=== PATIENT | female | born 1940 | race Caucasian/White ===

== ENCOUNTER → 2016-08-20 | Outpatient (CLI) | payer BC ==
[~2016-08-20] MED LIST: ATEN100T PO; GLIP-199 PO; LOSA1TAB PO; METF1000 PO; PREDPOW63 PO
== END | disposition home or self-care (01) ==
LOC: C.LABBC 10:49
PROVIDERS: ATTEND Internal Medicine Rheumatology
DX: M35.3 Polymyalgia rheumatica (principal); Z51.81 Encounter for therapeutic drug level monitoring; Z79.52 Long term (current) use of systemic steroids

== ENCOUNTER → 2016-08-24 | Outpatient (CLI) | payer BC ==
[2016-08-24 13:15] LABS: BASO % 0.2 %; BASO ABS # 0.03 K/uL (0-0.2); COMPLETE YES; EOS % 1.1 %; HEMATOCRIT 39.4 % (37-47); IG% 0.5 %; LYMPH % 12.6 %; LYMPH ABS # 1.88 K/uL (1.2-3.4); MEAN CELL VOLUME 83.8 fL (80-100); MEAN CORPUSCULAR HEMOGLOBIN 26.8 pg (25-34); MEAN PLATELET VOLUME 10.6 fL (7.4-10.4); MONO % 7.1 %; NEUT % 78.5 %; PLATELET COUNT 281 K/uL (130-400); WHITE BLOOD COUNT 14.98 K/uL (4.8-10.8)
[2016-08-24 13:25] LABS: ALT/SGPT 13 U/L (12-78)
[2016-08-24 13:28] LABS: ALKALINE PHOSPHATASE 82 U/L (45-117); AST/SGOT 14 U/L (15-37)
== END | disposition home or self-care (01) ==
LOC: C.LAB1850 11:36
PROVIDERS: ATTEND Internal Medicine Rheumatology
DX: R70.0 Elevated erythrocyte sedimentation rate (principal)

== ENCOUNTER → 2016-10-11 | Outpatient (CLI) | payer BC ==
[2016-10-11 11:27] LABS: BASO % 0.4 %; BASO ABS # 0.04 K/uL (0-0.2); COMPLETE YES; EOS % 2.7 %; HEMATOCRIT 41.4 % (37-47); IG% 0.3 %; LYMPH % 34.9 %; LYMPH ABS # 3.73 K/uL (1.2-3.4); MEAN CELL VOLUME 84.7 fL (80-100); MEAN CORPUSCULAR HEMOGLOBIN 26.8 pg (25-34); MEAN CORPUSCULAR HGB CONC 31.6 g/dl (32-36); MEAN PLATELET VOLUME 10.1 fL (7.4-10.4); MONO % 6.1 %; NEUT % 55.6 %; PLATELET COUNT 274 K/uL (130-400); RED BLOOD COUNT 4.89 M/uL (4.2-5.4); WHITE BLOOD COUNT 10.68 K/uL (4.8-10.8)
[2016-10-11 11:42] LABS: ALT/SGPT 19 U/L (12-78); AST/SGOT 12 U/L (15-37); CREATININE 0.96 mg/dl (0.60-1.20)
[2016-10-11 11:44] LABS: ALKALINE PHOSPHATASE 81 U/L (45-117)
== END | disposition home or self-care (01) ==
LOC: C.LAB1850 10:21
PROVIDERS: ATTEND Internal Medicine Rheumatology
DX: Z79.52 Long term (current) use of systemic steroids (principal)

== ENCOUNTER → 2016-12-03 | Outpatient (CLI) | payer BC | END | disposition home or self-care (01) | LOC: C.LAB1850 11:05 | PROVIDERS: ATTEND Internal Medicine Rheumatology | DX: R70.0 Elevated erythrocyte sedimentation rate (principal); M35.3 Polymyalgia rheumatica; Z51.81 Encounter for therapeutic drug level monitoring; Z79.52 Long term (current) use of systemic steroids ==

== ENCOUNTER → 2016-12-14 | Outpatient (CLI) | payer BC ==
[2016-12-14 16:03] LABS: ALT/SGPT 22 U/L (12-78); AST/SGOT 15 U/L (15-37); BLOOD UREA NITROGEN 20 mg/dl (7-18); BUN/CREATININE RATIO 22.2 (10-20); CALCIUM 9.2 mg/dl (8.5-10.1); CARBON DIOXIDE 30 mmol/L (21-32); CHLORIDE 105 mmol/L (98-107); GLUCOSE 174 mg/dl (70-99); POTASSIUM 4.2 mmol/L (3.5-5.1); SODIUM 141 mmol/L (136-145); URIC ACID 4.5 mg/dl (2.6-7.2)
[2016-12-14 16:06] LABS: ALB/GLOB RATIO 0.8 (0.9-2); ALKALINE PHOSPHATASE 86 U/L (45-117)
[2016-12-14 16:17] LABS: RATIO 12.7 mcg/mg (0-30.0)
[2016-12-15 07:29] LABS: ESTIMATED AVERAGE GLUCOSE 212 mg/dl; HA1C FLAG Normal (Normal)
== END | disposition home or self-care (01) ==
LOC: C.LAB1850 14:25
PROVIDERS: ATTEND Internal Medicine
DX: E11.65 Type 2 diabetes mellitus with hyperglycemia (principal); E53.8 Deficiency of other specified B group vitamins; M19.90 Unspecified osteoarthritis, unspecified site

== ENCOUNTER → 2016-12-18 | Outpatient (CLI) | payer BC ==
--- NOTE | 2016-12-18 15:31 | DIAGNOSTIC IMAGING REPORT ---
LEFT HAND MIN 3 VIEWS ROUTINE CLINICAL HISTORY: M79.643 Pain of handR70.0 ESR prnngbM70.3 Polymyalgia rheumatica pain COMPARISON: None. DISCUSSION: Moderate generalized degenerative change throughout. Mild periarticular osteopenia. Several marginal erosions. There is no evidence for soft tissue swelling. IMPRESSION: Findings suggesting rheumatoid change. Electronically signed by: Jacky Tomas M.D. 12/18/2016 3:30 PM Dictated Date/Time: 12/18/2016 3:28 PM
[2016-12-18 17:38] LABS: C-REACTIVE PROTEIN 1.01 mg/dl (0-0.29); RHEUMATOID FACTOR < 10.0 U/mL (0-15)
== END | disposition home or self-care (01) ==
LOC: C.RAD1850 15:07
PROVIDERS: ATTEND Internal Medicine Rheumatology
DX: M35.3 Polymyalgia rheumatica (principal); M79.643 Pain in unspecified hand; R70.0 Elevated erythrocyte sedimentation rate; Z79.52 Long term (current) use of systemic steroids

== ENCOUNTER → 2017-07-22 | Outpatient (CLI) | payer BC ==
[2017-07-22 14:41] LABS: BASO % 0.3 %; BASO ABS # 0.03 K/uL (0-0.2); COMPLETE YES; EOS % 2.8 %; HEMATOCRIT 42.6 % (37-47); IG% 0.2 %; LYMPH ABS # 2.55 K/uL (1.2-3.4); MEAN CELL VOLUME 85.5 fL (80-100); MEAN CORPUSCULAR HEMOGLOBIN 27.3 pg (25-34); MEAN CORPUSCULAR HGB CONC 31.9 g/dl (32-36); MEAN PLATELET VOLUME 10.2 fL (7.4-10.4); MONO % 5.5 %; NEUT % 67.2 %; PLATELET COUNT 280 K/uL (130-400); RED BLOOD COUNT 4.98 M/uL (4.2-5.4); WHITE BLOOD COUNT 10.64 K/uL (4.8-10.8)
[2017-07-22 14:46] LABS: URINE APPEARANCE CLEAR (CLEAR); URINE BILIRUBIN NEG (NEG); URINE COLOR YELLOW; URINE EPITHELIAL CELL AUTO >30 /lpf (0-5); URINE NITRITE NEG (NEG); URINE SPECIFIC GRAVITY 1.024 (1.000-1.030); UROBILINOGEN NEG (NEG)
[2017-07-22 14:51] LABS: MANUAL MICROSCOPIC REQUIRED? NO; REVIEW REQ? NO
[2017-07-22 15:06] LABS: ESTIMATED AVERAGE GLUCOSE 212 mg/dl; HA1C FLAG Normal (Normal)
[2017-07-22 15:10] LABS: ALT/SGPT 21 U/L (12-78); BLOOD UREA NITROGEN 19 mg/dl (7-18); BUN/CREATININE RATIO 21.1 (10-20); CARBON DIOXIDE 26 mmol/L (21-32); CHLORIDE 105 mmol/L (98-107); CHOLESTEROL 205 mg/dl (0-200); CREATININE 0.92 mg/dl (0.60-1.20); GLUCOSE 161 mg/dl (70-99); POTASSIUM 4.1 mmol/L (3.5-5.1); SODIUM 138 mmol/L (136-145); TRIGLYCERIDES 110 mg/dl (0-150); VERY LOW DENSITY LIPOPROT CALC 22 mg/dl
[2017-07-22 15:11] LABS: RATIO 19.1 mcg/mg (0-30.0)
[2017-07-22 15:13] LABS: ALB/GLOB RATIO 0.7 (0.9-2); ALKALINE PHOSPHATASE 94 U/L (45-117); AST/SGOT 17 U/L (15-37); CHOLESTEROL/HDL RATIO 3.5; HDL CHOLESTEROL 59 mg/dl; LDL CHOLESTEROL CALCULATED 124 mg/dl
== END | disposition home or self-care (01) ==
LOC: C.LAB1850 13:18
PROVIDERS: ATTEND Internal Medicine
DX: Z51.81 Encounter for therapeutic drug level monitoring (principal); E11.65 Type 2 diabetes mellitus with hyperglycemia; Z79.52 Long term (current) use of systemic steroids; Z79.899 Other long term (current) drug therapy; E53.8 Deficiency of other specified B group vitamins

== ENCOUNTER → 2017-09-24 | Outpatient (CLI) | payer BC ==
--- NOTE | 2017-09-24 15:34 | DIAGNOSTIC IMAGING REPORT ---
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 Mild pulmonary vascular congestion without overt pulmonary edema. Atherosclerosis of the aorta. There is no pneumothorax, or pleural effusion. Patchy subsegmental bibasilar opacities are noted. Calcifications of the right upper abdomen suggest cholelithiasis. Acute mildly displaced fracture involves the lateral aspects of the right sixth and seventh ribs with probable acute nondisplaced fracture involving the anterolateral fifth rib. IMPRESSION: 1. Acute mildly displaced fractures involve the lateral aspects of the right sixth and seventh ribs with probable acute nondisplaced fracture involving the anterolateral right fifth rib. 2. Cardiomegaly with mild pulmonary vascular congestion. No pneumothorax. 3. Subsegmental bibasilar opacities suggest atelectasis. 4. Calcifications of the right upper abdomen suggest cholelithiasis. The above report was generated using voice recognition software. It may contain grammatical, syntax or spelling errors. Electronically signed by: Jc Simpson M.D. 09/24/2017 3:33 PM Dictated Date/Time: 09/24/2017 3:28 PM
== END | disposition home or self-care (01) ==
LOC: C.RAD1850 14:55
PROVIDERS: ATTEND Internal Medicine
DX: R07.81 Pleurodynia (principal)

== ENCOUNTER → 2017-09-30 | Outpatient (CLI) | payer BC ==
--- NOTE | 2017-09-30 11:41 | DIAGNOSTIC IMAGING REPORT ---
R RIBS UNILATERAL WITH PA CHEST CLINICAL HISTORY: R07.81 right rib pain COMPARISON STUDY: September 24, 2017 FINDINGS: The heart remains enlarged. There is stable interstitial thickening. Fractures involving the right fifth sixth and seventh ribs are again evident. No pneumothorax is visualized. There is no lobar consolidation IMPRESSION: 1. Fractures of the right fifth, sixth, and seventh ribs are again visualized. 2. No evidence of pneumothorax 3. Stable interstitial thickening/edema Electronically signed by: Gonzalo Darden M.D. 09/30/2017 11:40 AM Dictated Date/Time: 09/30/2017 11:37 AM
== END | disposition home or self-care (01) ==
LOC: C.RAD1850 11:11
PROVIDERS: ATTEND Internal Medicine
DX: R07.81 Pleurodynia (principal)

== ENCOUNTER → 2017-11-19 | Outpatient (CLI) | payer BC ==
[2017-11-19 12:24] LABS: BASO % 0.3 %; BASO ABS # 0.03 K/uL (0-0.2); EOS % 1.9 %; HEMATOCRIT 41.5 % (37-47); HEMOGLOBIN 13.8 g/dL (12.0-16.0); IG# 0.03 K/uL (0.00-0.02); LYMPH % 21.7 %; LYMPH ABS # 2.32 K/uL (1.2-3.4); MEAN CELL VOLUME 85.9 fL (80-100); MEAN CORPUSCULAR HEMOGLOBIN 28.6 pg (25-34); MEAN CORPUSCULAR HGB CONC 33.3 g/dl (32-36); MONO % 6.5 %; NEUT % 69.3 %; NEUT ABS # 7.42 K/uL (1.4-6.5); PLATELET COUNT 266 K/uL (130-400); RED CELL DISTRIBUTION WIDTH CV 16.9 % (11.5-14.5); RED CELL DISTRIBUTION WIDTH SD 52.6 fL (36.4-46.3)
[2017-11-19 13:56] LABS: CALCIUM 9.3 mg/dl (8.5-10.1)
[2017-11-19 14:04] LABS: ALBUMIN 3.2 gm/dl (3.4-5.0); TOTAL PROTEIN 7.5 gm/dl (6.4-8.2)
== END | disposition home or self-care (01) ==
LOC: C.LAB1850 11:17
PROVIDERS: ATTEND Internal Medicine Rheumatology
DX: R70.0 Elevated erythrocyte sedimentation rate (principal); Z79.52 Long term (current) use of systemic steroids; M06.9 Rheumatoid arthritis, unspecified; Z79.899 Other long term (current) drug therapy; M35.3 Polymyalgia rheumatica; E13.9 Other specified diabetes mellitus without complications; S22.49XA Multiple fractures of ribs, unspecified side, initial encounter for closed fracture; X58.XXXA Exposure to other specified factors, initial encounter

== ENCOUNTER → 2017-12-09 | Outpatient (CLI) | payer BC | END | disposition home or self-care (01) | LOC: C.MAMM 13:45 | PROVIDERS: ATTEND Internal Medicine Rheumatology | DX: M35.3 Polymyalgia rheumatica (principal); E13.9 Other specified diabetes mellitus without complications; M80.00XA Age-related osteoporosis with current pathological fracture, unspecified site, initial encounter for fracture; M06.9 Rheumatoid arthritis, unspecified; Z79.899 Other long term (current) drug therapy; S22.49XA Multiple fractures of ribs, unspecified side, initial encounter for closed fracture; X58.XXXA Exposure to other specified factors, initial encounter ==

== ENCOUNTER 2020-02-11 07:01 | Inpatient (IN) ==
[2020-02-11] MEDS ORDERED: ASPIRIN 81 MG CHEW ONE (07:28)
[2020-02-11] MEDS ORDERED: MIDAZOLAM HCL 1 MG/ML 2ML VIAL ONE (07:40)
[2020-02-11] MEDS ORDERED: fentaNYL citrate 100 MCG/2 ML VIAL ONE (07:40)
[2020-02-11] MEDS ORDERED: NiCARDipine HCL INJ 2.5 MG/ML 10 ML AMP ONE (07:40)
[2020-02-11] MEDS ORDERED: HEPARIN (PORCINE) 1000 UNIT/ML 10 ML (CATH LAB USE ONLY) ONE ×2 (07:40→08:56)
[2020-02-11] MEDS ORDERED: NITROGLYCERIN/D5W 100MCG/ML 20ML SYR ONE (07:41)
--- NOTE | 2020-02-11 08:00 | Pre Anesthesia Assessment ---
Date of Service February 11, 2020 Pre Sedation Assessment Vital Signs Temp Pulse Resp BP 02/11/20 07:10 98.1 F 80 20 169/82 H Cardiovascular RRR, no murmur, no edema Respiratory normal respiratory effort, lungs clear to auscultation Pre-Sedation Airway Assessment Smoking Status: Never smoker Hx Sleep Apnea: No Hx Difficult Intubation: No Short, Thick Neck: No Oral Cavity: + Dentures Mallampati Class: I ASA: ASA4 NPO Status Date of Last Intake of Fluids: 02/10/20 Date of Last Intake of Solid Food: 02/10/20 Procedure Planning Contraindications for Sedation: none Current Medications Reviewed: Yes Notes The planned sedation has been discussed with the patient. Informed Consent was obtained. I have identified the patient, determined the appropriateness of sedation and have assessed the patient immediately prior to the procedure. All medicine(s) and interventions are by my order.
--- NOTE | 2020-02-11 08:00 | History & Physical Report ---
Date of Service February 11, 2020 Assessment & Plan (1) Coronary artery disease: Proceed with planned multivessel PCI History of Present Illness Primary Care Provider: Gilbert Posadas MD Mrs. Alonso is a 79 year old female with a medical history significant for coronary artery disease status post mid LAD PCI (1999), hypertension, dyslipidemia, type 2 diabetes, history of right lower extremity DVT, polymyalgia rheumatica, chronic venous insufficiency and peripheral arterial disease. She has known multivessel CAD and was previously referred for CABG which she ultimately declined. She continues to have limiting dyspnea on exertion and presents today for planned multivessel PCI. Allergies Allergy/AdvReac Type Severity Reaction Status Date / Time enalapril AdvReac Intermediate Cough Verified 02/08/20 08:02 Home Medications Home Medications Medication Instructions Recorded Confirmed Type aspirin 81 mg tablet,delayed 81 mg PO QAM #30 tab 02/20/19 02/11/20 History release cyanocobalamin (vitamin B-12) 1,000 mcg SL DAILY #30 tab 02/20/19 02/11/20 History 1,000 mcg sublingual tablet ferrous gluconate 325 mg (37 mg 325 mg PO Q OTHER DAY tab 03/18/19 02/11/20 History iron) tablet methotrexate sodium 2.5 mg tablet 12.5 mg PO WK tab 06/04/19 02/11/20 History metoprolol succinate 100 mg 100 mg PO BID #180 tab 06/04/19 02/11/20 Rx tablet,extended release 24 hr blood sugar diagnostic #100 ea 07/31/19 02/01/20 Rx blood-glucose meter #1 ea 07/31/19 02/01/20 Rx lancets 33 gauge #100 ea 07/31/19 02/01/20 Rx losartan 25 mg tablet 25 mg PO QAM tab 08/27/19 02/11/20 History folic acid 1 mg PO QAM 09/01/19 02/11/20 History atorvastatin 40 mg tablet 40 mg PO QPM #90 tab 10/14/19 02/11/20 Rx furosemide 40 mg tablet 40 mg PO QAM #90 tab 11/25/19 02/11/20 Rx digoxin 125 mcg (0.125 mg) tablet 125 mcg PO Q48H #30 tab 02/01/20 02/11/20 Rx apixaban 2.5 mg tablet 2.5 mg PO BID #60 tab 02/04/20 02/11/20 Rx Past Med/Surg History Medical History (Updated 02/08/20 @ 08:14 by Gilbert Posadas MD) Afib ON ELIQUIS - FOLLOWS W/ DR. RAMSEY Age related osteoporosis (Acute) Aortic atherosclerosis (Acute) Coronary artery disease (Acute) Card cath- 09/04/2019- severe multilevel coronary disease- 90 % mid LAD, 50 % Prox. LAD in stent stenosis, 70-80 % mid circumflex OM2, 90 % distal RCA Diabetes mellitus, type 2 NIDDM Diabetic peripheral neuropathy (Acute) History of myocardial infarction 1999 [place] (hard of hearing) Hyperlipidemia (Acute) Hypertension (Acute) Murmur (Acute) Nonproliferative diabetic retinopathy (Acute) Peripheral vascular disease (Chronic) Polymyalgia rheumatica (Acute) Rheumatoid arthritis (Acute) Vitamin B12 deficiency (Acute) Surgical History History of cardiac catheterization 1999 - [facility] - 1 STENT History of colonoscopy History of heart artery stent 1 STENT History of total abdominal hysterectomy and bilateral salpingo-oophorectomy Hx of tonsillectomy S/P breast biopsy Social History Preferred Language: Comoran Communication Ability: Effective Visual Impairment: No Limitations Hearing Ability: Normal Travel Registered Nurse Icu Required: No Beliefs That Will Affect Care: Yarsanism Yarsanism Beliefs: Jewish marital status: Current Living Situation: Spouse Current Living Situation Comment: LIVES WITH (HE HAS DEMENTIA) current occupational status: retired 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 [employer] Other Information That Helps Us Care for You: No Feels Safe at Home: Yes Safety Concerns: Feels Safe At This Time Smoking Status: Never smoker Second Hand Exposure: No (OCCASIONAL EXPOSURE) ; Hx Alcohol Use: Yes Alcohol type: wine Hx Substance Use: No Dental Care, Regularly: Yes Physical Activity Frequency: Does not Exercise Seatbelt Use: always Sunscreen Use: Yes Review of Systems All systems reviewed & are unremarkable except as noted in HPI & below Physical Exam Constitutional: WD/WN, vitals as above Eyes: PERRL, conjunctivae normal, anicteric sclerae Respiratory: normal respiratory effort, lungs clear to auscultation Cardiovascular: Rate/Rhythm: + irregularly irregular Heart Sounds: no murmur Vessels: radial pulses present Gastrointestinal (Abdomen): Inspection/Auscultation: normal bowel sounds Percussion/Palpation: abdomen soft; abdomen nontender Skin: no rashes, warm and dry Psychiatric: A+Ox3, euthymic affect ASA Classification ASA ASA4 Results & Data Vital Signs (Past 12 Hours) Vital Signs Temp Pulse Resp BP 02/11/20 07:10 98.1 F 80 20 169/82 H
[2020-02-11] MEDS ORDERED: ATROPINE SULFATE 0.1 MG/ML 10ML SYR IV ONE (09:24)
[2020-02-11] MEDS ORDERED: CLOPIDOGREL BISULFATE 300 MG TAB ONE (09:41)
--- NOTE | 2020-02-11 09:44 | Post Anesthesia Assessment ---
Date of Service February 11, 2020 Post Sedation Assessment Vital Signs Temp Pulse Resp BP 02/11/20 07:10 98.1 F 80 20 169/82 H Recovery Score Activity: Moves 4 extremities Respiration: Deep Breath/Cough Circulation: +/-20% PreAnes Value Consciousness: Fully Awake Oxygen Saturation: O2 needed for >90% Discharge Sedation Level of Care: Fast Track Phase II Post Sedation Plan On clinical assessment, the patient appears to have tolerated the sedation without complications. Patient is recovering as anticipated. Patient will continue to be monitored by nursing and may be discharged when sedation discharge criteria are met per below protocol. Upon Completions of procedure up to 15 minutes continue every 5 minute vital signs and the P.A.R. score; then discharge to a Phase I or Fast Track to Phase II per the following guidelines: * Discharge Patient to appropriate Phase II area if PAR is 8 or greater or return to pre- procedure baseline. The post - procedure orders will be as directed. * If PAR score is less than 8 or not return to pre-procedure baseline then patient will follow Phase I monitoring till PAR is reached for Phase II. The Phase I may be done in procedure room or may call to secure a Phase I area. * If naloxone or flumazenil are used for reversal, hold in Phase I for continued monitoring from when last reversal dose was given for a minimum of 60 minutes or longer pending the nurse and/or physician discretion of patient condition before discharge to Phase II. Please call the Sedation Physician to re-evaluate and complete post-note for discharge to Phase II area. Do NOT discharge from procedure sedation or Phase 1 until post- sedation evaluation note is complete by procedure /sedation MD Sedation Discharge Instructions to be given to the patient at discharge to home.
[2020-02-11] MEDS ORDERED: NITROGLYCERIN SL 0.4 MG/TAB TAB SL PRN (10:07)
[2020-02-11] MEDS ORDERED: ONDANSETRON INJ 2 MG/ML 2 ML VIAL IV PRN (10:07)
--- NOTE | 2020-02-11 10:07 | Cardiac Catheterization ---
ACC Data: Home Support Worker Cardiac Status Clinical evaluation leading to the procedure CAD Presenation: Stable angina Anginal Classification: CCS III Heart Failure: NYHA Class: CCS II Cardiogenic Shock within 24 Hours: No Cardiac Arrest within 24 Hours: No Imaging Studies Past 6 Months: Yes Stress Studies Past 6 Months: No Diagnostic Physicians Name: Tk Torres MD Status: Elective Closure Device Percutaneous Entry Location: Radial Closure Device: Radial Band Recommendations: PCI without planned CABG PCI Indication: Angina despite med therapy and Stable Angina Lesion Segment Name: Proximal/mid LAD Culprit Artery: Yes Stenosis Prior to Rx (%): 90 Chronic Total Occlusion: No IVUS: No FFR: No Pre-Procedure LEI Flow: 3 Previously Treated Lesion: No Lesion Complexity: High/C Lesion Length (mm): 25 Thrombus Present: No Bifurcation Lesion: No Guidewire Across Lesion: Stenosis Post-Procedure (%): 0 Post-Procedure LEI Flow: 3 Devices(s) Deployed: Yes Yes Lesion #2 Segment Name: Mid circumflex Culprit Artery: Yes Stenosis Prior to Rx (%): 95 Chronic Total Occlusion: No IVUS: No FFR: No Pre-Procedure LEI Flow: 3 Previously Treated Lesion: No Lesion Complexity: Non-High/Non-C Lesion Length (mm): 18 Thrombus Present: No Bifurcation Lesion: No Guidewire Across Lesion: Yes Stenosis Post-Procedure (%): 0 Post-Procedure LEI Flow: 3 Devices(s) Deployed: Yes Intraprocedure Events Significant Disection: No Perforation: No Cardiac Cath Procedure Full Procedure Date February 11, 2020 Pre-Procedure Diagnosis Pre-Procedure Diagnosis: Angina and CAD AUC Score AUC Score: 7 Post-Procedure Diagnosis Post-Procedure Diagnosis: Severe CAD and Normal Intracardiac Pressures Procedure(s) Performed Procedure(s) Performed: Coronary Angiography, Left Heart Cath, Drug Eluting Stent and Procedure (Bilateral Lower extremity angiogram) Computer Forwarding System Markup Clerk Tk Torres MD Vat Washer(s) Shiv Estimated Blood Loss Estimated Blood Loss: 15 Medication(s) Medication(s): Clopidogrel, Fentanyl, Heparin, Lidocaine 1%, Nicardipine, Nitroglycerin and Versed Summary of Findings Indication: Severe three-vessel coronary artery disease, life limiting angina Access: 6 Fr slender right radial artery Catheters: EBU 3.5 guide, JR4 guide, Omega Findings: LM -medium caliber, 20 to 30% ostial stenosis (intermittent waveform dampening with cath engagement) LAD -medium caliber vessel, proximal stent with 70% in-stent restenosis, mid segment with 90% stenosis after takeoff of second diagonal. Small distal LAD with luminal irregularities and tapers to apex. Circumflex -medium caliber, diffuse severe mid segment disease up to 95% extending into OM 2. Distal OM 2 with 50-60% stenosis RCA -dominant, large caliber vessel, 95% distal disease. Small to medium caliber right PDA with luminal irregularities. LVEDP -12 -- PCI -- Antithrombotic therapy: Heparin, clopidogrel Procedure: Left main cannulated with EBU 3.5 guide Log Tumbler 50 wire passed across LAD lesions into distal vessel Mid LAD and proximal LAD lesions predilated with 2.0 compliant balloon Dilated mid LAD lesion stented with 2.25 x 26 mm Leroy drug-eluting stent placed just after takeoff of second diagonal Stent postdilated with stent balloon Proximal in-stent restenosis restented with 2.75 x 18 mm Leroy across whole length of prior stent Proximal stent post-dilated with 3.0 noncompliant balloon IC vasodilators administered for spasm Post procedure LEI 3 flow, stents well expanded with minimal residual stenosis and no apparent cardiac complications. Log Tumbler 50 wire removed from LAD and placed across mid circumflex stenosis in the distal OM 2 Mid circumflex/proximal OM 2 dilated with 2.0 balloon Proximal circumflex into OM 2 stented with 2.25 x 22 mm Leroy drug-eluting stent Stent postdilated with 3.0 NC balloon Post stent LEI 3 flow, stent well expanded with minimal residual stenosis and no apparent cardiac complications. EBU guide removed and JR4 guide used to cannulate RCA Log Tumbler 50 wire placed into distal right PLB Distal RCA stenosis dilated with 2.0 balloon Distal RCA stented with 2.75 x 12 mm [place] drug-eluting stent While placing stent patient developed brief bradycardia down to the 20s to 30s requiring atropine. Stent postdilated with 3.0 NC balloon Post stent LEI 3 flow, stent well expanded with minimal residual stenosis and no apparent cardiac complications. Arterial Closure: TR band Summary: 1. Severe multivessel coronary artery disease -70% proximal LAD in-stent restenosis, 90% diffuse mid LAD disease Diffuse disease up to 95% mid circumflex/proximal OM 2 95% focal distal RCA stenosis 2. Normal intracardiac filling pressure 3. Successful PCI of proximal LAD in-stent restenosis with 2.75 x 18 mm [place] drug-eluting stent (postdilated with 3.0 NC). 4. Successful PCI of mid LAD with 2.25 x 26 mm [place] drug-eluting stent 5. Successful PCI of mid circumflex into OM 2 with 2.25 x 22 mm Leroy drug- eluting stent (postdilated with 3.0 NC). 6. Successful PCI of distal RCA with 2.75 x 12 mm [place] drug-eluting stent (postdilated with 3.0 NC). Recommendations: To PCU for continued monitoring Aggressive hydration for CKD Loaded with clopidogrel 600 mg in Home Support Worker Continue triple therapy with aspirin, clopidogrel and Eliquis while hospitalized. On discharge dual therapy with clopidogrel and Eliquis for at least 1 year Continue statin, and ASCVD risk factor modification Consult cardiac Rehab Hemodynamics Rest Ao:: 116/36/59 Final Ao: 116/51/77 LV: 110/12 Recommendations Recommendations: PCI without planned CABG Specimens Specimens: None Radiation Exposure (mGy) 3311 Contrast (mls) 110 Fluids (cc crystalloids) Fluids (cc crystalloids): 175 Drains Drains: None Anesthesia Moderate Procedural Complication(s) None Disposition PCU I attest to the content of the Intraoperative Record and any orders documented therein. Any exceptions are noted below. [facility] Card Cath Procedure Codes Cardiac Catheterization Procedure 1: Cardiovascular Cath Procedures: 09648 Coronaries and LHC (+/-LV) Moderate Sedation Procedure 1: Sedation/Anesthesia: 86618 Mod Sedation by the same physician;Init15 Min Child Age 5 & Up Procedure 2: Sedation/Anesthesia: 04146 Mod Sedation by the same physician; Ea [id number] Minutes Stenting Procedure 1: Cardiovascular Stent Procedures: 03853 Perc transcatheter placement of intracoronary stent(s), with ang Procedure 2: Cardiovascular Stent Procedures: 01209 Ea addl branch of a major coronary artery Procedure 3: Cardiovascular Stent Procedures: 08415 Ea addl branch of a major coronary artery PG Care Time/CCT Total # of Minutes Spent Total Time Spent with Patient: Total time spent is greater than 50% in coordination of care (as documented) at patient's floor/unit and/or counseling patient:
[2020-02-11] MEDS ORDERED: CARBOHYDRATES FOR HYPOGLYCEMIA PO PRN (10:11)
[2020-02-11] MEDS ORDERED: GLUCOSE 40% GEL 15 GM TUBE PO PRN (10:11)
[2020-02-11] MEDS ORDERED: GLUCOSE 10 TABS/TUBE PO PRN (10:11)
[2020-02-11] MEDS ORDERED: GLUCAGON FOR INJ 1 MG VIAL SQ PRN (10:11)
[2020-02-11] MEDS ORDERED: DEXTROSE 50% 50 ML SYRINGE IV PRN (10:11)
[2020-02-11] MEDS ORDERED: SODIUM CHLORIDE 0.9% 1000ML 1,000 ML IV SCH (10:15)
--- NOTE | 2020-02-11 12:41 | Electrocardiogram Report ---
Test Reason : Blood Pressure : / mmHG Vent. Rate : 067 BPM Atrial Rate : 234 BPM P-R Int : 000 ms QRS Dur : 102 ms QT Int : 426 ms P-R-T Axes : 000 -30 108 degrees QTc Int : 450 ms Atrial fibrillation Left axis deviation Possible Old Anterior infarct (cited on or before 12-OCT-2015) Lateral leads Abnormal ECG When compared with ECG of 12-OCT-2015 10:46, Atrial fibrillation has replaced Sinus rhythm T wave amplitude has decreased in Inferior leads T wave amplitude has decreased in Anterolateral leads Confirmed by Ben Stone ([id number]) on 02/11/2020 12:40:55 PM Referred By: Radhika Harper Confirmed By:Ben Stnoe
[2020-02-11 14:39] LABS: Basophils # (auto) 0.01 K/uL (0-0.2); Basophils % (auto) 0.1 %; Eosinophils # (auto) 0.11 K/uL (0-0.5); Eosinophils % (auto) 1.6 %; Hematocrit (blood only) 30.4 % (37-47); Hemoglobin 9.9 g/dL (12.0-16.0); Immature Granulocytes # (auto) 0.01 K/uL (0.00-0.02); Immature Granulocytes % (auto) 0.1 %; Lymphocytes # (auto) 2.01 K/uL (1.2-3.4); Lymphocytes % (auto) 28.9 %; Mean Corpuscular Hemoglobin 32.6 pg (25-34); Mean Corpuscular Hgb Conc 32.6 g/dL (32-36); Mean Platelet Volume 10.1 fL (7.4-10.4); Monocytes # (auto) 0.26 K/uL (0.11-0.59); Monocytes % (auto) 3.7 %; Neutrophils # (auto) 4.56 K/uL (1.4-6.5); Neutrophils % (auto) 65.6 %; Platelet Count 179 K/uL (130-400); RDW Coefficient of Variation 17.9 % (11.5-14.5); RDW Standard Deviation 63.7 fL (36.4-46.3); Red Blood Count 3.04 M/uL (4.2-5.4); White Blood Count 6.96 K/uL (4.8-10.8)
[2020-02-11 15:01] LABS: BUN Creatinine Ratio 13.6 (10-20); Calcium 8.1 mg/dl (8.5-10.1); Creatinine Clr Calc Pharmacy 27.8 ml/min; Est GFR (African American) 40.6
[2020-02-11] MEDS: INSULIN ASPART 100 UNITS/ML 3 ML PEN SC SCH ×2 (16:48→21:11)
[2020-02-11] MEDS: METOPROLOL SUCC 50MG EXT REL TAB PO SCH (20:33)
[2020-02-11] MEDS ORDERED: ATORVASTATIN 40 MG TAB PO SCH (21:00)
[2020-02-12] MEDS: INSULIN ASPART 100 UNITS/ML 3 ML PEN SC SCH ×2 (08:08→11:48)
[2020-02-12] MEDS: METOPROLOL SUCC 50MG EXT REL TAB PO SCH (08:09)
[2020-02-12] MEDS ORDERED: CLOPIDOGREL BISULFATE 75 MG TAB PO SCH (09:00)
[2020-02-12] MEDS ORDERED: FERROUS GLUCONATE 324 MG TAB PO SCH (09:00)
[2020-02-12] MEDS ORDERED: FOLIC ACID 1 MG TAB PO SCH (09:00)
[2020-02-12] MEDS ORDERED: APIXABAN 2.5 MG TAB PO SCH (09:00)
[2020-02-12] MEDS ORDERED: LOSARTAN POTASSIUM 25 MG TAB PO SCH (09:00)
[2020-02-12] MEDS ORDERED: ASPIRIN 81 MG ECTAB PO SCH (09:00)
[2020-02-12] MEDS ORDERED: CYANOCOBALAMIN 500 MCG TABLET (VITAMIN B-12) PO SCH (09:00)
[2020-02-12 09:55] LABS: Basophils # (auto) 0.03 K/uL (0-0.2); Basophils % (auto) 0.5 %; Eosinophils # (auto) 0.15 K/uL (0-0.5); Eosinophils % (auto) 2.5 %; Hematocrit (blood only) 28.6 % (37-47); Hemoglobin 9.6 g/dL (12.0-16.0); Immature Granulocytes # (auto) 0.03 K/uL (0.00-0.02); Immature Granulocytes % (auto) 0.5 %; Lymphocytes # (auto) 1.24 K/uL (1.2-3.4); Lymphocytes % (auto) 20.7 %; Mean Corpuscular Hgb Conc 33.6 g/dL (32-36); Mean Corpuscular Volume 101.4 fL (80-100); Mean Platelet Volume 10.5 fL (7.4-10.4); Monocytes # (auto) 0.48 K/uL (0.11-0.59); Neutrophils # (auto) 4.05 K/uL (1.4-6.5); Neutrophils % (auto) 67.8 %; Nucleated RBC # (auto) 0.07 K/uL (0-0); Nucleated RBC % (auto) 1.2 %; Platelet Count 154 K/uL (130-400); RDW Coefficient of Variation 17.8 % (11.5-14.5); Red Blood Count 2.82 M/uL (4.2-5.4); White Blood Count 5.98 K/uL (4.8-10.8)
[2020-02-12 10:28] LABS: BUN Creatinine Ratio 13.8 (10-20); Calcium 8.2 mg/dl (8.5-10.1); Creatinine Clr Calc Pharmacy 30.9 ml/min; Est GFR (Non-African American) 39.7; Potassium 3.6 mmol/L (3.5-5.1)
--- NOTE | 2020-02-12 11:06 | Discharge Summary ---
Date of Service February 12, 2020 Admission HPI Per Admitting Provider Mrs. Alonso is a 79 year old female with a medical history significant for coronary artery disease status post mid LAD PCI (1999), hypertension, dyslipidemia, type 2 diabetes, history of right lower extremity DVT, polymyalgia rheumatica, chronic venous insufficiency and peripheral arterial disease. She has known multivessel CAD and was previously referred for CABG which she ultimately declined. She continues to have limiting dyspnea on exertion and presents today for planned multivessel PCI. Specialty Data Cardiology Catheterization/PCI 02/11/2020: 1. Severe multivessel coronary artery disease -70% proximal LAD in-stent restenosis, 90% diffuse mid LAD disease Diffuse disease up to 95% mid circumflex/proximal OM 2 95% focal distal RCA stenosis 2. Normal intracardiac filling pressure 3. Successful PCI of proximal LAD in-stent restenosis with 2.75 x 18 mm Leroy drug-eluting stent (postdilated with 3.0 NC). 4. Successful PCI of mid LAD with 2.25 x 26 mm [place] drug-eluting stent 5. Successful PCI of mid circumflex into OM 2 with 2.25 x 22 mm Leroy drug- eluting stent (postdilated with 3.0 NC). 6. Successful PCI of distal RCA with 2.75 x 12 mm [place] drug-eluting stent (postdilated with 3.0 NC). Discharge Data Consultations 02/11/20 10:09 Consult Cardiac Rehabilitation Routine Procedures Performed Operation Date: 02/11/20 08:00 Actual Procedures s Drug Eluting Stent each ADDTL Vessel - Shahbaz Torres MD s Drug Eluting Stent SGl Vessel - Shahbaz Torres MD s Cineradiography w/Routine Exam - Shahbaz Torres MD p Cath, Left with Cors and Vent - Shahbaz Torres MD Hospital Course (1) Coronary artery disease: Patient underwent cardiac catheterization and PCI via right radial artery. Her coronary disease had progressed in her circumflex and mid LAD from August 2019. She had 2 drug-eluting stents placed to her LAD, 1 drug-eluting stent placed to her circumflex and 1 drug-eluting stent placed to her RCA. Patient tolerated procedure without complication. She was admitted for observation to telemetry. She had no recurrent chest pain. Telemetry was remarkable for persistent atrial fibrillation with periods of asymptomatic bradycardia as low as the 30s while sleeping. Post procedure renal function stable. Hemoglobin after IV fluids down to 9.9 and will repeat blood counts in 1 week. On hospital day 2 patient was feeling well. She had ecchymosis at her right radial artery access site but was otherwise neurovascularly intact. Discharge to home on clopidogrel and Eliquis. Aspirin discontinued. Will also discontinue digoxin in the setting of bradycardia. Follow-up with cardiology in 2 weeks. In the setting of lower extremity wound may need to discuss possible SFA intervention in the future. Discharge Instructions Home Medications cyanocobalamin (vitamin B-12) 1,000 mcg sublingual tablet 1,000 mcg SL DAILY #30 tab 02/20/19 [History Confirmed 02/11/20] ferrous gluconate 325 mg (37 mg iron) tablet 325 mg PO Q OTHER DAY tab 03/18/19 [History Confirmed 02/11/20] methotrexate sodium 2.5 mg tablet 12.5 mg PO WK tab 06/04/19 [History Confirmed 02/11/20] metoprolol succinate 100 mg tablet,extended release 24 hr 100 mg PO BID #180 tab 06/04/19 [Rx Confirmed 02/11/20] blood sugar diagnostic #100 ea 07/31/19 [Rx Confirmed 02/01/20] blood-glucose meter #1 ea 07/31/19 [Rx Confirmed 02/01/20] lancets 33 gauge #100 ea 07/31/19 [Rx Confirmed 02/01/20] losartan 25 mg tablet 25 mg PO QAM tab 08/27/19 [History Confirmed 02/11/20] folic acid 1 mg PO QAM 09/01/19 [History Confirmed 02/11/20] atorvastatin 40 mg tablet 40 mg PO QPM #90 tab 10/14/19 [Rx Confirmed 02/11/20] furosemide 40 mg tablet 40 mg PO QAM #90 tab 11/25/19 [Rx Confirmed 02/11/20] apixaban 2.5 mg tablet 2.5 mg PO BID #60 tab 02/04/20 [Rx Confirmed 02/11/20] clopidogrel 75 mg PO QAM #30 tab 02/12/20 [Rx] nitroglycerin [Nitrostat] 0.4 mg SUBLINGUAL PRN PRN #30 tab 02/12/20 [Rx] Coding Level of Care Code 42721 OBS Care - Discharge Diagnoses Coronary artery disease I25.10
== END 2020-02-12 12:48 | disposition home or self-care (01) | DRG 246 ==
LOC: CC 07:01 → 2S 08:56

== ENCOUNTER 2021-02-15 17:25 | Inpatient (IN) ==
[2021-02-15] MEDS ORDERED: dilTIAZem HCl 5 MG/ML 5 ML VIAL IV ONE (17:46)
[2021-02-15] MEDS ORDERED: METOPROLOL TARTRATE 1 MG/ML VIAL IV ONE (17:47)
[2021-02-15] MEDS ORDERED: METOPROLOL TARTRATE 1 MG/ML VIAL IV STA ×2 (17:48→18:36)
[2021-02-15] MEDS ORDERED: CEFEPIME 2,000 MG/20 ML VIAL IV STA (17:48)
--- NOTE | 2021-02-15 17:57 | Emergency Department Note ---
Impression & Plan Acute respiratory distress, Hypoxia, CHF (congestive heart failure), Somnolence, Atrial fibrillation with rapid ventricular response ED Provider Note NAME: FARA NATHAN AGE: 80 SEX: F : 1940 ARRIVES VIA: Ambulance INFORMANT: [Patient][ems, nurses] ED PROVIDER(S): [Deangelo Lugo MD] CHIEF COMPLAINT: Short of breath, altered mentation HISTORY OF PRESENT ILLNESS: Patient is an 80-year-old female who reportedly went for ultrasound today for pedal edema. She later began with shortness of breath and was confused. Her O2 saturation dropped. EMS was summoned. In route, she was placed on oxygen. She was noted to be hypoxic prior to O2 supplementation and she was thought to be cyanotic appearing. The patient currently denies any complaints but, I believe she is an unreliable historian. As per her notes, she is a full code. No further history obtainable given her mental status change. REVIEW OF SYSTEMS: See HPI for pertinent positives and negatives. A total of ten systems were reviewed and were otherwise negative. PMHx/PSHx: See Below SOCIAL HISTORY: See Below. PHYSICAL EXAM: GENERAL: Patient is in moderate respiratory distress. HEENT: No acute trauma, normocephalic atraumatic, mucous membranes moist, no nasal congestion, no scleral icterus. Pupils equal and reactive to light. NECK: No stridor, no adenopathy, no meningismus, trachea is midline. LUNGS: Clear to auscultation bilaterally when listening anterior, no wheeze, no rhonchi, breath sounds equal. HEART: Tachycardic, irregular rhythm, no obvious murmur. ABDOMEN: Soft, nontender, bowel sounds positive, no hernias, no peritonitis. EXTREMITIES: Bilateral pedal edema with some cyanosis of her toes. She has wraps on both legs. Both feet are warm to the touch. NEUROLOGIC: Sleepy, seems somewhat confused. Does follow simple commands such as raising her arms. No speech slur. SKIN: No rash, no jaundice, no diaphoresis. DIFFERENTIAL DIAGNOSIS: Reactive airway disease, pneumonia, pneumothorax, COPD, CHF, infection, sepsis, dysrhythmia, A. fib or a flutter, intracranial bleeding, stroke, cardiac ischemia, pulmonary embolism, bronchitis, musculoskeletal, gastrointestinal, as well as other pathologies. EMERGENCY DEPARTMENT COURSE/PROCEDURES: ECG: Indication was shortness of breath. The ECG shows atrial fibrillation with a rate of 141. There are inverted T waves in the lateral leads. There is no ST elevation, no PVCs. No old ECGs to use for comparison. Continuous Cardiac Monitoring: An order was placed for continuous cardiac monitoring. The monitor shows a rate of 126 with atrial fibrillation. Critical Care Note: I have personally spent 65 minutes of critical care time in the direct management of this patient. This includes bedside care, interpretation of diagnostic studies, and testing, discussion with consultants, patient, and family members, and other required patient management activities. This 65 minutes is in excess of all separately billable procedures. MEDICAL DECISION MAKING: There is a very mild leukocytosis which would be consistent with infection or just the stress of her presentation. There is a normal hemoglobin and platelet count. No concerning coagulopathy. ABG did not show any acidosis or significant CO2 retention. No hypoxia. Renal panel testing shows some renal insufficiency but this is baseline when looking back at previous testing. Lactic acid level is not elevated making sepsis less likely. There were a few subtle liver enzyme elevations. BNP was quite elevated consistent with fluid overload. Covid testing was negative. ECG shows atrial fibrillation with a rapid rate. No ST elevation. Cardiac enzyme testing x1 is not consistent with acute cardiac injury. Chest x-ray shows pleural effusions and CHF. The patient was aggressively managed. She was immediately placed on BiPAP. She was given nitroglycerin paste 2 inches. She was given IV Lasix, 80 mg. A Santana catheter was placed. She received a total of 10 mg of IV metoprolol to slow the heart rate. She was given IV cefepime as empiric antibiotic coverage. The patient presents with shortness of breath. She was hypoxic. She appears to be in heart failure. She is doing much better since the treatment administered above. Her mental status has improved. I do think she requires a hospital stay though. I spoke to the patient, I talked to case management. The on-call hospitalist was consulted. Past Med/Surg History Medical History Acute kidney injury Afib ON ELIQUIS - FOLLOWS W/ DR. RAMSEY Age related osteoporosis Aortic atherosclerosis Cellulitis of left lower extremity Coronary artery disease Card cath- 09/04/2019- severe multilevel coronary disease- 90 % mid LAD, 50 % Prox. LAD in stent stenosis, 70-80 % mid circumflex OM2, 90 % distal RCA Creatinine elevation Deep venous thrombosis of lower extremity (02/20/12) Diabetes mellitus, type 2 NIDDM Diabetic peripheral neuropathy History of myocardial infarction 1999 [place] (hard of hearing) Hyperlipidemia Hypertension Murmur Nonproliferative diabetic retinopathy Numbness Peripheral vascular disease Polymyalgia rheumatica Renal artery stenosis, [place], bilateral Rheumatoid arthritis Secondary diabetes mellitus Traumatic wound Vitamin B12 deficiency Weight loss Surgical History (System 02/15/21 @ 17:46 by Jean Claude Mendenhall) History of cardiac catheterization 1999 - [facility] - 1 STENT History of colonoscopy History of heart artery stent 1 STENT History of total abdominal hysterectomy and bilateral salpingo-oophorectomy Hx of tonsillectomy S/P breast biopsy Family History (System 02/15/21 @ 17:46 by Jean Claude Mendenhall) Father Bone cancer Lung disease Sister Arthritis of hand Mother Hypertension Brother Hypertension Anxiety Depression Gallbladder disease Lung disease Unknown Hypertension Denies family history of Ovarian cancer Prostate cancer Myocardial infarction Breast cancer Colorectal cancer Social History Smoking Status: Never smoker Second Hand Exposure: No (OCCASIONAL EXPOSURE); Hx Alcohol Use: No Hx Substance Use: No Preferred Language: Yoruba Communication Ability: Effective Visual Impairment: No Limitations Hearing Ability: Normal Building Dismantler Required: No Beliefs That Will Affect Care: Uatsdin Uatsdin Beliefs: Temple marital status: Current Living Situation: Spouse Current Living Situation Comment: LIVES WITH (HE HAS DEMENTIA) current occupational status: retired 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 [place] Feels Safe at Home: Yes Childhood Exposure to Second-Hand Smoke: No Dental Care, Regularly: Yes Physical Activity Frequency: 3-4 Times per Week Seatbelt Use: always Sunscreen Use: Yes Assistive Devices: Glasses Allergies Allergies Allergy/AdvReac Type Severity Reaction Status Date / Time enalapril AdvReac Intermediate Cough Verified 02/15/21 17:46 Home Meds Home Medications Medication Instructions Recorded Confirmed cyanocobalamin (vitamin B-12) 1,000 mcg SL DAILY #30 tab 02/20/19 02/15/21 1,000 mcg sublingual tablet ferrous sulfate 325 mg (65 mg 325 mg PO Q OTHER DAY tab 04/28/20 02/15/21 iron) tablet acetaminophen [Tylenol Extra 500 mg PO Q4 PRN MDD 3g 02/15/21 02/15/21 Strength] acetaminophen [Tylenol Extra 500 mg PO QID 02/15/21 02/15/21 Strength] metoprolol succinate 50 mg PO HS 02/15/21 02/15/21 metoprolol succinate [Toprol XL] 100 mg PO QAM 02/15/21 02/15/21 Previous Rx's Medication Instructions Recorded blood sugar diagnostic #100 ea 07/31/19 blood-glucose meter #1 ea 07/31/19 lancets 33 gauge #100 ea 07/31/19 glipizide 5 mg tablet, extended 5 mg PO DAILY #90 tab 10/31/20 release 24 hr clopidogrel 75 mg tablet 75 mg PO QAM #90 tab 11/04/20 furosemide 40 mg tablet 40 mg PO QAM #90 tab 12/14/20 atorvastatin 40 mg tablet 40 mg PO QPM #90 tab 12/30/20 apixaban 2.5 mg tablet 2.5 mg PO BID #180 tab 01/25/21 losartan 25 mg tablet 25 mg PO QAM #90 tab 01/30/21 Results & Data (ED) Vital Signs Vital Signs - 24 hr 02/15/21 17:33 02/15/21 17:44 02/15/21 17:48 Temperature 36.4 C L Temperature Source Oral Pulse Rate 131 H 125 H Pulse Rate from SpO2 Sensor Pulse Rhythm Irregular Pulse Strength Normal Respiratory Rate 26 H Respiratory Effort / Characteristics Grunting Grunting Respiratory Depth Shallow Shallow Respiratory Pattern Tachypnea Tachypnea Blood Pressure 150/101 H 137/91 Blood Pressure Mean 117 Blood Pressure Position Sitting Pulse Oximetry 99 Oxygen Delivery Method Oxymask Oxygen Flow Rate 10 Fraction of Inspired Oxygen Sepsis Recent Fever Within 48 Hours No Sepsis New/Unexplained Change in Mental Status Yes Sepsis Action Taken by Nursing Physician Notified 02/15/21 17:50 02/15/21 17:55 02/15/21 17:56 Temperature Temperature Source Pulse Rate 130 H Pulse Rate from SpO2 Sensor 152 H Pulse Rhythm Pulse Strength Respiratory Rate 21 Respiratory Effort / Characteristics Grunting Respiratory Depth Respiratory Pattern Blood Pressure 137/91 Blood Pressure Mean 106 Blood Pressure Position Pulse Oximetry 96 Oxygen Delivery Method BiPAP Oxygen Flow Rate Fraction of Inspired Oxygen 60 Sepsis Recent Fever Within 48 Hours Sepsis New/Unexplained Change in Mental Status Sepsis Action Taken by Nursing 02/15/21 17:57 02/15/21 18:00 02/15/21 18:30 Temperature Temperature Source Pulse Rate 112 H 133 H Pulse Rate from SpO2 Sensor 144 H Pulse Rhythm Pulse Strength Respiratory Rate 22 22 Respiratory Effort / Characteristics Spontaneous Respiratory Depth Normal Respiratory Pattern Regular Tachypnea Blood Pressure 164/109 H 156/107 H Blood Pressure Mean 127 123 Blood Pressure Position Pulse Oximetry 98 94 91 Oxygen Delivery Method BiPAP Oxygen Flow Rate Fraction of Inspired Oxygen 40 Sepsis Recent Fever Within 48 Hours Sepsis New/Unexplained Change in Mental Status Sepsis Action Taken by Nursing 02/15/21 18:45 02/15/21 19:15 02/15/21 19:30 Temperature Temperature Source Pulse Rate 113 H 112 H 108 H Pulse Rate from SpO2 Sensor 152 H 118 H 114 H Pulse Rhythm Pulse Strength Respiratory Rate 24 15 16 Respiratory Effort / Characteristics Respiratory Depth Respiratory Pattern Blood Pressure 126/91 94/68 L 116/73 Blood Pressure Mean 102 76 87 Blood Pressure Position Pulse Oximetry 94 99 99 Oxygen Delivery Method BiPAP Oxygen Flow Rate Fraction of Inspired Oxygen Sepsis Recent Fever Within 48 Hours Sepsis New/Unexplained Change in Mental Status Sepsis Action Taken by Nursing 02/15/21 19:45 02/15/21 20:00 02/15/21 20:15 Temperature Temperature Source Pulse Rate 109 H 107 H 106 H Pulse Rate from SpO2 Sensor 117 H 107 H 97 H Pulse Rhythm Pulse Strength Respiratory Rate 17 22 22 Respiratory Effort / Characteristics Respiratory Depth Respiratory Pattern Blood Pressure 126/86 115/66 107/73 Blood Pressure Mean 99 82 84 Blood Pressure Position Pulse Oximetry 100 99 99 Oxygen Delivery Method Oxygen Flow Rate Fraction of Inspired Oxygen Sepsis Recent Fever Within 48 Hours Sepsis New/Unexplained Change in Mental Status Sepsis Action Taken by Nursing 02/15/21 20:30 Temperature Temperature Source Pulse Rate 92 H Pulse Rate from SpO2 Sensor 99 H Pulse Rhythm Pulse Strength Respiratory Rate 17 Respiratory Effort / Characteristics Respiratory Depth Respiratory Pattern Blood Pressure 96/58 L Blood Pressure Mean 70 Blood Pressure Position Pulse Oximetry 99 Oxygen Delivery Method Oxygen Flow Rate Fraction of Inspired Oxygen Sepsis Recent Fever Within 48 Hours Sepsis New/Unexplained Change in Mental Status Sepsis Action Taken by Jail Medications Current Medication List: was personally reviewed by me Laboratory Data Attestation: I reviewed the patient's lab results. Result diagrams: 02/15/21 17:36 02/15/21 19:26 Lab Results 02/15/21 02/15/21 02/15/21 Range/Units 17:36 17:36 17:36 WBC 11.82 H (4.8-10.8) K/uL RBC 4.97 (4.2-5.4) M/uL Hgb 15.0 (12.0-16.0) g/dL Hct 44.2 (37-47) % MCV 88.9 (80-100) fL MCH 30.2 (25-34) pg MCHC 33.9 (32-36) g/dL RDW Std Deviation 61.2 H (36.4-46.3) fL RDW Coeff of Elissa 19.1 H (11.5-14.5) % Plt Count 225 (130-400) K/uL MPV 10.0 (7.4-10.4) fL Immature Gran % (Auto) 0.4 % Neut % (Auto) 76.2 % Lymph % (Auto) 9.2 % Carolina % (Auto) 12.7 % Eos % (Auto) 1.1 % Baso % (Auto) 0.4 % Neut # (Auto) 9.00 H (1.4-6.5) K/uL Lymph # (Auto) 1.09 L (1.2-3.4) K/uL Carolina # (Auto) 1.50 H (0.11-0.59) K/uL Eos # (Auto) 0.13 (0-0.5) K/uL Baso # (Auto) 0.05 (0-0.2) K/uL Immature Gran # (Auto) 0.05 H (0.00-0.02) K/uL PT 12.0 (9.0-12.0) Seconds INR 1.2 H (0.9-1.1) APTT 26.0 (21.0-31.0) Seconds PTT Ratio 1.0 ABG pH (7.35-7.45) ABG pCO2 (35-46) mmHg ABG pO2 (80-95) mmHg ABG HCO3 (19-24) mmol/L ABG O2 Saturation (90-95) % ABG Base Excess (-9-1.8) mEq/L Dajuan Test (Pos) Barometric Pressure mm/Hg Oxygen Given Sodium 134 L (136-145) mmol/L Potassium (3.5-5.1) mmol/L Chloride 102 (98-107) mmol/L Carbon Dioxide 26 (21-32) mmol/L Anion Gap 5.0 (3-11) BUN 44 H (7-18) mg/dl Creatinine 1.85 H (0.6-1.2) mg/dl Est Cr Clr Drug Dosing 26.2 ml/min Est GFR ( Amer) 29.3 ml/min Est GFR (Non-Af Amer) 25.3 ml/min BUN/Creatinine Ratio 23.9 H (10-20) Glucose 121 H (70-99) mg/dl Lactate (0.4-2.0) mmol/L Calcium 9.1 (8.5-10.1) mg/dl Magnesium (1.8-2.4) mg/dl Total Bilirubin 1.4 H (0.2-1) mg/dl AST (15-37) U/L ALT 27 (12-78) U/L Alkaline Phosphatase 197 H (45-117) U/L Troponin I 0.017 (0-0.045) ng/ml NT-Pro-B Natriuret Pep 09790 H (0-1800) pg/ml Total Protein 8.8 H (6.4-8.2) gm/dl Albumin 2.7 L (3.4-5.0) gm/dl Globulin 6.1 H (2.5-4.0) gm/dl Albumin/Globulin Ratio 0.4 L (0.9-2) COVID-19 Eval Order SARS-CoV-2 (PCR) (Negative) 02/15/21 02/15/21 02/15/21 Range/Units 18:19 18:19 18:51 WBC (4.8-10.8) K/uL RBC (4.2-5.4) M/uL Hgb (12.0-16.0) g/dL Hct (37-47) % MCV (80-100) fL MCH (25-34) pg MCHC (32-36) g/dL RDW Std Deviation (36.4-46.3) fL RDW Coeff of Elissa (11.5-14.5) % Plt Count (130-400) K/uL MPV (7.4-10.4) fL Immature Gran % (Auto) % Neut % (Auto) % Lymph % (Auto) % [place] % (Auto) % Eos % (Auto) % Baso % (Auto) % Neut # (Auto) (1.4-6.5) K/uL Lymph # (Auto) (1.2-3.4) K/uL Carolina # (Auto) (0.11-0.59) K/uL Eos # (Auto) (0-0.5) K/uL Baso # (Auto) (0-0.2) K/uL Immature Gran # (Auto) (0.00-0.02) K/uL PT (9.0-12.0) Seconds INR (0.9-1.1) APTT (21.0-31.0) Seconds PTT Ratio ABG pH 7.45 (7.35-7.45) ABG pCO2 31 L (35-46) mmHg ABG pO2 170 H (80-95) mmHg ABG HCO3 21 (19-24) mmol/L ABG O2 Saturation 99.4 H (90-95) % ABG Base Excess -2.0 (-9-1.8) mEq/L Dajuan Test Pos (Pos) Barometric Pressure 731.2 mm/Hg Oxygen Given 60% Sodium (136-145) mmol/L Potassium (3.5-5.1) mmol/L Chloride (98-107) mmol/L Carbon Dioxide (21-32) mmol/L Anion Gap (3-11) BUN (7-18) mg/dl Creatinine (0.6-1.2) mg/dl Est Cr Clr Drug Dosing ml/min Est GFR ( Amer) ml/min Est GFR (Non-Af Amer) ml/min BUN/Creatinine Ratio (10-20) Glucose (70-99) mg/dl Lactate 2.0 (0.4-2.0) mmol/L Calcium (8.5-10.1) mg/dl Magnesium (1.8-2.4) mg/dl Total Bilirubin (0.2-1) mg/dl AST (15-37) U/L ALT (12-78) U/L Alkaline Phosphatase (45-117) U/L Troponin I (0-0.045) ng/ml NT-Pro-B Natriuret Pep (0-1800) pg/ml Total Protein (6.4-8.2) gm/dl Albumin (3.4-5.0) gm/dl Globulin (2.5-4.0) gm/dl Albumin/Globulin Ratio (0.9-2) COVID-19 Eval Order SARS-CoV-2 (PCR) (Negative) 02/15/21 02/15/21 02/15/21 Range/Units 18:55 18:55 19:26 WBC (4.8-10.8) K/uL RBC (4.2-5.4) M/uL Hgb (12.0-16.0) g/dL Hct (37-47) % MCV (80-100) fL MCH (25-34) pg MCHC (32-36) g/dL RDW Std Deviation (36.4-46.3) fL RDW Coeff of Elissa (11.5-14.5) % Plt Count (130-400) K/uL MPV (7.4-10.4) fL Immature Gran % (Auto) % Neut % (Auto) % Lymph % (Auto) % Carolina % (Auto) % Eos % (Auto) % Baso % (Auto) % Neut # (Auto) (1.4-6.5) K/uL Lymph # (Auto) (1.2-3.4) K/uL Carolina # (Auto) (0.11-0.59) K/uL Eos # (Auto) (0-0.5) K/uL Baso # (Auto) (0-0.2) K/uL Immature Gran # (Auto) (0.00-0.02) K/uL PT (9.0-12.0) Seconds INR (0.9-1.1) APTT (21.0-31.0) Seconds PTT Ratio ABG pH (7.35-7.45) ABG pCO2 (35-46) mmHg ABG pO2 (80-95) mmHg ABG HCO3 (19-24) mmol/L ABG O2 Saturation (90-95) % ABG Base Excess (-9-1.8) mEq/L Dajuan Test (Pos) Barometric Pressure mm/Hg Oxygen Given Sodium (136-145) mmol/L Potassium 4.7 (3.5-5.1) mmol/L Chloride (98-107) mmol/L Carbon Dioxide (21-32) mmol/L Anion Gap (3-11) BUN (7-18) mg/dl Creatinine (0.6-1.2) mg/dl Est Cr Clr Drug Dosing ml/min Est GFR ( Amer) ml/min Est GFR (Non-Af Amer) ml/min BUN/Creatinine Ratio (10-20) Glucose (70-99) mg/dl Lactate (0.4-2.0) mmol/L Calcium (8.5-10.1) mg/dl Magnesium 2.5 H (1.8-2.4) mg/dl Total Bilirubin (0.2-1) mg/dl AST 33 (15-37) U/L ALT (12-78) U/L Alkaline Phosphatase (45-117) U/L Troponin I (0-0.045) ng/ml NT-Pro-B Natriuret Pep (0-1800) pg/ml Total Protein (6.4-8.2) gm/dl Albumin (3.4-5.0) gm/dl Globulin (2.5-4.0) gm/dl Albumin/Globulin Ratio (0.9-2) COVID-19 Eval Order Covid19 at [facility] SARS-CoV-2 (PCR) NEGATIVE (Negative) Administered Medications Discontinued Medications Furosemide (Furosemide 40 Mg/4 Ml Vial) 80 mg IV NOW STA Stop: 02/15/21 18:04 Last Admin: 02/15/21 18:12 Dose: 80 mg Documented by: [id number] Cefepime HCl (Maxipime) 2,000 mg in 20 mls @ 5 mls/min IV NOW STA; Protocol Stop: 02/15/21 17:51 Last Admin: 02/15/21 18:16 Dose: 5 mls/min Documented by: [id number] Metoprolol Tartrate (Metoprolol Tartrate 1 Mg/Ml Vial) Confirm Administered Dose 5 mg IV .STCrowdSYNC-MED ONE Stop: 02/15/21 17:48 Last Admin: 02/15/21 17:48 Dose: 5 mg Documented by: [id number] Metoprolol Tartrate (Metoprolol Tartrate 1 Mg/Ml Vial) 5 mg IV NOW STA Stop: 02/15/21 17:49 Last Admin: 02/15/21 17:50 Dose: Not Given Documented by: [id number] Metoprolol Tartrate (Metoprolol Tartrate 1 Mg/Ml Vial) 5 mg IV NOW STA Stop: 02/15/21 18:37 Last Admin: 02/15/21 18:45 Dose: 5 mg Documented by: [id number] Nitroglycerin (Nitroglycerin 2% Ointment 30gm Tube) 2 inch EXT NOW STA Stop: 02/15/21 18:04 Last Admin: 02/15/21 18:12 Dose: 2 inch Documented by: [id number] Imaging Data Radiologist's Impression: Chest X-Ray 02/15/21 17:48 XR chest 1V portable HISTORY: Shortness of breath. COMPARISON: Chest 11/22/2018. FINDINGS: There are low lung volumes. No pneumothorax. Small right and moderate left pleural effusions. The heart is enlarged. There is perihilar interstitial /vascular thickening consistent with moderate pulmonary edema. Fullness within the right hilum may be vascular. Bibasilar densities favor atelectasis from the pleural effusions. IMPRESSION: 1. Moderate pulmonary edema with cardiomegaly and bilateral pleural effusions. 2. Bibasilar densities are nonspecific but favor atelectasis from the pleural effusions. ACT 112: Negative or not required by law. Electronically signed by: Bartolome Butcher M.D. 02/15/2021 6:29 PM Discharge Plan Visit Data Chief Complaint: Altered Mental Status ED Provider: Deangelo Lugo Discharge Problem: Acute respiratory distress, Hypoxia, CHF (congestive heart failure), Somnolence, Atrial fibrillation with rapid ventricular response Patient Disposition: Admitted As Inpatient Condition: Serious Forms Stand Alone Forms: [facility] [employer] Prescriptions Prescriptions: No Action (DME) OneTouch Ultra Blue Test Strip strip See Rx Instructions .ROUTE .MEDSUPPLY Qty: 100 RF: 3 (DME) blood-glucose meter [OneTouch Ultra2 Meter] misc See Rx Instructions .ROUTE .MEDSUPPLY Qty: 1 RF: 0 (DME) lancets [OneTouch Delica Plus Lancet] 33 gauge misc See Rx Instructions .ROUTE .MEDSUPPLY Qty: 100 RF: 3 glipizide 5 mg tablet extended release 24hr 5 mg PO DAILY Qty: 90 RF: 1 clopidogrel 75 mg tablet 75 mg PO QAM Qty: 90 RF: 3 furosemide [Lasix] 40 mg tablet 40 mg PO QAM Qty: 90 RF: 3 atorvastatin 40 mg tablet 40 mg PO QPM Qty: 90 RF: 3 Eliquis 2.5 mg tablet 2.5 mg PO BID Qty: 180 RF: 0 losartan 25 mg tablet 25 mg PO QAM Qty: 90 RF: 3 cyanocobalamin (vitamin B-12) 1,000 mcg tablet, sublingual 1,000 mcg SL DAILY Qty: 30 RF: 0 ferrous sulfate 325 mg (65 mg iron) tablet 325 mg PO Q OTHER DAY RF: 0 metoprolol succinate 50 mg Tablet Extended Release 24 Hr 50 mg PO HS RF: 0 metoprolol succinate [Toprol XL] 100 mg tablet extended release 24 hr 100 mg PO QAM RF: 0 acetaminophen [Tylenol Extra Strength] 500 mg Tablet 500 mg PO QID RF: 0 acetaminophen [Tylenol Extra Strength] 500 mg Tablet 500 mg PO Q4 MDD 3g PRN (Reason: Pain, Mild) RF: 0 Referrals Referrals: PCP,NO [Primary Care Provider] - Discharge Problem: CHF (congestive heart failure) Qualifiers: Heart failure type: unspecified Heart failure chronicity: acute Qualified Code(s): I50.9 - Heart failure, unspecified
[2021-02-15 18:02] LABS: Basophils # (auto) 0.05 K/uL (0-0.2); Basophils % (auto) 0.4 %; Eosinophils # (auto) 0.13 K/uL (0-0.5); Eosinophils % (auto) 1.1 %; Hematocrit (blood only) 44.2 % (37-47); Immature Granulocytes # (auto) 0.05 K/uL (0.00-0.02); Immature Granulocytes % (auto) 0.4 %; Lymphocytes # (auto) 1.09 K/uL (1.2-3.4); Lymphocytes % (auto) 9.2 %; Mean Corpuscular Hemoglobin 30.2 pg (25-34); Mean Corpuscular Hgb Conc 33.9 g/dL (32-36); Mean Corpuscular Volume 88.9 fL (80-100); Monocytes % (auto) 12.7 %; Neutrophils % (auto) 76.2 %; Platelet Count 225 K/uL (130-400); RDW Coefficient of Variation 19.1 % (11.5-14.5); RDW Standard Deviation 61.2 fL (36.4-46.3); Red Blood Count 4.97 M/uL (4.2-5.4); White Blood Count 11.82 K/uL (4.8-10.8)
[2021-02-15] MEDS ORDERED: FUROSEMIDE 40 MG/4 ML VIAL IV STA (18:03)
[2021-02-15] MEDS ORDERED: NITROGLYCERIN 2% OINTMENT 30GM TUBE EXT STA (18:03)
[2021-02-15 18:20] LABS: INR 1.2 (0.9-1.1)
--- NOTE | 2021-02-15 18:30 | XRay Report ---
XR chest 1V portable HISTORY: Shortness of breath. COMPARISON: Chest 11/22/2018. FINDINGS: There are low lung volumes. No pneumothorax. Small right and moderate left pleural effusion s. The heart is enlarged. There is perihilar interstitial/vascular thickening consistent with moderat e pulmonary edema. Fullness within the right hilum may be vascular. Bibasilar densities favor atelect asis from the pleural effusions. IMPRESSION: 1. Moderate pulmonary edema with cardiomegaly and bilateral pleural effusions. 2. Bibasilar densities are nonspecific but favor atelectasis from the pleural effusions. ACT 112: Negative or not required by law. Electronically signed by: Bartolome Butcher M.D. 02/15/2021 6:29 PM
[2021-02-15 18:35] LABS: Albumin Globulin Ratio 0.4 (0.9-2); Albumin Level 2.7 gm/dl (3.4-5.0); BUN Creatinine Ratio 23.9 (10-20); Bilirubin,Total 1.4 mg/dl (0.2-1); Calcium 9.1 mg/dl (8.5-10.1); Creatinine Clr Calc Pharmacy 26.2 ml/min; Est GFR (African American) 29.3 ml/min; Est GFR (Non-African American) 25.3 ml/min; Globulin 6.1 gm/dl (2.5-4.0); Total Protein 8.8 gm/dl (6.4-8.2); Troponin I 0.017 ng/ml (0-0.045)
[2021-02-15 18:42] LABS: HCO3 ABG 21 mmol/L (19-24); Oxygen Saturation ABG 99.4 % (90-95); PCO2 ABG 31 mmHg (35-46); PO2 ABG 170 mmHg (80-95); pH ABG 7.45 (7.35-7.45)
[2021-02-15 18:44] LABS: Allen Test Pos (Pos)
[2021-02-15 19:46] LABS: Potassium 4.7 mmol/L (3.5-5.1)
[2021-02-15 19:50] LABS: Magnesium 2.5 mg/dl (1.8-2.4)
--- NOTE | 2021-02-15 19:55 | History & Physical Report ---
Date of Service February 15, 2021 Assessment & Plan (1) Acute respiratory distress: 80yo female presenting with acute hypoxic respiratory failure requiring rescue BiPAP. ?acute exacerbation of CHF, ?flash pulmonary edema - patient reports orthopnea and worsening [place]. [place] [address] today as well as pulmonary edema present on imaging. Clinically improved with BiPAP, Nitro and Lasix -Admit to PCU -Continue BiPAP, wean as tolerated -Lasix 40mg IV daily -Monitor daily weights, I/Os Present on Admission?: Yes (2) CHF (congestive heart failure): Suspect acute exacerbation of CHF as cause of hypoxic respiratory failure as above. Echo from 10/2019 with normal LV size and function, EF of 60-65% with no regional WMA -Diuresis - patient given Lasix 80mg IV in ER - monitor output and daily weights -Lasix 40mg IV daily -Continue home medications - Losartan 25mg daily, Metoprolol 100mg po qAM and 50mg po qHS -Check 2D echo Present on Admission?: Yes (3) CAD, multiple vessel: Patient with multi-vessel CAD s/p mid-LAD PCI in 1999. She had a catheterization in February 2020 which revealed severe multivessel CAD s/p stent to proximal LAD, mid-LAD, mid Cx and distal RCA. She denies chest pain or palpitations. EKG with AF at 141, inverted T-waves in lateral leads with no ST elevations. Troponin = 0.017. -Continue Plavix -Continue Eliquis - dual therapy recommended for at least 1 year following stenting -Continue Atorvastatin -Continue Metoprolol -Continue Losartan Present on Admission?: Yes (4) Atrial fibrillation with rapid ventricular response: Rate of 141 initially, now improved -Continue Metoprolol 100mg po qAM and 50mg qHS -Metoprolol 5mg IV q 4 hours as needed for HR > 110 -Continue Eliquis Present on Admission?: Yes (5) CKD (chronic kidney disease) stage 4, GFR 15-29 ml/min: Chronic. Stable -Continue to monitor -Avoid nephrotoxic agents -Renal dosing where needed Present on Admission?: Yes (6) Hyperlipidemia: Chronic. Stable -Continue Atorvastatin Present on Admission?: Yes (7) Diabetes mellitus type 2 in nonobese: Chronic. Stable -Lantus 5u BID -ISS -Goal blood sugar 100 - 180 (8) Brain lesion: Finding on CT initially read as possible epidural hematoma. MRI suggestive of meningioma. Patient denies HEDRICK, trauma. No neurologic deficits -Outpatient followup F/E/N - Diuresis with Lasix 40mg IV daily, monitor electrolytes and replete as needed, CC/AHA diet as tolerated Ppx - On Eliquis Code - Full code per discussion with patient Dispo - Admit to PCU Case discussed with patient's son and Imtiaz DIAL. He plans to visit tomorrow afternoon. History of Present Illness Chief Complaint: SOB Primary Care Provider: NO PCP Brandee Alonso is a pleasant 80yo female presenting with acute hypoxic respiratory failure. Patient with chronic venous stasis ulcers. She was [facility] today for a routine appointment. She states that she drove herself to the appointment without difficulty. She was noted to have worsening pain in her RLE and was sent to US. During that appointment she became short of breath and confused. She was reportedly hypoxic with SpO2 in the 70's. EMS was called and she was transferred to [facility] ER. Upon arrival to the ER she was found to be in respiratory distress, somewhat cyanotic in appearance, in atrial fibrillation with RVR. She was placed on BiPAP and given Lasix and Nitro with improvement. During my interview, patient was much improved. BiPAP in place but she was speaking in full sentences. She does not clearly recall the events prior to arrival. She states she has had worsening shortness of breath over the last day. She reports increase in bilateral LE edema as well as orthopnea and a cough at night. She had a poor appetite today but normally eats well. She denies chest pain, palpitations, abdominal pain, nausea, vomiting, diarrhea or constipation. She denies fever, chills. No additional complaints at this time. ER Course: Metoprolol 5mg IV, Nitroglycerine 2inch, Lasix 80mg IV, Cefepime 2gm IV, BiPAP 10/5, 40% FiO2 Allergies Allergy/AdvReac Type Severity Reaction Status Date / Time enalapril AdvReac Intermediate Cough Verified 02/15/21 17:46 Home Medications Medication Instructions Recorded Confirmed Type cyanocobalamin (vitamin B-12) 1,000 mcg SL DAILY #30 tab 02/20/19 02/15/21 History 1,000 mcg sublingual tablet blood sugar diagnostic #100 ea 07/31/19 02/08/21 Rx blood-glucose meter #1 ea 07/31/19 02/08/21 Rx lancets 33 gauge #100 ea 07/31/19 02/08/21 Rx ferrous sulfate 325 mg (65 mg 325 mg PO Q OTHER DAY tab 04/28/20 02/15/21 History iron) tablet glipizide 5 mg tablet, extended 5 mg PO DAILY #90 tab 10/31/20 02/15/21 Rx release 24 hr clopidogrel 75 mg tablet 75 mg PO QAM #90 tab 11/04/20 02/15/21 Rx furosemide 40 mg tablet 40 mg PO QAM #90 tab 12/14/20 02/15/21 Rx atorvastatin 40 mg tablet 40 mg PO QPM #90 tab 12/30/20 02/15/21 Rx apixaban 2.5 mg tablet 2.5 mg PO BID #180 tab 01/25/21 02/15/21 Rx losartan 25 mg tablet 25 mg PO QAM #90 tab 01/30/21 02/15/21 Rx acetaminophen [Tylenol Extra 500 mg PO Q4 PRN MDD 3g 02/15/21 02/15/21 History Strength] acetaminophen [Tylenol Extra 500 mg PO QID 02/15/21 02/15/21 History Strength] metoprolol succinate 50 mg PO HS 02/15/21 02/15/21 History metoprolol succinate [Toprol XL] 100 mg PO QAM 02/15/21 02/15/21 History Past Med/Surg History Medical History Acute kidney injury Afib ON ELIQUIS - FOLLOWS W/ DR. RAMSEY Age related osteoporosis Aortic atherosclerosis Cellulitis of left lower extremity Coronary artery disease Card cath- 09/04/2019- severe multilevel coronary disease- 90 % mid LAD, 50 % Prox. LAD in stent stenosis, 70-80 % mid circumflex OM2, 90 % distal RCA Creatinine elevation Deep venous thrombosis of lower extremity (02/20/12) Diabetes mellitus, type 2 NIDDM Diabetic peripheral neuropathy History of myocardial infarction 1999 [place] (hard of hearing) Hyperlipidemia Hypertension Murmur Nonproliferative diabetic retinopathy Numbness Peripheral vascular disease Polymyalgia rheumatica Renal artery stenosis, agdaagux, bilateral Rheumatoid arthritis Secondary diabetes mellitus Traumatic wound Vitamin B12 deficiency Weight loss Surgical History History of cardiac catheterization 1999 - [facility] - 1 STENT History of colonoscopy History of heart artery stent 1 STENT History of total abdominal hysterectomy and bilateral salpingo-oophorectomy Hx of tonsillectomy S/P breast biopsy Family History Father Bone cancer Lung disease Sister Arthritis of hand Mother Hypertension Brother Hypertension Anxiety Depression Gallbladder disease Lung disease Unknown Hypertension Denies family history of Ovarian cancer Prostate cancer Myocardial infarction Breast cancer Colorectal cancer Social History Smoking Status: Never smoker Second Hand Exposure: No (OCCASIONAL EXPOSURE); Hx Alcohol Use: No Hx Substance Use: No Preferred Language: Honduran Communication Ability: Effective Visual Impairment: No Limitations Hearing Ability: Normal Tag Marker Required: No Beliefs That Will Affect Care: None marital status: Current Living Situation: Assisted and Personal Care Facility Current Living Situation Comment: LIVES WITH (HE HAS DEMENTIA) current occupational status: retired 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 [employer] Other Information That Helps Us Care for You: No Feels Safe at Home: Yes Safety Concerns: Feels Safe At This Time Childhood Exposure to Second-Hand Smoke: No Dental Care, Regularly: Yes Physical Activity Frequency: 3-4 Times per Week Seatbelt Use: always Sunscreen Use: Yes Assistive Devices: Denture - Upper and Denture - Lower Review of Systems Review of Systems: All systems reviewed & are unremarkable except as noted in HPI & below Physical Exam Physical Exam: General: patient resting comfortably BiPAP in place Skin: warm, dry, intact, no rashes or lesions HEENT: NC/AT, PERRL, EOMI, anicteric sclera, conjunctiva without injection, external ear normal to inspection and nontender, nares patent, moist mucus membranes, dentition intact, no oropharyngeal lesions, neck supple, trachea midline, no LAD, no thyromegaly, no JVD Heart: +S1/S2, irregularly irregular, no m/r/g Lungs: diminished breath sounds bilaterally, no rales/rhonchi/wheezes Abd: +BS, soft, NT/ND, no masses/organomegaly/ascites Ext: warm, wrapped Neuro: nonfocal, patient AA&O x 4, speech intact, no facial droop, moving all extremities on command with equal strength 5/5 Results & Data Results & Data ([facility]) Vital Signs (Past 12 Hours) Vital Signs Temp Pulse Resp BP Pulse Ox 02/15/21 19:30 108 H 16 116/73 99 02/15/21 19:15 112 H 15 94/68 L 99 02/15/21 18:45 113 H 24 126/91 94 02/15/21 18:30 133 H 22 156/107 H 91 02/15/21 18:00 112 H 22 164/109 H 94 02/15/21 17:57 98 02/15/21 17:50 130 H 21 137/91 96 02/15/21 17:48 125 H 137/91 02/15/21 17:33 36.4 C L 131 H 26 H 150/101 H 99 Laboratory Results Lab Results 02/15/21 02/15/21 02/15/21 Range/Units 17:36 17:36 17:36 WBC 11.82 H (4.8-10.8) K/uL RBC 4.97 (4.2-5.4) M/uL Hgb 15.0 (12.0-16.0) g/dL Hct 44.2 (37-47) % MCV 88.9 (80-100) fL MCH 30.2 (25-34) pg MCHC 33.9 (32-36) g/dL RDW Std Deviation 61.2 H (36.4-46.3) fL RDW Coeff of Elissa 19.1 H (11.5-14.5) % Plt Count 225 (130-400) K/uL MPV 10.0 (7.4-10.4) fL Immature Gran % (Auto) 0.4 % Neut % (Auto) 76.2 % Lymph % (Auto) 9.2 % Cobb % (Auto) 12.7 % Eos % (Auto) 1.1 % Baso % (Auto) 0.4 % Neut # (Auto) 9.00 H (1.4-6.5) K/uL Lymph # (Auto) 1.09 L (1.2-3.4) K/uL Cobb # (Auto) 1.50 H (0.11-0.59) K/uL Eos # (Auto) 0.13 (0-0.5) K/uL Baso # (Auto) 0.05 (0-0.2) K/uL Immature Gran # (Auto) 0.05 H (0.00-0.02) K/uL PT 12.0 (9.0-12.0) Seconds INR 1.2 H (0.9-1.1) APTT 26.0 (21.0-31.0) Seconds PTT Ratio 1.0 ABG pH (7.35-7.45) ABG pCO2 (35-46) mmHg ABG pO2 (80-95) mmHg ABG HCO3 (19-24) mmol/L ABG O2 Saturation (90-95) % ABG Base Excess (-9-1.8) mEq/L Dajuan Test (Pos) Barometric Pressure mm/Hg Oxygen Given Sodium 134 L (136-145) mmol/L Potassium (3.5-5.1) mmol/L Chloride 102 (98-107) mmol/L Carbon Dioxide 26 (21-32) mmol/L Anion Gap 5.0 (3-11) BUN 44 H (7-18) mg/dl Creatinine 1.85 H (0.6-1.2) mg/dl Est Cr Clr Drug Dosing 26.2 ml/min Est GFR ( Amer) 29.3 ml/min Est GFR (Non-Af Amer) 25.3 ml/min BUN/Creatinine Ratio 23.9 H (10-20) Glucose 121 H (70-99) mg/dl POC Glucose (70-99) mg/dl Lactate (0.4-2.0) mmol/L Calcium 9.1 (8.5-10.1) mg/dl Magnesium (1.8-2.4) mg/dl Total Bilirubin 1.4 H (0.2-1) mg/dl AST (15-37) U/L ALT 27 (12-78) U/L Alkaline Phosphatase 197 H (45-117) U/L Troponin I 0.017 (0-0.045) ng/ml NT-Pro-B Natriuret Pep 96401 H (0-1800) pg/ml Total Protein 8.8 H (6.4-8.2) gm/dl Albumin 2.7 L (3.4-5.0) gm/dl Globulin 6.1 H (2.5-4.0) gm/dl Albumin/Globulin Ratio 0.4 L (0.9-2) COVID-19 Eval Order SARS-CoV-2 (PCR) (Negative) 02/15/21 02/15/21 02/15/21 Range/Units 18:19 18:19 18:51 WBC (4.8-10.8) K/uL RBC (4.2-5.4) M/uL Hgb (12.0-16.0) g/dL Hct (37-47) % MCV (80-100) fL MCH (25-34) pg MCHC (32-36) g/dL RDW Std Deviation (36.4-46.3) fL RDW Coeff of Elissa (11.5-14.5) % Plt Count (130-400) K/uL MPV (7.4-10.4) fL Immature Gran % (Auto) % Neut % (Auto) % Lymph % (Auto) % Cobb % (Auto) % Eos % (Auto) % Baso % (Auto) % Neut # (Auto) (1.4-6.5) K/uL Lymph # (Auto) (1.2-3.4) K/uL Cobb # (Auto) (0.11-0.59) K/uL Eos # (Auto) (0-0.5) K/uL Baso # (Auto) (0-0.2) K/uL Immature Gran # (Auto) (0.00-0.02) K/uL PT (9.0-12.0) Seconds INR (0.9-1.1) APTT (21.0-31.0) Seconds PTT Ratio ABG pH 7.45 (7.35-7.45) ABG pCO2 31 L (35-46) mmHg ABG pO2 170 H (80-95) mmHg ABG HCO3 21 (19-24) mmol/L ABG O2 Saturation 99.4 H (90-95) % ABG Base Excess -2.0 (-9-1.8) mEq/L Dajuan Test Pos (Pos) Barometric Pressure 731.2 mm/Hg Oxygen Given 60% Sodium (136-145) mmol/L Potassium (3.5-5.1) mmol/L Chloride (98-107) mmol/L Carbon Dioxide (21-32) mmol/L Anion Gap (3-11) BUN (7-18) mg/dl Creatinine (0.6-1.2) mg/dl Est Cr Clr Drug Dosing ml/min Est GFR ( Amer) ml/min Est GFR (Non-Af Amer) ml/min BUN/Creatinine Ratio (10-20) Glucose (70-99) mg/dl POC Glucose (70-99) mg/dl Lactate 2.0 (0.4-2.0) mmol/L Calcium (8.5-10.1) mg/dl Magnesium (1.8-2.4) mg/dl Total Bilirubin (0.2-1) mg/dl AST (15-37) U/L ALT (12-78) U/L Alkaline Phosphatase (45-117) U/L Troponin I (0-0.045) ng/ml NT-Pro-B Natriuret Pep (0-1800) pg/ml Total Protein (6.4-8.2) gm/dl Albumin (3.4-5.0) gm/dl Globulin (2.5-4.0) gm/dl Albumin/Globulin Ratio (0.9-2) COVID-19 Eval Order SARS-CoV-2 (PCR) (Negative) 02/15/21 02/15/21 02/15/21 Range/Units 18:55 18:55 19:26 WBC (4.8-10.8) K/uL RBC (4.2-5.4) M/uL Hgb (12.0-16.0) g/dL Hct (37-47) % MCV (80-100) fL MCH (25-34) pg MCHC (32-36) g/dL RDW Std Deviation (36.4-46.3) fL RDW Coeff of Elissa (11.5-14.5) % Plt Count (130-400) K/uL MPV (7.4-10.4) fL Immature Gran % (Auto) % Neut % (Auto) % Lymph % (Auto) % Cobb % (Auto) % Eos % (Auto) % Baso % (Auto) % Neut # (Auto) (1.4-6.5) K/uL Lymph # (Auto) (1.2-3.4) K/uL Cobb # (Auto) (0.11-0.59) K/uL Eos # (Auto) (0-0.5) K/uL Baso # (Auto) (0-0.2) K/uL Immature Gran # (Auto) (0.00-0.02) K/uL PT (9.0-12.0) Seconds INR (0.9-1.1) APTT (21.0-31.0) Seconds PTT Ratio ABG pH (7.35-7.45) ABG pCO2 (35-46) mmHg ABG pO2 (80-95) mmHg ABG HCO3 (19-24) mmol/L ABG O2 Saturation (90-95) % ABG Base Excess (-9-1.8) mEq/L Dajuan Test (Pos) Barometric Pressure mm/Hg Oxygen Given Sodium (136-145) mmol/L Potassium 4.7 (3.5-5.1) mmol/L Chloride (98-107) mmol/L Carbon Dioxide (21-32) mmol/L Anion Gap (3-11) BUN (7-18) mg/dl Creatinine (0.6-1.2) mg/dl Est Cr Clr Drug Dosing ml/min Est GFR ( Amer) ml/min Est GFR (Non-Af Amer) ml/min BUN/Creatinine Ratio (10-20) Glucose (70-99) mg/dl POC Glucose (70-99) mg/dl Lactate (0.4-2.0) mmol/L Calcium (8.5-10.1) mg/dl Magnesium 2.5 H (1.8-2.4) mg/dl Total Bilirubin (0.2-1) mg/dl AST 33 (15-37) U/L ALT (12-78) U/L Alkaline Phosphatase (45-117) U/L Troponin I (0-0.045) ng/ml NT-Pro-B Natriuret Pep (0-1800) pg/ml Total Protein (6.4-8.2) gm/dl Albumin (3.4-5.0) gm/dl Globulin (2.5-4.0) gm/dl Albumin/Globulin Ratio (0.9-2) COVID-19 Eval Order Covid19 at [facility] SARS-CoV-2 (PCR) NEGATIVE (Negative) 02/16/21 Range/Units 00:27 WBC (4.8-10.8) K/uL RBC (4.2-5.4) M/uL Hgb (12.0-16.0) g/dL Hct (37-47) % MCV (80-100) fL MCH (25-34) pg MCHC (32-36) g/dL RDW Std Deviation (36.4-46.3) fL RDW Coeff of Elissa (11.5-14.5) % Plt Count (130-400) K/uL MPV (7.4-10.4) fL Immature Gran % (Auto) % Neut % (Auto) % Lymph % (Auto) % Cobb % (Auto) % Eos % (Auto) % Baso % (Auto) % Neut # (Auto) (1.4-6.5) K/uL Lymph # (Auto) (1.2-3.4) K/uL Cobb # (Auto) (0.11-0.59) K/uL Eos # (Auto) (0-0.5) K/uL Baso # (Auto) (0-0.2) K/uL Immature Gran # (Auto) (0.00-0.02) K/uL PT (9.0-12.0) Seconds INR (0.9-1.1) APTT (21.0-31.0) Seconds PTT Ratio ABG pH (7.35-7.45) ABG pCO2 (35-46) mmHg ABG pO2 (80-95) mmHg ABG HCO3 (19-24) mmol/L ABG O2 Saturation (90-95) % ABG Base Excess (-9-1.8) mEq/L Dajuan Test (Pos) Barometric Pressure mm/Hg Oxygen Given Sodium (136-145) mmol/L Potassium (3.5-5.1) mmol/L Chloride (98-107) mmol/L Carbon Dioxide (21-32) mmol/L Anion Gap (3-11) BUN (7-18) mg/dl Creatinine (0.6-1.2) mg/dl Est Cr Clr Drug Dosing ml/min Est GFR ( Amer) ml/min Est GFR (Non-Af Amer) ml/min BUN/Creatinine Ratio (10-20) Glucose (70-99) mg/dl POC Glucose 100 H (70-99) mg/dl Lactate (0.4-2.0) mmol/L Calcium (8.5-10.1) mg/dl Magnesium (1.8-2.4) mg/dl Total Bilirubin (0.2-1) mg/dl AST (15-37) U/L ALT (12-78) U/L Alkaline Phosphatase (45-117) U/L Troponin I (0-0.045) ng/ml NT-Pro-B Natriuret Pep (0-1800) pg/ml Total Protein (6.4-8.2) gm/dl Albumin (3.4-5.0) gm/dl Globulin (2.5-4.0) gm/dl Albumin/Globulin Ratio (0.9-2) COVID-19 Eval Order SARS-CoV-2 (PCR) (Negative) Diagnostic Findings XR chest 1V portable HISTORY: Shortness of breath. COMPARISON: Chest 11/22/2018. FINDINGS: There are low lung volumes. No pneumothorax. Small right and moderate left pleural effusions. The heart is enlarged. There is perihilar interstitial/vascular thickening consistent with moderate pulmonary edema. Fullness within the right hilum may be vascular. Bibasilar densities favor atelectasis from the pleural effusions. IMPRESSION: 1. Moderate pulmonary edema with cardiomegaly and bilateral pleural effusions. 2. Bibasilar densities are nonspecific but favor atelectasis from the pleural effusions. ACT 112: Negative or not required by law. Electronically signed by: Bartolome Butcher M.D. 02/15/2021 6:29 PM Dictated: 02/[id number]/[id number]: 02/15/211827 CT Head - per STAT rad: Crescentic extra-axial high attenuation collection over the left anterior frontal lobe measuring 1cm favored to represent an epidural hematoma. No significant mass-effect on the underlying parenchyma. No intraparenchymal hemorrhage. No fracture MRI Brain without contrast: Per STAT rad: 2.8 x 2.7 x 11.5 cm dural based mass in the left frontal region. This is favored to represent a meningioma though no contrast has been given to document enhancement. It does not have the typical characteristics of a hematoma. No other focal abnormalities. There is generalized cerebral volume loss and chronic small vessel ischemic changes in the white matter. PG Care Time/CCT Total # of Minutes Spent Total Time Spent with Patient: Total time spent is greater than 50% in coordination of care (as documented) at patient's floor/unit and/or counseling patient: Coding Level of Care Code 67134 Initial Inpt Care Lvl 3 Diagnoses Acute respiratory distress R06.03 CHF (congestive heart failure) I50.9 Heart failure chronicity: acute Heart failure type: unspecified CAD, multiple vessel I25.10 Atrial fibrillation with rapid ventricular response I48.91 CKD (chronic kidney disease) stage 4, GFR 15-29 ml/min N18.4 Hyperlipidemia E78.5 Hyperlipidemia type: unspecified Diabetes mellitus type 2 in nonobese E11.9 Brain lesion G93.9 (1) CHF (congestive heart failure) Heart failure chronicity: acute Heart failure type: unspecified Qualified Code(s): I50.9 - Heart failure, unspecified (2) Hyperlipidemia Hyperlipidemia type: unspecified Qualified Code(s): E78.5 - Hyperlipidemia, unspecified
[2021-02-15] MEDS ORDERED: DEXTROSE 50% 50 ML SYRINGE IV PRN (21:34)
[2021-02-15] MEDS ORDERED: APIXABAN 2.5 MG TAB PO SCH (21:34)
[2021-02-15] MEDS ORDERED: METOPROLOL TARTRATE 1 MG/ML VIAL IV PRN (21:34)
[2021-02-15] MEDS ORDERED: GLUCAGON FOR INJ 1 MG VIAL SQ PRN (21:34)
[2021-02-15] MEDS ORDERED: GLUCOSE 10 TABS/TUBE PO PRN (21:34)
[2021-02-15] MEDS ORDERED: GLUCOSE 40% GEL 15 GM TUBE PO PRN (21:34)
[2021-02-15] MEDS ORDERED: ACETAMINOPHEN 500 MG TAB PO PRN (21:41)
--- NOTE | 2021-02-15 22:17 | Emergency Department Note ---
ED Visit Note The patient had a brain CT performed on her way to the floor. The reading returned showing a potential epidural hematoma along the left anterior frontal lobe. There was no shift. I did speak with the radiologist who read the CT. He felt that epidural hematoma was possible but he also felt that a meningioma was possible especially, since there was no reported trauma. I did report this result to the hospitalist. They are working on ordering a stat MRI to determine if this is truly a bleed or if it is a meningioma. The patient by report has no headache, she is neurologically intact. She is resting comfortably. . : CHF (congestive heart failure) Qualifiers: Heart failure type: unspecified Heart failure chronicity: acute Qualified Code(s): I50.9 - Heart failure, unspecified
[2021-02-16] MEDS: METOPROLOL SUCC 50MG EXT REL TAB PO SCH ×3 (00:47→21:01)
[2021-02-16] MEDS: ATORVASTATIN 40 MG TAB PO SCH ×2 (00:47→21:02)
[2021-02-16] MEDS: INSULIN ASPART 100 UNITS/ML 3 ML PEN SC SCH ×5 (00:48→21:29)
[2021-02-16] MEDS: INSULIN GLARGINE SOLOSTAR 100 UNITS/ML 3 ML PEN SC SCH ×2 (00:56→07:49)
--- NOTE | 2021-02-16 07:08 | CT Scan Report ---
CT SCAN OF THE BRAIN WITHOUT IV CONTRAST CLINICAL HISTORY: Change in mental status. COMPARISON STUDY: No priors. TECHNIQUE: Unenhanced axial CT scan of the brain is performed from the vertex to the skull base. A do se lowering technique was utilized adhering to the principles of ALARA. CT DOSE: 729.78 mGycm FINDINGS: Brain parenchyma: There are age-related involutional changes noting mild to moderate subcortical and periventricular microangiopathic change. There is a 2.6 x 1.0 cm smoothly marginated extra-axial les ion along the left frontal convexity. This is best seen on image #16. There is no hemorrhage, mass ef fect, or evidence of acute territorial ischemia by CT criteria. Mcmahon-white matter differentiation is preserved. No extra-axial fluid collection is seen. Ventricles, sulci, cisterns: Prominent secondary to involutional change. Intracranial vasculature: There is atherosclerotic calcification of the cavernous carotid and vertebr al arteries. Calvarium: Unremarkable. Sinuses and mastoids: The visualized paranasal sinuses are clear. The mastoid air cells are well pneu matized. Orbits: The bony orbits are grossly intact. IMPRESSION: 1. A 2.6 cm ovoid and smoothly marginated extra-axial lesion along left frontal convexity likely rep resents a meningioma. There is no significant associated mass effect. Epidural hematoma is considered much less likely. 2. There is no parenchymal hemorrhage, mass effect, or evidence of acute territorial ischemia by CT geoffrey soni. ACT 112: Negative or not required by law. Electronically signed by: Deangelo Sotelo M.D. 02/16/2021 7:06 AM
--- NOTE | 2021-02-16 07:16 | Magnetic Resonance Report ---
MR brain wo con HISTORY: 80 years-old Female Epidural hematoma vs meningioma frontal lobe? Acutely altered mental st atus. COMPARISON: Head CT 02/15/2021 TECHNIQUE: Multiplanar multisequence MRI of the brain was obtained without the use of IV contrast. FINDINGS: No restricted diffusion to suggest acute or subacute infarct. No pathologic intra-axial blooming israel fact. Age-related involutional changes. Mild patchy white matter T2/FLAIR hyperintensities are sugges tive of chronic microvascular ischemic disease. There is no acute intracranial hemorrhage, midline sh ift, abnormal extra-axial fluid collection, hydrocephalus or intra-axial mass identified. There is a smoothly marginated ovoid circumscribed extra-axial lesion adjacent to the anterior left frontal lobe measuring 2.8 x 1.2 x 3.0 cm in transverse, AP, dimensions respectively demonstrating intermediate T 1 and T2 signal. Cerebral venous sinuses and major arterial flow voids are patent. The mastoid air cells and paranasal sinuses are generally clear. The skull, orbits and soft tissues are within normal limits. IMPRESSION: 1. No acute intracranial abnormality. 2. Probable meningioma adjacent to left frontal lobe measures up to 3 cm. 3. Age-related involutional changes with chronic microvascular ischemic disease. ACT 112: Negative or not required by law. The above report was generated using voice recognition software. It may contain grammatical, syntax o r spelling errors. Electronically signed by: Yonas Simpson M.D. 02/16/2021 7:15 AM
[2021-02-16 07:35] LABS: Basophils # (auto) 0.02 K/uL (0-0.2); Basophils % (auto) 0.2 %; Eosinophils # (auto) 0.14 K/uL (0-0.5); Eosinophils % (auto) 1.2 %; Hematocrit (blood only) 36.5 % (37-47); Hemoglobin 12.1 g/dL (12.0-16.0); Immature Granulocytes # (auto) 0.03 K/uL (0.00-0.02); Immature Granulocytes % (auto) 0.3 %; Lymphocytes % (auto) 11.3 %; Mean Corpuscular Hemoglobin 29.7 pg (25-34); Mean Corpuscular Hgb Conc 33.2 g/dL (32-36); Mean Corpuscular Volume 89.5 fL (80-100); Monocytes # (auto) 1.22 K/uL (0.11-0.59); Monocytes % (auto) 10.6 %; Neutrophils % (auto) 76.4 %; Platelet Count 197 K/uL (130-400); RDW Standard Deviation 61.5 fL (36.4-46.3); Red Blood Count 4.08 M/uL (4.2-5.4); White Blood Count 11.51 K/uL (4.8-10.8)
[2021-02-16] MEDS: CARBOHYDRATES FOR HYPOGLYCEMIA PO PRN ×2 (07:41→16:16)
[2021-02-16 08:10] LABS: BUN Creatinine Ratio 27.1 (10-20); Bilirubin Direct 0.6 mg/dl (0-0.2); Bilirubin,Total 1.3 mg/dl (0.2-1); Calcium 8.2 mg/dl (8.5-10.1); Creatinine Clr Calc Pharmacy 27.2 ml/min; Est GFR (Non-African American) 31.1 ml/min; Total Protein 6.3 gm/dl (6.4-8.2)
[2021-02-16] MEDS ORDERED: FUROSEMIDE 40 MG in SYRINGE 0 ML IV SCH (09:00)
[2021-02-16] MEDS ORDERED: CLOPIDOGREL BISULFATE 75 MG TAB PO SCH (09:00)
[2021-02-16] MEDS: CLOPIDOGREL BISULFATE 75 MG TAB PO SCH (09:13)
[2021-02-16] MEDS: LOSARTAN POTASSIUM 25 MG TAB PO SCH (09:13)
[2021-02-16] MEDS: APIXABAN 2.5 MG TAB PO SCH ×2 (09:13→21:01)
[2021-02-16 11:36] LABS: iSTAT Arterial Blood Gas pH 7.43 (7.35-7.45); iSTAT Hematocrit 45 % (37-47); iSTAT Hemoglobin 15.3 g/dl (12.0-16.0); iSTAT Potassium 4.8 mmol/L (3.3-5.0); iSTAT Sodium 136 mmol/L (135-144)
[2021-02-16 11:37] LABS: iSTAT Arterial Blood Gas HCO3 24 meg/L (19-24); iSTAT Arterial Blood Gas pCO2 36 mmHg (35-46); iSTAT Arterial Blood Gas pO2 287 mmHg (80-95); iSTAT Carbon Dioxide 25 mmol/L (24-31); iSTAT Sample Type Arterial
[2021-02-16] MEDS ORDERED: FUROSEMIDE 40 MG in SYRINGE 0 ML IV ONE (17:00)
--- NOTE | 2021-02-16 20:33 | XCELERA ---
[id number]
--- NOTE | 2021-02-16 21:02 | Hospitalist Progress Note ---
Date of Service February 16, 2021 Assessment & Plan (1) Acute respiratory distress: 80yo female presenting with acute hypoxic respiratory failure requiring rescue BiPAP. due to acute on chronic diastolic CHF, flash pulmonary edema - patient reports orthopnea and worsening [place]. [place] [address] as well as pulmonary edema present on imaging. Clinically improved with BiPAP, Nitro and Lasix down to 1L today after aggressive diuresis continue Lasix (2) CHF (congestive heart failure): acute on chronic heart failure with preserved ejection fraction (55%) good response to Lasix, 80mg IV in the ED last night and now 40mg IV this morn ing give additional 40mg IV now check BMP in the AM fluid restriction, daily weights (3) CAD, multiple vessel: Patient with multi-vessel CAD s/p mid-LAD PCI in 1999. She had a catheterization in February 2020 which revealed severe multivessel CAD s/p stent to proximal LAD, mid-LAD, mid Cx and distal RCA. She denies chest pain or palpitations. EKG with AF at 141, inverted T-waves in lateral leads with no ST elevations. Troponin = 0.017. -Continue Plavix -Continue Eliquis - dual therapy recommended for at least 1 year following stenting -Continue Atorvastatin -Continue Metoprolol -Continue Losartan (4) Atrial fibrillation with rapid ventricular response: Rate of 141 initially, now improved, rates stable on monitor -Continue Metoprolol 100mg po qAM and 50mg qHS -Metoprolol 5mg IV q 4 hours as needed for HR > 110 -Continue Eliquis (5) CKD (chronic kidney disease) stage 4, GFR 15-29 ml/min: Chronic. Stable -Continue to monitor -Avoid nephrotoxic agents -Renal dosing where needed (6) Hyperlipidemia: Chronic. Stable -Continue Atorvastatin (7) Diabetes mellitus type 2 in nonobese: with hypoglycemia today HbA1 is at goal, 6.4%, actually low for her age stop Lantus, Novolog SS only may discontinue oral medications on discharge given her A1c (8) Brain lesion: Finding on CT initially read as possible epidural hematoma. MRI suggestive of meningioma. Patient denies HEDRICK, trauma. No neurologic deficits -Outpatient followup Ppx - On Eliquis Code - Full code per discussion with patient Dispo - continue on PCU Admission and Anticipated Discharge Date Admission Date: February 15, 2021 Subjective patient is breathing better, down to 1L from 3L, able to lay flat, no dyspnea no chest pain, no fever, no cough eating much better today negative 1500mL and Cr is stable discussed with her son at the bedside discussed with CM, plan [facility] once medically stable, get PT/OT evaluations Review of Systems Review of Systems: All systems reviewed & are unremarkable except as noted in Subjective Respiratory: no cough and no dyspnea Cardiovascular: + edema; no chest pain, no dyspnea, no palpitations and no syncope Physical Exam Constitutional: WD/WN, vitals as above Neck: trachea midline, no thyromegaly Respiratory: normal respiratory effort; no respiratory distress, no labored breathing and no cough Auscultation: + diminished lung sounds and + rales (bases); no crackles, no rhonchi and no wheezes Cardiovascular: Rate/Rhythm: regular rate and regular rhythm Heart Sounds: normal S1 and normal S2; no murmur Vessels: no JVD Extremities: normal capillary refill and + edema (ankles bilaterally) Gastrointestinal (Abdomen): normal bowel sounds, soft, nontender, no hepatosplenomegaly Musculoskeletal: no cyanosis or clubbing, extremities motor strength 5/5 Skin: no rashes, warm and dry Neurologic: patellar DTR's 2+ bilat, sensation intact and PERRL, EOMI, accommodation nl, no face palsy, no dysarthria Results & Data Results & Data ([facility]) Vital Signs (Past 12 Hours) Vital Signs Temp Pulse Pulse Resp BP Pulse Ox 02/16/21 19:39 36.4 C L 99 H 18 115/68 93 02/16/21 15:49 80 02/16/21 15:38 36.5 C 82 18 111/72 97 02/16/21 11:47 37.1 C 86 18 103/66 95 Laboratory Results Laboratory Results - last 24 hr 02/15/21 02/16/21 02/16/21 18:01 00:27 07:05 WBC 11.51 H RBC 4.08 L Hgb 12.1 POC Hgb 15.3 Hct 36.5 L POC Hct 45 MCV 89.5 MCH 29.7 MCHC 33.2 RDW Std Deviation 61.5 H RDW Coeff of Elissa 19.0 H Plt Count 197 MPV 10.0 Immature Gran % (Auto) 0.3 Neut % (Auto) 76.4 Lymph % (Auto) 11.3 Colbert % (Auto) 10.6 Eos % (Auto) 1.2 Baso % (Auto) 0.2 Neut # (Auto) 8.80 H Lymph # (Auto) 1.30 Colbert # (Auto) 1.22 H Eos # (Auto) 0.14 Baso # (Auto) 0.02 Immature Gran # (Auto) 0.03 H Specimen Type Arterial POC pH 7.43 POC pCO2 36 POC pO2 287 H POC HCO3 24 POC Total CO2 25 POC Base Excess -1.0 POC Sodium 136 Sodium POC Potassium 4.8 Potassium Chloride Carbon Dioxide Anion Gap BUN Creatinine Est Cr Clr Drug Dosing Est GFR ( Amer) Est GFR (Non-Af Amer) BUN/Creatinine Ratio Glucose POC Glucose 100 H Calcium Total Bilirubin Direct Bilirubin AST ALT Alkaline Phosphatase Total Protein Albumin 02/16/21 02/16/21 02/16/21 07:05 07:24 07:26 WBC RBC Hgb POC Hgb Hct POC Hct MCV MCH MCHC RDW Std Deviation RDW Coeff of Elissa Plt Count MPV Immature Gran % (Auto) Neut % (Auto) Lymph % (Auto) Colbert % (Auto) Eos % (Auto) Baso % (Auto) Neut # (Auto) Lymph # (Auto) Colbert # (Auto) Eos # (Auto) Baso # (Auto) Immature Gran # (Auto) Specimen Type POC pH POC pCO2 POC pO2 POC HCO3 POC Total CO2 POC Base Excess POC Sodium Sodium 140 POC Potassium Potassium 4.0 Chloride 109 H Carbon Dioxide 26 Anion Gap 5.0 BUN 42 H Creatinine 1.56 H Est Cr Clr Drug Dosing 27.2 Est GFR ( Amer) 36.0 Est GFR (Non-Af Amer) 31.1 BUN/Creatinine Ratio 27.1 H Glucose 51 L* POC Glucose 54 L* 52 L* Calcium 8.2 L Total Bilirubin 1.3 H Direct Bilirubin 0.6 H AST 23 ALT 17 Alkaline Phosphatase 136 H Total Protein 6.3 L D Albumin 2.0 L 02/16/21 02/16/21 02/16/21 08:14 11:25 16:16 WBC RBC Hgb POC Hgb Hct POC Hct MCV MCH MCHC RDW Std Deviation RDW Coeff of Elissa Plt Count MPV Immature Gran % (Auto) Neut % (Auto) Lymph % (Auto) Colbert % (Auto) Eos % (Auto) Baso % (Auto) Neut # (Auto) Lymph # (Auto) Colbert # (Auto) Eos # (Auto) Baso # (Auto) Immature Gran # (Auto) Specimen Type POC pH POC pCO2 POC pO2 POC HCO3 POC Total CO2 POC Base Excess POC Sodium Sodium POC Potassium Potassium Chloride Carbon Dioxide Anion Gap BUN Creatinine Est Cr Clr Drug Dosing Est GFR ( Amer) Est GFR (Non-Af Amer) BUN/Creatinine Ratio Glucose POC Glucose 97 119 H 51 L* Calcium Total Bilirubin Direct Bilirubin AST ALT Alkaline Phosphatase Total Protein Albumin 02/16/21 02/16/21 02/16/21 16:18 16:38 20:15 WBC RBC Hgb POC Hgb Hct POC Hct MCV MCH MCHC RDW Std Deviation RDW Coeff of Elissa Plt Count MPV Immature Gran % (Auto) Neut % (Auto) Lymph % (Auto) Colbert % (Auto) Eos % (Auto) Baso % (Auto) Neut # (Auto) Lymph # (Auto) Colbert # (Auto) Eos # (Auto) Baso # (Auto) Immature Gran # (Auto) Specimen Type POC pH POC pCO2 POC pO2 POC HCO3 POC Total CO2 POC Base Excess POC Sodium Sodium POC Potassium Potassium Chloride Carbon Dioxide Anion Gap BUN Creatinine Est Cr Clr Drug Dosing Est GFR ( Amer) Est GFR (Non-Af Amer) BUN/Creatinine Ratio Glucose POC Glucose 56 L* 81 104 H Calcium Total Bilirubin Direct Bilirubin AST ALT Alkaline Phosphatase Total Protein Albumin Medications Administered Current Inpatient Medications Acetaminophen (Acetaminophen 500 Mg Tab) 500 mg PO Q4 PRN PRN Reason: Pain, Mild Stop: 03/17/21 21:40 Last Admin: 02/16/21 00:49 Dose: 500 mg Documented by: Apixaban (Apixaban 2.5 Mg Tab) 2.5 mg PO BID [facility] Stop: 03/18/21 08:59 Last Admin: 02/16/21 09:13 Dose: 2.5 mg Documented by: Atorvastatin Calcium (Atorvastatin 40 Mg Tab) 40 mg PO QPM [facility] Stop: 03/17/21 21:33 Last Admin: 02/16/21 00:47 Dose: 40 mg Documented by: Clopidogrel Bisulfate (Clopidogrel Bisulfate 75 Mg Tab) 75 mg PO QAM FLIP Stop: 03/18/21 08:59 Last Admin: 02/16/21 09:13 Dose: 75 mg Documented by: Dextrose (Dextrose 50% 50 Ml Syringe) 25 - 50 ml IV UD PRN; Protocol PRN Reason: Hypoglycemia Protocol Stop: 03/17/21 21:33 Ferrous Sulfate (Ferrous Sulfate 325 Mg Tab) 325 mg PO Q2D@0900 [facility] Stop: 03/19/21 08:59 Glucagon (Glucagon For Inj 1 Mg Vial) 1 mg SQ UD PRN; Protocol PRN Reason: Hypoglycemia Protocol Stop: 03/17/21 21:33 Glucose (Glucose 10 Tabs/Tube) 4 - 8 tabs PO UD PRN; Protocol PRN Reason: Hypoglycemia Protocol Stop: 03/17/21 21:33 Glucose (Glucose 40% Gel 15 Gm Tube) 15 - 30 gm PO UD PRN; Protocol PRN Reason: Hypoglycemia Protocol Stop: 03/17/21 21:33 Furosemide 40 mg/ Syringe 4 mls @ 4 mls/min IV DAILY FLIP Stop: 03/18/21 08:59 Last Admin: 02/16/21 09:12 Dose: 4 mls/min Documented by: Insulin Aspart (Insulin Aspart 100 Units/Ml 3 Ml Pen) 0 units SC ACHS [facility] Stop: 03/17/21 21:59 Last Admin: 02/16/21 18:04 Dose: Not Given Documented by: Losartan Potassium (Losartan Potassium 25 Mg Tab) 25 mg PO QAM [facility] Stop: 03/18/21 08:59 Last Admin: 02/16/21 09:13 Dose: 25 mg Documented by: Metoprolol Succinate (Metoprolol Succ 50mg Ext Rel Tab) 50 mg PO HS [facility] Stop: 03/17/21 21:59 Last Admin: 02/16/21 00:47 Dose: 50 mg Documented by: Metoprolol Succinate (Metoprolol Succ 50mg Ext Rel Tab) 100 mg PO QAM [facility] Stop: 03/18/21 08:59 Last Admin: 02/16/21 09:15 Dose: 100 mg Documented by: Metoprolol Tartrate (Metoprolol Tartrate 1 Mg/Ml Vial) 5 mg IV Q4 PRN PRN Reason: Tachycardia, HR > 110 Stop: 03/17/21 21:33 Miscellaneous (Carbohydrates For Hypoglycemia ) 15 - 30 gm PO UD PRN PRN Reason: Hypoglycemia Protocol Stop: 03/17/21 21:33 Last Admin: 02/16/21 16:16 Dose: 30 gm Documented by: PG Care Time/CCT Total # of Minutes Spent Total Time Spent with Patient: Total time spent is greater than 50% in coordination of care (as documented) at patient's floor/unit and/or counseling patient: Coding Level of Care Code 08005 Subseq Hosp Care Lvl 3 Diagnoses Acute respiratory distress R06.03 CHF (congestive heart failure) I50.9 Heart failure chronicity: acute Heart failure type: unspecified CAD, multiple vessel I25.10 Atrial fibrillation with rapid ventricular response I48.91 CKD (chronic kidney disease) stage 4, GFR 15-29 ml/min N18.4 Hyperlipidemia E78.5 Hyperlipidemia type: unspecified Diabetes mellitus type 2 in nonobese E11.9 Brain lesion G93.9 (1) CHF (congestive heart failure) Heart failure chronicity: acute Heart failure type: unspecified Qualified Code(s): I50.9 - Heart failure, unspecified (2) Hyperlipidemia Hyperlipidemia type: unspecified Qualified Code(s): E78.5 - Hyperlipidemia, unspecified
--- NOTE | 2021-02-16 22:44 | Electrocardiogram Report ---
Test Reason : Blood Pressure : / mmHG Vent. Rate : 141 BPM Atrial Rate : 058 BPM P-R Int : 000 ms QRS Dur : 092 ms QT Int : 320 ms P-R-T Axes : 000 -23 153 degrees QTc Int : 490 ms Atrial fibrillation with rapid ventricular response Poor R wave progression, consider anterior MO vs. lead placement vs. LVH T wave abnormality, consider lateral ischemia Abnormal ECG When compared with ECG of 11-FEB-2020 10:49, Vent. rate has increased BY 74 BPM T wave amplitude has increased in Anterior leads Confirmed by Luis Pruitt ([id number]) on 02/16/2021 10:44:28 PM Referred By: REFERRED SELF Confirmed By:Luis Pruitt
--- NOTE | 2021-02-17 05:44 | Electrocardiogram Report ---
Test Reason : Blood Pressure : / mmHG Vent. Rate : 078 BPM Atrial Rate : 163 BPM P-R Int : 000 ms QRS Dur : 094 ms QT Int : 446 ms P-R-T Axes : 000 -13 194 degrees QTc Int : 508 ms Atrial fibrillation Prolonged QT Abnormal ECG When compared with ECG of 15-FEB-2021 17:33, Vent. rate has decreased BY 63 BPM Nonspecific T wave abnormality now evident in Inferior leads T wave inversion more evident in Anterolateral leads Confirmed by Luis Pruitt ([id number]) on 02/17/2021 5:44:22 AM Referred By: REFERRED SELF Confirmed By:Luis Pruitt
[2021-02-17 07:02] LABS: Hematocrit (blood only) 39.1 % (37-47); Hemoglobin 13.1 g/dL (12.0-16.0); Mean Corpuscular Hemoglobin 30.4 pg (25-34); Mean Corpuscular Hgb Conc 33.5 g/dL (32-36); Mean Corpuscular Volume 90.7 fL (80-100); Mean Platelet Volume 9.6 fL (7.4-10.4); Platelet Count 200 K/uL (130-400); RDW Coefficient of Variation 19.3 % (11.5-14.5); RDW Standard Deviation 63.7 fL (36.4-46.3); Red Blood Count 4.31 M/uL (4.2-5.4); White Blood Count 8.37 K/uL (4.8-10.8)
[2021-02-17 07:40] LABS: BUN Creatinine Ratio 26.6 (10-20); Calcium 8.4 mg/dl (8.5-10.1); Creatinine Clr Calc Pharmacy 23.4 ml/min; Est GFR (African American) 29.7 ml/min; Est GFR (Non-African American) 25.6 ml/min; Potassium 4.2 mmol/L (3.5-5.1)
[2021-02-17] MEDS: INSULIN ASPART 100 UNITS/ML 3 ML PEN SC SCH ×4 (08:43→20:43)
[2021-02-17] MEDS ORDERED: FERROUS SULFATE 325 MG TAB PO SCH (09:00)
[2021-02-17] MEDS: CLOPIDOGREL BISULFATE 75 MG TAB PO SCH (09:54)
[2021-02-17] MEDS: LOSARTAN POTASSIUM 25 MG TAB PO SCH (09:55)
[2021-02-17] MEDS: METOPROLOL SUCC 50MG EXT REL TAB PO SCH ×2 (09:55→20:17)
[2021-02-17] MEDS: APIXABAN 2.5 MG TAB PO SCH ×2 (09:55→20:17)
--- NOTE | 2021-02-17 16:34 | Hospitalist Progress Note ---
Date of Service February 17, 2021 Assessment & Plan (1) Acute respiratory distress: 80yo female presenting with acute hypoxic respiratory failure requiring rescue BiPAP. due to acute on chronic diastolic CHF, flash pulmonary edema - patient reports orthopnea and worsening [place]. [place] [address] as well as pulmonary edema present on imaging. Clinically improved with BiPAP, Nitro and Lasix down to room air today after aggressive diuresis continue Lasix at 80mg PO daily (2) CHF (congestive heart failure): acute on chronic heart failure with preserved ejection fraction (55%) good response to Lasix, 80mg IV in the ED and 40mg IV yesterday morning starting tomorrow will be on Lasix 80mg PO daily check BMP in the AM fluid restriction, daily weights (3) CAD, multiple vessel: Patient with multi-vessel CAD s/p mid-LAD PCI in 1999. She had a catheterization in February 2020 which revealed severe multivessel CAD s/p stent to proximal LAD, mid-LAD, mid Cx and distal RCA. She denies chest pain or palpitations. EKG with AF at 141, inverted T-waves in lateral leads with no ST elevations. Troponin = 0.017. -Continue Plavix -Continue Eliquis - dual therapy recommended for at least 1 year following stenting -Continue Atorvastatin -Continue Metoprolol -Continue Losartan (4) Atrial fibrillation with rapid ventricular response: Rate of 141 initially, now improved, rates stable on monitor -Continue Metoprolol 100mg po qAM and 50mg qHS -Metoprolol 5mg IV q 4 hours as needed for HR > 110 -Continue Eliquis (5) CKD (chronic kidney disease) stage 4, GFR 15-29 ml/min: Chronic. Stable, Cr is 1.8 and BUN 49 hold Lasix today, start on 80mg PO daily tomorrow -Continue to monitor -Avoid nephrotoxic agents (6) Hyperlipidemia: Chronic. Stable -Continue Atorvastatin (7) Diabetes mellitus type 2 in nonobese: with hypoglycemia on 02/16 HbA1 is at goal, 6.4%, actually low for her age sugars better the past 24 hours stopped Lantus, Novolog SS only may discontinue oral medications on discharge given her A1c (8) Brain lesion: Finding on CT initially read as possible epidural hematoma. MRI suggestive of meningioma. Patient denies HEDRICK, trauma. No neurologic deficits -Outpatient followup Ppx - On Eliquis Code - Full code per discussion with patient Dispo - continue on PCU Admission and Anticipated Discharge Date Admission Date: February 15, 2021 Subjective patient breathing well on room air reviewed culture from skin/wound, resistant strain of Pseudomonas reviewed outpatient wound care notes, she had been on topical antibiotic cream removed arriaga, resume Lasix PO tomorrow eating well, no chest pain, no cough, no fever d/w CM, plan for [facility] but needs insurance auth, still awaiting OT notes will likely be here all weekend Review of Systems Review of Systems: All systems reviewed & are unremarkable except as noted in Subjective Constitutional: no fever Respiratory: + dyspnea on exertion; no dyspnea Cardiovascular: + edema; no chest pain Integumentary: + wounds (venous stasis ulcers, bilateral legs, left worse than right) and + erythema (legs) Physical Exam Constitutional: WD/WN, vitals as above Neck: trachea midline, no thyromegaly Respiratory: normal respiratory effort; no respiratory distress, no labored breathing and no cough Auscultation: lungs clear to auscultation bilaterally and + diminished lung sounds; no crackles, no rhonchi and no wheezes Cardiovascular: Rate/Rhythm: regular rate and regular rhythm Heart Sounds: normal S1 and normal S2; no murmur Vessels: no JVD Extremities: normal capillary refill and + edema (ankles bilaterally) Gastrointestinal (Abdomen): normal bowel sounds, soft, nontender, no hepatosplenomegaly Musculoskeletal: no cyanosis or clubbing, extremities motor strength 5/5 Skin: + wound (venous stasis ulcers bilaterally) and + erythema (bilateral lower legs) Neurologic: patellar DTR's 2+ bilat, sensation intact and PERRL, EOMI, accommodation nl, no face palsy, no dysarthria Results & Data Results & Data ([facility]) Vital Signs (Past 12 Hours) Vital Signs Temp Pulse Pulse Resp BP Pulse Ox 02/17/21 15:46 36.4 C L 85 20 138/82 97 02/17/21 11:41 36.6 C 95 H 18 129/85 96 02/17/21 10:53 93 02/17/21 08:05 36.7 C 90 18 133/80 91 02/17/21 07:30 83 Laboratory Results Laboratory Results - last 24 hr 02/16/21 02/16/21 02/16/21 16:16 16:18 16:38 WBC RBC Hgb Hct MCV MCH MCHC RDW Std Deviation RDW Coeff of Elissa Plt Count MPV Sodium Potassium Chloride Carbon Dioxide Anion Gap BUN Creatinine Est Cr Clr Drug Dosing Est GFR ( Amer) Est GFR (Non-Af Amer) BUN/Creatinine Ratio Glucose POC Glucose 51 L* 56 L* 81 Calcium 02/16/21 02/17/21 02/17/21 20:15 06:47 06:47 WBC 8.37 RBC 4.31 Hgb 13.1 Hct 39.1 MCV 90.7 MCH 30.4 MCHC 33.5 RDW Std Deviation 63.7 H RDW Coeff of Elissa 19.3 H Plt Count 200 MPV 9.6 Sodium 139 Potassium 4.2 Chloride 108 H Carbon Dioxide 28 Anion Gap 3.0 BUN 49 H Creatinine 1.83 H Est Cr Clr Drug Dosing 23.4 Est GFR ( Amer) 29.7 Est GFR (Non-Af Amer) 25.6 BUN/Creatinine Ratio 26.6 H Glucose 80 POC Glucose 104 H Calcium 8.4 L 02/17/21 02/17/21 07:04 11:08 WBC RBC Hgb Hct MCV MCH MCHC RDW Std Deviation RDW Coeff of Elissa Plt Count MPV Sodium Potassium Chloride Carbon Dioxide Anion Gap BUN Creatinine Est Cr Clr Drug Dosing Est GFR ( Amer) Est GFR (Non-Af Amer) BUN/Creatinine Ratio Glucose POC Glucose 72 102 H Calcium Medications Administered Current Inpatient Medications Acetaminophen (Acetaminophen 500 Mg Tab) 500 mg PO Q4 PRN PRN Reason: Pain, Mild Stop: 03/17/21 21:40 Last Admin: 02/16/21 00:49 Dose: 500 mg Documented by: Apixaban (Apixaban 2.5 Mg Tab) 2.5 mg PO BID [facility] Stop: 03/18/21 08:59 Last Admin: 02/17/21 09:55 Dose: 2.5 mg Documented by: Atorvastatin Calcium (Atorvastatin 40 Mg Tab) 40 mg PO QPM FLIP Stop: 03/17/21 21:33 Last Admin: 02/16/21 21:02 Dose: 40 mg Documented by: Clopidogrel Bisulfate (Clopidogrel Bisulfate 75 Mg Tab) 75 mg PO QAM [facility] Stop: 03/18/21 08:59 Last Admin: 02/17/21 09:54 Dose: 75 mg Documented by: Dextrose (Dextrose 50% 50 Ml Syringe) 25 - 50 ml IV UD PRN; Protocol PRN Reason: Hypoglycemia Protocol Stop: 03/17/21 21:33 Ferrous Sulfate (Ferrous Sulfate 325 Mg Tab) 325 mg PO Q2D@0900 [facility] Stop: 03/19/21 08:59 Last Admin: 02/17/21 09:54 Dose: 325 mg Documented by: Glucagon (Glucagon For Inj 1 Mg Vial) 1 mg SQ UD PRN; Protocol PRN Reason: Hypoglycemia Protocol Stop: 03/17/21 21:33 Glucose (Glucose 10 Tabs/Tube) 4 - 8 tabs PO UD PRN; Protocol PRN Reason: Hypoglycemia Protocol Stop: 03/17/21 21:33 Glucose (Glucose 40% Gel 15 Gm Tube) 15 - 30 gm PO UD PRN; Protocol PRN Reason: Hypoglycemia Protocol Stop: 03/17/21 21:33 Furosemide 40 mg/ Syringe 4 mls @ 4 mls/min IV DAILY FLIP Stop: 03/18/21 08:59 Last Admin: 02/16/21 09:12 Dose: 4 mls/min Documented by: Insulin Aspart (Insulin Aspart 100 Units/Ml 3 Ml Pen) 0 units SC ACHS [facility] Stop: 03/17/21 21:59 Last Admin: 02/17/21 12:59 Dose: 2 units Documented by: Losartan Potassium (Losartan Potassium 25 Mg Tab) 25 mg PO QAM [facility] Stop: 03/18/21 08:59 Last Admin: 02/17/21 09:55 Dose: 25 mg Documented by: Metoprolol Succinate (Metoprolol Succ 50mg Ext Rel Tab) 50 mg PO HS [facility] Stop: 03/17/21 21:59 Last Admin: 02/16/21 21:01 Dose: 50 mg Documented by: Metoprolol Succinate (Metoprolol Succ 50mg Ext Rel Tab) 100 mg PO QAM [facility] Stop: 03/18/21 08:59 Last Admin: 02/17/21 09:55 Dose: 100 mg Documented by: Metoprolol Tartrate (Metoprolol Tartrate 1 Mg/Ml Vial) 5 mg IV Q4 PRN PRN Reason: Tachycardia, HR > 110 Stop: 03/17/21 21:33 Miscellaneous (Carbohydrates For Hypoglycemia ) 15 - 30 gm PO UD PRN PRN Reason: Hypoglycemia Protocol Stop: 03/17/21 21:33 Last Admin: 02/16/21 16:16 Dose: 30 gm Documented by: PG Care Time/CCT Total # of Minutes Spent Total Time Spent with Patient: Total time spent is greater than 50% in coordination of care (as documented) at patient's floor/unit and/or counseling patient: Coding Level of Care Code 29574 Subseq Hosp Care Lvl 3 Diagnoses Acute respiratory distress R06.03 CHF (congestive heart failure) I50.9 Heart failure chronicity: acute Heart failure type: unspecified CAD, multiple vessel I25.10 Atrial fibrillation with rapid ventricular response I48.91 CKD (chronic kidney disease) stage 4, GFR 15-29 ml/min N18.4 Hyperlipidemia E78.5 Hyperlipidemia type: unspecified Diabetes mellitus type 2 in nonobese E11.9 Brain lesion G93.9 (1) CHF (congestive heart failure) Heart failure chronicity: acute Heart failure type: unspecified Qualified Code(s): I50.9 - Heart failure, unspecified (2) Hyperlipidemia Hyperlipidemia type: unspecified Qualified Code(s): E78.5 - Hyperlipidemia, unspecified
[2021-02-17] MEDS: ATORVASTATIN 40 MG TAB PO SCH (20:17)
[2021-02-18 06:39] LABS: BUN Creatinine Ratio 29.7 (10-20); Calcium 8.3 mg/dl (8.5-10.1); Creatinine Clr Calc Pharmacy 25.6 ml/min; Est GFR (African American) 32.9 ml/min; Est GFR (Non-African American) 28.4 ml/min; Potassium 4.4 mmol/L (3.5-5.1)
[2021-02-18] MEDS: INSULIN ASPART 100 UNITS/ML 3 ML PEN SC SCH ×2 (08:50→12:20)
[2021-02-18] MEDS: APIXABAN 2.5 MG TAB PO SCH (08:51)
[2021-02-18] MEDS: CLOPIDOGREL BISULFATE 75 MG TAB PO SCH (08:52)
[2021-02-18] MEDS: METOPROLOL SUCC 50MG EXT REL TAB PO SCH (08:52)
[2021-02-18] MEDS: LOSARTAN POTASSIUM 25 MG TAB PO SCH (08:52)
[2021-02-18] MEDS ORDERED: FUROSEMIDE 80 MG TAB PO SCH (09:00)
--- NOTE | 2021-02-18 11:39 | Hospitalist Progress Note ---
Date of Service February 18, 2021 Assessment & Plan (1) Acute respiratory distress: 80yo female presenting with acute hypoxic respiratory failure requiring rescue BiPAP. due to acute on chronic diastolic CHF, flash pulmonary edema - patient reports orthopnea and worsening [place]. [place] [id number] as well as pulmonary edema present on imaging. Clinically improved with BiPAP, Nitro and Lasix down to room air today after aggressive diuresis continue Lasix at 80mg PO daily (2) CHF (congestive heart failure): acute on chronic heart failure with preserved ejection fraction (55%) good response to Lasix, 80mg IV in the ED and 40mg IV yesterday morning starting tomorrow will be on Lasix 80mg PO daily check BMP in the AM fluid restriction, daily weights (3) CAD, multiple vessel: Patient with multi-vessel CAD s/p mid-LAD PCI in 1999. She had a catheterization in February 2020 which revealed severe multivessel CAD s/p stent to proximal LAD, mid-LAD, mid Cx and distal RCA. She denies chest pain or palpitations. EKG with AF at 141, inverted T-waves in lateral leads with no ST elevations. Troponin = 0.017. -Continue Plavix -Continue Eliquis - dual therapy recommended for at least 1 year following stenting -Continue Atorvastatin -Continue Metoprolol -Continue Losartan (4) Atrial fibrillation with rapid ventricular response: Rate of 141 initially, now improved, rates stable on monitor -Continue Metoprolol 100mg po qAM and 50mg qHS -Metoprolol 5mg IV q 4 hours as needed for HR > 110 -Continue Eliquis (5) CKD (chronic kidney disease) stage 4, GFR 15-29 ml/min: Chronic. Stable, Cr is 1.8 and BUN 49 hold Lasix today, start on 80mg PO daily tomorrow -Continue to monitor -Avoid nephrotoxic agents (6) Hyperlipidemia: Chronic. Stable -Continue Atorvastatin (7) Diabetes mellitus type 2 in nonobese: with hypoglycemia on 02/16 HbA1 is at goal, 6.4%, actually low for her age sugars better the past 24 hours stopped Lantus, Novolog SS only may discontinue oral medications on discharge given her A1c (8) Brain lesion: Finding on CT initially read as possible epidural hematoma. MRI suggestive of meningioma. Patient denies HEDRICK, trauma. No neurologic deficits -Outpatient followup Ppx - On Eliquis Code - Full code per discussion with patient Dispo - continue on PCU Admission and Anticipated Discharge Date Admission Date: February 15, 2021 Subjective patient was discharged this date, see d/c summary Physical Exam Constitutional: WD/WN, vitals as above Neck: trachea midline, no thyromegaly Respiratory: normal respiratory effort; no respiratory distress, no labored breathing and no cough Auscultation: lungs clear to auscultation bilaterally and + diminished lung sounds; no crackles, no rhonchi and no wheezes Cardiovascular: Rate/Rhythm: regular rate and regular rhythm Heart Sounds: normal S1 and normal S2; no murmur Vessels: no JVD Extremities: normal capillary refill and + edema (ankles bilaterally) Gastrointestinal (Abdomen): normal bowel sounds, soft, nontender, no hepatosplenomegaly Musculoskeletal: no cyanosis or clubbing, extremities motor strength 5/5 Skin: no rashes, warm and dry + wound (venous stasis ulcers bilaterally) and + erythema (bilateral lower legs) Neurologic: patellar DTR's 2+ bilat, sensation intact and PERRL, EOMI, accommodation nl, no face palsy, no dysarthria Results & Data Results & Data ([facility]) Vital Signs (Past 12 Hours) Vital Signs Temp Pulse Pulse Resp BP Pulse Ox 02/18/21 11:29 36.4 C L 91 H 19 130/72 93 02/18/21 08:04 36.6 C 97 H 19 130/82 92 02/18/21 07:00 94 H 02/18/21 03:55 99 H 02/18/21 03:35 36.3 C L 93 H 18 148/90 H 92 02/18/21 00:02 36.4 C L 87 17 130/79 92 Laboratory Results Laboratory Results - last 24 hr 02/17/21 02/17/21 02/18/21 16:31 20:40 05:29 Sodium 138 Potassium 4.4 Chloride 106 Carbon Dioxide 30 Anion Gap 2.0 L BUN 50 H Creatinine 1.68 H Est Cr Clr Drug Dosing 25.6 Est GFR ( Amer) 32.9 Est GFR (Non-Af Amer) 28.4 BUN/Creatinine Ratio 29.7 H Glucose 110 H POC Glucose 78 111 H Calcium 8.3 L 02/18/21 07:21 Sodium Potassium Chloride Carbon Dioxide Anion Gap BUN Creatinine Est Cr Clr Drug Dosing Est GFR ( Amer) Est GFR (Non-Af Amer) BUN/Creatinine Ratio Glucose POC Glucose 96 Calcium Medications Administered Current Inpatient Medications Acetaminophen (Acetaminophen 500 Mg Tab) 500 mg PO Q4 PRN PRN Reason: Pain, Mild Stop: 03/17/21 21:40 Last Admin: 02/16/21 00:49 Dose: 500 mg Documented by: Apixaban (Apixaban 2.5 Mg Tab) 2.5 mg PO BID [facility] Stop: 03/18/21 08:59 Last Admin: 02/18/21 08:51 Dose: 2.5 mg Documented by: Atorvastatin Calcium (Atorvastatin 40 Mg Tab) 40 mg PO QPM [facility] Stop: 03/17/21 21:33 Last Admin: 02/17/21 20:17 Dose: 40 mg Documented by: Clopidogrel Bisulfate (Clopidogrel Bisulfate 75 Mg Tab) 75 mg PO QAM [facility] Stop: 03/18/21 08:59 Last Admin: 02/18/21 08:52 Dose: 75 mg Documented by: Dextrose (Dextrose 50% 50 Ml Syringe) 25 - 50 ml IV UD PRN; Protocol PRN Reason: Hypoglycemia Protocol Stop: 03/17/21 21:33 Ferrous Sulfate (Ferrous Sulfate 325 Mg Tab) 325 mg PO Q2D@0900 [facility] Stop: 03/19/21 08:59 Last Admin: 02/17/21 09:54 Dose: 325 mg Documented by: Furosemide (Furosemide 80 Mg Tab) 80 mg PO QAM [facility] Stop: 03/20/21 08:59 Last Admin: 02/18/21 08:51 Dose: 80 mg Documented by: Glucagon (Glucagon For Inj 1 Mg Vial) 1 mg SQ UD PRN; Protocol PRN Reason: Hypoglycemia Protocol Stop: 03/17/21 21:33 Glucose (Glucose 10 Tabs/Tube) 4 - 8 tabs PO UD PRN; Protocol PRN Reason: Hypoglycemia Protocol Stop: 03/17/21 21:33 Glucose (Glucose 40% Gel 15 Gm Tube) 15 - 30 gm PO UD PRN; Protocol PRN Reason: Hypoglycemia Protocol Stop: 03/17/21 21:33 Insulin Aspart (Insulin Aspart 100 Units/Ml 3 Ml Pen) 0 units SC ACHS FLIP Stop: 03/17/21 21:59 Last Admin: 02/18/21 08:50 Dose: 3 units Documented by: Losartan Potassium (Losartan Potassium 25 Mg Tab) 25 mg PO QAM [facility] Stop: 03/18/21 08:59 Last Admin: 02/18/21 08:52 Dose: 25 mg Documented by: Metoprolol Succinate (Metoprolol Succ 50mg Ext Rel Tab) 50 mg PO HS [facility] Stop: 03/17/21 21:59 Last Admin: 02/17/21 20:17 Dose: 50 mg Documented by: Metoprolol Succinate (Metoprolol Succ 50mg Ext Rel Tab) 100 mg PO QAM [facility] Stop: 03/18/21 08:59 Last Admin: 02/18/21 08:52 Dose: 100 mg Documented by: Metoprolol Tartrate (Metoprolol Tartrate 1 Mg/Ml Vial) 5 mg IV Q4 PRN PRN Reason: Tachycardia, HR > 110 Stop: 03/17/21 21:33 Miscellaneous (Carbohydrates For Hypoglycemia ) 15 - 30 gm PO UD PRN PRN Reason: Hypoglycemia Protocol Stop: 03/17/21 21:33 Last Admin: 02/16/21 16:16 Dose: 30 gm Documented by: PG Care Time/CCT Total # of Minutes Spent Total Time Spent with Patient: Total time spent is greater than 50% in coordination of care (as documented) at patient's floor/unit and/or counseling patient: Coding Level of Care Code None Diagnoses Acute respiratory distress R06.03 CHF (congestive heart failure) I50.9 Heart failure chronicity: acute Heart failure type: unspecified CAD, multiple vessel I25.10 Atrial fibrillation with rapid ventricular response I48.91 CKD (chronic kidney disease) stage 4, GFR 15-29 ml/min N18.4 Hyperlipidemia E78.5 Hyperlipidemia type: unspecified Diabetes mellitus type 2 in nonobese E11.9 Brain lesion G93.9 (1) CHF (congestive heart failure) Heart failure chronicity: acute Heart failure type: unspecified Qualified Code(s): I50.9 - Heart failure, unspecified (2) Hyperlipidemia Hyperlipidemia type: unspecified Qualified Code(s): E78.5 - Hyperlipidemia, unspecified
--- NOTE | 2021-02-20 15:58 | Discharge Summary ---
Date of Service February 18, 2021 Admission HPI Per Admitting Provider Brandee Alonso is a pleasant 80yo female presenting with acute hypoxic respiratory failure. Patient with chronic venous stasis ulcers. She was seen in [facility] today for a routine appointment. She states that she drove herself to the appointment without difficulty. She was noted to have worsening pain in her RLE and was sent to [facility]. During that appointment she became short of breath and confused. She was reportedly hypoxic with SpO2 in the 70's. EMS was called and she was transferred to [facility] ER. Upon arrival to the ER she was found to be in respiratory distress, somewhat cyanotic in appearance, in atrial fibrillation with RVR. She was placed on BiPAP and given Lasix and Nitro with improvement. During my interview, patient was much improved. BiPAP in place but she was speaking in full sentences. She does not clearly recall the events prior to arrival. She states she has had worsening shortness of breath over the last day. She reports increase in bilateral LE edema as well as orthopnea and a cough at night. She had a poor appetite today but normally eats well. She denies chest pain, palpitations, abdominal pain, nausea, vomiting, diarrhea or constipation. She denies fever, chills. No additional complaints at this time. ER Course: Metoprolol 5mg IV, Nitroglycerine 2inch, Lasix 80mg IV, Cefepime 2gm IV, BiPAP 10/5, 40% FiO2 Principal Diagnosis Acute on chronic diastolic heart failure and right sided heart failure Discharge Exam Constitutional WD/WN, vitals as above Neck trachea midline, no thyromegaly Respiratory normal respiratory effort; no respiratory distress, no labored breathing and no cough Auscultation: lungs clear to auscultation bilaterally and + diminished lung sounds; no crackles, no rhonchi and no wheezes Cardiovascular Rate/Rhythm: regular rate and regular rhythm Heart Sounds: normal S1 and normal S2; no murmur Vessels: no JVD Extremities: normal capillary refill and + edema (ankles bilaterally) Gastrointestinal (Abdomen) normal bowel sounds, soft, nontender, no hepatosplenomegaly Musculoskeletal no cyanosis or clubbing, extremities motor strength 5/5 Skin no rashes, warm and dry + wound (venous stasis ulcers bilaterally) and + erythema (bilateral lower legs) Neurologic patellar DTR's 2+ bilat, sensation intact and PERRL, EOMI, accommodation nl, no face palsy, no dysarthria Discharge Data Allergies Allergy/AdvReac Type Severity Reaction Status Date / Time enalapril AdvReac Intermediate Cough Verified 02/21/21 11:09 Consultations 02/15/21 18:57 ED Decision to Admit Stat Ordered Studies 02/15/21 17:51 CT head/brain wo con Urgent 02/15/21 22:30 MR brain wo con Stat Hospital Course (1) Acute respiratory distress: 80yo female presenting with acute hypoxic respiratory failure requiring rescue BiPAP. due to acute on chronic diastolic CHF, flash pulmonary edema - patient reports orthopnea and worsening edema. [place] [address] as well as pulmonary edema present on imaging. Clinically improved with BiPAP, Nitro and Lasix down to room air for two days after aggressive diuresis continue Lasix at 80mg PO daily on discharge to keep lungs dry (2) CHF (congestive heart failure): acute on chronic heart failure with preserved ejection fraction (55%) -- acute on chronic diastolic heart failure and right sided heart failure good response to Lasix, 80mg IV in the ED and 40mg IV in morning on 02/18 will discharge on Lasix 80mg PO daily recommend daily weights at [facility] recommend fluid restriction, salt restriction wrap legs as instructed by wound clinic long discussion with patient and her son about the difficulty of diuresis with right sided heart failure could very likely strain her kidneys, will be a balancing act physician at [facility] will monitor renal function with increased dose of Lasix (3) CAD, multiple vessel: Patient with multi-vessel CAD s/p mid-LAD PCI in 1999. She had a catheterization in February 2020 which revealed severe multivessel CAD s/p stent to proximal LAD, mid-LAD, mid Cx and distal RCA. She denies chest pain or palpitations. EKG with AF at 141, inverted T-waves in lateral leads with no ST elevations. Troponin = 0.017. no chest pain while here, HR stable after treatment in the ED -Continue Plavix -Continue Eliquis - dual therapy recommended for at least 1 year following stenting -Continue Atorvastatin -Continue Metoprolol -Continue Losartan (4) Atrial fibrillation with rapid ventricular response: initial rate of 141, now improved, rates stable on monitor -Continue Metoprolol 100mg po qAM and 50mg qHS -Continue Eliquis (5) CKD (chronic kidney disease) stage 4, GFR 15-29 ml/min: Chronic. Stable, Cr is 1.6 and BUN 50 Lasix 80mg PO daily tomorrow -Continue to monitor at [facility] -Avoid nephrotoxic agents (6) Hyperlipidemia: Chronic. Stable -Continue Atorvastatin (7) Diabetes mellitus type 2 in nonobese: with hypoglycemia on 02/16 HbA1 is at goal, 6.4%, actually low for her age sugars better the past 24 hours stopped Lantus, Novolog SS only may discontinue oral medications on discharge given her A1c defer to physician at [facility] (8) Brain lesion: Finding on CT initially read as possible epidural hematoma. MRI suggestive of meningioma? Patient denies HEDRICK, trauma. No neurologic deficits -Outpatient followup Ppx - On Eliquis Code - Full code per discussion with patient Dispo - continue on PCU Total Time Total Time Spent Total Time Spent (In Minutes): 34 Total Time Includes: Examination of the Patient, Discharge Planning and Medication Reconciliation Discharge Plan Discharge Items Patient Disposition: Transfer [facility] Reason For Visit: ACUTE HYPOXIC RESPIRATORY FAILURE Discharge Diagnosis: Acute on chronic diastolic heart failure Right sided heart failure Venous stasis ulcers, Pseudomonas infection Condition on Discharge: Good Goals: continue on higher dose of Lasix follow up this week with wound clinic, [facility] Activity: Resume your previous activity Weightbearing: Full weightbearing Non-emergency contact: Primary Care Provider Call non-emergency contact if: you have any medication questions Follow-up/Referrals: Gilbert Posadas MD [Primary Care Provider] - (one week) Diet: Carb Consistent or DM2 and Heart Healthy Fluids: 1800ml (7 cups) Addtl Attending Provider Instructions: Medications: - LASIX: dose increased from 40mg daily to 80mg daily Acute on chronic heart failure with preserved EF, right heart failure responded well to Lasix 80mg IV initially and then 40mg IV negative fluid balance, lungs clear, Cr is stable will increase to 80mg PO daily should follow BMP, check in a few days need to weigh patient daily, weight should go down or should remain stable please follow fluid restriction of 1800mL daily low sodium diet of < 2000mg a day discussed with patient and her son that diastolic and right heart failure can be difficult to manage more likely to place strain on kidneys without removing majority of fluid in her legs should keep legs wrapped and elevated when possible Venous stasis ulcers please follow up this week with wound clinic, [facility] Carter BRIANDA as previously scheduled noted to have a resistant strain of Pseudomonas on topical culture unclear that this is causing active infection, wound clinic had recently stopped topical antibiotic Pending Studies at Discharge: No Stand-Alone Forms: My [facility] Skilled Items Patient informed of condition?: Yes DNR: No Discharge Level of Care: Skilled Communicable Disease: No Discharge Prognosis: Stable Lines: None Urinary Catheter: No Medications and DC Order Prescriptions: New furosemide 80 mg Tablet 80 mg PO QAM 30 Days Qty: 30 RF: 3 Continued (DME) OneTouch Ultra Blue Test Strip strip See Rx Instructions .ROUTE .MEDSUPPLY Qty: 100 RF: 3 (DME) blood-glucose meter [OneTouch Ultra2 Meter] misc See Rx Instructions .ROUTE .MEDSUPPLY Qty: 1 RF: 0 (DME) lancets [OneTouch Delica Plus Lancet] 33 gauge misc See Rx Instructions .ROUTE .MEDSUPPLY Qty: 100 RF: 3 glipizide 5 mg tablet extended release 24hr 5 mg PO DAILY Qty: 90 RF: 1 clopidogrel 75 mg tablet 75 mg PO QAM Qty: 90 RF: 3 atorvastatin 40 mg tablet 40 mg PO QPM Qty: 90 RF: 3 Eliquis 2.5 mg tablet 2.5 mg PO BID Qty: 180 RF: 0 losartan 25 mg tablet 25 mg PO QAM Qty: 90 RF: 3 cyanocobalamin (vitamin B-12) 1,000 mcg tablet, sublingual 1,000 mcg SL DAILY Qty: 30 RF: 0 ferrous sulfate 325 mg (65 mg iron) tablet 325 mg PO Q OTHER DAY RF: 0 metoprolol succinate 50 mg Tablet Extended Release 24 Hr 50 mg PO HS RF: 0 metoprolol succinate [Toprol XL] 100 mg tablet extended release 24 hr 100 mg PO QAM RF: 0 acetaminophen [Tylenol Extra Strength] 500 mg Tablet 500 mg PO Q4 MDD 3g PRN (Reason: Pain, Mild) RF: 0 Discontinued furosemide [Lasix] 40 mg tablet 40 mg PO QAM Qty: 90 RF: 3 Discharge Orders: Discharge Order (Routine); Ordered 02/18/21 Ordered By: Devang Weathers Admission Data Admit Date/Time: 02/15/21 19:54 Attending Provider: Devang Weathers Admit Provider: Мария Lerma Primary Care Provider: Gilbert Posadas V. Other Providers: Mark De Leon ; [place] Other Interventions: Discharge Summary Assessment (RN) Last Done: 02/18/21 15:20 Coding Level of Care Code D/C DAY MANAGEMENT >30 MINS Diagnoses Acute respiratory distress R06.03 CHF (congestive heart failure) I50.9 Heart failure chronicity: acute Heart failure type: unspecified CAD, multiple vessel I25.10 Atrial fibrillation with rapid ventricular response I48.91 CKD (chronic kidney disease) stage 4, GFR 15-29 ml/min N18.4 Hyperlipidemia E78.5 Hyperlipidemia type: unspecified Diabetes mellitus type 2 in nonobese E11.9 Brain lesion G93.9
== END 2021-02-18 16:50 | DRG 291 ==
LOC: ED 17:25 → MERGE 17:25 → 2S 19:54 → SUATTDRO 19:54 → 2S 21:06

== ENCOUNTER 2021-02-22 12:46 | Inpatient (IN) ==
[2021-02-22] MEDS ORDERED: CEFEPIME 2,000 MG/20 ML VIAL IV STA (15:01)
--- NOTE | 2021-02-22 15:08 | Emergency Department Note ---
Impression & Plan Cellulitis, Pedal edema, JOSHUA (acute kidney injury) ED Provider Note NAME: FARA NATHAN AGE: 80 SEX: F : 1940 ARRIVES VIA: Walk-In INFORMANT: [Patient][nursing] ED PROVIDER(S): [Deangelo Lugo MD] CHIEF COMPLAINT: Infection HISTORY OF PRESENT ILLNESS: The patient is an 80-year-old female who was sent to the ED for admission and IV antibiotic therapy. She has developed a bilateral lower extremity cellulitis. The ulcers on her legs have grown 3 different organisms that are fairly resistant. The patient was in our hospital recently for heart failure. She states that her breathing though is doing well. She states that in the last day or so, the legs have become erythematous. There is some weeping as well from the legs. She has not had fever, nausea or vomiting. Patient has chronic edema of her lower extremities. REVIEW OF SYSTEMS: See HPI for pertinent positives and negatives. A total of ten systems were rev iewed and were otherwise negative. PMHx/PSHx: See Below SOCIAL HISTORY: See Below. PHYSICAL EXAM: GENERAL: Patient is in no acute distress. HEENT: No acute trauma, normocephalic atraumatic, mucous membranes moist, no nasal congestion, no scleral icterus. NECK: No stridor, no adenopathy, no meningismus, trachea is midline. LUNGS: Clear to auscultation bilaterally when listening anterior, no wheeze, no rhonchi, breath sounds equal. HEART: Subtle systolic murmur, irregular rhythm, normal rate. ABDOMEN: Soft, nontender, bowel sounds positive, no hernias, no peritonitis. EXTREMITIES: No cyanosis. Significant bilateral pedal edema with bilateral lower extremity erythema from just below the knee to the ankle. There is some subtle warmth. There is some leakage of fluid noted. There are some open wounds on each lower extremity. NEUROLOGIC: Oriented x 3, no acute motor or sensory deficits, no focal weakness. SKIN: No jaundice, no diaphoresis. DIFFERENTIAL DIAGNOSIS: Cellulitis, bacteremia, sepsis, edema, failed outpatient treatment, DVT, neurovascular compromise, among others. EMERGENCY DEPARTMENT COURSE/PROCEDURES: MEDICAL DECISION MAKING: There is no leukocytosis or concerning anemia. There is a normal platelet coun t. There was some slight elevation to the creatinine consistent with some mild acute kidney injury. Lactic acid level was not elevated making severe sepsis less likely. There were a few subtle liver enzyme elevations. Covid testing is pending. On exam, the patient was not toxic in appearance. She was not febrile. She was hypertensive though. Both lower extremities were erythematous and swollen. The patient had the wound cultures from a few days ago reviewed. 3 organisms had grown. She was given IV cefepime which would cover for 2 of the organisms. Pharmacy was consulted about an additional antibiotic to cover the most resistant Pseudomonas. IV gentamicin was selected and ordered. The patient is in need of a hospital stay. She has a bilateral lower extremity cellulitis with 3 organisms growing on culture. The organisms are quite resistant. IV antibiotic therapy is required. I did speak with the patient and case management. The on-call hospitalist was consulted. Past Med/Surg History Medical History Acute kidney injury Acute respiratory distress Afib ON ELIQUIS - FOLLOWS W/ DR. RAMSEY Age related osteoporosis Aortic atherosclerosis Atrial fibrillation with rapid ventricular response Cellulitis of left lower extremity Coronary artery disease Card cath- 09/04/2019- severe multilevel coronary disease- 90 % mid LAD, 50 % Prox. LAD in stent stenosis, 70-80 % mid circumflex OM2, 90 % distal RCA Creatinine elevation Deep venous thrombosis of lower extremity (02/20/12) Diabetes mellitus, type 2 NIDDM Diabetic peripheral neuropathy History of myocardial infarction 1999 [place] ([place] of [place]) Hyperlipidemia Hypertension Hypoxia Murmur Nonproliferative diabetic retinopathy Numbness Peripheral vascular disease Polymyalgia rheumatica Renal artery stenosis, [place], bilateral Rheumatoid arthritis Secondary diabetes mellitus Somnolence Traumatic wound Vitamin B12 deficiency Weight loss Surgical History History of cardiac catheterization 1999 - [facility] - 1 STENT History of colonoscopy History of heart artery stent 1 STENT History of total abdominal hysterectomy and bilateral salpingo-oophorectomy Hx of tonsillectomy S/P breast biopsy Family History Father Bone cancer Lung disease Sister Arthritis of hand Mother Hypertension Brother Hypertension Anxiety Depression Gallbladder disease Lung disease Unknown Hypertension Denies family history of Ovarian cancer Prostate cancer Myocardial infarction Breast cancer Colorectal cancer Social History Smoking Status: Never smoker Second Hand Exposure: No (OCCASIONAL EXPOSURE); Hx Alcohol Use: No Hx Substance Use: No Preferred Language: Bulgarian Communication Ability: Effective Visual Impairment: No Limitations Hearing Ability: Normal Carpenter Mate Required: No Beliefs That Will Affect Care: None marital status: Current Living Situation: [facility] Current Living Situation Comment: LIVES WITH (HE HAS DEMENTIA) current occupational status: retired 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 [place] Feels Safe at Home: Yes Childhood Exposure to Second-Hand Smoke: No Dental Care, Regularly: Yes Physical Activity Frequency: 3-4 Times per Week Seatbelt Use: always Sunscreen Use: Yes Assistive Devices: Walker Allergies Allergies Allergy/AdvReac Type Severity Reaction Status Date / Time enalapril AdvReac Intermediate Cough Verified 02/21/21 11:09 Home Meds Home Medications Medication Instructions Recorded Confirmed cyanocobalamin (vitamin B-12) 1,000 mcg SL DAILY #30 tab 02/20/19 02/22/21 1,000 mcg sublingual tablet ferrous sulfate 325 mg (65 mg 325 mg PO Q OTHER DAY tab 04/28/20 02/22/21 iron) tablet acetaminophen 500 mg tablet 500 mg PO Q4 PRN MDD 3g 02/15/21 02/22/21 (Tylenol Extra Strength) metoprolol succinate 100 mg 100 mg PO QAM 02/15/21 02/22/21 tablet,extended release 24 hr (Toprol XL) metoprolol succinate 50 mg 50 mg PO HS 02/15/21 02/22/21 tablet,extended release 24 hr Previous Rx's Medication Instructions Recorded blood sugar diagnostic (OneTouch #100 ea 07/31/19 Ultra Blue Test Strip) blood-glucose meter (OneTouch #1 ea 07/31/19 Ultra2 Meter) lancets 33 gauge (OneTouch Delica #100 ea 07/31/19 Plus Lancet) glipizide 5 mg tablet, extended 5 mg PO DAILY #90 tab 10/31/20 release 24 hr clopidogrel 75 mg tablet 75 mg PO QAM #90 tab 11/04/20 atorvastatin 40 mg tablet 40 mg PO QPM #90 tab 12/30/20 apixaban 2.5 mg tablet (Eliquis) 2.5 mg PO BID #180 tab 01/25/21 losartan 25 mg tablet 25 mg PO QAM #90 tab 01/30/21 furosemide 80 mg tablet 80 mg PO QAM 30 Days #30 tab 02/18/21 Results & Data (ED) Vital Signs Vital Signs - 24 hr 02/22/21 13:01 02/22/21 14:54 02/22/21 16:54 Temperature 36.4 C L Temperature Source Temporal Artery Scan Pulse Rate 103 H Pulse Rate [Right Finger] 95 H 112 H Pulse Rhythm [Right Finger] Regular Regular Pulse Strength [Right Finger] Normal Normal Respiratory Rate 18 18 20 Respiratory Effort / Characteristics Non-Labored Non-Labored Respiratory Depth Normal Normal Respiratory Pattern Regular Regular Blood Pressure 140/94 Blood Pressure [Right Arm] 141/101 H 159/99 H Blood Pressure Mean 109 Blood Pressure Mean [Right Arm] 114 119 Blood Pressure Position [Right Arm] Sitting Sitting Pulse Oximetry 94 95 94 Oxygen Delivery Method Room Air Room Air Room Air Sepsis Recent Fever Within 48 Hours No Sepsis New/Unexplained Change in Mental Status N/A Sepsis Action Taken by Nursing No Action Required 02/22/21 18:18 Temperature Temperature Source Pulse Rate Pulse Rate [Right Finger] 92 H Pulse Rhythm [Right Finger] Regular Pulse Strength [Right Finger] Normal Respiratory Rate 18 Respiratory Effort / Characteristics Non-Labored Accessory Muscle Use Respiratory Depth Normal Respiratory Pattern Blood Pressure Blood Pressure [Right Arm] 144/105 H Blood Pressure Mean Blood Pressure Mean [Right Arm] 118 Blood Pressure Position [Right Arm] Sitting Pulse Oximetry 93 Oxygen Delivery Method Room Air Sepsis Recent Fever Within 48 Hours Sepsis New/Unexplained Change in Mental Status Sepsis Action Taken by [facility] Medications Current Medication List: was personally reviewed by me Laboratory Data Attestation: I reviewed the patient's lab results. Result diagrams: 02/22/21 16:23 02/22/21 17:38 Lab Results 02/22/21 02/22/21 02/22/21 Range/Units 14:08 16:23 16:23 WBC 7.48 (4.8-10.8) K/uL RBC 4.74 (4.2-5.4) M/uL Hgb 14.3 (12.0-16.0) g/dL Hct 43.1 (37-47) % MCV 90.9 (80-100) fL MCH 30.2 (25-34) pg MCHC 33.2 (32-36) g/dL RDW Std Deviation 64.8 H (36.4-46.3) fL RDW Coeff of Elissa 19.6 H (11.5-14.5) % Plt Count 255 (130-400) K/uL MPV 10.2 (7.4-10.4) fL Immature Gran % (Auto) 0.5 % Neut % (Auto) 56.7 % Lymph % (Auto) 19.8 % [place] % (Auto) 16.0 % Eos % (Auto) 6.6 % Baso % (Auto) 0.4 % Neut # (Auto) 4.24 (1.4-6.5) K/uL Lymph # (Auto) 1.48 (1.2-3.4) K/uL [place] # (Auto) 1.20 H (0.11-0.59) K/uL Eos # (Auto) 0.49 (0-0.5) K/uL Baso # (Auto) 0.03 (0-0.2) K/uL Immature Gran # (Auto) 0.04 H (0.00-0.02) K/uL Sodium 139 (136-145) mmol/L Potassium (3.5-5.1) mmol/L Chloride 107 (98-107) mmol/L Carbon Dioxide 28 (21-32) mmol/L Anion Gap 4.0 (3-11) BUN 49 H (7-18) mg/dl Creatinine 1.89 H (0.6-1.2) mg/dl Est Cr Clr Drug Dosing 22.8 ml/min Est GFR ( Amer) 28.5 ml/min Est GFR (Non-Af Amer) 24.6 ml/min BUN/Creatinine Ratio 26.0 H (10-20) Glucose 92 (70-99) mg/dl POC Glucose 98 (70-99) mg/dl Lactate (0.4-2.0) mmol/L Calcium 9.0 (8.5-10.1) mg/dl Total Bilirubin 1.2 H (0.2-1) mg/dl AST (15-37) U/L ALT 29 (12-78) U/L Alkaline Phosphatase 198 H (45-117) U/L Total Protein 8.0 (6.4-8.2) gm/dl Albumin 2.6 L (3.4-5.0) gm/dl Globulin 5.4 H (2.5-4.0) gm/dl Albumin/Globulin Ratio 0.5 L (0.9-2) COVID-19 Eval Order 02/22/21 02/22/21 02/22/21 Range/Units 16:23 17:25 17:38 WBC (4.8-10.8) K/uL RBC (4.2-5.4) M/uL Hgb (12.0-16.0) g/dL Hct (37-47) % MCV (80-100) fL MCH (25-34) pg MCHC (32-36) g/dL RDW Std Deviation (36.4-46.3) fL RDW Coeff of Elissa (11.5-14.5) % Plt Count (130-400) K/uL MPV (7.4-10.4) fL Immature Gran % (Auto) % Neut % (Auto) % Lymph % (Auto) % [place] % (Auto) % Eos % (Auto) % Baso % (Auto) % Neut # (Auto) (1.4-6.5) K/uL Lymph # (Auto) (1.2-3.4) K/uL [place] # (Auto) (0.11-0.59) K/uL Eos # (Auto) (0-0.5) K/uL Baso # (Auto) (0-0.2) K/uL Immature Gran # (Auto) (0.00-0.02) K/uL Sodium (136-145) mmol/L Potassium 4.7 (3.5-5.1) mmol/L Chloride (98-107) mmol/L Carbon Dioxide (21-32) mmol/L Anion Gap (3-11) BUN (7-18) mg/dl Creatinine 1.85 H (0.6-1.2) mg/dl Est Cr Clr Drug Dosing 23.3 ml/min Est GFR ( Amer) 29.3 ml/min Est GFR (Non-Af Amer) 25.3 ml/min BUN/Creatinine Ratio (10-20) Glucose (70-99) mg/dl POC Glucose (70-99) mg/dl Lactate 1.5 (0.4-2.0) mmol/L Calcium (8.5-10.1) mg/dl Total Bilirubin (0.2-1) mg/dl AST 37 (15-37) U/L ALT (12-78) U/L Alkaline Phosphatase (45-117) U/L Total Protein (6.4-8.2) gm/dl Albumin (3.4-5.0) gm/dl Globulin (2.5-4.0) gm/dl Albumin/Globulin Ratio (0.9-2) COVID-19 Eval Order Covid19 at [facility] Administered Medications Gentamicin Sulfate 300 mg/ (Dextrose) 107.5 mls @ 100 mls/hr IV TODAY@1800 FLIP; Protocol Stop: 02/22/21 19:05 Last Admin: 02/22/21 17:42 Dose: 100 mls/hr Documented by: [id number] Discontinued Medications Cefepime HCl (Maxipime) 2,000 mg in 20 mls @ 5 mls/min IV NOW STA; Protocol Stop: 02/22/21 15:04 Last Admin: 02/22/21 17:04 Dose: 5 mls/min Documented by: [id number] Miscellaneous Information (Consult Pharmacy) 1 ea N/A NOW STA Stop: 02/22/21 16:49 Last Admin: 02/22/21 17:04 Dose: 1 ea Documented by: [id number] Discharge Plan Visit Data Chief Complaint: Infection Stated Complaint: BOTH LEGS HAS INFECTION ED Provider: Deangelo Lugo Discharge Problem: Cellulitis, Pedal edema, JOSHUA (acute kidney injury) Patient Disposition: Admitted As Inpatient Condition: Fair Forms Stand Alone Forms: [facility] Prescriptions Prescriptions: No Action (DME) OneTouch Ultra Blue Test Strip strip See Rx Instructions .ROUTE .MEDSUPPLY Qty: 100 RF: 3 (DME) blood-glucose meter [OneTouch Ultra2 Meter] misc See Rx Instructions .ROUTE .MEDSUPPLY Qty: 1 RF: 0 (DME) lancets [OneTouch Delica Plus Lancet] 33 gauge misc See Rx Instructions .ROUTE .MEDSUPPLY Qty: 100 RF: 3 glipizide 5 mg tablet extended release 24hr 5 mg PO DAILY Qty: 90 RF: 1 clopidogrel 75 mg tablet 75 mg PO QAM Qty: 90 RF: 3 atorvastatin 40 mg tablet 40 mg PO QPM Qty: 90 RF: 3 Eliquis 2.5 mg tablet 2.5 mg PO BID Qty: 180 RF: 0 losartan 25 mg tablet 25 mg PO QAM Qty: 90 RF: 3 cyanocobalamin (vitamin B-12) 1,000 mcg tablet, sublingual 1,000 mcg SL DAILY Qty: 30 RF: 0 ferrous sulfate 325 mg (65 mg iron) tablet 325 mg PO Q OTHER DAY RF: 0 metoprolol succinate 50 mg Tablet Extended Release 24 Hr 50 mg PO HS RF: 0 metoprolol succinate [Toprol XL] 100 mg tablet extended release 24 hr 100 mg PO QAM RF: 0 acetaminophen [Tylenol Extra Strength] 500 mg Tablet 500 mg PO Q4 MDD 3g PRN (Reason: Pain, Mild) RF: 0 furosemide 80 mg Tablet 80 mg PO QAM 30 Days Qty: 30 RF: 3 Referrals Referrals: Gilbert Posadas MD [Primary Care Provider] - Discharge Problem: Cellulitis Qualifiers: Site of cellulitis: extremity Site of cellulitis of extremity: lower extremity Laterality: unspecified laterality Qualified Code(s): L03.119 - Cellulitis of unspecified part of limb
--- NOTE | 2021-02-22 16:05 | History & Physical Report ---
Date of Service February 22, 2021 Assessment & Plan (1) Cellulitis: Plan: Acute on chronic - Patient WBC not elevated and is not systemically septic. - Antibiotics- Cefepime and Gentamycin- pharmacy to dose - ID consult placed - Patient with significant history of PAD and PVD - Wound care consult for dressing care - Continue with Hibiclens scrub daily, cover open areas with Aquacel AG and lightly wrap with Keflex (2) CAD, multiple vessel: Plan: Cardiac catheterization 09/04/19 showed severe multivessel coronary disease (90% mid LAD, 50% proximal LAD in stent stenosis, 70-80% mid circumflex into OM2, 90% distal RCA) - patient has not had her evaluation for CABG secondary to COVID 19 and her in rehab for worsening dementia - 02/28- PCI of proximal LAD in-stent restenosis with 2.75 x 18 mm [place] drug- eluting stent, PCI of mid LAD with 2.25 x 26 mm [place] drug-eluting stent, PCI of mid circumflex into OM 2 with 2.25 x 22 mm [place] drug-eluting stent, PCI of distal RCA with 2.75 x 12 mm [place] drug-eluting stent - Continue Plavix and Apixaban - Continue atorvastatin 40 mg QPM - Continue Metoprolol 150 mg split daily dosing - On dig previously stopped secondary to bradycardia (3) Afib: Plan: As above (4) Hyperlipidemia: Plan: As above (5) Hypertension: Plan: As above (6) Peripheral vascular disease: Plan: Diurese as multiple component lower extremity edema - Continue to follow with renal function (7) PAD (peripheral artery disease): Plan: Chronic venous insufficiency LE angiogram in August showed 50-60% left ELIER stenosis, SFA occlusion with distal reconstitution and 3 vessel runoff to the foot. Right lower extremity with severe popliteal stenosis and occlusion of TPT. - AB from recent cardiology visit -Right AB 0.87, TBI 0.38 (54 mmHg) -Left AB 0.84, TBI 0.33 (47 mmHg) - Avoid SCDs with ulcerations and severe PAD - Compression per wound care (8) CHF (congestive heart failure): Plan: EF 55-60 % HFpEF dilated RV biatrial enlargement aortic sclerosis - Continue diuresing to assist with cellulitis - Lasix 40 mg BID IV - hold oral lasix 80 mg (9) CKD (chronic kidney disease) stage 4, GFR 15-29 ml/min: Plan: Renally dose medications - Pharmacy to adjust Cefepime and Gentamicin - Avoid further nephrotoxic medications as able and if needed minimize exposure time - GFR pending on labs History of Present Illness Chief Complaint: 80 YOF with past medical history of: HTN, HLD, CAD, chronic venous ulcerations, PAD, respiratory failure, CHF, DVT, afib on apixaban, cerebral meningioma. Patient has been following with the wound clinic for poorly healing wound ulcerations and cellulitis, which has shown multiple pseudomonas infections and staph via wound culture. Blood cultures have been negative when checked. She was previously on Doxycycline in November, Amoxicillin in December, and appears as was on Gentamicin topical through her hospital admission last week. Her wound cultures from February 2021 grew pseudomonas x2 multiple resistance and Group B strep pansensitive. Patient was to follow up with wound care clinic today and was referred to the [facility] for admission secondary to worsening of her lower extremity erythema. Patient states that her legs have gotten progressively worse over the past 4 days but more red over the past 2 days. Patient has been receiving Aquacel AG and 1 layer of Tubigrip as outpatient. She has multiple wounds on lower leg and right legs that have edema up to her midthigh and erythema to her right below her knees. They are warm to touch but not painful per the patient. Patient will be admitted and started on IV antibiotics, continued with wound care, infectious disease consult. Patient wishes to be DNR/DNI. Patient poor IV access, will obtain ultrasound guided IV. May need PICC Primary Care Provider: Gilbert Posadas MD Allergies Allergy/AdvReac Type Severity Reaction Status Date / Time enalapril AdvReac Intermediate Cough Verified 02/21/21 11:09 Home Medications Medication Instructions Recorded Confirmed Type cyanocobalamin (vitamin B-12) 1,000 mcg SL DAILY #30 tab 02/20/19 02/22/21 History 1,000 mcg sublingual tablet blood sugar diagnostic (fitmobTouch #100 ea 07/31/19 02/22/21 Rx Ultra Blue Test Strip) blood-glucose meter (fitmobTouch #1 ea 07/31/19 02/22/21 Rx Ultra2 Meter) lancets 33 gauge (OneTouch Delica #100 ea 07/31/19 02/22/21 Rx Plus Lancet) ferrous sulfate 325 mg (65 mg 325 mg PO Q OTHER DAY tab 04/28/20 02/22/21 History iron) tablet glipizide 5 mg tablet, extended 5 mg PO DAILY #90 tab 10/31/20 02/22/21 Rx release 24 hr clopidogrel 75 mg tablet 75 mg PO QAM #90 tab 11/04/20 02/22/21 Rx atorvastatin 40 mg tablet 40 mg PO QPM #90 tab 12/30/20 02/22/21 Rx apixaban 2.5 mg tablet (Eliquis) 2.5 mg PO BID #180 tab 01/25/21 02/22/21 Rx losartan 25 mg tablet 25 mg PO QAM #90 tab 01/30/21 02/22/21 Rx acetaminophen 500 mg tablet 500 mg PO Q4 PRN MDD 3g 02/15/21 02/22/21 History (Tylenol Extra Strength) metoprolol succinate 100 mg 100 mg PO QAM 02/15/21 02/22/21 History tablet,extended release 24 hr (Toprol XL) metoprolol succinate 50 mg 50 mg PO HS 02/15/21 02/22/21 History tablet,extended release 24 hr furosemide 80 mg tablet 80 mg PO QAM 30 Days #30 tab 02/18/21 02/22/21 Rx Past Med/Surg History Medical History Acute kidney injury Acute respiratory distress Afib ON ELIQUIS - FOLLOWS W/ DR. RAMSEY Age related osteoporosis Aortic atherosclerosis Atrial fibrillation with rapid ventricular response Cellulitis of left lower extremity Coronary artery disease Card cath- 09/04/2019- severe multilevel coronary disease- 90 % mid LAD, 50 % Prox. LAD in stent stenosis, 70-80 % mid circumflex OM2, 90 % distal RCA Creatinine elevation Deep venous thrombosis of lower extremity (02/20/12) Diabetes mellitus, type 2 NIDDM Diabetic peripheral neuropathy History of myocardial infarction [place] (hard of hearing) Hyperlipidemia Hypertension Hypoxia Murmur Nonproliferative diabetic retinopathy Numbness Peripheral vascular disease Polymyalgia rheumatica Renal artery stenosis, [place], bilateral Rheumatoid arthritis Secondary diabetes mellitus Somnolence Traumatic wound Vitamin B12 deficiency Weight loss Surgical History History of cardiac catheterization 1999 - [facility] - 1 STENT History of colonoscopy History of heart artery stent 1 STENT History of total abdominal hysterectomy and bilateral salpingo-oophorectomy Hx of tonsillectomy S/P breast biopsy Family History Father Bone cancer Lung disease Sister Arthritis of hand Mother Hypertension Brother Hypertension Anxiety Depression Gallbladder disease Lung disease Unknown Hypertension Denies family history of Ovarian cancer Prostate cancer Myocardial infarction Breast cancer Colorectal cancer Social History Smoking Status: Never smoker Second Hand Exposure: No (OCCASIONAL EXPOSURE); Hx Alcohol Use: No Hx Substance Use: No Preferred Language: Bruneian Communication Ability: Effective Visual Impairment: No Limitations Hearing Ability: Normal 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: No Beliefs That Will Affect Care: None marital status: Current Living Situation: [facility] Current Living Situation Comment: LIVES WITH (HE HAS DEMENTIA) current occupational status: retired 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 [employer] Feels Safe at Home: Yes Childhood Exposure to Second-Hand Smoke: No Dental Care, Regularly: Yes Physical Activity Frequency: 3-4 Times per Week Seatbelt Use: always Sunscreen Use: Yes Assistive Devices: Walker Review of Systems Review of Systems: REVIEW OF SYSTEMS: Constitutional: No fever, sweats or chills Eyes: No diplopia, no worsening or blurred vision ENT: normal hearing, no trouble swallowing Respiratory: (+) dyspnea with exertion, No cough, sputum, dyspnea at rest Cardiovascular: No chest pain, tightness or palpitations Abdomen: No pain, nausea, vomiting, diarrhea or constipation Musculoskeletal: (+)leg erythema and swelling, No joint pain, calf pain, Neurologic: No weakness, numbness/tingling, or balance problems Psychiatric: (+) anxiety or depression Skin: (+) as per HPI, picking and scratching with her anxiety Physical Exam Physical Exam: PHYSICAL EXAM: General: awake, alert, no apparent distress Head: Normocephalic, atraumatic ENT: PERRL, EOMI, no pharyngeal exudate, mucous membranes moist Neuro: AAO x 3, speech clear and appropriate, strength intact bilaterally 5/5, sensation intact and equal all extremities and dermatomes, no pronator drift Chest: equal rise and fall of the chest, no accessory muscle use, no heaves or thrills, scattered rhonchi throughout, on room air, Cardiac: Regular rate and rhythm, telemetry reviewed, skin warm dry, cap refill <3 seconds, peripheral pules +2 no JVD, no murmur, +3 edema to bilateral lower extremities up to mid thigh GI: NABS x 4 quadrants, soft, nontender to palpation, no rebound, guarding or tenderness : Spontaneously voiding, no pain, no CVA tenderness, Extremities: multiple ulcerations on bilateral legs and toe, erythema circumferential extending cephalad to just below the knee Psych: Normal mood and affect Skin: multiple areas of small picking scabs on bilateral upper arms, patient states she picks and scratches herself when she is anxious. Results & Data Results & Data ([facility]) Vital Signs (Past 12 Hours) Vital Signs Temp Pulse Pulse Resp BP BP Pulse Ox 02/22/21 14:54 95 H 18 141/101 H 95 02/22/21 13:01 36.4 C L 103 H 18 140/94 94 Laboratory Results Abnormal lab results 02/22/21 Range/Units 16:23 RDW Std Deviation 64.8 H (36.4-46.3) fL RDW Coeff of Elissa 19.6 H (11.5-14.5) % [place] # (Auto) 1.20 H (0.11-0.59) K/uL Immature Gran # (Auto) 0.04 H (0.00-0.02) K/uL Wound cultures 02/15/21 P aerugino Grp.B Strp P aerugino#2 RX M.I.C. RX M.I.C. RX M.I.C. --- --------- --- --------- --- --------- Ampicillin S 0.12 Azithromycin S <=0.25 Cefepime R >16 S <=0.25 S 8 Cefotaxime S <=0.25 Ceftazidime R >16 S 8 Ceftaz/Avibact R >16 S 8 Ceftriaxone S <=0.25 Chloramphenicol S 4 Ciprofloxacin R >2 R >2 Clindamycin S <=0.06 Erythromycin S <=0.06 Gentamicin I 8 S <=4 Levofloxacin R >4 R >4 Meropenem R >8 R >8 Penicillin S 0.06 Tobramycin I 8 S <=4 Pip/Tazo R >64 I 64 Vancomycin S 0.5 Diagnostic Findings No acute imaging needs Medications Administered ABX pending IV placement - Cefepime - Gentamicin following return of creatinine ECG Additional Comments: pending on arrival Code Status & VTE Plan Code Status CODE: DNR/DNI VTE:Apixaban, no mechanical compression VTE Prophylaxis Plan VTE Prophylaxis will be ordered: Yes Supervising Physician Co-Signing Physician Notes Patient was seen and examined independently I discussed the case with Dev LAMAR I reviewed pertinent past medical social family history and also the plan of care and agree with the plan of care. Patient returns from the wound care clinic with polymicrobial wound infections of her lower leg with resistant organisms. Placed on cefepime and gent pending infectious disease consultation I discussed PICC line with the patient she wishes for me to talk to her son. Exam shows erythema to her lower extremities up to just about the knee bilaterally with some small open areas on both legs She of heart failure preserved ejection fraction but she does have a normal cardiac rhythm without significant murmur she does however of JVD to 3 cm her lungs are clear Any exceptions will be noted below PG Care Time/CCT Total # of Minutes Spent Total Time Spent with Patient: Total time spent is greater than 50% in coordination of care (as documented) at patient's floor/unit and/or counseling patient: Coding Level of Care Code 99961 Initial Inpt Care Lvl 3 Diagnoses Cellulitis L03.90 CAD, multiple vessel I25.10 Afib I48.91 Hyperlipidemia E78.5 Hypertension I10 Peripheral vascular disease I73.9 PAD (peripheral artery disease) I73.9 CHF (congestive heart failure) I50.9 Heart failure chronicity: acute Heart failure type: unspecified CKD (chronic kidney disease) stage 4, GFR 15-29 ml/min N18.4 (1) CHF (congestive heart failure) Heart failure chronicity: acute Heart failure type: unspecified Qualified Code(s): I50.9 - Heart failure, unspecified
[2021-02-22 16:33] LABS: Basophils # (auto) 0.03 K/uL (0-0.2); Basophils % (auto) 0.4 %; Eosinophils # (auto) 0.49 K/uL (0-0.5); Eosinophils % (auto) 6.6 %; Hematocrit (blood only) 43.1 % (37-47); Hemoglobin 14.3 g/dL (12.0-16.0); Immature Granulocytes # (auto) 0.04 K/uL (0.00-0.02); Immature Granulocytes % (auto) 0.5 %; Lymphocytes # (auto) 1.48 K/uL (1.2-3.4); Lymphocytes % (auto) 19.8 %; Mean Corpuscular Hemoglobin 30.2 pg (25-34); Mean Corpuscular Hgb Conc 33.2 g/dL (32-36); Mean Corpuscular Volume 90.9 fL (80-100); Mean Platelet Volume 10.2 fL (7.4-10.4); Neutrophils # (auto) 4.24 K/uL (1.4-6.5); Neutrophils % (auto) 56.7 %; Platelet Count 255 K/uL (130-400); RDW Coefficient of Variation 19.6 % (11.5-14.5); RDW Standard Deviation 64.8 fL (36.4-46.3); Red Blood Count 4.74 M/uL (4.2-5.4); White Blood Count 7.48 K/uL (4.8-10.8)
[2021-02-22] MEDS ORDERED: CONSULT PHARMACY STA (16:48)
[2021-02-22 17:14] LABS: Albumin Globulin Ratio 0.5 (0.9-2); Albumin Level 2.6 gm/dl (3.4-5.0); Bilirubin,Total 1.2 mg/dl (0.2-1); Creatinine Clr Calc Pharmacy 22.8 ml/min; Est GFR (African American) 28.5 ml/min; Est GFR (Non-African American) 24.6 ml/min; Globulin 5.4 gm/dl (2.5-4.0)
[2021-02-22] MEDS ORDERED: GENTAMICIN CONSULT ACTIVE PRN (17:27)
[2021-02-22] MEDS ORDERED: GENTAMICIN SULFATE 300 MG in DEXTROSE 5% 100 ML IV SCH (18:00)
[2021-02-22 18:24] LABS: Creatinine Clr Calc Pharmacy 23.3 ml/min; Est GFR (African American) 29.3 ml/min; Est GFR (Non-African American) 25.3 ml/min; Potassium 4.7 mmol/L (3.5-5.1)
[2021-02-22] MEDS ORDERED: FUROSEMIDE 40 MG/4 ML VIAL IV SCH (21:00)
[2021-02-22] MEDS ORDERED: DEXTROSE 50% 50 ML SYRINGE IV PRN (22:00)
[2021-02-22] MEDS ORDERED: ACETAMINOPHEN 325 MG TAB PO PRN (22:00)
[2021-02-22] MEDS ORDERED: POLYETHYLENE (MIRALAX) 17 GM PACK PO PRN (22:00)
[2021-02-22] MEDS ORDERED: GLUCAGON FOR INJ 1 MG VIAL SQ PRN (22:00)
[2021-02-22] MEDS ORDERED: GLUCOSE 40% GEL 15 GM TUBE PO PRN (22:00)
[2021-02-22] MEDS ORDERED: CEFEPIME CONSULT ACTIVE PRN (22:00)
[2021-02-22] MEDS ORDERED: ONDANSETRON INJ 2 MG/ML 2 ML VIAL IV PRN (22:00)
[2021-02-22] MEDS ORDERED: GLUCOSE 10 TABS/TUBE PO PRN (22:00)
[2021-02-22] MEDS ORDERED: ACETAMINOPHEN HOME PACK 500 MG TABLET PO PRN (22:00)
[2021-02-22] MEDS: APIXABAN 2.5 MG TAB PO SCH (23:39)
[2021-02-22] MEDS: ATORVASTATIN 40 MG TAB PO SCH (23:40)
[2021-02-22] MEDS: METOPROLOL SUCC 50MG EXT REL TAB PO SCH (23:41)
[2021-02-22] MEDS: INSULIN ASPART 100 UNITS/ML 3 ML PEN SC SCH (23:46)
[2021-02-23 05:53] LABS: Basophils # (auto) 0.04 K/uL (0-0.2); Basophils % (auto) 0.6 %; Eosinophils # (auto) 0.29 K/uL (0-0.5); Hematocrit (blood only) 40.7 % (37-47); Hemoglobin 13.3 g/dL (12.0-16.0); Immature Granulocytes # (auto) 0.05 K/uL (0.00-0.02); Immature Granulocytes % (auto) 0.7 %; Lymphocytes # (auto) 1.03 K/uL (1.2-3.4); Lymphocytes % (auto) 14.2 %; Mean Corpuscular Hemoglobin 29.2 pg (25-34); Mean Corpuscular Hgb Conc 32.7 g/dL (32-36); Mean Corpuscular Volume 89.5 fL (80-100); Mean Platelet Volume 10.4 fL (7.4-10.4); Monocytes # (auto) 1.26 K/uL (0.11-0.59); Monocytes % (auto) 17.4 %; Neutrophils # (auto) 4.58 K/uL (1.4-6.5); Neutrophils % (auto) 63.1 %; Platelet Count 215 K/uL (130-400); RDW Coefficient of Variation 19.7 % (11.5-14.5); RDW Standard Deviation 63.3 fL (36.4-46.3); Red Blood Count 4.55 M/uL (4.2-5.4); White Blood Count 7.25 K/uL (4.8-10.8)
[2021-02-23 06:11] LABS: BUN Creatinine Ratio 27.4 (10-20); Calcium 8.5 mg/dl (8.5-10.1); Creatinine Clr Calc Pharmacy 24.7 ml/min; Est GFR (African American) 31.5 ml/min; Est GFR (Non-African American) 27.2 ml/min; Magnesium 2.6 mg/dl (1.8-2.4); Potassium 4.1 mmol/L (3.5-5.1)
[2021-02-23] MEDS: INSULIN ASPART 100 UNITS/ML 3 ML PEN SC SCH ×4 (08:44→21:16)
[2021-02-23] MEDS: APIXABAN 2.5 MG TAB PO SCH ×2 (08:50→21:17)
[2021-02-23] MEDS: CLOPIDOGREL BISULFATE 75 MG TAB PO SCH (08:50)
[2021-02-23] MEDS: CYANOCOBALAMIN 500 MCG TABLET (VITAMIN B-12) PO SCH (08:50)
[2021-02-23] MEDS: FUROSEMIDE 40 MG in SYRINGE 0 ML IV SCH ×2 (08:50→17:24)
[2021-02-23] MEDS: FERROUS SULFATE 325 MG TAB PO SCH (08:50)
[2021-02-23] MEDS: LOSARTAN POTASSIUM 25 MG TAB PO SCH (08:51)
[2021-02-23] MEDS: METOPROLOL SUCC 50MG EXT REL TAB PO SCH ×2 (08:51→21:16)
--- NOTE | 2021-02-23 10:19 | Pharmacy Report ---
Pharmacy Abx Dose Short Note - Date of Service February 23, 2021 - Assessment & Plan Assessment 80 year old F referred from the wound clinic due to poorly healing wound ulcerations and cellulitis * Pt started on gentamicin and cefepime despite susceptibilities due to lack of other options -> all antibiotics on [facility] formulary are resistant or intermediate * Right leg surface culture from 02/15/21 grew two species of Pseudomonas (one highly resistant) and Group B beta strep * Repeat leg and BC pending * Awaiting ID recommendations Plan Continue cefepime and gentamicin pending ID evaluation * Cefepime 2000 mg IV q24h (for CrCl 11-29 mL/min) * Gentamicin 5 mg/kg (AdjBW) IV q36h * random level of 6 mcg/mL obtained about 12 hours after first dose indicates a dosing interval of 36 hours * consider obtaining repeat random level or trough level with worsening renal function and/or extended duration Pharmacy will continue to follow and will adjust dose/frequency as necessary. Thank you.
[2021-02-23] MEDS ORDERED: CEFEPIME 2,000 MG in SYRINGE 0 ML IV SCH (16:00)
--- NOTE | 2021-02-23 16:53 | Electrocardiogram Report ---
Test Reason : Blood Pressure : / mmHG Vent. Rate : 075 BPM Atrial Rate : 104 BPM P-R Int : 000 ms QRS Dur : 096 ms QT Int : 454 ms P-R-T Axes : 000 -21 185 degrees QTc Int : 506 ms Atrial fibrillation with premature ventricular or aberrantly conducted complexes Abnormal ECG When compared with ECG of 16-FEB-2021 03:44, No significant change was found Confirmed by Tk Calevrt ([id number]) on 02/23/2021 4:53:31 PM Referred By: REFERRED SELF Confirmed By:Jeffery Calvert
--- NOTE | 2021-02-23 17:13 | Hospitalist Progress Note ---
Date of Service February 23, 2021 Assessment & Plan (1) Cellulitis: Plan: Acute on chronic - Patient WBC not elevated and is not systemically septic. - Antibiotics- Cefepime and Gentamycin-infectious disease consult feels that the cefepime and gentamicin are bound to fail and recommended some choices that we could try to get. One of the choices would be CEFIDERICOL 1 0.5 g IV every 8, Miki Calhoun our pharmacist was able to have this allocated from an outside vendor and also be supplied our facility and will initiate therapy once it arrives discontinuing cefepime and gentamicin once that occurs. for 14 days therapy. - Patient with significant history of PAD and PVD - Wound care consult for dressing care - Continue with Hibiclens scrub daily, cover open areas with Aquacel AG and lightly wrap with Keflex (2) CAD, multiple vessel: Plan: Cardiac catheterization 09/04/19 showed severe multivessel coronary disease (90% mid LAD, 50% proximal LAD in stent stenosis, 70-80% mid circumflex into OM2, 90% distal RCA) - patient has not had her evaluation for CABG secondary to COVID 19 and her in rehab for worsening dementia - 02/28- PCI of proximal LAD in-stent restenosis with 2.75 x 18 mm [place] drug- eluting stent, PCI of mid LAD with 2.25 x 26 mm [place] drug-eluting stent, PCI of mid circumflex into OM 2 with 2.25 x 22 mm [place] drug-eluting stent, PCI of distal RCA with 2.75 x 12 mm [place] drug-eluting stent - Continue Plavix and Apixaban - Continue atorvastatin 40 mg QPM - Continue Metoprolol 150 mg split daily dosing - On dig previously stopped secondary to bradycardia (3) Afib: Plan: As above (4) Hyperlipidemia: Plan: As above (5) Hypertension: Plan: As above (6) Peripheral vascular disease: Plan: Diurese as multiple component lower extremity edema - Continue to follow with renal function (7) PAD (peripheral artery disease): Plan: Chronic venous insufficiency LE angiogram in August showed 50-60% left ELIER stenosis, SFA occlusion with distal reconstitution and 3 vessel runoff to the foot. Right lower extremity with severe popliteal stenosis and occlusion of TPT. - AB from recent cardiology visit -Right AB 0.87, TBI 0.38 (54 mmHg) -Left AB 0.84, TBI 0.33 (47 mmHg) - Avoid SCDs with ulcerations and severe PAD - Compression per wound care (8) CHF (congestive heart failure): Plan: EF 55-60 % HFpEF dilated RV biatrial enlargement aortic sclerosis - Continue diuresing to assist with cellulitis -resume oral lasix 80 mg (9) CKD (chronic kidney disease) stage 4, GFR 15-29 ml/min: Plan: Renally dose medications - Pharmacy to adjust Cefepime and Gentamicin - Avoid further nephrotoxic medications as able and if needed minimize exposure time - GFR pending on labs Admission and Anticipated Discharge Date Admission Date: February 22, 2021 Review of Systems Review of Systems: REVIEW OF SYSTEMS: Constitutional: No fever, sweats or chills Eyes: No diplopia, no worsening or blurred vision ENT: normal hearing, no trouble swallowing Respiratory: (+) dyspnea with exertion, No cough, sputum, dyspnea at rest Cardiovascular: No chest pain, tightness or palpitations Abdomen: No pain, nausea, vomiting, diarrhea or constipation Musculoskeletal: (+)leg erythema and swelling, No joint pain, calf pain, Neurologic: No weakness, numbness/tingling, or balance problems Psychiatric: (+) anxiety or depression Skin: (+) as per HPI, picking and scratching with her anxiety Physical Exam Physical Exam: The patient appeared well nourished and normally developed. Vital signs as documented. Head exam is normocephalic atraumatic Neck is without JVD, thyromegaly, or carotid bruits. Lungs are clear to auscultation, no focal loss of breath sounds Cardiac exam, Rhythm is regular.. Systolic ejection murmur Abdominal exam reveals normal bowel sounds, soft non tender, no masses Extremities are proving erythema bilaterally to knees Neurologic exam is alert and oriented, no focal loss of strength or sensation Skin is without bruises or rashes Psychologically is without concerns for anxiety or depression Results & Data Results & Data ([facility]) Vital Signs (Past 12 Hours) Vital Signs Temp Pulse Resp BP Pulse Ox 02/23/21 15:24 97.3 F L 105 H 20 122/85 95 02/23/21 07:50 97.7 F 91 H 20 116/69 92 PG Care Time/CCT Total # of Minutes Spent Total Time Spent with Patient: Total time spent is greater than 50% in coordination of care (as documented) at patient's floor/unit and/or counseling patient: Coding Level of Care Code 94412 Subseq Hosp Care Lvl 3 Diagnoses Cellulitis L03.90 CAD, multiple vessel I25.10 Afib I48.91 Hyperlipidemia E78.5 Hypertension I10 Peripheral vascular disease I73.9 PAD (peripheral artery disease) I73.9 CHF (congestive heart failure) I50.9 Heart failure chronicity: acute Heart failure type: unspecified CKD (chronic kidney disease) stage 4, GFR 15-29 ml/min N18.4 (1) CHF (congestive heart failure) Heart failure chronicity: acute Heart failure type: unspecified Qualified Co de(s): I50.9 - Heart failure, unspecified
[2021-02-23] MEDS: CARBOHYDRATES FOR HYPOGLYCEMIA PO PRN ×2 (17:21→17:39)
[2021-02-23] MEDS ORDERED: Nursing to Pharmacy Communication SCH (17:45)
[2021-02-23] MEDS: FUROSEMIDE 40 MG TAB PO SCH (18:00)
[2021-02-23] MEDS: ATORVASTATIN 40 MG TAB PO SCH (21:17)
[2021-02-24] MEDS ORDERED: GENTAMICIN SULFATE 300 MG in DEXTROSE 5% 100 ML IV SCH (06:00)
[2021-02-24 06:34] LABS: Basophils # (auto) 0.02 K/uL (0-0.2); Basophils % (auto) 0.3 %; Eosinophils # (auto) 0.47 K/uL (0-0.5); Eosinophils % (auto) 6.4 %; Hematocrit (blood only) 37.2 % (37-47); Hemoglobin 12.4 g/dL (12.0-16.0); Immature Granulocytes # (auto) 0.04 K/uL (0.00-0.02); Immature Granulocytes % (auto) 0.5 %; Lymphocytes # (auto) 1.48 K/uL (1.2-3.4); Mean Corpuscular Hemoglobin 29.7 pg (25-34); Mean Corpuscular Hgb Conc 33.3 g/dL (32-36); Mean Platelet Volume 9.7 fL (7.4-10.4); Monocytes # (auto) 1.23 K/uL (0.11-0.59); Monocytes % (auto) 16.6 %; Neutrophils # (auto) 4.16 K/uL (1.4-6.5); Neutrophils % (auto) 56.2 %; Platelet Count 180 K/uL (130-400); RDW Coefficient of Variation 19.3 % (11.5-14.5); RDW Standard Deviation 62.3 fL (36.4-46.3); Red Blood Count 4.18 M/uL (4.2-5.4)
[2021-02-24 06:50] LABS: BUN Creatinine Ratio 31.2 (10-20); Calcium 8.3 mg/dl (8.5-10.1); Creatinine Clr Calc Pharmacy 26.9 ml/min; Est GFR (African American) 34.9 ml/min; Est GFR (Non-African American) 30.1 ml/min; Magnesium 2.4 mg/dl (1.8-2.4); Potassium 3.9 mmol/L (3.5-5.1)
[2021-02-24] MEDS: CARBOHYDRATES FOR HYPOGLYCEMIA PO PRN (07:43)
[2021-02-24] MEDS: APIXABAN 2.5 MG TAB PO SCH ×2 (07:48→22:21)
[2021-02-24] MEDS: METOPROLOL SUCC 50MG EXT REL TAB PO SCH ×2 (07:48→22:21)
[2021-02-24] MEDS: CYANOCOBALAMIN 500 MCG TABLET (VITAMIN B-12) PO SCH (07:48)
[2021-02-24] MEDS: CLOPIDOGREL BISULFATE 75 MG TAB PO SCH (07:48)
[2021-02-24] MEDS: LOSARTAN POTASSIUM 25 MG TAB PO SCH (07:48)
[2021-02-24] MEDS: FUROSEMIDE 40 MG TAB PO SCH ×2 (07:49→17:50)
[2021-02-24] MEDS: INSULIN ASPART 100 UNITS/ML 3 ML PEN SC SCH ×4 (08:35→21:00)
--- NOTE | 2021-02-24 09:20 | Hospitalist Progress Note ---
Date of Service February 24, 2021 Assessment & Plan (1) Cellulitis: Plan: Acute on chronic - Patient WBC not elevated and is not systemically septic. - Antibiotics- Cefepime and Gentamycin-infectious disease consult feels that the cefepime and gentamicin are bound to fail and recommended some choices that we could try to get. One of the choices would be CEFIDERICOL 1 0.5 g IV every 8, Miki Calhoun our pharmacist was able to have this allocated from an outside vendor and also be supplied our facility and will initiate therapy once it arrives discontinuing cefepime and gentamicin once that occurs. for 14 days therapy. - Patient with significant history of PAD and PVD - Wound care consult for dressing care - Continue with Hibiclens scrub daily, cover open areas with Aquacel AG and lightly wrap with Kerlix Wound cx pseudomonas (prior pseudomonas, Group B strep) Repeat blood cultures NGTD from 02/22 (prior 02/15 alpha strep not s. pneu/enteroc on 08/13 sets) Patient with US guided peripheral IV placed on 02/22 STARTED CEFIDERICOL TODAY --> Got Cefepime/Gentamicin up until this morning (would be day 2 of therapy) and will need continued for 14 days therapy per ID Discussed with CM --> they sent ID consultation and waiting to hear back but initially [facility] said they would not be able to accomodate this medication. Hopefully this will not mean she will need to remain inpatient for total course. (2) CAD, multiple vessel: Plan: Cardiac catheterization 09/04/19 showed severe multivessel coronary disease (90% mid LAD, 50% proximal LAD in stent stenosis, 70-80% mid circumflex into OM2, 90% distal RCA) - patient has not had her evaluation for CABG secondary to COVID 19 and her in rehab for worsening dementia - 02/28- PCI of proximal LAD in-stent restenosis with 2.75 x 18 mm [place] drug- eluting stent, PCI of mid LAD with 2.25 x 26 mm [place] drug-eluting stent, PCI of mid circumflex into OM 2 with 2.25 x 22 mm [place] drug-eluting stent, PCI of distal RCA with 2.75 x 12 mm [place] drug-eluting stent - Continue Plavix and Apixaban - Continue atorvastatin 40 mg QPM - Continue Metoprolol 150 mg split daily dosing - On dig previously stopped secondary to bradycardia EKG with CP -- none reported (3) Afib: Plan: As above (4) Hyperlipidemia: Plan: As above (5) Hypertension: Plan: As above Stable -- 130/83 (6) Peripheral vascular disease: Plan: Diurese as multiple component lower extremity edema - Continue to follow with renal function (7) PAD (peripheral artery disease): Plan: Chronic venous insufficiency LE angiogram in August showed 50-60% left ELIER stenosis, SFA occlusion with distal reconstitution and 3 vessel runoff to the foot. Right lower extremity with severe popliteal stenosis and occlusion of TPT. - AB from recent cardiology visit -Right AB 0.87, TBI 0.38 (54 mmHg) -Left AB 0.84, TBI 0.33 (47 mmHg) - Avoid SCDs with ulcerations and severe PAD - Compression per wound care (8) CHF (congestive heart failure): Plan: EF 55-60 % HFpEF dilated RV biatrial enlargement aortic sclerosis - Continue diuresing to assist with cellulitis -resumed oral lasix 80 mg (9) CKD (chronic kidney disease) stage 4, GFR 15-29 ml/min: Plan: Renally dose medications - Pharmacy to adjust Cefepime and Gentamicin - Avoid further nephrotoxic medications as able and if needed minimize exposure time Cr stable Continue to monitor BMP Plan: DVT Proph -- On Eliquis 2.5mg PO BID, dosed appropriately Dispo: continued inpatient stay. CM following to see about abx at [facility] at d/c Admission and Anticipated Discharge Date Admission Date: February 22, 2021 Subjective Patient evaluated this morning. Doing well. Eating/drinking no issues. Excited that she got up to use the restroom. Pain controlled. Leg wraps changed yesterday to prevent scratching. Erythema decreased. Discussed her new abx for today as we got them and will discuss with CM about [facility] ability to continue these at al and will await response. Pain well controlled currently. Would like to see if her purse is in locker as she typically reads and is finding her mind feeling like she needs to be doing something. Will ask RN to check cabinets. Review of Systems Review of Systems: All systems reviewed & are unremarkable except as noted in HPI & below Physical Exam Constitutional: WD/WN, vitals as above Eyes: + anicteric sclerae and PERRL ENMT: mmm Neck: trachea midline, no thyromegaly Respiratory: normal respiratory effort, lungs clear to auscultation Cardiovascular: Rate/Rhythm: + irregularly irregular Heart Sounds: normal S1 and normal S2; no gallop, no murmur and no cardiac rub Extremities: + edema Gastrointestinal (Abdomen): normal bowel sounds, soft, nontender, no hepatosplenomegaly Musculoskeletal: no cyanosis or clubbing, extremities motor strength 5/5 Skin: erythema and multiple opening to b/l LE with edema (decreased), decreased tenderness. in b/l wraps pulses palpable bilaterally Neurologic: PERRL, EOMI, accommodation nl, no face palsy, no dysarthria Psychiatric: A+Ox3, euthymic affect Results & Data Results & Data ([facility]) Vital Signs (Past 12 Hours) Vital Signs Temp Pulse Resp BP Pulse Ox 02/24/21 08:10 36.3 C L 75 20 130/83 98 02/23/21 23:53 36.5 C 94 H 18 138/83 95 Laboratory Results 02/24/21 02/24/21 02/24/21 Range/Units 08:05 07:41 07:40 WBC (4.8-10.8) K/uL RBC (4.2-5.4) M/uL Hgb (12.0-16.0) g/dL Hct (37-47) % MCV (80-100) fL MCH (25-34) pg MCHC (32-36) g/dL RDW Std Deviation (36.4-46.3) fL RDW Coeff of Elissa (11.5-14.5) % Plt Count (130-400) K/uL MPV (7.4-10.4) fL Immature Gran % (Auto) % Neut % (Auto) % Lymph % (Auto) % [place] % (Auto) % Eos % (Auto) % Baso % (Auto) % Neut # (Auto) (1.4-6.5) K/uL Lymph # (Auto) (1.2-3.4) K/uL [place] # (Auto) (0.11-0.59) K/uL Eos # (Auto) (0-0.5) K/uL Baso # (Auto) (0-0.2) K/uL Immature Gran # (Auto) (0.00-0.02) K/uL Sodium (136-145) mmol/L Potassium (3.5-5.1) mmol/L Chloride (98-107) mmol/L Carbon Dioxide (21-32) mmol/L Anion Gap (3-11) BUN (7-18) mg/dl Creatinine (0.6-1.2) mg/dl Est Cr Clr Drug Dosing ml/min Est GFR ( Amer) ml/min Est GFR (Non-Af Amer) ml/min BUN/Creatinine Ratio (10-20) Glucose (70-99) mg/dl POC Glucose 91 64 L* 65 L* (70-99) mg/dl Calcium (8.5-10.1) mg/dl Magnesium (1.8-2.4) mg/dl 02/24/21 02/24/21 02/23/21 Range/Units 05:53 05:53 20:28 WBC 7.40 (4.8-10.8) K/uL RBC 4.18 L (4.2-5.4) M/uL Hgb 12.4 (12.0-16.0) g/dL Hct 37.2 (37-47) % MCV 89.0 (80-100) fL MCH 29.7 (25-34) pg MCHC 33.3 (32-36) g/dL RDW Std Deviation 62.3 H (36.4-46.3) fL RDW Coeff of Elissa 19.3 H (11.5-14.5) % Plt Count 180 (130-400) K/uL MPV 9.7 (7.4-10.4) fL Immature Gran % (Auto) 0.5 % Neut % (Auto) 56.2 % Lymph % (Auto) 20.0 % [place] % (Auto) 16.6 % Eos % (Auto) 6.4 % Baso % (Auto) 0.3 % Neut # (Auto) 4.16 (1.4-6.5) K/uL Lymph # (Auto) 1.48 (1.2-3.4) K/uL [place] # (Auto) 1.23 H (0.11-0.59) K/uL Eos # (Auto) 0.47 (0-0.5) K/uL Baso # (Auto) 0.02 (0-0.2) K/uL Immature Gran # (Auto) 0.04 H (0.00-0.02) K/uL Sodium 140 (136-145) mmol/L Potassium 3.9 (3.5-5.1) mmol/L Chloride 108 H (98-107) mmol/L Carbon Dioxide 28 (21-32) mmol/L Anion Gap 4.0 (3-11) BUN 50 H (7-18) mg/dl Creatinine 1.60 H (0.6-1.2) mg/dl Est Cr Clr Drug Dosing 26.9 ml/min Est GFR ( Amer) 34.9 ml/min Est GFR (Non-Af Amer) 30.1 ml/min BUN/Creatinine Ratio 31.2 H (10-20) Glucose 64 L (70-99) mg/dl POC Glucose 172 H (70-99) mg/dl Calcium 8.3 L (8.5-10.1) mg/dl Magnesium 2.4 (1.8-2.4) mg/dl 02/23/21 02/23/21 02/23/21 Range/Units 18:11 17:53 17:37 WBC (4.8-10.8) K/uL RBC (4.2-5.4) M/uL Hgb (12.0-16.0) g/dL Hct (37-47) % MCV (80-100) fL MCH (25-34) pg MCHC (32-36) g/dL RDW Std Deviation (36.4-46.3) fL RDW Coeff of Elissa (11.5-14.5) % Plt Count (130-400) K/uL MPV (7.4-10.4) fL Immature Gran % (Auto) % Neut % (Auto) % Lymph % (Auto) % [place] % (Auto) % Eos % (Auto) % Baso % (Auto) % Neut # (Auto) (1.4-6.5) K/uL Lymph # (Auto) (1.2-3.4) K/uL [place] # (Auto) (0.11-0.59) K/uL Eos # (Auto) (0-0.5) K/uL Baso # (Auto) (0-0.2) K/uL Immature Gran # (Auto) (0.00-0.02) K/uL Sodium (136-145) mmol/L Potassium (3.5-5.1) mmol/L Chloride (98-107) mmol/L Carbon Dioxide (21-32) mmol/L Anion Gap (3-11) BUN (7-18) mg/dl Creatinine (0.6-1.2) mg/dl Est Cr Clr Drug Dosing ml/min Est GFR ( Amer) ml/min Est GFR (Non-Af Amer) ml/min BUN/Creatinine Ratio (10-20) Glucose (70-99) mg/dl POC Glucose 100 H 62 L* 50 L* (70-99) mg/dl Calcium (8.5-10.1) mg/dl Magnesium (1.8-2.4) mg/dl 02/23/21 02/23/21 Range/Units 17:20 17:16 WBC (4.8-10.8) K/uL RBC (4.2-5.4) M/uL Hgb (12.0-16.0) g/dL Hct (37-47) % MCV (80-100) fL MCH (25-34) pg MCHC (32-36) g/dL RDW Std Deviation (36.4-46.3) fL RDW Coeff of Elissa (11.5-14.5) % Plt Count (130-400) K/uL MPV (7.4-10.4) fL Immature Gran % (Auto) % Neut % (Auto) % Lymph % (Auto) % [place] % (Auto) % Eos % (Auto) % Baso % (Auto) % Neut # (Auto) (1.4-6.5) K/uL Lymph # (Auto) (1.2-3.4) K/uL [place] # (Auto) (0.11-0.59) K/uL Eos # (Auto) (0-0.5) K/uL Baso # (Auto) (0-0.2) K/uL Immature Gran # (Auto) (0.00-0.02) K/uL Sodium (136-145) mmol/L Potassium (3.5-5.1) mmol/L Chloride (98-107) mmol/L Carbon Dioxide (21-32) mmol/L Anion Gap (3-11) BUN (7-18) mg/dl Creatinine (0.6-1.2) mg/dl Est Cr Clr Drug Dosing ml/min Est GFR ( Amer) ml/min Est GFR (Non-Af Amer) ml/min BUN/Creatinine Ratio (10-20) Glucose (70-99) mg/dl POC Glucose 50 L* 50 L* (70-99) mg/dl Calcium (8.5-10.1) mg/dl Magnesium (1.8-2.4) mg/dl PG Care Time/CCT Total # of Minutes Spent Total Time Spent with Patient: Total time spent is greater than 50% in coordination of care (as documented) at patient's floor/unit and/or counseling patient: Coding Level of Care Code 77550 Subseq Hosp Care Lvl 3 Diagnoses Cellulitis L03.90 CAD, multiple vessel I25.10 Afib I48.91 Hyperlipidemia E78.5 Hypertension I10 Peripheral vascular disease I73.9 PAD (peripheral artery disease) I73.9 CHF (congestive heart failure) I50.9 Heart failure chronicity: acute Heart failure type: unspecified CKD (chronic kidney disease) stage 4, GFR 15-29 ml/min N18.4 (1) CHF (congestive heart failure) Heart failure chronicity: acute Heart failure type: unspecified Qualified Code(s): I50.9 - Heart failure, unspecified
[2021-02-24] MEDS ORDERED: [UNRECOGNIZED DRUG - REMARK] PRN (09:50)
[2021-02-24] MEDS: CEFIDEROCOL SULFATE TOSYLATE IV SCH ×2 (11:29→18:21)
[2021-02-24] MEDS: SODIUM CHLORIDE 0.9% IV SCH ×2 (11:29→18:21)
[2021-02-24] MEDS: ATORVASTATIN 40 MG TAB PO SCH (22:21)
[2021-02-25] MEDS: SODIUM CHLORIDE 0.9% IV SCH ×3 (02:09→18:23)
[2021-02-25] MEDS: CEFIDEROCOL SULFATE TOSYLATE IV SCH ×3 (02:09→18:23)
[2021-02-25] MEDS: LOSARTAN POTASSIUM 25 MG TAB PO SCH (07:44)
[2021-02-25] MEDS: CYANOCOBALAMIN 500 MCG TABLET (VITAMIN B-12) PO SCH (07:44)
[2021-02-25] MEDS: APIXABAN 2.5 MG TAB PO SCH ×2 (07:44→20:50)
[2021-02-25] MEDS: METOPROLOL SUCC 50MG EXT REL TAB PO SCH ×2 (07:44→20:51)
[2021-02-25] MEDS: FUROSEMIDE 40 MG TAB PO SCH ×2 (07:45→17:21)
[2021-02-25] MEDS: FERROUS SULFATE 325 MG TAB PO SCH (07:45)
[2021-02-25] MEDS: CLOPIDOGREL BISULFATE 75 MG TAB PO SCH (07:45)
[2021-02-25 07:46] LABS: Basophils # (auto) 0.03 K/uL (0-0.2); Basophils % (auto) 0.4 %; Eosinophils % (auto) 6.7 %; Hematocrit (blood only) 42.1 % (37-47); Hemoglobin 13.7 g/dL (12.0-16.0); Immature Granulocytes # (auto) 0.04 K/uL (0.00-0.02); Immature Granulocytes % (auto) 0.5 %; Lymphocytes # (auto) 1.33 K/uL (1.2-3.4); Lymphocytes % (auto) 17.8 %; Mean Corpuscular Hemoglobin 29.7 pg (25-34); Mean Corpuscular Hgb Conc 32.5 g/dL (32-36); Mean Corpuscular Volume 91.1 fL (80-100); Mean Platelet Volume 9.9 fL (7.4-10.4); Monocytes # (auto) 0.93 K/uL (0.11-0.59); Monocytes % (auto) 12.5 %; Neutrophils # (auto) 4.63 K/uL (1.4-6.5); Neutrophils % (auto) 62.1 %; Platelet Count 214 K/uL (130-400); RDW Coefficient of Variation 19.6 % (11.5-14.5); RDW Standard Deviation 64.7 fL (36.4-46.3); Red Blood Count 4.62 M/uL (4.2-5.4); White Blood Count 7.46 K/uL (4.8-10.8)
[2021-02-25] MEDS ORDERED: hydrALAZINE HCL 20 MG/ML VIAL IV PRN (07:51)
[2021-02-25] MEDS: INSULIN ASPART 100 UNITS/ML 3 ML PEN SC SCH ×4 (07:52→21:00)
--- NOTE | 2021-02-25 07:53 | Hospitalist Progress Note ---
Date of Service February 25, 2021 Assessment & Plan (1) Cellulitis: Plan: Acute on chronic - Patient WBC not elevated and is not systemically septic. - Antibiotics- Cefepime and Gentamycin-infectious disease consult feels that the cefepime and gentamicin are bound to fail and recommended some choices that we could try to get. One of the choices would be CEFIDERICOL 1 0.5 g IV every 8, Miki Calhoun our pharmacist was able to have this allocated from an outside vendor and also be supplied our facility and will initiate therapy once it arrives discontinuing cefepime and gentamicin once that occurs. for 14 days therapy. - Patient with significant history of PAD and PVD - Wound care consult for dressing care - Continue with Hibiclens scrub daily, cover open areas with Aquacel AG and lightly wrap with Kerlix Wound cx pseudomonas (prior pseudomonas, Group B strep) Repeat blood cultures NGTD from 02/22 (prior 02/15 alpha strep not s. pneu/enteroc on 08/13 sets) Patient with US guided peripheral IV placed on 02/22 STARTED CEFIDERICOL 02/24 --> Got Cefepime/Gentamicin up until this morning (would be day 2 of therapy) and will need continued for 14 days therapy per ID Discussed with CM --> they sent ID consultation and waiting to hear back but initially [facility] said they would not be able to accommodate this medication. Hopefully this will not mean she will need to remain inpatient for total course. They will look back into this Saturday as we are willing to absorb some of the cost to get patient to [facility] quicker but she will remain inpatient through the weekend. WBC wnl 7.4k, afebrile. Erythema improving Continue to monitor (2) CAD, multiple vessel: Plan: Cardiac catheterization 09/04/19 showed severe multivessel coronary disease (90% mid LAD, 50% proximal LAD in stent stenosis, 70-80% mid circumflex into OM2, 90% distal RCA) - patient has not had her evaluation for CABG secondary to COVID 19 and her in rehab for worsening dementia - 02/28- PCI of proximal LAD in-stent restenosis with 2.75 x 18 mm [place] drug- eluting stent, PCI of mid LAD with 2.25 x 26 mm [place] drug-eluting stent, PCI of mid circumflex into OM 2 with 2.25 x 22 mm [place] drug-eluting stent, PCI of dist al RCA with 2.75 x 12 mm [place] drug-eluting stent - Continue Plavix and Apixaban - Continue atorvastatin 40 mg QPM - Continue Metoprolol 150 mg split daily dosing - On dig previously stopped secondary to bradycardia EKG with CP -- none reported (3) Afib: Plan: As above (4) Hyperlipidemia: Plan: As above (5) Hypertension: Plan: As above Stable -- 126/76 (6) Peripheral vascular disease: Plan: Diurese as multiple component lower extremity edema - Continue to follow with renal function (7) PAD (peripheral artery disease): Plan: Chronic venous insufficiency LE angiogram in August showed 50-60% left ELIER stenosis, SFA occlusion with distal reconstitution and 3 vessel runoff to the foot. Right lower extremity with severe popliteal stenosis and occlusion of TPT. - AB from recent cardiology visit -Right AB 0.87, TBI 0.38 (54 mmHg) -Left AB 0.84, TBI 0.33 (47 mmHg) - Avoid SCDs with ulcerations and severe PAD - Compression per wound care (8) CHF (congestive heart failure): Plan: EF 55-60 % HFpEF dilated RV biatrial enlargement aortic sclerosis - Continue diuresing to assist with cellulitis -resumed oral lasix 80 mg , Cr improving (9) CKD (chronic kidney disease) stage 4, GFR 15-29 ml/min: Plan: Renally dose medications - Pharmacy to adjust Cefepime and Gentamicin --> now changed as above to CE FIDERICOL - Avoid further nephrotoxic medications as able and if needed minimize exposure time Cr stable and improving with resuming of lasix as above Continue to monitor BMP Plan: DVT Proph -- On Eliquis 2.5mg PO BID, dosed appropriately Dispo: continued inpatient stay. CM following to see about abx at [facility] at d/c Admission and Anticipated Discharge Date Admission Date: February 22, 2021 Subjective Patient evaluated this morning. Doing well. No pain. Erythema controlled. Continues to have improvement daily Reading book and talking on the phone. Awaiting to hear back from [facility] about cost of medication but discussed will remain inpatient through weekend. No fever, chills, chest pain, shortness of breath, abdominal pain, nausea or vomiting at this time. Questions/concerns addressed. Review of Systems Review of Systems: All systems reviewed & are unremarkable except as noted in HPI & below Physical Exam Constitutional: WD/WN, vitals as above Eyes: + anicteric sclerae and PERRL Neck: trachea midline, no thyromegaly Respiratory: normal respiratory effort, lungs clear to auscultation Cardiovascular: Rate/Rhythm: + irregularly irregular Heart Sounds: normal S1 and normal S2; no gallop, no murmur and no cardiac rub Extremities: + edema Gastrointestinal (Abdomen): normal bowel sounds, soft, nontender, no hepatosplenomegaly Musculoskeletal: no cyanosis or clubbing, extremities motor strength 5/5 Skin: erythema and multiple opening to b/l LE with edema (decreased), decreased tenderness. in b/l wraps pulses palpable bilaterally Neurologic: PERRL, EOMI, accommodation nl, no face palsy, no dysarthria Psychiatric: A+Ox3, euthymic affect Results & Data Results & Data ([facility]) Vital Signs (Past 12 Hours) Vital Signs Pulse Resp BP Pulse Ox 02/24/21 22:59 99 H 18 145/95 H 94 Laboratory Results 02/25/21 02/25/21 02/25/21 Range/Units 07:22 07:04 07:04 WBC 7.46 (4.8-10.8) K/uL RBC 4.62 (4.2-5.4) M/uL Hgb 13.7 (12.0-16.0) g/dL Hct 42.1 (37-47) % MCV 91.1 (80-100) fL MCH 29.7 (25-34) pg MCHC 32.5 (32-36) g/dL RDW Std Deviation 64.7 H (36.4-46.3) fL RDW Coeff of Elissa 19.6 H (11.5-14.5) % Plt Count 214 (130-400) K/uL MPV 9.9 (7.4-10.4) fL Immature Gran % (Auto) 0.5 % Neut % (Auto) 62.1 % Lymph % (Auto) 17.8 % [place] % (Auto) 12.5 % Eos % (Auto) 6.7 % Baso % (Auto) 0.4 % Neut # (Auto) 4.63 (1.4-6.5) K/uL Lymph # (Auto) 1.33 (1.2-3.4) K/uL [place] # (Auto) 0.93 H (0.11-0.59) K/uL Eos # (Auto) 0.50 (0-0.5) K/uL Baso # (Auto) 0.03 (0-0.2) K/uL Immature Gran # (Auto) 0.04 H (0.00-0.02) K/uL Sodium 139 (136-145) mmol/L Potassium 4.0 (3.5-5.1) mmol/L Chloride 106 (98-107) mmol/L Carbon Dioxide 29 (21-32) mmol/L Anion Gap 5.0 (3-11) BUN 51 H (7-18) mg/dl Creatinine 1.59 H (0.6-1.2) mg/dl Est Cr Clr Drug Dosing 27.1 ml/min Est GFR ( Amer) 35.2 ml/min Est GFR (Non-Af Amer) 30.3 ml/min BUN/Creatinine Ratio 32.2 H (10-20) Glucose 77 (70-99) mg/dl POC Glucose 72 (70-99) mg/dl Calcium 9.0 (8.5-10.1) mg/dl Magnesium 2.5 H (1.8-2.4) mg/dl 02/24/21 02/24/21 02/24/21 Range/Units 22:11 16:35 11:42 WBC (4.8-10.8) K/uL RBC (4.2-5.4) M/uL Hgb (12.0-16.0) g/dL Hct (37-47) % MCV (80-100) fL MCH (25-34) pg MCHC (32-36) g/dL RDW Std Deviation (36.4-46.3) fL RDW Coeff of Elissa (11.5-14.5) % Plt Count (130-400) K/uL MPV (7.4-10.4) fL Immature Gran % (Auto) % Neut % (Auto) % Lymph % (Auto) % [place] % (Auto) % Eos % (Auto) % Baso % (Auto) % Neut # (Auto) (1.4-6.5) K/uL Lymph # (Auto) (1.2-3.4) K/uL [place] # (Auto) (0.11-0.59) K/uL Eos # (Auto) (0-0.5) K/uL Baso # (Auto) (0-0.2) K/uL Immature Gran # (Auto) (0.00-0.02) K/uL Sodium (136-145) mmol/L Potassium (3.5-5.1) mmol/L Chloride (98-107) mmol/L Carbon Dioxide (21-32) mmol/L Anion Gap (3-11) BUN (7-18) mg/dl Creatinine (0.6-1.2) mg/dl Est Cr Clr Drug Dosing ml/min Est GFR ( Amer) ml/min Est GFR (Non-Af Amer) ml/min BUN/Creatinine Ratio (10-20) Glucose (70-99) mg/dl POC Glucose 98 74 115 H (70-99) mg/dl Calcium (8.5-10.1) mg/dl Magnesium (1.8-2.4) mg/dl PG Care Time/CCT Total # of Minutes Spent Total Time Spent with Patient: Total time spent is greater than 50% in coordination of care (as documented) at patient's floor/unit and/or counseling patient: Coding Level of Care Code 79123 Subseq Hosp Care Lvl 2 Diagnoses Cellulitis L03.90 CAD, multiple vessel I25.10 Afib I48.91 Hyperlipidemia E78.5 Hypertension I10 Peripheral vascular disease I73.9 PAD (peripheral artery disease) I73.9 CHF (congestive heart failure) I50.9 Heart failure chronicity: acute Heart failure type: unspecified CKD (chronic kidney disease) stage 4, GFR 15-29 ml/min N18.4 (1) CHF (congestive heart failure) Heart failure chronicity: acute Heart failure type: unspecified Qualified Code(s): I50.9 - Heart failure, unspecified
[2021-02-25 08:17] LABS: BUN Creatinine Ratio 32.2 (10-20); Creatinine Clr Calc Pharmacy 27.1 ml/min; Est GFR (African American) 35.2 ml/min; Est GFR (Non-African American) 30.3 ml/min; Magnesium 2.5 mg/dl (1.8-2.4)
[2021-02-25] MEDS: ATORVASTATIN 40 MG TAB PO SCH (20:51)
[2021-02-26] MEDS: CEFIDEROCOL SULFATE TOSYLATE IV SCH ×3 (02:01→18:21)
[2021-02-26] MEDS: SODIUM CHLORIDE 0.9% IV SCH ×3 (02:01→18:21)
[2021-02-26 06:00] LABS: Hematocrit (blood only) 38.7 % (37-47); Hemoglobin 12.6 g/dL (12.0-16.0); Mean Corpuscular Hemoglobin 29.6 pg (25-34); Mean Corpuscular Hgb Conc 32.6 g/dL (32-36); Mean Corpuscular Volume 91.1 fL (80-100); Mean Platelet Volume 10.5 fL (7.4-10.4); Platelet Count 241 K/uL (130-400); RDW Coefficient of Variation 19.5 % (11.5-14.5); RDW Standard Deviation 64.7 fL (36.4-46.3); Red Blood Count 4.25 M/uL (4.2-5.4); White Blood Count 8.08 K/uL (4.8-10.8)
[2021-02-26 06:59] LABS: BUN Creatinine Ratio 35.5 (10-20); Calcium 8.8 mg/dl (8.5-10.1); Creatinine Clr Calc Pharmacy 27.6 ml/min; Est GFR (Non-African American) 31.1 ml/min
[2021-02-26] MEDS: METOPROLOL SUCC 50MG EXT REL TAB PO SCH ×2 (07:48→20:56)
[2021-02-26] MEDS: APIXABAN 2.5 MG TAB PO SCH ×2 (07:49→20:55)
[2021-02-26] MEDS: LOSARTAN POTASSIUM 25 MG TAB PO SCH (07:49)
[2021-02-26] MEDS: FUROSEMIDE 40 MG TAB PO SCH ×2 (07:49→16:51)
[2021-02-26] MEDS: CLOPIDOGREL BISULFATE 75 MG TAB PO SCH (07:49)
[2021-02-26] MEDS: CYANOCOBALAMIN 500 MCG TABLET (VITAMIN B-12) PO SCH (07:49)
--- NOTE | 2021-02-26 07:49 | Hospitalist Progress Note ---
Date of Service February 26, 2021 Assessment & Plan (1) Cellulitis: Plan: Acute on chronic - Patient WBC not elevated and is not systemically septic. - Antibiotics- Cefepime and Gentamycin-infectious disease consult feels that the cefepime and gentamicin are bound to fail and recommended some choices that we could try to get. One of the choices would be CEFIDERICOL 1 0.5 g IV every 8, Miki Calhoun our pharmacist was able to have this allocated from an outside vendor and also be supplied our facility and will initiate therapy once it arrives discontinuing cefepime and gentamicin once that occurs. for 14 days therapy. - Patient with significant history of PAD and PVD - Wound care consult for dressing care --> RN to change today - Continue with Hibiclens scrub daily, cover open areas with Aquacel AG and lightly wrap with Kerlix Wound cx pseudomonas (prior pseudomonas, Group B strep) Repeat blood cultures NGTD from 02/22 (prior 02/15 alpha strep not s. pneu/enteroc on 08/13 sets) Patient with US guided peripheral IV placed on 02/22 STARTED CEFIDERICOL 02/24 --> Got Cefepime/Gentamicin up until this morning (would be day 2 of therapy) and will need continued for 14 days therapy per ID Discussed with CM --> they sent ID consultation and waiting to hear back but initially [facility] said they would not be able to accommodate this medication. They will look back into this Saturday as we are willing to absorb some of the cost to get patient to [facility] quicker but she will remain inpatient through the weekend. Otherwise would need to remain inpatient to complete total of 14 day course. WBC wnl 8k, afebrile. Pain and erythema improving Dressing change today Continue to monitor (2) CAD, multiple vessel: Plan: Cardiac catheterization 09/04/19 showed severe multivessel coronary disease (90% mid LAD, 50% proximal LAD in stent stenosis, 70-80% mid circumflex into OM2, 90% distal RCA) - patient has not had her evaluation for CABG secondary to COVID 19 and her in rehab for worsening dementia - 02/28- PCI of proximal LAD in-stent restenosis with 2.75 x 18 mm [place] drug- eluting stent, PCI of mid LAD with 2.25 x 26 mm [place] drug-eluting stent, PCI of mid circumflex into OM 2 with 2.25 x 22 mm [place] drug-eluting stent, PCI of distal RCA with 2.75 x 12 mm [place] drug-eluting stent - Continue Plavix and Apixaban - Continue atorvastatin 40 mg QPM - Continue Metoprolol 150 mg split daily dosing - On dig previously stopped secondary to bradycardia EKG with CP -- none reported (3) Afib: Plan: As above (4) Hyperlipidemia: Plan: As above (5) Hypertension: Plan: As above Stable -- 131/83 (6) Peripheral vascular disease: Plan: Diurese as multiple component lower extremity edema - Continue to follow with renal function. stable (7) PAD (peripheral artery disease): Plan: Chronic venous insufficiency LE angiogram in August showed 50-60% left ELIER stenosis, SFA occlusion with distal reconstitution and 3 vessel runoff to the foot. Right lower extremity with severe popliteal stenosis and occlusion of TPT. - AB from recent cardiology visit -Right AB 0.87, TBI 0.38 (54 mmHg) -Left AB 0.84, TBI 0.33 (47 mmHg) - Avoid SCDs with ulcerations and severe PAD - Compression per wound care (8) CHF (congestive heart failure): Plan: EF 55-60 % HFpEF dilated RV biatrial enlargement aortic sclerosis - Continue diuresing to assist with cellulitis -resumed oral lasix 80 mg in 40mg BID dosing, Cr stable (9) CKD (chronic kidney disease) stage 4, GFR 15-29 ml/min: Plan: Renally dose medications - Pharmacy to adjust Cefepime and Gentamicin --> now changed as above to CEFIDERICOL - Avoid further nephrotoxic medications as able and if needed minimize exposure time Cr stable and improving with resuming of lasix as above Continue to monitor BMP Plan: DVT Proph -- On Eliquis 2.5mg PO BID, dosed appropriately Dispo: continued inpatient stay. CM following to see about abx at [facility] at d/c Admission and Anticipated Discharge Date Admission Date: February 22, 2021 Subjective Patient evaluated this morning. Doing well. No pain complaints at this time. Excited to look at legs after dressing change today as hoping for improvement, but erythema already improved to peripheral of current dressing. Afebrile. Reading book, patiently waiting determination from [facility] regarding ability to administer abx. Her is resident there [facility] for his dementia, which she notes she had been taking care of him and battling with depression the past year until she picked up ozzy and is thankful for all the great care and has been focusing on getting better for herself so that she is able to be around to visit with her grandchildren. Two sons in the state and she is excited about possible upcoming trip back to [place] to visit family in the next year as this had been put on hold due to most recent pandemic. No fever, chills, chest pain, shortness of breath, abdominal pain, nausea, vomiting or dysuria reported. Questions/concerns addressed at this time. Review of Systems Review of Systems: All systems reviewed & are unremarkable except as noted in HPI & below Physical Exam Constitutional: WD/WN, vitals as above Eyes: + anicteric sclerae and PERRL Neck: trachea midline, no thyromegaly Respiratory: normal respiratory effort, lungs clear to auscultation Cardiovascular: Rate/Rhythm: + irregularly irregular Heart Sounds: normal S1 and normal S2; no gallop, no murmur and no cardiac rub Extremities: + edema Gastrointestinal (Abdomen): normal bowel sounds, soft, nontender, no hepatosplenomegaly Musculoskeletal: no cyanosis or clubbing, extremities motor strength 5/5 Skin: erythema and multiple opening to b/l LE with edema (decreased), denied t enderness, but did have minimal (much improved). in b/l wraps pulses palpable bilaterally Neurologic: PERRL, EOMI, accommodation nl, no face palsy, no dysarthria Psychiatric: A+Ox3, euthymic affect Results & Data Results & Data ([facility]) Vital Signs (Past 12 Hours) Vital Signs Temp Pulse Resp BP Pulse Ox 02/25/21 22:45 36.3 C L 94 H 18 126/88 94 Laboratory Results 02/26/21 02/26/21 02/26/21 Range/Units 07:19 07:02 05:46 WBC 8.08 (4.8-10.8) K/uL RBC 4.25 (4.2-5.4) M/uL Hgb 12.6 (12.0-16.0) g/dL Hct 38.7 (37-47) % MCV 91.1 (80-100) fL MCH 29.6 (25-34) pg MCHC 32.6 (32-36) g/dL RDW Std Deviation 64.7 H (36.4-46.3) fL RDW Coeff of Elissa 19.5 H (11.5-14.5) % Plt Count 241 (130-400) K/uL MPV 10.5 H (7.4-10.4) fL Sodium (136-145) mmol/L Potassium 3.6 (3.5-5.1) mmol/L Chloride (98-107) mmol/L Carbon Dioxide (21-32) mmol/L Anion Gap (3-11) BUN (7-18) mg/dl Creatinine (0.6-1.2) mg/dl Est Cr Clr Drug Dosing ml/min Est GFR ( Amer) ml/min Est GFR (Non-Af Amer) ml/min BUN/Creatinine Ratio (10-20) Glucose (70-99) mg/dl POC Glucose 93 (70-99) mg/dl Calcium (8.5-10.1) mg/dl Magnesium (1.8-2.4) mg/dl 02/26/21 02/25/21 02/25/21 Range/Units 05:46 20:07 16:57 WBC (4.8-10.8) K/uL RBC (4.2-5.4) M/uL Hgb (12.0-16.0) g/dL Hct (37-47) % MCV (80-100) fL MCH (25-34) pg MCHC (32-36) g/dL RDW Std Deviation (36.4-46.3) fL RDW Coeff of Elissa (11.5-14.5) % Plt Count (130-400) K/uL MPV (7.4-10.4) fL Sodium 138 (136-145) mmol/L Potassium (3.5-5.1) mmol/L Chloride 106 (98-107) mmol/L Carbon Dioxide 29 (21-32) mmol/L Anion Gap 3.0 (3-11) BUN 55 H (7-18) mg/dl Creatinine 1.56 H (0.6-1.2) mg/dl Est Cr Clr Drug Dosing 27.6 ml/min Est GFR ( Amer) 36.0 ml/min Est GFR (Non-Af Amer) 31.1 ml/min BUN/Creatinine Ratio 35.5 H (10-20) Glucose 105 H (70-99) mg/dl POC Glucose 148 H 117 H (70-99) mg/dl Calcium 8.8 (8.5-10.1) mg/dl Magnesium (1.8-2.4) mg/dl 02/25/21 02/25/21 Range/Units 11:24 07:04 WBC (4.8-10.8) K/uL RBC (4.2-5.4) M/uL Hgb (12.0-16.0) g/dL Hct (37-47) % MCV (80-100) fL MCH (25-34) pg MCHC (32-36) g/dL RDW Std Deviation (36.4-46.3) fL RDW Coeff of Elissa (11.5-14.5) % Plt Count (130-400) K/uL MPV (7.4-10.4) fL Sodium 139 (136-145) mmol/L Potassium 4.0 (3.5-5.1) mmol/L Chloride 106 (98-107) mmol/L Carbon Dioxide 29 (21-32) mmol/L Anion Gap 5.0 (3-11) BUN 51 H (7-18) mg/dl Creatinine 1.59 H (0.6-1.2) mg/dl Est Cr Clr Drug Dosing 27.1 ml/min Est GFR ( Amer) 35.2 ml/min Est GFR (Non-Af Amer) 30.3 ml/min BUN/Creatinine Ratio 32.2 H (10-20) Glucose 77 (70-99) mg/dl POC Glucose 117 H (70-99) mg/dl Calcium 9.0 (8.5-10.1) mg/dl Magnesium 2.5 H (1.8-2.4) mg/dl PG Care Time/CCT Total # of Minutes Spent Total Time Spent with Patient: Total time spent is greater than 50% in coordination of care (as documented) at patient's floor/unit and/or counseling patient: Coding Level of Care Code 33854 Subseq Hosp Care Lvl 1 Diagnoses Cellulitis L03.90 CAD, multiple vessel I25.10 Afib I48.91 Hyperlipidemia E78.5 Hypertension I10 Peripheral vascular disease I73.9 PAD (peripheral artery disease) I73.9 CHF (congestive heart failure) I50.9 Heart failure chronicity: acute Heart failure type: unspecified CKD (chronic kidney disease) stage 4, GFR 15-29 ml/min N18.4 (1) CHF (congestive heart failure) Heart failure chronicity: acute Heart failure type: unspecified Qualified Code(s): I50.9 - Heart failure, unspecified
[2021-02-26] MEDS: INSULIN ASPART 100 UNITS/ML 3 ML PEN SC SCH ×4 (08:37→20:58)
[2021-02-26] MEDS: ATORVASTATIN 40 MG TAB PO SCH (20:56)
[2021-02-27] MEDS: CEFIDEROCOL SULFATE TOSYLATE IV SCH ×2 (01:42→10:02)
[2021-02-27] MEDS: SODIUM CHLORIDE 0.9% IV SCH ×2 (01:42→10:02)
--- NOTE | 2021-02-27 08:12 | Hospitalist Progress Note ---
Date of Service February 27, 2021 Assessment & Plan (1) Cellulitis: Plan: Acute on chronic - Patient WBC not elevated and is not systemically septic. - Antibiotics- Cefepime and Gentamycin-infectious disease consult feels that the cefepime and gentamicin are bound to fail and recommended some choices that we could try to get. One of the choices would be CEFIDERICOL 1 0.5 g IV every 8, Miki Calhoun our pharmacist was able to have this allocated from an outside vendor and also be supplied our facility and will initiate therapy once it arrives discontinuing cefepime and gentamicin once that occurs. for 14 days therapy. - Patient with significant history of PAD and PVD - Wound care consult for dressing care --> RN to change today - Continue with Hibiclens scrub daily, cover open areas with Aquacel AG and lightly wrap with Kerlix Wound cx pseudomonas (prior pseudomonas, Group B strep) Repeat blood cultures NGTD from 02/22 (prior 02/15 alpha strep not s. pneu/enteroc on 08/13 sets) Patient with US guided peripheral IV placed on 02/22 STARTED CEFIDERICOL 02/24 --> Got Cefepime/Gentamicin up until this morning (would be day 2 of therapy) and will need continued for 14 days therapy per ID Discussed with CM --> they sent ID consultation and waiting to hear back but initially [facility] said they would not be able to accommodate this medication. They will look back into this Saturday as we are willing to absorb some of the cost to get patient to [facility] quicker but she will remain inpatient through the weekend. Otherwise would need to remain inpatient to complete total of 14 day course. WBC wnl 8k, afebrile. Pain and erythema improving Dressing change today Continue to monitor (2) CAD, multiple vessel: Plan: Cardiac catheterization 09/04/19 showed severe multivessel coronary disease (90% mid LAD, 50% proximal LAD in stent stenosis, 70-80% mid circumflex into OM2, 90% distal RCA) - patient has not had her evaluation for CABG secondary to COVID 19 and her in rehab for worsening dementia - 02/28- PCI of proximal LAD in-stent restenosis with 2.75 x 18 mm [place] drug- eluting stent, PCI of mid LAD with 2.25 x 26 mm [place] drug-eluting stent, PCI of mid circumflex into OM 2 with 2.25 x 22 mm [place] drug-eluting stent, PCI of distal RCA with 2.75 x 12 mm [place] drug-eluting stent - Continue Plavix and Apixaban - Continue atorvastatin 40 mg QPM - Continue Metoprolol 150 mg split daily dosing - On dig previously stopped secondary to bradycardia EKG with CP -- none reported (3) Afib: Plan: As above (4) Hyperlipidemia: Plan: As above (5) Hypertension: Plan: As above Stable -- 131/83 (6) Peripheral vascular disease: Plan: Diurese as multiple component lower extremity edema - Continue to follow with renal function. stable (7) PAD (peripheral artery disease): Plan: Chronic venous insufficiency LE angiogram in August showed 50-60% left ELIER stenosis, SFA occlusion with distal reconstitution and 3 vessel runoff to the foot. Right lower extremity with severe popliteal stenosis and occlusion of TPT. - AB from recent cardiology visit -Right AB 0.87, TBI 0.38 (54 mmHg) -Left AB 0.84, TBI 0.33 (47 mmHg) - Avoid SCDs with ulcerations and severe PAD - Compression per wound care (8) CHF (congestive heart failure): Plan: EF 55-60 % HFpEF dilated RV biatrial enlargement aortic sclerosis - Continue diuresing to assist with cellulitis -resumed oral lasix 80 mg in 40mg BID dosing, Cr stable (9) CKD (chronic kidney disease) stage 4, GFR 15-29 ml/min: Plan: Renally dose medications - Pharmacy to adjust Cefepime and Gentamicin --> now changed as above to CEFIDERICOL - Avoid further nephrotoxic medications as able and if needed minimize exposure time Cr stable and improving with resuming of lasix as above Continue to monitor BMP Plan: DVT Proph -- On Eliquis 2.5mg PO BID, dosed appropriately Dispo: continued inpatient stay. CM following to see about abx at [facility] at d/c Admission and Anticipated Discharge Date Admission Date: February 22, 2021 Results & Data Results & Data ([facility]) Vital Signs (Past 12 Hours) Vital Signs Temp Pulse Resp BP BP Pulse Ox 02/27/21 07:51 97.7 F 71 18 122/72 95 02/26/21 22:49 97.5 F L 88 18 146/83 H 94 02/26/21 20:54 85 132/85 95 PG Care Time/CCT Total # of Minutes Spent Total Time Spent with Patient: Total time spent is greater than 50% in coordination of care (as documented) at patient's floor/unit and/or counseling patient: Coding Diagnoses Cellulitis L03.90 CAD, multiple vessel I25.10 Afib I48.91 Hyperlipidemia E78.5 Hypertension I10 Peripheral vascular disease I73.9 PAD (peripheral artery disease) I73.9 CHF (congestive heart failure) I50.9 Heart failure chronicity: acute Heart failure type: unspecified CKD (chronic kidney disease) stage 4, GFR 15-29 ml/min N18.4 (1) CHF (congestive heart failure) Heart failure chronicity: acute Heart failure type: unspecified Qualified Code(s): I50.9 - Heart failure, unspecified
[2021-02-27] MEDS: APIXABAN 2.5 MG TAB PO SCH (08:51)
[2021-02-27] MEDS: FERROUS SULFATE 325 MG TAB PO SCH (08:52)
[2021-02-27] MEDS: CYANOCOBALAMIN 500 MCG TABLET (VITAMIN B-12) PO SCH (08:52)
[2021-02-27] MEDS: LOSARTAN POTASSIUM 25 MG TAB PO SCH (08:53)
[2021-02-27] MEDS: METOPROLOL SUCC 50MG EXT REL TAB PO SCH (08:53)
[2021-02-27] MEDS: CLOPIDOGREL BISULFATE 75 MG TAB PO SCH (08:54)
[2021-02-27] MEDS: FUROSEMIDE 40 MG TAB PO SCH (08:54)
[2021-02-27] MEDS: INSULIN ASPART 100 UNITS/ML 3 ML PEN SC SCH ×2 (08:56→12:47)
--- NOTE | 2021-02-27 13:06 | Discharge Summary ---
Date of Service February 27, 2021 Principal Diagnosis Multidrug resistant pseudomonas cellulitis of LE Discharge Exam The patient appeared well Vital signs as documented. Lungs are clear to auscultation and appear unlabored Cardiac exam, Rhythm is regular.. No murmurs, rubs or gallops. Abdominal exam reveals normal bowel sounds, soft non tender, no masses Extremities are nonedematous and both pedal pulses are normal. Neurologic exam is alert and oriented, no focal loss of strength or sensation Skin is with improving redness and swelling Tubigrip wraps are in place at the time of discharge Psychologically is without concerns for anxiety or depression. Discharge Data Allergies Allergy/AdvReac Type Severity Reaction Status Date / Time enalapril AdvReac Intermediate Cough Verified 02/21/21 11:09 Consultations 02/22/21 15:17 ED Decision to Admit Stat 02/22/21 22:00 Consult Infectious Diseases Routine Hospital Course (1) Cellulitis: Acute on chronic - Patient WBC not elevated and is not systemically septic. - Antibiotics- Cefepime and Gentamycin-infectious disease consult feels that the cefepime and gentamicin are bound to fail and recommended some choices that we could try to get. One of the choices would be CEFIDERICOL 1 0.5 g IV every 8, Miki Calhoun our pharmacist was able to have this allocated from an outside vendor and also be supplied our facility and will initiate therapy once it arrives discontinuing cefepime and gentamicin once that occurs. for 14 days therapy. - Patient with significant history of PAD and PVD - Wound care consult for dressing care --> RN to change today - Continue with Hibiclens scrub daily, cover open areas with Aquacel AG and lightly wrap with Kerlix Wound cx pseudomonas (prior pseudomonas, Group B strep) Repeat blood cultures NGTD from 02/22 (prior 02/15 alpha strep not s. pneu/enteroc on 08/13 sets) Patient with US guided peripheral IV placed on 02/22 STARTED CEFIDERICOL 02/24 --> Got Cefepime/Gentamicin up until this morning (would be day 2 of therapy) and will need continued for 14 days therapy per ID Discussed with CM --> they sent ID consultation and waiting to hear back but initially [facility] said they would not be able to accommodate this medication. They will look back into this Saturday as we are willing to absorb some of the cost to get patient to [facility] quicker but she will remain inpatient through the weekend. Otherwise would need to remain inpatient to complete total of 14 day course. (2) CAD, multiple vessel: Cardiac catheterization 09/04/19 showed severe multivessel coronary disease (90% mid LAD, 50% proximal LAD in stent stenosis, 70-80% mid circumflex into OM2, 90% distal RCA) - patient has not had her evaluation for CABG secondary to COVID 19 and her in rehab for worsening dementia - 02/28- PCI of proximal LAD in-stent restenosis with 2.75 x 18 mm [place] drug- eluting stent, PCI of mid LAD with 2.25 x 26 mm [place] drug-eluting stent, PCI of mid circumflex into OM 2 with 2.25 x 22 mm [place] drug-eluting stent, PCI of distal RCA with 2.75 x 12 mm [place] drug-eluting stent - Continue Plavix and Apixaban - Continue atorvastatin 40 mg QPM - Continue Metoprolol 150 mg split daily dosing - On dig previously stopped secondary to bradycardia EKG with CP -- none reported (3) Afib: As above (4) Hyperlipidemia: As above (5) Hypertension: As above Stable -- 131/83 (6) Peripheral vascular disease: Diurese as multiple component lower extremity edema - Continue to follow with renal function. stable (7) PAD (peripheral artery disease): Chronic venous insufficiency LE angiogram in August showed 50-60% left ELIER stenosis, SFA occlusion with distal reconstitution and 3 vessel runoff to the foot. Right lower extremity with severe popliteal stenosis and occlusion of TPT. - AB from recent cardiology visit -Right AB 0.87, TBI 0.38 (54 mmHg) -Left AB 0.84, TBI 0.33 (47 mmHg) - Avoid SCDs with ulcerations and severe PAD - Compression per wound care (8) CHF (congestive heart failure): EF 55-60 % HFpEF dilated RV biatrial enlargement aortic sclerosis - Continue diuresing to assist with cellulitis -resumed oral lasix (9) CKD (chronic kidney disease) stage 4, GFR 15-29 ml/min: CEFIDERICOL treatment renal dose adjustment - Avoid further nephrotoxic medications as able and if needed minimize exposure time Cr stable and improving with resuming of lasix as above DVT Proph -- On Eliquis 2.5mg PO BID, dosed appropriately Dispo: continued abx at [facility] at d/c Total Time Total Time Spent Total Time Spent (In Minutes): greater than 30 minutes were required to prepare the discharge Discharge Plan Discharge Items Patient Disposition: Transfer [facility] Reason For Visit: CELLULITIS Discharge Diagnosis: Multidrug resistent pseudomonas cellulitis Condition on Discharge: Fair Activity: Per Instructions section Non-emergency contact: Primary Care Provider Call non-emergency contact if: you have any medication questions and your symptoms worsen Follow-up/Referrals: Gilbert Posadas MD [Primary Care Provider] - Diet: Regular Addtl Attending Provider Instructions: Per wound care instructions from 25 February left lower extremitycover open areas with Aquacel Ag gauze and secure with Kerlix change every other day as needed. Right lower extremity cleansed with saline cover open areas with Aquacel Ag ultra sorb sheet ABD and Kerlix. Apply single layer Tubigrip from base of toes to just below knee. RN to remove twice daily and assess for pressure change every other day as needed Patient is on a antibiotic to complete a total of 14-day course, 10 additional days at skilled facility please have primary care follow up at [facility] please resume typical diabetic regime Pending Studies at Discharge: No Stand-Alone Forms: My [facility] Skilled Items Patient informed of condition?: Yes DNR: Yes Discharge Level of Care: Skilled Communicable Disease: No Discharge Prognosis: Stable Lines: None Urinary Catheter: No Medications and DC Order Prescriptions: New cefiderocol 1 gram recon soln 1 g IV Q8H 10 Days RF: 0 Continued glipizide 5 mg tablet extended release 24hr 5 mg PO DAILY Qty: 90 RF: 1 clopidogrel 75 mg tablet 75 mg PO QAM Qty: 90 RF: 3 atorvastatin 40 mg tablet 40 mg PO QPM Qty: 90 RF: 3 Eliquis 2.5 mg tablet 2.5 mg PO BID Qty: 180 RF: 0 losartan 25 mg tablet 25 mg PO QAM Qty: 90 RF: 3 (DME) lancets [OneTouch Delica Plus Lancet] 33 gauge misc See Rx Instructions .ROUTE .MEDSUPPLY Qty: 100 RF: 3 (DME) blood sugar diagnostic Strip See Rx Instructions .ROUTE .MEDSUPPLY Qty: 100 RF: 3 (DME) blood-glucose meter [OneTouch Ultra2 Meter] Misc See Rx Instructions .ROUTE .MEDSUPPLY Qty: 1 RF: 0 cyanocobalamin (vitamin B-12) 1,000 mcg tablet, sublingual 1,000 mcg SL DAILY Qty: 30 RF: 0 ferrous sulfate 325 mg (65 mg iron) tablet 325 mg PO Q OTHER DAY RF: 0 metoprolol succinate 50 mg Tablet Extended Release 24 Hr 50 mg PO HS RF: 0 metoprolol succinate [Toprol XL] 100 mg tablet extended release 24 hr 100 mg PO QAM RF: 0 acetaminophen [Tylenol Extra Strength] 500 mg Tablet 500 mg PO Q4 MDD 3g PRN (Reason: Pain, Mild) RF: 0 furosemide 80 mg Tablet 80 mg PO QAM 30 Days Qty: 30 RF: 3 Discharge Orders: Discharge Order (Routine); Ordered 02/27/21 Ordered By: Jasiel Burger/Other Patient Handouts: Discharge Instructions for Cellulitis Admission Data Admit Date/Time: 02/22/21 15:49 Attending Provider: Jasiel Lund Admit Provider: Maxime Cat Primary Care Provider: Gilbert Posadas V. Other Providers: Neil Mohamud ; Nestor Jenkins ; Claudia Jensen ; Dmitry Lerma I. ; Chin Nation II ; Apurva Garza ; Jacky Pickard Other Interventions: Discharge Summary Assessment (RN) Last Done: 02/27/21 12:35 Coding Level of Care Code D/C DAY MANAGEMENT >30 MINS Diagnoses Cellulitis L03.90 CAD, multiple vessel I25.10 Afib I48.91 Hyperlipidemia E78.5 Hypertension I10 Peripheral vascular disease I73.9 PAD (peripheral artery disease) I73.9 CHF (congestive heart failure) I50.9 Heart failure chronicity: acute Heart failure type: unspecified CKD (chronic kidney disease) stage 4, GFR 15-29 ml/min N18.4
== END 2021-02-27 15:31 | DRG 603 ==
LOC: ED 12:46 → 2N 15:49

== ENCOUNTER 2021-03-03 18:54 | Inpatient (IN) ==
[2021-03-03] MEDS ORDERED: DEXTROSE 50% 50 ML SYRINGE IV STA (19:09)
[2021-03-03] MEDS ORDERED: OCTREOTIDE ACETATE 100 MCG/ML VIAL SQ STA (19:11)
[2021-03-03 19:37] LABS: Basophils # (auto) 0.02 K/uL (0-0.2); Basophils % (auto) 0.2 %; Eosinophils # (auto) 0.42 K/uL (0-0.5); Eosinophils % (auto) 3.9 %; Hematocrit (blood only) 40.3 % (37-47); Hemoglobin 13.4 g/dL (12.0-16.0); Immature Granulocytes # (auto) 0.04 K/uL (0.00-0.02); Immature Granulocytes % (auto) 0.4 %; Lymphocytes # (auto) 1.08 K/uL (1.2-3.4); Lymphocytes % (auto) 10.1 %; Mean Corpuscular Hemoglobin 29.9 pg (25-34); Mean Corpuscular Hgb Conc 33.3 g/dL (32-36); Mean Platelet Volume 9.9 fL (7.4-10.4); Monocytes # (auto) 1.12 K/uL (0.11-0.59); Monocytes % (auto) 10.4 %; Neutrophils # (auto) 8.04 K/uL (1.4-6.5); Platelet Count 189 K/uL (130-400); RDW Coefficient of Variation 20.2 % (11.5-14.5); RDW Standard Deviation 65.7 fL (36.4-46.3); Red Blood Count 4.48 M/uL (4.2-5.4); White Blood Count 10.72 K/uL (4.8-10.8)
[2021-03-03 19:56] LABS: BUN Creatinine Ratio 17.3 (10-20); Calcium 8.5 mg/dl (8.5-10.1); Creatinine Clr Calc Pharmacy 10.5 ml/min; Est GFR (African American) 10.5 ml/min; Potassium 4.9 mmol/L (3.5-5.1)
[2021-03-03 20:23] LABS: Anisocytosis Present; Echinocytes 2+; Schistocytes Occasional
[2021-03-03] MEDS ORDERED: SODIUM CHLORIDE 0.9% 1000ML 1,000 ML IV SCH (20:30)
--- NOTE | 2021-03-03 21:25 | History & Physical Report ---
Date of Service March 03, 2021 Assessment & Plan (1) JOSHUA (acute kidney injury): Plan: Patient with elevated BUN and Cr of 75 and 4.35, respectively (previously 55 and 1.56). Etiology unclear - most likely multifactorial. Patient states that she has had poor oral intake and decreased appetite lately. Possibly pre-renal component. She is on Lasix as well as Metolazone and Losartan, also has been on Cefiderocol for MDR Pseudomonas - ?AIN component as well. -Admit to medical with telemetry -Place Santana catheter - monitor strict I/Os -Renal ultrasound -UA with microscopy and culture if indicated -Check urine Na and Urea for FeUREA calculation -Gentle IVF -Repeat chemistry q12 hours -Renal dosing where needed -Avoid nephrotoxic agents (2) Hypoglycemia: Plan: Patient hypoglycemic on arrival. Multifactorial to include decreased PO intake, poor renal function and sulfonylurea usage. Responsive to D50 x 1 amp. Patient is eating. -Octreotide given in ER to counteract glipizide - will continue 100mcg q 8 hours -Fingersticks q hourly until stable -Goal blood sugar 110 - 180 -ISS if > 180 -Hold diabetic agents -Check A1C (3) CHF (congestive heart failure): Plan: Chronic. CXR with pulmonary edema and effusions. No respiratory distress. -Monitor I/Os -May need to trial diuretics if SOB/hypoxia develops (4) CAD, multiple vessel: Plan: Chronic. Stable -Continue Plavix -Continue Metoprolol (5) Hyperlipidemia: Plan: Chronic -Hold Atorvastatin for now (6) Diabetes mellitus type 2 in nonobese: Plan: With hypoglycemia as above -ISS for BSG >180 (7) Hypertension: Plan: Blood pressure stable -Continue Metoprolol -Hold Losartan, Lasix and Metolazone (8) Afib: Plan: Rate controlled AF -Continue Metoprolol -Continue Apixaban (9) UTI (urinary tract infection): Plan: Patient with MDR Pseudomonas. Has been on Cefiderocol at home -Cefepime with renal dosing History of Present Illness Chief Complaint: hypoglycemia Primary Care Provider: Gilbert Posadas MD Brandee Alonso is a pleasant 80yo female with history of AF on Apixaban, HTN/HLP/DM/CAD presenting from [facility] with hypoglycemia. Patient was at the wound clinic today and was noted to be lethargic, confused and clammy. A blood sugar was checked and was found to be low in the 40's. Oral glucose administration was attempted unsuccessfully and the patient was sent to the ER. Blood sugar 53 on arrival. Patient was administered 1 amp of D50 with improvement. Of note, patient reports decreased appetite and poor oral intake over the last several weeks. She was started on a new antibiotic for her LLE wounds and states that she has not had much appetite since then. She is on Glipizide outpatient. She took this in the morning and did not have lunch. She is complaining of low back pain as well as thigh pain since today as well as decreased UOP. Otherwise, patient denies complaints. She denies fever/chills/chest pain/palpitations/cough/SOB/nausea/vomiting/diarrhea or constipation. ER Course: D50 x 1 amp, Octreotide, NSS Allergies Allergy/AdvReac Type Severity Reaction Status Date / Time enalapril AdvReac Intermediate Cough Verified 03/03/21 22:00 Home Medications Medication Instructions Recorded Confirmed Type cyanocobalamin (vitamin B-12) 1,000 mcg SL DAILY #30 tab 02/20/19 03/03/21 History 1,000 mcg sublingual tablet ferrous sulfate 325 mg (65 mg 325 mg PO Q OTHER DAY tab 04/28/20 03/03/21 History iron) tablet glipizide 5 mg tablet, extended 5 mg PO DAILY #90 tab 10/31/20 03/03/21 Rx release 24 hr clopidogrel 75 mg tablet 75 mg PO QAM #90 tab 11/04/20 03/03/21 Rx atorvastatin 40 mg tablet 40 mg PO QPM #90 tab 12/30/20 03/03/21 Rx apixaban 2.5 mg tablet (Eliquis) 2.5 mg PO BID #180 tab 01/25/21 03/03/21 Rx losartan 25 mg tablet 25 mg PO QAM #90 tab 01/30/21 03/03/21 Rx acetaminophen 500 mg tablet 500 mg PO Q4 PRN MDD 3g 02/15/21 03/03/21 History (Tylenol Extra Strength) metoprolol succinate 100 mg 100 mg PO QAM 02/15/21 03/03/21 History tablet,extended release 24 hr (Toprol XL) metoprolol succinate 50 mg 50 mg PO HS 02/15/21 03/03/21 History tablet,extended release 24 hr furosemide 80 mg tablet 80 mg PO QAM 30 Days #30 tab 02/18/21 03/03/21 Rx cefiderocol 1 gram intravenous 1 g IV Q8H 10 Days ea 02/27/21 03/03/21 Rx solution metolazone 10 mg tablet 10 mg PO DAILY PRN 03/03/21 03/03/21 History Past Med/Surg History Medical History Acute kidney injury Acute respiratory distress Afib ON ELIQUIS - FOLLOWS W/ DR. RAMSEY Age related osteoporosis Aortic atherosclerosis Atrial fibrillation with rapid ventricular response Cellulitis of left lower extremity Coronary artery disease Card cath- 09/04/2019- severe multilevel coronary disease- 90 % mid LAD, 50 % Prox. LAD in stent stenosis, 70-80 % mid circumflex OM2, 90 % distal RCA Creatinine elevation Deep venous thrombosis of lower extremity (02/20/12) Diabetes mellitus, type 2 NIDDM Diabetic peripheral neuropathy History of myocardial infarction 1999 [place] ([place] of hearing) Hyperlipidemia Hypertension Hypoxia Murmur Nonproliferative diabetic retinopathy Numbness Peripheral vascular disease Polymyalgia rheumatica Renal artery stenosis, eagle, bilateral Rheumatoid arthritis Secondary diabetes mellitus Somnolence Traumatic wound Vitamin B12 deficiency Weight loss Surgical History History of cardiac catheterization 1999 - [facility] - 1 STENT History of colonoscopy History of heart artery stent 1 STENT History of total abdominal hysterectomy and bilateral salpingo-oophorectomy Hx of tonsillectomy S/P breast biopsy Family History Father Bone cancer Lung disease Sister Arthritis of hand Mother Hypertension Brother Hypertension Anxiety Depression Gallbladder disease Lung disease Unknown Hypertension Denies family history of Ovarian cancer Prostate cancer Myocardial infarction Breast cancer Colorectal cancer Social History Smoking Status: Never smoker Second Hand Exposure: No (OCCASIONAL EXPOSURE); Hx Alcohol Use: No Hx Substance Use: No Preferred Language: [place] Communication Ability: Effective Visual Impairment: No Limitations Hearing Ability: Normal Barbering 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 Required: No Beliefs That Will Affect Care: None marital status: Current Living Situation[facility] Current Living Situation Comment: Lives at [facility] current occupational status: retired 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 [place] Feels Safe at Home: Yes Safety Concerns: Feels Safe At This Time Childhood Exposure to Second-Hand Smoke: No Dental Care, Regularly: Yes Physical Activity Frequency: 3-4 Times per Week Seatbelt Use: always Sunscreen Use: Yes Assistive Devices: Denture - Upper, Glasses and Walker Assistive Devices Comment: denture and glasses Review of Systems Review of Systems: All systems reviewed & are unremarkable except as noted in HPI & below Denies dysuria, hematuria Physical Exam Physical Exam: General: patient resting comfortably, NAD, non-toxic in appearance, AA&O x 4 Skin: warm, dry, intact, scattered lesions on back, legs with wraps in place HEENT: NC/AT, PERRL, EOMI, anicteric sclera, conjunctiva without injection, external ear normal to inspection and nontender, nares patent, moist mucus membranes, dentition intact, no oropharyngeal lesions, neck supple, trachea midline, no LAD, no thyromegaly, no JVD Heart: +S1/S2, regular, no m/r/g Lungs: equal air entry bilaterally, diminished breath sounds in bilateral base s, L > R Abd: +BS, soft, NT/ND, no masses/organomegaly/ascites Ext: warm, 1+ pulses, mild cyanosis of finger tips, bilateral LE with wrapping in place Neuro: nonfocal, patient AA&O x 4, speech intact, no facial droop, moving all extremities on command with equal strength 5/5 Results & Data Results & Data ([facility] Vital Signs (Past 12 Hours) Vital Signs Temp Pulse Resp BP Pulse Ox 03/03/21 20:20 98 03/03/21 20:10 86 12 98 03/03/21 20:00 77 18 100 03/03/21 19:50 77 18 100 03/03/21 19:45 84 22 78 L 03/03/21 19:05 83 28 H 03/03/21 19:00 36.5 C 83 20 127/92 Laboratory Results Laboratory Results WBC 10.72 K/uL (4.8-10.8) 03/03/21 19:01 RBC 4.48 M/uL (4.2-5.4) 03/03/21 19:01 Hgb 13.4 g/dL (12.0-16.0) 03/03/21 19: Hct 40.3 % (37-47) 03/03/21 19: MCV 90.0 fL (80-100) 03/03/21 19: MCH 29.9 pg (25-34) 03/03/21 19: MCHC 33.3 g/dL (32-36) 03/03/21 19: RDW Std Deviation 65.7 fL (36.4-46.3) H 03/03/21 19: RDW Coeff of Elissa 20.2 % (11.5-14.5) H 03/03/21 19: Plt Count 189 K/uL (130-400) 03/03/21 19: MPV 9.9 fL (7.4-10.4) 03/03/21 19: Immature Gran % (Auto) 0.4 % 03/03/21 19: Neut % (Auto) 75.0 % 03/03/21 19: Lymph % (Auto) 10.1 % 03/03/21 19: [place] % (Auto) 10.4 % 03/03/21 19:01 Eos % (Auto) 3.9 % 03/03/21 19:01 Baso % (Auto) 0.2 % 03/03/21 19: Neut # (Auto) 8.04 K/uL (1.4-6.5) H 03/03/21 19:01 Lymph # (Auto) 1.08 K/uL (1.2-3.4) L 03/03/21 19: [place] # (Auto) 1.12 K/uL (0.11-0.59) H 03/03/21 19:01 Eos # (Auto) 0.42 K/uL (0-0.5) 03/03/21 19: Baso # (Auto) 0.02 K/uL (0-0.2) 03/03/21 19: Immature Gran # (Auto) 0.04 K/uL (0.00-0.02) H 03/03/21 19:01 Anisocytosis Present 03/03/21 19: Echinocytes 2+ 03/03/21 19:01 Schistocytes Occasional 03/03/21 19:01 Sodium 134 mmol/L (136-145) L 03/03/21 19:01 Potassium 4.9 mmol/L (3.5-5.1) 03/03/21 19:01 Chloride 102 mmol/L (98-107) 03/03/21 19:01 Carbon Dioxide 22 mmol/L (21-32) 03/03/21 19:01 Anion Gap 10.0 (3-11) 03/03/21 19:01 BUN 75 mg/dl (7-18) H 03/03/21 19:01 Creatinine 4.33 mg/dl (0.6-1.2) H 03/03/21 19:01 Est Cr Clr Drug Dosing 10.5 ml/min 03/03/21 19:01 Est GFR ( Amer) 10.5 ml/min 03/03/21 19:01 Est GFR (Non-Af Amer) 9.0 ml/min 03/03/21 19:01 BUN/Creatinine Ratio 17.3 (10-20) 03/03/21 19:01 Glucose 53 mg/dl (70-99) L* 03/03/21 19:01 POC Glucose 163 mg/dl (70-99) H 03/04/21 00:08 Calcium 8.5 mg/dl (8.5-10.1) 03/03/21 19:01 Phosphorus 6.6 mg/dl (2.5-4.9) H 03/03/21 19:01 Magnesium 2.9 mg/dl (1.8-2.4) H 03/03/21 19:01 Total Creatine Kinase 139 U/L (26-192) 03/03/21 19:01 COVID-19 Eval Order Covid19 at [facility] 03/03/21 19:01 SARS-CoV-2 (PCR) NEGATIVE (Negative) 03/03/21 19:01 Code Status & VTE Plan VTE Prophylaxis Plan VTE Prophylaxis will be ordered: Yes PG Care Time/CCT Total # of Minutes Spent Total Time Spent with Patient: Total time spent is greater than 50% in coordination of care (as documented) at patient's floor/unit and/or counseling patient: Coding Level of Care Code 98802 Initial Inpt Care Lvl 3 Diagnoses JOSHUA (acute kidney injury) N17.9 Hypoglycemia E16.2 CHF (congestive heart failure) I50.9 Heart failure chronicity: acute Heart failure type: unspecified CAD, multiple vessel I25.10 Hyperlipidemia E78.5 Hyperlipidemia type: unspecified Diabetes mellitus type 2 in nonobese E11.9 Hypertension I10 Afib I48.91 UTI (urinary tract infection) N39.0 (1) CHF (congestive heart failure) Heart failure chronicity: acute Heart failure type: unspecified Qualified Code(s): I50.9 - Heart failure, unspecified (2) Hyperlipidemia Hyperlipidemia type: unspecified Qualified Code(s): E78.5 - Hyperlipidemia, unspecified
--- NOTE | 2021-03-03 22:21 | Emergency Department Note ---
History of Present Illness General Chief complaint: Hypoglycemia Stated complaint: hypoglycemic Time Seen by Provider: 03/03/21 19:10 History of Present Illness Provider complaint: Hypoglycemia Onset (ago): day(s) 1 Associated symptoms: + confusion and + weakness; no chest pain, no cough, no fever/chills, no headaches, no nausea/vomiting or no shortness of breath Treatments prior to arrival: other (Oral glucose) 80-year-old female on glipizide for diabetes presents emergency department for hyperglycemia. [facility] and that the penitentiary the patient was lethargic and confused. EMS got there and her blood glucose was 40. Patient was given oral glucose and her blood sugar increased to 59. When she arrived in the emergency department her blood sugar was again 45. Patient did not eat lunch she stated because she did not like the food that was being served. She did take her glipizide today. She reports no pain. No reported trauma. Home Medications Medication Instructions Recorded Confirmed Type cyanocobalamin (vitamin B-12) 1,000 mcg SL DAILY #30 tab 02/20/19 03/03/21 History 1,000 mcg sublingual tablet ferrous sulfate 325 mg (65 mg 325 mg PO Q OTHER DAY tab 04/28/20 03/03/21 History iron) tablet glipizide 5 mg tablet, extended 5 mg PO DAILY #90 tab 10/31/20 03/03/21 Rx release 24 hr clopidogrel 75 mg tablet 75 mg PO QAM #90 tab 11/04/20 03/03/21 Rx atorvastatin 40 mg tablet 40 mg PO QPM #90 tab 12/30/20 03/03/21 Rx apixaban 2.5 mg tablet (Eliquis) 2.5 mg PO BID #180 tab 01/25/21 03/03/21 Rx losartan 25 mg tablet 25 mg PO QAM #90 tab 01/30/21 03/03/21 Rx acetaminophen 500 mg tablet 500 mg PO Q4 PRN MDD 3g 02/15/21 03/03/21 History (Tylenol Extra Strength) metoprolol succinate 100 mg 100 mg PO QAM 02/15/21 03/03/21 History tablet,extended release 24 hr (Toprol XL) metoprolol succinate 50 mg 50 mg PO HS 02/15/21 03/03/21 History tablet,extended release 24 hr furosemide 80 mg tablet 80 mg PO QAM 30 Days #30 tab 02/18/21 03/03/21 Rx cefiderocol 1 gram intravenous 1 g IV Q8H 10 Days ea 02/27/21 03/03/21 Rx solution metolazone 10 mg tablet 10 mg PO DAILY PRN 03/03/21 03/03/21 History Allergies Allergy/AdvReac Type Severity Reaction Status Date / Time enalapril AdvReac Intermediate Cough Verified 03/03/21 22:00 Past Med/Surg History Medical History Acute kidney injury Acute respiratory distress Afib ON ELIQUIS - FOLLOWS W/ DR. RAMSEY Age related osteoporosis Aortic atherosclerosis Atrial fibrillation with rapid ventricular response Cellulitis of left lower extremity Coronary artery disease Card cath- 09/04/2019- severe multilevel coronary disease- 90 % mid LAD, 50 % Prox. LAD in stent stenosis, 70-80 % mid circumflex OM2, 90 % distal RCA Creatinine elevation Deep venous thrombosis of lower extremity (02/20/12) Diabetes mellitus, type 2 NIDDM Diabetic peripheral neuropathy History of myocardial infarction 1999 [place] (hard of hearing) Hyperlipidemia Hypertension Hypoxia Murmur Nonproliferative diabetic retinopathy Numbness Peripheral vascular disease Polymyalgia rheumatica Renal artery stenosis, mo[place], bilateral Rheumatoid arthritis Secondary diabetes mellitus Somnolence Traumatic wound Vitamin B12 deficiency Weight loss Surgical History History of cardiac catheterization 1999 - [facility] - 1 STENT History of colonoscopy History of heart artery stent 1 STENT History of total abdominal hysterectomy and bilateral salpingo-oophorectomy Hx of tonsillectomy S/P breast biopsy Family History Father Bone cancer Lung disease Sister Arthritis of hand Mother Hypertension Brother Hypertension Anxiety Depression Gallbladder disease Lung disease Unknown Hypertension Denies family history of Ovarian cancer Prostate cancer Myocardial infarction Breast cancer Colorectal cancer Social History Smoking Status: Former smoker Second Hand Exposure: No (OCCASIONAL EXPOSURE); Hx Alcohol Use: No Hx Substance Use: No Preferred Language: Belgian Communication Ability: Effective Visual Impairment: No Limitations Hearing Ability: Normal Ehs Specialist Required: No Beliefs That Will Affect Care: None marital status: Current Living Situation: [facility] Current Living Situation Comment: [facility] current occupational status: retired 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 [place] Feels Safe at Home: Yes Childhood Exposure to Second-Hand Smoke: No Dental Care, Regularly: Yes Physical Activity Frequency: 3-4 Times per Week Seatbelt Use: always Sunscreen Use: Yes Assistive Devices: Denture - Upper and Glasses Review of Systems A total of 10 systems reviewed and were otherwise negative Physical Exam Vital Signs Vital Signs - 24 hr 03/03/21 19:00 03/03/21 19:05 03/03/21 19:11 Temperature 36.5 C Temperature Source Oral Pulse Rate 83 83 Pulse Rate from SpO2 Sensor Respiratory Rate 20 28 H Respiratory Effort / Characteristics Respiratory Depth Blood Pressure 127/92 Blood Pressure Mean 103 Pulse Oximetry Oxygen Delivery Method Nasal Cannula Oxygen Flow Rate 4 Sepsis Recent Fever Within 48 Hours No Sepsis New/Unexplained Change in Mental Status No Sepsis Action Taken by Nursing No Action Required 03/03/21 19:45 03/03/21 19:50 03/03/21 20:00 Temperature Temperature Source Pulse Rate 84 77 77 Pulse Rate from SpO2 Sensor 68 70 Respiratory Rate 22 18 18 Respiratory Effort / Characteristics Respiratory Depth Blood Pressure Blood Pressure Mean Pulse Oximetry 78 L 100 100 Oxygen Delivery Method Oxygen Flow Rate Sepsis Recent Fever Within 48 Hours Sepsis New/Unexplained Change in Mental Status Sepsis Action Taken by Nursing 03/03/21 20:10 03/03/21 20:20 03/03/21 21:00 Temperature Temperature Source Pulse Rate 86 91 H Pulse Rate from SpO2 Sensor 77 Respiratory Rate 12 20 Respiratory Effort / Characteristics Non-Labored Spontaneous Respiratory Depth Normal Blood Pressure Blood Pressure Mean Pulse Oximetry 98 98 100 Oxygen Delivery Method Room Air Oxygen Flow Rate Sepsis Recent Fever Within 48 Hours Sepsis New/Unexplained Change in Mental Status Sepsis Action Taken by Nursing 03/03/21 22:00 Temperature Temperature Source Pulse Rate 78 Pulse Rate from SpO2 Sensor 86 Respiratory Rate 14 Respiratory Effort / Characteristics Respiratory Depth Blood Pressure 110/84 Blood Pressure Mean 92 Pulse Oximetry 100 Oxygen Delivery Method Oxygen Flow Rate Sepsis Recent Fever Within 48 Hours Sepsis New/Unexplained Change in Mental Status Sepsis Action Taken by Nursing Physical Exam HENT: Exam performed. -Head: Normocephalic and atraumatic. -Right Ear: External ear normal. No mastoid tenderness. -Left Ear: External ear normal. No mastoid tenderness. -Mouth/Throat: The oropharynx is clear and moist. No trismus in the jaw. No dental abscesses or uvula swelling. No oropharyngeal exudate or tonsillar abscesses. EYES: Conjunctivae and EOM are normal. Pupils are equal, round, and reactive to light. Right eye exhibits no discharge. Left eye exhibits no discharge. No scleral icterus. NECK: Normal range of motion. Neck supple. No JVD present. No spinous process tenderness present. No carotid bruit present. No rigidity. No tracheal deviation and normal range of motion present. No Brudzinski's sign and no Kernig's sign noted. CV: Normal rate, regular rhythm, normal heart sounds and intact distal pulses. There is no peripheral edema. Palpable radial pulses bue. PULM/CHEST: Effort normal and breath sounds normal. No respiratory distress. No stridor. She has no wheezes. She has no rales. -Chest Wall: She exhibits no tenderness. ABD: The abdomen is soft. Bowel sounds are normal. She has no distension. No mass is present. There is no tenderness. There is no rebound, no guarding, no Engle's sign and no tenderness at McBurney's point. Rovsig negative MUSC/SKEL: Normal range of motion. There is no peripheral edema, tenderness or deformity. LYMPH: No cervical adenopathy. NEURO motor and sensation grossly intact. SKIN: Skin is warm and dry. She is not diaphoretic. Course Course 1909: The patient was evaluated in room A2. A complete history and physical exam was performed Cardiac monitoring: An order was placed for continuous cardiac monitoring. The monitor shows a rate of 80 with sinus rhythm On arrival to the emergency department the patient's blood glucose is 45. Jose Miguel jonathan was given 1 amp of D50 And at the [facility]. Patient will also be given octreotide 100 micrograms subcutaneous given the fact that she is on glipizide and did not respond to oral treatment. We will plan on admitting the patient to the medicine team after labs are conducted for possible sulfonylurea toxicity and plan on giving the patient octreotide 100 mcg every 6 hours. 2039: Vital signs stable. Patient's blood sugars have been within normal limits. Patient tolerating p.o. patient's labs show acute kidney injury with a creatinine of 4.33, baseline 1.6.BUN/creatinine ratio 17.3. [facility] team Dr. Florentin will be notified. Administered Medications Sodium Chloride (Nss 1000ml) 1,000 mls @ 125 mls/hr IV .Q8H FLIP Stop: 04/02/21 20:29 Last Admin: 03/03/21 20:45 Dose: 125 mls/hr Documented by: [id number] Discontinued Medications Dextrose (Dextrose 50% 50 Ml Syringe) 50 ml IV NOW STA Stop: 03/03/21 19:10 Last Admin: 03/03/21 19:15 Dose: 50 ml Documented by: [id number] Octreotide Acetate (Octreotide Acetate 100 Mcg/Ml Vial) 100 mcg SQ NOW STA Stop: 03/03/21 19:12 Last Admin: 03/03/21 19:59 Dose: 100 mcg Documented by: [id number] Critical Care Time Critical Care Time: Yes Total Critical Care Time: 80 I have personally spent greater than 80 minutes of critical care time in the direct management of this patient. This includes bedside care, interpretation of diagnostic studies, and testing, discussion with consultants, patient, and family members, and other required patient management activities. This 80 minutes is in excess of all separately billable procedures. Medical Decision Making Laboratory Data Result diagrams: 03/03/21 19:01 03/03/21 19:01 Lab Results 03/03/21 03/03/21 03/03/21 Range/Units 18:58 19:01 19:01 WBC 10.72 (4.8-10.8) K/uL RBC 4.48 (4.2-5.4) M/uL Hgb 13.4 (12.0-16.0) g/dL Hct 40.3 (37-47) % MCV 90.0 (80-100) fL MCH 29.9 (25-34) pg MCHC 33.3 (32-36) g/dL RDW Std Deviation 65.7 H (36.4-46.3) fL RDW Coeff of Elissa 20.2 H (11.5-14.5) % Plt Count 189 (130-400) K/uL MPV 9.9 (7.4-10.4) fL Immature Gran % (Auto) 0.4 % Neut % (Auto) 75.0 % Lymph % (Auto) 10.1 % Hickman % (Auto) 10.4 % Eos % (Auto) 3.9 % Baso % (Auto) 0.2 % Neut # (Auto) 8.04 H (1.4-6.5) K/uL Lymph # (Auto) 1.08 L (1.2-3.4) K/uL Hickman # (Auto) 1.12 H (0.11-0.59) K/uL Eos # (Auto) 0.42 (0-0.5) K/uL Baso # (Auto) 0.02 (0-0.2) K/uL Immature Gran # (Auto) 0.04 H (0.00-0.02) K/uL Anisocytosis Present Echinocytes 2+ Schistocytes Occasional Sodium 134 L (136-145) mmol/L Potassium 4.9 (3.5-5.1) mmol/L Chloride 102 (98-107) mmol/L Carbon Dioxide 22 (21-32) mmol/L Anion Gap 10.0 (3-11) BUN 75 H (7-18) mg/dl Creatinine 4.33 H (0.6-1.2) mg/dl Est Cr Clr Drug Dosing 10.5 ml/min Est GFR ( Amer) 10.5 ml/min Est GFR (Non-Af Amer) 9.0 ml/min BUN/Creatinine Ratio 17.3 (10-20) Glucose 53 L* (70-99) mg/dl POC Glucose 45 L* (70-99) mg/dl Calcium 8.5 (8.5-10.1) mg/dl COVID-19 Eval Order SARS-CoV-2 (PCR) (Negative) 03/03/21 03/03/21 03/03/21 Range/Units 19:01 19:01 19:36 WBC (4.8-10.8) K/uL RBC (4.2-5.4) M/uL Hgb (12.0-16.0) g/dL Hct (37-47) % MCV (80-100) fL MCH (25-34) pg MCHC (32-36) g/dL RDW Std Deviation (36.4-46.3) fL RDW Coeff of Elissa (11.5-14.5) % Plt Count (130-400) K/uL MPV (7.4-10.4) fL Immature Gran % (Auto) % Neut % (Auto) % Lymph % (Auto) % Hickman % (Auto) % Eos % (Auto) % Baso % (Auto) % Neut # (Auto) (1.4-6.5) K/uL Lymph # (Auto) (1.2-3.4) K/uL Hickman # (Auto) (0.11-0.59) K/uL Eos # (Auto) (0-0.5) K/uL Baso # (Auto) (0-0.2) K/uL Immature Gran # (Auto) (0.00-0.02) K/uL Anisocytosis Echinocytes Schistocytes Sodium (136-145) mmol/L Potassium (3.5-5.1) mmol/L Chloride (98-107) mmol/L Carbon Dioxide (21-32) mmol/L Anion Gap (3-11) BUN (7-18) mg/dl Creatinine (0.6-1.2) mg/dl Est Cr Clr Drug Dosing ml/min Est GFR ( Amer) ml/min Est GFR (Non-Af Amer) ml/min BUN/Creatinine Ratio (10-20) Glucose (70-99) mg/dl POC Glucose 103 H (70-99) mg/dl Calcium (8.5-10.1) mg/dl COVID-19 Eval Order Covid19 at [facility] SARS-CoV-2 (PCR) NEGATIVE (Negative) 03/03/21 03/03/21 Range/Units 20:29 21:32 WBC (4.8-10.8) K/uL RBC (4.2-5.4) M/uL Hgb (12.0-16.0) g/dL Hct (37-47) % MCV (80-100) fL MCH (25-34) pg MCHC (32-36) g/dL RDW Std Deviation (36.4-46.3) fL RDW Coeff of Elissa (11.5-14.5) % Plt Count (130-400) K/uL MPV (7.4-10.4) fL Immature Gran % (Auto) % Neut % (Auto) % Lymph % (Auto) % Hickman % (Auto) % Eos % (Auto) % Baso % (Auto) % Neut # (Auto) (1.4-6.5) K/uL Lymph # (Auto) (1.2-3.4) K/uL Hickman # (Auto) (0.11-0.59) K/uL Eos # (Auto) (0-0.5) K/uL Baso # (Auto) (0-0.2) K/uL Immature Gran # (Auto) (0.00-0.02) K/uL Anisocytosis Echinocytes Schistocytes Sodium (136-145) mmol/L Potassium (3.5-5.1) mmol/L Chloride (98-107) mmol/L Carbon Dioxide (21-32) mmol/L Anion Gap (3-11) BUN (7-18) mg/dl Creatinine (0.6-1.2) mg/dl Est Cr Clr Drug Dosing ml/min Est GFR ( Amer) ml/min Est GFR (Non-Af Amer) ml/min BUN/Creatinine Ratio (10-20) Glucose (70-99) mg/dl POC Glucose 143 H 159 H (70-99) mg/dl Calcium (8.5-10.1) mg/dl COVID-19 Eval Order SARS-CoV-2 (PCR) (Negative) ECG Data Indication: + altered mental status Rate (beats per minute): 78 Rhythm: + atrial fibrillation ECG Intervals/blocks: + Normal QRS and + Prolonged QT ECG ST segments: + Normal ST segments [facility] Narrative 1909: The patient was evaluated in room A2. A complete history and physical exam was performed Cardiac monitoring: An order was placed for continuous cardiac monitoring. The monitor shows a rate of 80 with sinus rhythm On arrival to the emergency department the patient's blood glucose is 45. Patient was given 1 amp of D50 [facility]. Patient will also be given octreotide 100 micrograms subcutaneous given the fact that she is on glipizide and did not respond to oral treatment. We will plan on admitting the patient to the medicine team after labs are conducted for possible sulfonylurea toxicity and plan on giving the patient octreotide 100 mcg every 6 hours. 2039: Vital signs stable. Patient's blood sugars have been within normal limits. Patient tolerating p.o. patient's labs show acute kidney injury with a creatinine of 4.33, baseline 1.6.BUN/creatinine ratio 17.3. Patient will be admitted to [facility] Hospitalist team Dr. Lerma will be notified. Impression & Plan Hypoglycemia, JOSHUA (acute kidney injury), Adverse effect of sulfonylurea Discharge Plan Visit Data Chief Complaint: Hypoglycemia Stated Complaint: hypoglycemic ED Provider: Enrique Wong Discharge Problem: Hypoglycemia, JOSHUA (acute kidney injury), Adverse effect of sulfonylurea Patient Disposition: Admitted As Inpatient Discharge Instructions Interventions: ED Discharge Assessment Last Done: 03/03/21 22:12 Forms Stand Alone Forms: My [facility] [employer] Prescriptions Prescriptions: No Action glipizide 5 mg tablet extended release 24hr 5 mg PO DAILY Qty: 90 RF: 1 clopidogrel 75 mg tablet 75 mg PO QAM Qty: 90 RF: 3 atorvastatin 40 mg tablet 40 mg PO QPM Qty: 90 RF: 3 Eliquis 2.5 mg tablet 2.5 mg PO BID Qty: 180 RF: 0 losartan 25 mg tablet 25 mg PO QAM Qty: 90 RF: 3 cyanocobalamin (vitamin B-12) 1,000 mcg tablet, sublingual 1,000 mcg SL DAILY Qty: 30 RF: 0 ferrous sulfate 325 mg (65 mg iron) tablet 325 mg PO Q OTHER DAY RF: 0 metoprolol succinate 50 mg Tablet Extended Release 24 Hr 50 mg PO HS RF: 0 metoprolol succinate [Toprol XL] 100 mg tablet extended release 24 hr 100 mg PO QAM RF: 0 acetaminophen [Tylenol Extra Strength] 500 mg Tablet 500 mg PO Q4 MDD 3g PRN (Reason: Pain, Mild) RF: 0 furosemide 80 mg Tablet 80 mg PO QAM 30 Days Qty: 30 RF: 3 metolazone 10 mg Tablet 10 mg PO DAILY PRN (Reason: if weight >180, take before lasix) RF: 0 cefiderocol 1 gram recon soln 1 g IV Q8H 10 Days RF: 0 Referrals Referrals: Gilbert Posadas MD [Primary Care Provider] - Discharge Problem: Adverse effect of sulfonylurea Qualifiers: Encounter type: initial encounter Qualified Code(s): T38.3X5A - Adverse effect of insulin and oral hypoglycemic [antidiabetic] drugs, initial encounter
[2021-03-03] MEDS ORDERED: GLUCOSE 10 TABS/TUBE PO PRN (23:01)
[2021-03-03] MEDS ORDERED: ACETAMINOPHEN 325 MG TAB PO PRN (23:01)
[2021-03-03] MEDS ORDERED: ONDANSETRON INJ 2 MG/ML 2 ML VIAL IV PRN (23:01)
[2021-03-03] MEDS ORDERED: GLUCOSE 40% GEL 15 GM TUBE PO PRN (23:01)
[2021-03-03] MEDS ORDERED: GLUCAGON FOR INJ 1 MG VIAL SQ PRN (23:01)
[2021-03-04 00:35] LABS: Magnesium 2.9 mg/dl (1.8-2.4); Phosphorus 6.6 mg/dl (2.5-4.9)
[2021-03-04] MEDS ORDERED: CEFEPIME 2,000 MG in SYRINGE 0 ML IV ONE (03:15)
[2021-03-04] MEDS: OCTREOTIDE ACETATE 100 MCG/ML VIAL SQ SCH ×3 (04:33→21:13)
[2021-03-04 04:37] LABS: Appearance Urine Cloudy (Clear); Bacteria Urine Automated Negative (Negative); Bilirubin Urine Negative (Negative); Blood Urine 2+ (Negative); Color Urine Yellow; Epithelial Cell Urine Auto >30 /lpf (0-5); Glucose Urine UA Negative (Negative); Ketones Urine Negative (Negative); Leukocyte Esterase Urine Trace (Negative); Nitrite Urine Negative (Negative); Protein Urine 2+ (Negative); RBC Urine Automated 0-4 /hpf (0-4); Specific Gravity Urine 1.015 (1.000-1.030); Urobilinogen Urine Negative (Negative); pH Urine 5.5 (4.5-7.5)
[2021-03-04 04:49] LABS: Sodium Random Urine 28 mmol/L; Urea Nitrogen, Urine Random 390 mg/dl
[2021-03-04] MEDS ORDERED: [UNRECOGNIZED DRUG - OTHER] PRN (08:52)
[2021-03-04] MEDS ORDERED: PEDIATRIC DILUENT IV SCH (09:00)
[2021-03-04] MEDS ORDERED: CEFEPIME IV SCH (09:00)
[2021-03-04 09:02] LABS: Basophils # (auto) 0.04 K/uL (0-0.2); Basophils % (auto) 0.6 %; Eosinophils # (auto) 0.42 K/uL (0-0.5); Eosinophils % (auto) 6.5 %; Hematocrit (blood only) 38.6 % (37-47); Hemoglobin 12.7 g/dL (12.0-16.0); Immature Granulocytes # (auto) 0.02 K/uL (0.00-0.02); Immature Granulocytes % (auto) 0.3 %; Lymphocytes # (auto) 0.86 K/uL (1.2-3.4); Lymphocytes % (auto) 13.3 %; Mean Corpuscular Hgb Conc 32.9 g/dL (32-36); Mean Platelet Volume 10.5 fL (7.4-10.4); Monocytes # (auto) 0.93 K/uL (0.11-0.59); Monocytes % (auto) 14.4 %; Neutrophils % (auto) 64.9 %; Platelet Count 178 K/uL (130-400); RDW Coefficient of Variation 20.4 % (11.5-14.5); RDW Standard Deviation 66.8 fL (36.4-46.3); Red Blood Count 4.24 M/uL (4.2-5.4); White Blood Count 6.47 K/uL (4.8-10.8)
[2021-03-04 09:28] LABS: Albumin Level 1.8 gm/dl (3.4-5.0); BUN Creatinine Ratio 16.6 (10-20); Bilirubin Direct 0.5 mg/dl (0-0.2); Bilirubin,Total 1.4 mg/dl (0.2-1); Calcium 8.2 mg/dl (8.5-10.1); Creatinine Clr Calc Pharmacy 10.3 ml/min; Est GFR (African American) 10.2 ml/min; Est GFR (Non-African American) 8.8 ml/min; Potassium 5.1 mmol/L (3.5-5.1)
[2021-03-04 09:29] LABS: Anisocytosis Present; Echinocytes 2+; Schistocytes Occasional
--- NOTE | 2021-03-04 09:32 | Ultrasound Report ---
RENAL ULTRASOUND CLINICAL HISTORY: Acute kidney injury. COMPARISON STUDY: CT of the abdomen and pelvis February 26, 2013. Renal ultrasound May 24, 2015. TECHNIQUE: Sonography of the kidneys and the urinary bladder was performed. FINDINGS: The right kidney measures 9.1 cm in maximal dimension and the left measures 10.2 cm. There is no hydronephrosis. Moderate right and mild left renal cortical thinning is present. No renal calcu li or masses are identified. The bladder is collapsed containing a Santana catheter. IMPRESSION: 1. No hydronephrosis. 2. Moderate right and mild left renal cortical thinning. ACT 112: Negative or not required by law. Electronically signed by: Jt Smith M.D. 03/04/2021 9:31 AM
--- NOTE | 2021-03-04 09:33 | XRay Report ---
XR chest 1V portable CLINICAL HISTORY: diminished left breath sounds COMPARISON STUDY: Chest radiograph February 15, 2021. FINDINGS: There is no pneumothorax. There are persistent moderate to large left and moderate right pl eural effusions. These have slightly increased. Pulmonary edema is again noted. There is cardiomegaly . IMPRESSION: 1. Persistent pulmonary edema. 2. Slight increase in moderate to large left and moderate right pleural effusions with associated bib asilar opacities. ACT 112: Negative or not required by law. Electronically signed by: Jt Smith M.D. 03/04/2021 9:32 AM
--- NOTE | 2021-03-04 09:40 | Electrocardiogram Report ---
Test Reason : Blood Pressure : / mmHG Vent. Rate : 078 BPM Atrial Rate : 080 BPM P-R Int : 000 ms QRS Dur : 110 ms QT Int : 478 ms P-R-T Axes : 000 -14 179 degrees QTc Int : 544 ms Poor data quality, interpretation may be adversely affected Atrial fibrillation Non-specific intra-ventricular conduction delay T wave abnormality, consider lateral ischemia Prolonged QT Abnormal ECG When compared with ECG of 23-FEB-2021 06:42, Aberrant conduction is no longer present Confirmed by Cuba Lu ([id number]) on 03/04/2021 9:39:47 AM Referred By: REFERRED SELF Confirmed By:Cuba Lu
[2021-03-04] MEDS: INSULIN ASPART 100 UNITS/ML 3 ML PEN SC SCH ×4 (09:43→21:40)
[2021-03-04] MEDS: CEFIDEROCOL SULFATE TOSYLATE IV SCH ×2 (09:50→21:32)
[2021-03-04] MEDS: METOPROLOL SUCC 50MG EXT REL TAB PO SCH ×2 (09:50→21:15)
[2021-03-04] MEDS: SODIUM CHLORIDE 0.9% IV SCH ×2 (09:50→21:32)
[2021-03-04] MEDS: CLOPIDOGREL BISULFATE 75 MG TAB PO SCH (09:51)
[2021-03-04] MEDS: APIXABAN 2.5 MG TAB PO SCH ×2 (09:51→21:13)
[2021-03-04] MEDS ORDERED: SODIUM CHLORIDE 0.9% 1000ML 1,000 ML IV SCH (10:45)
--- NOTE | 2021-03-04 13:00 | Hospitalist Progress Note ---
Date of Service March 04, 2021 Assessment & Plan (1) JOSHUA (acute kidney injury): Plan: - Patient with elevated BUN and Cr of 75 and 4.35 at admission, respectively (previously 55 and 1.56). Her Cr increased to 4.41 on updated lab work this morning. - Etiology unclear - most likely multifactorial. She has had poor oral intake and decreased appetite lately. Also on Lasix/Metolazone/Losartan at home - currently being held. - Does take a newer cephalosporin agent as well for MDR Pseudomonas (Cefiderocol) - could be contributing. - Arriaga catheter for accurate I/O's. - Renal US was neg for obstruction or significant abnormality. - U/a with +2 protein and +2 blood but neg for bacteria. Urine sodium 28 c/w dehydration. - Will continue gentle IV fluid hydration with NS at 80 cc/hr as ARF has not improved with IV fluids last evening. Monitor for fluid overload. - Renally dose medications; avoiding nephrotoxic agents. - Monitoring BMP q12hrs; will need to proceed with nephrology consult if her levels do not improve over the next 24 hours. (2) Hypoglycemia: Plan: - Patient hypoglycemic on arrival. Multifactorial to include decreased PO intake, poor renal function and sulfonylurea usage. Responsive to D50 x 1 amp. - Octreotide given in ER to counteract glipizide - continue 100mcg q 8 hours - Goal blood sugar 110 - 180 - SSI coverage if > 180 - Hold oral diabetic agents; monitor Hgb A1C in the morning. (3) Hematuria: Plan: - Patient developed significant hematuria from her arriaga catheter starting this afternoon. - U/a on admission did show +2 blood. - Urology consult for further evaluation. Could be related to trauma from arriaga insertion vs. other. - Repeat H/H level this evening to monitor for acute blood loss anemia. - Will continue Plavix and Eliquis; consider d/c'ing meds if H/H levels trending down. (4) CHF (congestive heart failure): Plan: - Chronic. CXR with pulmonary edema and effusions. No respiratory distress. - Monitor I/Os - Currently holding all diuretics; her weight is increased ~6 kg compared to 02/22. (5) CAD, multiple vessel: Plan: - Chronic. Stable - Continue Plavix - Continue Metoprolol (6) Hyperlipidemia: Plan: - Chronic - Hold Atorvastatin for now - does have elevation in LFTs. (7) Diabetes mellitus type 2 in nonobese: Plan: - With hypoglycemia as above - SSI for BSG >180; Hgb A1C in the AM. (8) Hypertension: Plan: - Continue Metoprolol - Holding Losartan, Lasix and Metolazone due to ARF. (9) Afib: Plan: - Rate controlled AF - Continue Metoprolol - Continue Apixaban (2.5 mg BID dosing) (10) UTI (urinary tract infection): Plan: - Patient with MDR Pseudomonas. Has been on Cefiderocol at home - Received medication from her facility, will continue. 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 - Continue newer cephalosporin agent. (12) Hypoalbuminemia: Plan: - Alb level 1.8 - recommend increased protein intake. (13) Elevated LFTs: Plan: - T. bili 1.4 - does appear to be chronically elevated. - AST 60; ALT is WNL. Alk Phos 199 - elevated startin 02/08. - Holding home statin. (14) DVT prophylaxis: Plan: - Continue Eliquis 2.5 mg BID; encouarge ambulation as tolerated. Dispo: Tele; will continue to monitor renal function closely, may require nephrology consult. Admission and Anticipated Discharge Date Admission Date: March 03, 2021 Supervising Physician Co-Signing Physician Notes Attending Attestation - Personal bedside assessment not performed, but chart reviewed, and care plan d/w BG Garcia. I agree w/ the torres components of her documentation. JOSHUA - Cr today of 4.4. Just 1 week ago Cr was 1.5. Blood/protein on u/a; no casts. No obstruction on renal u/s. Eosinophils 6.5%. Interstitial nephritis? If yes - 2nd to cephalosporin for her MDR pseudomonas? Consult nephrology. Consider urine eosinophils, steroid trial, and d/c of cephalosporin. Serial labs. Ernesto Zaman MD Subjective Ms. Alonso is an 80 year old female with MDR Pseudomonas, DM, CHF, CAD, HLD, HTN, A. fib who presented for admission in setting of acute renal failure. Creatinine level was 4.35 at admission last evening, has now increased to 4.41 on updated lab work. She is currently receiving a newer cephalosporin agent Cefiderocol for a leg wound - medication was sent from her long term care pharmacist facility and will be continued as inpatient. She does admit to poor PO intake at home. Renal US was negative for obstruction; u/a positive for +2 protein and +2 blood, trace leuk est but neg for bacteria. Her random urine sodium was 28, most co nsistent with dehydration. Her current weight is 85.9 kg, prev 80.4 kg on 02/27 and 79 kg on 02/22 - caution with volume overload. She does take Lasix 80 mg PO daily at home, currently being held. She c/o mild fatigue but is otherwise feeling relatively well overall. Review of Systems Review of Systems: Constitutional: Fatigue; Negative for weight loss, night sweats, or fever Eyes: Negative for event change of vision ENT: Negative for epistaxis, nasal discharge, sore throat, or deafness Cardiovascular: Negative for anginal type chest pain, palpitations, dizziness, diaphoresis Respiratory: Negative for new shortness of breath,hemoptysis, or purulent cough Gastrointestinal: Negative for diarrhea, hematemesis, melena, nausea, vomiting, or dyspepsia Integumentary (skin): Negative for rash or jaundice discoloration Genitourinary: Negative for urinary frequency, hematuria, or dysuria Neurological: Negative for weakness, seizure activity, headache, or dizziness Lymphatic/Hematologic: Negative for petechiae, bleeding or new adenopathy Musculoskeletal: Negative for new joint or back pain Allergic/Immunologic: Negative for unusual rash or pruritis Physical Exam Physical Exam: Constitutional: Vitals are stable Respiratory: Lung sounds were generally clear bilaterally. Cardiovascular: Heart was RRR without significant murmur, gallops or rubs. Gastrointestinal: No palpable hepatic or splenomegaly. The abdomen was soft with normal bowel sounds. Lymphatic system: There was no palpable peripheral lymphadenopathy. Musculoskeletal System: The musculoskeletal system seemed concordant with age. Skin: The skin was negative for jaundice. Extremities: +2 non pitting LE edema; dressing was placed on both calves, did not visualize wounds. Results & Data Results & Data ([facility]) Vital Signs (Past 12 Hours) Vital Signs Temp Pulse Pulse Resp BP Pulse Ox 03/04/21 11:58 36.2 C L 67 18 116/70 95 03/04/21 09:51 76 117/59 L 03/04/21 07:56 77 03/04/21 07:49 36.7 C 84 18 97/57 L 97 03/04/21 03:01 36.7 C 69 20 107/73 98 03/04/21 01:26 85 Laboratory Results 03/04/21 03/04/21 03/04/21 Range/Units 11:39 08:24 08:24 WBC 6.47 (4.8-10.8) K/uL RBC 4.24 (4.2-5.4) M/uL Hgb 12.7 (12.0-16.0) g/dL Hct 38.6 (37-47) % MCV 91.0 (80-100) fL MCH 30.0 (25-34) pg MCHC 32.9 (32-36) g/dL RDW Std Deviation 66.8 H (36.4-46.3) fL RDW Coeff of Elissa 20.4 H (11.5-14.5) % Plt Count 178 (130-400) K/uL MPV 10.5 H (7.4-10.4) fL Immature Gran % (Auto) 0.3 % Neut % (Auto) 64.9 % Lymph % (Auto) 13.3 % [place] % (Auto) 14.4 % Eos % (Auto) 6.5 % Baso % (Auto) 0.6 % Neut # (Auto) 4.20 (1.4-6.5) K/uL Lymph # (Auto) 0.86 L (1.2-3.4) K/uL [place] # (Auto) 0.93 H (0.11-0.59) K/uL Eos # (Auto) 0.42 (0-0.5) K/uL Baso # (Auto) 0.04 (0-0.2) K/uL Immature Gran # (Auto) 0.02 (0.00-0.02) K/uL Anisocytosis Present Echinocytes 2+ Schistocytes Occasional Sodium 135 L (136-145) mmol/L Potassium 5.1 (3.5-5.1) mmol/L Chloride 103 (98-107) mmol/L Carbon Dioxide 22 (21-32) mmol/L Anion Gap 10.0 (3-11) BUN 73 H (7-18) mg/dl Creatinine 4.41 H (0.6-1.2) mg/dl Est Cr Clr Drug Dosing 10.3 ml/min Est GFR ( Amer) 10.2 ml/min Est GFR (Non-Af Amer) 8.8 ml/min BUN/Creatinine Ratio 16.6 (10-20) Glucose 97 (70-99) mg/dl POC Glucose 101 H (70-99) mg/dl Calcium 8.2 L (8.5-10.1) mg/dl Phosphorus (2.5-4.9) mg/dl Magnesium (1.8-2.4) mg/dl Total Bilirubin 1.4 H (0.2-1) mg/dl Direct Bilirubin 0.5 H (0-0.2) mg/dl AST 60 H (15-37) U/L ALT 33 (12-78) U/L Alkaline Phosphatase 199 H (45-117) U/L Total Creatine Kinase (26-192) U/L Total Protein 7.0 (6.4-8.2) gm/dl Albumin 1.8 L (3.4-5.0) gm/dl Urine Color Urine Appearance (Clear) Urine pH (4.5-7.5) Ur Specific [place] (1.000-1.030) Urine Protein (Negative) Urine Glucose (UA) (Negative) Urine Ketones (Negative) Urine Blood (Negative) Urine Nitrite (Negative) Urine Bilirubin (Negative) Urine Urobilinogen (Negative) Ur Leukocyte Esterase (Negative) Urine WBC (Auto) (0-5) /hpf Urine RBC (Auto) (0-4) /hpf U Hyaline Cast (Auto) (0-5) /lpf U Epithel Cells (Auto) (0-5) /lpf Urine Bacteria (Auto) (Negative) Urine Yeast Ur Random Sodium mmol/L Ur Random Urea Nitrogn mg/dl COVID-19 Eval Order SARS-CoV-2 (PCR) (Negative) 03/04/21 03/04/21 03/04/21 Range/Units 07:44 06:18 04:13 WBC (4.8-10.8) K/uL RBC (4.2-5.4) M/uL Hgb (12.0-16.0) g/dL Hct (37-47) % MCV (80-100) fL MCH (25-34) pg MCHC (32-36) g/dL RDW Std Deviation (36.4-46.3) fL RDW Coeff of Elissa (11.5-14.5) % Plt Count (130-400) K/uL MPV (7.4-10.4) fL Immature Gran % (Auto) % Neut % (Auto) % Lymph % (Auto) % [place] % (Auto) % Eos % (Auto) % Baso % (Auto) % Neut # (Auto) (1.4-6.5) K/uL Lymph # (Auto) (1.2-3.4) K/uL [place] # (Auto) (0.11-0.59) K/uL Eos # (Auto) (0-0.5) K/uL Baso # (Auto) (0-0.2) K/uL Immature Gran # (Auto) (0.00-0.02) K/uL Anisocytosis Echinocytes Schistocytes Sodium (136-145) mmol/L Potassium (3.5-5.1) mmol/L Chloride (98-107) mmol/L Carbon Dioxide (21-32) mmol/L Anion Gap (3-11) BUN (7-18) mg/dl Creatinine (0.6-1.2) mg/dl Est Cr Clr Drug Dosing ml/min Est GFR ( Amer) ml/min Est GFR (Non-Af Amer) ml/min BUN/Creatinine Ratio (10-20) Glucose (70-99) mg/dl POC Glucose 101 H 138 H (70-99) mg/dl Calcium (8.5-10.1) mg/dl Phosphorus (2.5-4.9) mg/dl Magnesium (1.8-2.4) mg/dl Total Bilirubin (0.2-1) mg/dl Direct Bilirubin (0-0.2) mg/dl AST (15-37) U/L ALT (12-78) U/L Alkaline Phosphatase (45-117) U/L Total Creatine Kinase (26-192) U/L Total Protein (6.4-8.2) gm/dl Albumin (3.4-5.0) gm/dl Urine Color Urine Appearance (Clear) Urine pH (4.5-7.5) Ur Specific [place] (1.000-1.030) Urine Protein (Negative) Urine Glucose (UA) (Negative) Urine Ketones (Negative) Urine Blood (Negative) Urine Nitrite (Negative) Urine Bilirubin (Negative) Urine Urobilinogen (Negative) Ur Leukocyte Esterase (Negative) Urine WBC (Auto) (0-5) /hpf Urine RBC (Auto) (0-4) /hpf U Hyaline Cast (Auto) (0-5) /lpf U Epithel Cells (Auto) (0-5) /lpf Urine Bacteria (Auto) (Negative) Urine Yeast Ur Random Sodium 28 mmol/L Ur Random Urea Nitrogn 390 mg/dl COVID-19 Eval Order SARS-CoV-2 (PCR) (Negative) 03/04/21 03/04/21 03/04/21 Range/Units 04:13 03:58 01:51 WBC (4.8-10.8) K/uL RBC (4.2-5.4) M/uL Hgb (12.0-16.0) g/dL Hct (37-47) % MCV (80-100) fL MCH (25-34) pg MCHC (32-36) g/dL RDW Std Deviation (36.4-46.3) fL RDW Coeff of Elissa (11.5-14.5) % Plt Count (130-400) K/uL MPV (7.4-10.4) fL Immature Gran % (Auto) % Neut % (Auto) % Lymph % (Auto) % [place] % (Auto) % Eos % (Auto) % Baso % (Auto) % Neut # (Auto) (1.4-6.5) K/uL Lymph # (Auto) (1.2-3.4) K/uL [place] # (Auto) (0.11-0.59) K/uL Eos # (Auto) (0-0.5) K/uL Baso # (Auto) (0-0.2) K/uL Immature Gran # (Auto) (0.00-0.02) K/uL Anisocytosis Echinocytes Schistocytes Sodium (136-145) mmol/L Potassium (3.5-5.1) mmol/L Chloride (98-107) mmol/L Carbon Dioxide (21-32) mmol/L Anion Gap (3-11) BUN (7-18) mg/dl Creatinine (0.6-1.2) mg/dl Est Cr Clr Drug Dosing ml/min Est GFR ( Amer) ml/min Est GFR (Non-Af Amer) ml/min BUN/Creatinine Ratio (10-20) Glucose (70-99) mg/dl POC Glucose 143 H 177 H (70-99) mg/dl Calcium (8.5-10.1) mg/dl Phosphorus (2.5-4.9) mg/dl Magnesium (1.8-2.4) mg/dl Total Bilirubin (0.2-1) mg/dl Direct Bilirubin (0-0.2) mg/dl AST (15-37) U/L ALT (12-78) U/L Alkaline Phosphatase (45-117) U/L Total Creatine Kinase (26-192) U/L Total Protein (6.4-8.2) gm/dl Albumin (3.4-5.0) gm/dl Urine Color Yellow Urine Appearance Cloudy A (Clear) Urine pH 5.5 (4.5-7.5) Ur Specific [place] 1.015 (1.000-1.030) Urine Protein 2+ H (Negative) Urine Glucose (UA) Negative (Negative) Urine Ketones Negative (Negative) Urine Blood 2+ H (Negative) Urine Nitrite Negative (Negative) Urine Bilirubin Negative (Negative) Urine Urobilinogen Negative (Negative) Ur Leukocyte Esterase Trace H (Negative) Urine WBC (Auto) 5-10 H (0-5) /hpf Urine RBC (Auto) 0-4 (0-4) /hpf U Hyaline Cast (Auto) 1-5 (0-5) /lpf U Epithel Cells (Auto) >30 H (0-5) /lpf Urine Bacteria (Auto) Negative (Negative) Urine Yeast Not Reportable Ur Random Sodium mmol/L Ur Random Urea Nitrogn mg/dl COVID-19 Eval Order SARS-CoV-2 (PCR) (Negative) 03/04/21 03/03/21 03/03/21 Range/Units 00:08 21:32 20:29 WBC (4.8-10.8) K/uL RBC (4.2-5.4) M/uL Hgb (12.0-16.0) g/dL Hct (37-47) % MCV (80-100) fL MCH (25-34) pg MCHC (32-36) g/dL RDW Std Deviation (36.4-46.3) fL RDW Coeff of Elissa (11.5-14.5) % Plt Count (130-400) K/uL MPV (7.4-10.4) fL Immature Gran % (Auto) % Neut % (Auto) % Lymph % (Auto) % [place] % (Auto) % Eos % (Auto) % Baso % (Auto) % Neut # (Auto) (1.4-6.5) K/uL Lymph # (Auto) (1.2-3.4) K/uL [place] # (Auto) (0.11-0.59) K/uL Eos # (Auto) (0-0.5) K/uL Baso # (Auto) (0-0.2) K/uL Immature Gran # (Auto) (0.00-0.02) K/uL Anisocytosis Echinocytes Schistocytes Sodium (136-145) mmol/L Potassium (3.5-5.1) mmol/L Chloride (98-107) mmol/L Carbon Dioxide (21-32) mmol/L Anion Gap (3-11) BUN (7-18) mg/dl Creatinine (0.6-1.2) mg/dl Est Cr Clr Drug Dosing ml/min Est GFR ( Amer) ml/min Est GFR (Non-Af Amer) ml/min BUN/Creatinine Ratio (10-20) Glucose (70-99) mg/dl POC Glucose 163 H 159 H 143 H (70-99) mg/dl Calcium (8.5-10.1) mg/dl Phosphorus (2.5-4.9) mg/dl Magnesium (1.8-2.4) mg/dl Total Bilirubin (0.2-1) mg/dl Direct Bilirubin (0-0.2) mg/dl AST (15-37) U/L ALT (12-78) U/L Alkaline Phosphatase (45-117) U/L Total Creatine Kinase (26-192) U/L Total Protein (6.4-8.2) gm/dl Albumin (3.4-5.0) gm/dl Urine Color Urine Appearance (Clear) Urine pH (4.5-7.5) Ur Specific [place] (1.000-1.030) Urine Protein (Negative) Urine Glucose (UA) (Negative) Urine Ketones (Negative) Urine Blood (Negative) Urine Nitrite (Negative) Urine Bilirubin (Negative) Urine Urobilinogen (Negative) Ur Leukocyte Esterase (Negative) Urine WBC (Auto) (0-5) /hpf Urine RBC (Auto) (0-4) /hpf U Hyaline Cast (Auto) (0-5) /lpf U Epithel Cells (Auto) (0-5) /lpf Urine Bacteria (Auto) (Negative) Urine Yeast Ur Random Sodium mmol/L Ur Random Urea Nitrogn mg/dl COVID-19 Eval Order SARS-CoV-2 (PCR) (Negative) 03/03/21 03/03/21 03/03/21 Range/Units 19:36 19:01 19:01 WBC (4.8-10.8) K/uL RBC (4.2-5.4) M/uL Hgb (12.0-16.0) g/dL Hct (37-47) % MCV (80-100) fL MCH (25-34) pg MCHC (32-36) g/dL RDW Std Deviation (36.4-46.3) fL RDW Coeff of Elissa (11.5-14.5) % Plt Count (130-400) K/uL MPV (7.4-10.4) fL Immature Gran % (Auto) % Neut % (Auto) % Lymph % (Auto) % [place] % (Auto) % Eos % (Auto) % Baso % (Auto) % Neut # (Auto) (1.4-6.5) K/uL Lymph # (Auto) (1.2-3.4) K/uL [place] # (Auto) (0.11-0.59) K/uL Eos # (Auto) (0-0.5) K/uL Baso # (Auto) (0-0.2) K/uL Immature Gran # (Auto) (0.00-0.02) K/uL Anisocytosis Echinocytes Schistocytes Sodium (136-145) mmol/L Potassium (3.5-5.1) mmol/L Chloride (98-107) mmol/L Carbon Dioxide (21-32) mmol/L Anion Gap (3-11) BUN (7-18) mg/dl Creatinine (0.6-1.2) mg/dl Est Cr Clr Drug Dosing ml/min Est GFR ( Amer) ml/min Est GFR (Non-Af Amer) ml/min BUN/Creatinine Ratio (10-20) Glucose (70-99) mg/dl POC Glucose 103 H (70-99) mg/dl Calcium (8.5-10.1) mg/dl Phosphorus (2.5-4.9) mg/dl Magnesium (1.8-2.4) mg/dl Total Bilirubin (0.2-1) mg/dl Direct Bilirubin (0-0.2) mg/dl AST (15-37) U/L ALT (12-78) U/L Alkaline Phosphatase (45-117) U/L Total Creatine Kinase (26-192) U/L Total Protein (6.4-8.2) gm/dl Albumin (3.4-5.0) gm/dl Urine Color Urine Appearance (Clear) Urine pH (4.5-7.5) Ur Specific [place] (1.000-1.030) Urine Protein (Negative) Urine Glucose (UA) (Negative) Urine Ketones (Negative) Urine Blood (Negative) Urine Nitrite (Negative) Urine Bilirubin (Negative) Urine Urobilinogen (Negative) Ur Leukocyte Esterase (Negative) Urine WBC (Auto) (0-5) /hpf Urine RBC (Auto) (0-4) /hpf U Hyaline Cast (Auto) (0-5) /lpf U Epithel Cells (Auto) (0-5) /lpf Urine Bacteria (Auto) (Negative) Urine Yeast Ur Random Sodium mmol/L Ur Random Urea Nitrogn mg/dl COVID-19 Eval Order Covid19 at [facility] SARS-CoV-2 (PCR) NEGATIVE (Negative) 03/03/21 03/03/21 03/03/21 Range/Units 19:01 19:01 18:58 WBC 10.72 (4.8-10.8) K/uL RBC 4.48 (4.2-5.4) M/uL Hgb 13.4 (12.0-16.0) g/dL Hct 40.3 (37-47) % MCV 90.0 (80-100) fL MCH 29.9 (25-34) pg MCHC 33.3 (32-36) g/dL RDW Std Deviation 65.7 H (36.4-46.3) fL RDW Coeff of Elissa 20.2 H (11.5-14.5) % Plt Count 189 (130-400) K/uL MPV 9.9 (7.4-10.4) fL Immature Gran % (Auto) 0.4 % Neut % (Auto) 75.0 % Lymph % (Auto) 10.1 % [place] % (Auto) 10.4 % Eos % (Auto) 3.9 % Baso % (Auto) 0.2 % Neut # (Auto) 8.04 H (1.4-6.5) K/uL Lymph # (Auto) 1.08 L (1.2-3.4) K/uL [place] # (Auto) 1.12 H (0.11-0.59) K/uL Eos # (Auto) 0.42 (0-0.5) K/uL Baso # (Auto) 0.02 (0-0.2) K/uL Immature Gran # (Auto) 0.04 H (0.00-0.02) K/uL Anisocytosis Present Echinocytes 2+ Schistocytes Occasional Sodium 134 L (136-145) mmol/L Potassium 4.9 (3.5-5.1) mmol/L Chloride 102 (98-107) mmol/L Carbon Dioxide 22 (21-32) mmol/L Anion Gap 10.0 (3-11) BUN 75 H (7-18) mg/dl Creatinine 4.33 H (0.6-1.2) mg/dl Est Cr Clr Drug Dosing 10.5 ml/min Est GFR ( Amer) 10.5 ml/min Est GFR (Non-Af Amer) 9.0 ml/min BUN/Creatinine Ratio 17.3 (10-20) Glucose 53 L* (70-99) mg/dl POC Glucose 45 L* (70-99) mg/dl Calcium 8.5 (8.5-10.1) mg/dl Phosphorus 6.6 H (2.5-4.9) mg/dl Magnesium 2.9 H (1.8-2.4) mg/dl Total Bilirubin (0.2-1) mg/dl Direct Bilirubin (0-0.2) mg/dl AST (15-37) U/L ALT (12-78) U/L Alkaline Phosphatase (45-117) U/L Total Creatine Kinase 139 (26-192) U/L Total Protein (6.4-8.2) gm/dl Albumin (3.4-5.0) gm/dl Urine Color Urine Appearance (Clear) Urine pH (4.5-7.5) Ur Specific [place] (1.000-1.030) Urine Protein (Negative) Urine Glucose (UA) (Negative) Urine Ketones (Negative) Urine Blood (Negative) Urine Nitrite (Negative) Urine Bilirubin (Negative) Urine Urobilinogen (Negative) Ur Leukocyte Esterase (Negative) Urine WBC (Auto) (0-5) /hpf Urine RBC (Auto) (0-4) /hpf U Hyaline Cast (Auto) (0-5) /lpf U Epithel Cells (Auto) (0-5) /lpf Urine Bacteria (Auto) (Negative) Urine Yeast Ur Random Sodium mmol/L Ur Random Urea Nitrogn mg/dl COVID-19 Eval Order SARS-CoV-2 (PCR) (Negative) PG Care Time/CCT Total # of Minutes Spent Total Time Spent with Patient: Total time spent is greater than 50% in coordination of care (as documented) at patient's floor/unit and/or counseling patient: [place] [address] Subseq Hosp Care Lvl 2 Patient Type Established Diagnoses JOSHUA (acute kidney injury) N17.9 Hypoglycemia E16.2 CHF (congestive heart failure) I50.9 Heart failure chronicity: acute Heart failure type: unspecified CAD, multiple vessel I25.10 Hyperlipidemia E78.5 Hyperlipidemia type: unspecified Diabetes mellitus type 2 in nonobese E11.9 Hypertension I10 Afib I48.91 UTI (urinary tract infection) N39.0 History of MDR Pseudomonas aeruginosa infection Z86.19 DVT prophylaxis Z29.9 Elevated LFTs R79.89 Hypoalbuminemia E88.09 Hematuria R31.9 (1) CHF (congestive heart failure) Heart failure chronicity: acute Heart failure type: unspecified Qualified Code(s): I50.9 - Heart failure, unspecified (2) Hyperlipidemia Hyperlipidemia type: unspecified Qualified Code(s): E78.5 - Hyperlipidemia, unspecified
[2021-03-04] MEDS: CARBOHYDRATES FOR HYPOGLYCEMIA PO PRN ×2 (16:47→17:10)
[2021-03-04 18:14] LABS: BUN Creatinine Ratio 17.1 (10-20); Creatinine Clr Calc Pharmacy 9.8 ml/min; Est GFR (African American) 9.6 ml/min; Est GFR (Non-African American) 8.3 ml/min; Potassium 5.5 mmol/L (3.5-5.1)
[2021-03-04 18:58] LABS: Hematocrit (blood only) 41.1 % (37-47); Hemoglobin 13.4 g/dL (12.0-16.0)
--- NOTE | 2021-03-04 20:10 | Urology Consultation ---
Date of Consultation March 04, 2021 Assessment & Plan (1) Hematuria: The patient has been admitted to the hospitalist on the hospitalist service and concerning her hematuria recommend proceeding as follows: Her hematuria may be due to trauma from Santana catheter insertion in the setting of anticoagulation in the form of Eliquis Monitor her urine output as well as the character of her urine. I not feel continuous bladder irrigation is required at this time as her Santana catheter appears to be patent and draining Plans noted to follow serial hemoglobin hematocrits to ensure that there is no precipitous drop in her hemoglobin and hematocrit Hematuria fails to resolve additional intervention such as cystoscopy may be required but this does not appear to be needed at the present time History of Present Illness Reason for Consultation: Hematuria Attending Physician: Мария Lerma DO History of Present Illness This is an 80-year-old female who was admitted to [facility] last evening secondary to altered mental status. Patient was noted to be hypoglycemic with a blood sugar in the 40s. This was treated with improvement of the patient's blood sugar. In addition to hypoglycemia the patient was noted to be in acute kidney injury with a creatinine level of 4.35. She did undergo a renal ultrasound that was negative for obstruction. Patient had a urinalysis that was positive for blood with a 2+ level. He did have a trace leukocyte esterase but no bacteria. Patient takes multiple diuretics at home and is also receiving a cephalosporin for a leg wound and these factors were felt to be contributing to her acute kidney injury. She had a Santana catheter placed for accurate I's and O's and was noted to have gross hematuria at the time of placement. I questioned q the patient about her hematuria and she said that prior to having the Santana catheter inserted she did not have any hematuria and has not had this problem in the past. She was also denying any dysuria, fevers, shakes, chills or flank pain. She denies any weight loss. Patient does note that she takes Eliquis as an outpatient. Since admission the patient notes that she feels improved and notes that her hematuria has cleared somewhat. Allergies Allergy/AdvReac Type Severity Reaction Status Date / Time pineapple Allergy Mild Unknown Verified 03/04/21 17:53 enalapril AdvReac Intermediate Cough Verified 03/03/21 22:00 Home Medications Medication Instructions Recorded Confirmed Type cyanocobalamin (vitamin B-12) 1,000 mcg SL DAILY #30 tab 02/20/19 03/03/21 History 1,000 mcg sublingual tablet ferrous sulfate 325 mg (65 mg 325 mg PO Q OTHER DAY tab 04/28/20 03/03/21 History iron) tablet glipizide 5 mg tablet, extended 5 mg PO DAILY #90 tab 10/31/20 03/03/21 Rx release 24 hr clopidogrel 75 mg tablet 75 mg PO QAM #90 tab 11/04/20 03/03/21 Rx atorvastatin 40 mg tablet 40 mg PO QPM #90 tab 12/30/20 03/03/21 Rx apixaban 2.5 mg tablet (Eliquis) 2.5 mg PO BID #180 tab 01/25/21 03/03/21 Rx losartan 25 mg tablet 25 mg PO QAM #90 tab 01/30/21 03/03/21 Rx acetaminophen 500 mg tablet 500 mg PO Q4 PRN MDD 3g 02/15/21 03/03/21 History (Tylenol Extra Strength) metoprolol succinate 100 mg 100 mg PO QAM 02/15/21 03/03/21 History tablet,extended release 24 hr (Toprol XL) metoprolol succinate 50 mg 50 mg PO HS 02/15/21 03/03/21 History tablet,extended release 24 hr furosemide 80 mg tablet 80 mg PO QAM 30 Days #30 tab 02/18/21 03/03/21 Rx cefiderocol 1 gram intravenous 1 g IV Q8H 10 Days ea 02/27/21 03/03/21 Rx solution metolazone 10 mg tablet 10 mg PO DAILY PRN 03/03/21 03/03/21 History Patient History Medical History Acute kidney injury Acute respiratory distress Afib ON ELIQUIS - FOLLOWS W/ DR. RAMSEY Age related osteoporosis Aortic atherosclerosis Atrial fibrillation with rapid ventricular response Cellulitis of left lower extremity Coronary artery disease Card cath- 09/04/2019- severe multilevel coronary disease- 90 % mid LAD, 50 % Prox. LAD in stent stenosis, 70-80 % mid circumflex OM2, 90 % distal RCA Creatinine elevation Deep venous thrombosis of lower extremity (02/20/12) Diabetes mellitus, type 2 NIDDM Diabetic peripheral neuropathy History of myocardial infarction 1999 [place] (hard of hearing) Hyperlipidemia Hypertension Hypoxia Murmur Nonproliferative diabetic retinopathy Numbness Peripheral vascular disease Polymyalgia rheumatica Renal artery stenosis, [place], bilateral Rheumatoid arthritis Secondary diabetes mellitus Somnolence Traumatic wound Vitamin B12 deficiency Weight loss Surgical History History of cardiac catheterization 1999 - [facility] - 1 STENT History of colonoscopy History of heart artery stent 1 STENT History of total abdominal hysterectomy and bilateral salpingo-oophorectomy Hx of tonsillectomy S/P breast biopsy Family History Father Bone cancer Lung disease Sister Arthritis of hand Mother Hypertension Brother Hypertension Anxiety Depression Gallbladder disease Lung disease Unknown Hypertension Denies family history of Ovarian cancer Prostate cancer Myocardial infarction Breast cancer Colorectal cancer Social History Smoking Status: Never smoker Second Hand Exposure: No (OCCASIONAL EXPOSURE); Hx Alcohol Use: No Hx Substance Use: No Preferred Language: Burkinan Communication Ability: Effective Visual Impairment: No Limitations Hearing Ability: Normal Rag Washer Required: No Beliefs That Will Affect Care: None marital status: Current Living Situation: Skilled Nursing and Personal Care Facility Current Living Situation Comment: Lives at the [facility] current occupational status: retired 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 [place] Feels Safe at Home: Yes Safety Concerns: Feels Safe At This Time Childhood Exposure to Second-Hand Smoke: No Dental Care, Regularly: Yes Physical Activity Frequency: 3-4 Times per Week Seatbelt Use: always Sunscreen Use: Yes Assistive Devices: Denture - Upper, Glasses and Walker Assistive Devices Comment: denture and glasses Review of Systems Constitutional: no fever and no chills Eyes: no diplopia Ear, Nose, Mouth, Throat: no ear pain Respiratory: no cough Cardiovascular: no chest pain Gastrointestinal: no abdominal pain, no nausea and no vomiting Genitourinary: + hematuria; no dysuria and no flank pain Musculoskeletal: no back pain Integumentary: no rash Neurologic: no localized weakness Physical Exam Constitutional: WD/WN, vitals as above Eyes: no conjunctival abnormality ENMT: Ears: no hearing impairment Neck: trachea midline Respiratory: normal respiratory effort; no respiratory distress and no labored breathing Cardiovascular: Rate/Rhythm: regular rate and regular rhythm Gastrointestinal (Abdomen): Abdomen is soft and nondistended. There is no pain with palpation. Musculoskeletal: No calf tenderness Skin: no rashes Neurologic: moves all extremities Genitourinary: no CVA tenderness Santana catheter is in place with bloody, Kei-Aid colored urine Results & Data ([facility]) Vital Signs (Past 12 Hours) Vital Signs Temp Pulse Pulse Resp BP Pulse Ox 03/04/21 20:04 36.2 C L 98 H 20 115/72 92 03/04/21 15:34 85 03/04/21 11:58 36.2 C L 67 18 116/70 95 03/04/21 09:51 76 117/59 L PG Care Time/CCT Total # of Minutes Spent Total Time Spent with Patient: Total time spent is greater than 50% in coor dination of care (as documented) at patient's floor/unit and/or counseling patient: Coding Level of Care Code 34578 Inpt Consult Level 5 Diagnoses Hematuria R31.9
[2021-03-05] MEDS ORDERED: CEFEPIME 1,000 MG in SYRINGE 0 ML IV SCH (04:00)
[2021-03-05] MEDS: CARBOHYDRATES FOR HYPOGLYCEMIA PO PRN ×3 (04:48→11:49)
[2021-03-05] MEDS: OCTREOTIDE ACETATE 100 MCG/ML VIAL SQ SCH ×2 (04:55→20:43)
[2021-03-05 06:06] LABS: Hematocrit (blood only) 38.9 % (37-47); Hemoglobin 12.8 g/dL (12.0-16.0); Mean Corpuscular Hgb Conc 32.9 g/dL (32-36); Mean Corpuscular Volume 91.3 fL (80-100); Mean Platelet Volume 9.9 fL (7.4-10.4); Platelet Count 166 K/uL (130-400); RDW Coefficient of Variation 20.2 % (11.5-14.5); RDW Standard Deviation 66.9 fL (36.4-46.3); Red Blood Count 4.26 M/uL (4.2-5.4); White Blood Count 9.59 K/uL (4.8-10.8)
[2021-03-05 06:51] LABS: Albumin Globulin Ratio 0.3 (0.9-2); Albumin Level 1.9 gm/dl (3.4-5.0); BUN Creatinine Ratio 15.7 (10-20); Bilirubin,Total 1.4 mg/dl (0.2-1); Calcium 7.8 mg/dl (8.5-10.1); Creatinine Clr Calc Pharmacy 9.2 ml/min; Est GFR (African American) 8.9 ml/min; Est GFR (Non-African American) 7.7 ml/min; Globulin 5.7 gm/dl (2.5-4.0); Potassium 5.7 mmol/L (3.5-5.1); Total Protein 7.6 gm/dl (6.4-8.2)
[2021-03-05] MEDS ORDERED: SODIUM POLYSTYRENE SULFONATE 15G/60ML SUSP PO ONE (08:15)
[2021-03-05] MEDS: INSULIN ASPART 100 UNITS/ML 3 ML PEN SC SCH ×4 (08:43→21:02)
[2021-03-05] MEDS: APIXABAN 2.5 MG TAB PO SCH ×2 (08:59→21:50)
[2021-03-05] MEDS: METOPROLOL SUCC 50MG EXT REL TAB PO SCH ×2 (08:59→21:50)
[2021-03-05] MEDS: CLOPIDOGREL BISULFATE 75 MG TAB PO SCH (08:59)
[2021-03-05] MEDS ORDERED: MICONAZOLE NITRATE POWDER 43 GM EXT PRN (09:06)
[2021-03-05] MEDS: CEFIDEROCOL SULFATE TOSYLATE IV SCH (10:43)
[2021-03-05] MEDS: SODIUM CHLORIDE 0.9% IV SCH (10:43)
[2021-03-05] MEDS ORDERED: Nursing to Pharmacy Communication SCH (10:45)
[2021-03-05] MEDS ORDERED: BUMETANIDE 4 MG in SYRINGE 0 ML IV ONE (11:00)
[2021-03-05] MEDS ORDERED: BUMETANIDE 1 MG in SYRINGE 0 ML IV ONE (11:00)
--- NOTE | 2021-03-05 11:10 | Nephrology Consultation ---
Date of Consultation March 05, 2021 Assessment & Plan (1) JOSHUA (acute kidney injury): (2) Hyperkalemia: (3) Hyponatremia: (4) Metabolic acidosis: (5) Hematuria: 80-year-old female with stage IIIA CKD, baseline creatinine 1.3-1.5, admitted to the hospital with confusion hypoglycemia and AK I. no postrenal obstruction. Urinalysis with proteinuria, hematuria, pyuria without bacteriuria. Recently started on a cephalosporin antibiotic a week ago and since then p.o. intake has been poor and overall has been feeling poorly. Found to have JOSHUA with creatinine up to 5, multiple electrolyte abnormality, has been oliguric for last 2 days and overall seem to be getting volume overloaded. AK could be secondary to AIN related to antibiotic started a week ago, other differentials include acute GN, post infectious versus other etiology. --Serology to exclude possibility for underlying GN. --Bumex 4 mg IV x 1 dose now --Prednisone 60 mg po daily --DC Cefiderocol --monitor intake output --NPO after midnight in case needs HD, left arm nephrology precaution, dose meds for eGFR less than 10 Will follow Thank you for allowing me to participate in your patient's care. It was a pleasure to see the Brandee History of Present Illness Attending Physician: Ernesto Zaman History of Present Illness Brandee Alonso is a 80yo F with past medical history of stage IIIA CKD, hypertension, diabetes and AFib admitted to the hospital with symptomatic hypoglycemia and JOSHUA. Nephrology consult was requested for management of JOSHUA and multiple electrolyte abnormality. EMR records are reviewed in detail during patient's visit. Brandee was at the wound clinic on 03/03/21 where she has been going for left lower extremity wound and she was noted to be lethargic, confused and clammy. A blood sugar was checked and was found to be low in the 40's. Oral glucose administration was attempted unsuccessfully and the patient was sent to the ER. Blood sugar 53 on arrival. Patient was administered 1 amp of D50 with improvement. She was started on Cefiderocol for left lower extremity wound a week ago and since then her appetite has been poor. On admission her creatinine was 4 point 3 which rapidly worsened to 5 this morning. Renal ultrasound was negative for postrenal obstruction. Urinalysis was positive for hematuria, pyuria as well as proteinuria without bacteriuria. She denied any fever, arthralgia or skin rash. Has stage 3A CKD with baseline creatinine 1.3-1.5. Never smoker and denies f/h of CKD, ESRD. No history of chronic NSAID or PPI use. Hypertension well controlled. Has multivessel coronary artery disease, had stent in February 2020. EF 40 to 45%. Has AFib on Eliquis and metoprolol. H/O RA, on methotrexate. Urine output has been low for last 2 days, has been net positive. Overall feeling poorly. Renal function continues to worsen with multiple electrolyte abnormality. Allergies Allergy/AdvReac Type Severity Reaction Status Date / Time pineapple Allergy Mild Unknown Verified 03/04/21 17:53 enalapril AdvReac Intermediate Cough Verified 03/03/21 22:00 Home Medications Medication Instructions Recorded Confirmed Type cyanocobalamin (vitamin B-12) 1,000 mcg SL DAILY #30 tab 02/20/19 03/03/21 History 1,000 mcg sublingual tablet ferrous sulfate 325 mg (65 mg 325 mg PO Q OTHER DAY tab 04/28/20 03/03/21 History iron) tablet glipizide 5 mg tablet, extended 5 mg PO DAILY #90 tab 10/31/20 03/03/21 Rx release 24 hr clopidogrel 75 mg tablet 75 mg PO QAM #90 tab 11/04/20 03/03/21 Rx atorvastatin 40 mg tablet 40 mg PO QPM #90 tab 12/30/20 03/03/21 Rx apixaban 2.5 mg tablet (Eliquis) 2.5 mg PO BID #180 tab 01/25/21 03/03/21 Rx losartan 25 mg tablet 25 mg PO QAM #90 tab 01/30/21 03/03/21 Rx acetaminophen 500 mg tablet 500 mg PO Q4 PRN MDD 3g 02/15/21 03/03/21 History (Tylenol Extra Strength) metoprolol succinate 100 mg 100 mg PO QAM 02/15/21 03/03/21 History tablet,extended release 24 hr (Toprol XL) metoprolol succinate 50 mg 50 mg PO HS 02/15/21 03/03/21 History tablet,extended release 24 hr furosemide 80 mg tablet 80 mg PO QAM 30 Days #30 tab 02/18/21 03/03/21 Rx cefiderocol 1 gram intravenous 1 g IV Q8H 10 Days ea 02/27/21 03/03/21 Rx solution metolazone 10 mg tablet 10 mg PO DAILY PRN 03/03/21 03/03/21 History Patient History Medical History (Updated 03/05/21 @ 11:08 by Noreen Lai MD) Acute kidney injury Acute respiratory distress Afib ON ELIQUIS - FOLLOWS W/ DR. RAMSEY Age related osteoporosis Aortic atherosclerosis Atrial fibrillation with rapid ventricular response Cellulitis of left lower extremity Coronary artery disease Card cath- 09/04/2019- severe multilevel coronary disease- 90 % mid LAD, 50 % Prox. LAD in stent stenosis, 70-80 % mid circumflex OM2, 90 % distal RCA Creatinine elevation Deep venous thrombosis of lower extremity (02/20/12) Diabetes mellitus, type 2 NIDDM Diabetic peripheral neuropathy History of myocardial infarction 1999 [place] (hard of hearing) Hyperkalemia Hyperlipidemia Hypertension Hyponatremia Hypoxia Metabolic acidosis Murmur Nonproliferative diabetic retinopathy Numbness Peripheral vascular disease Polymyalgia rheumatica Renal artery stenosis, [place], bilateral Rheumatoid arthritis Secondary diabetes mellitus Somnolence Traumatic wound Vitamin B12 deficiency Weight loss Surgical History History of cardiac catheterization 1999 - [facility] - 1 STENT History of colonoscopy History of heart artery stent 1 STENT History of total abdominal hysterectomy and bilateral salpingo-oophorectomy Hx of tonsillectomy S/P breast biopsy Family History Father Bone cancer Lung disease Sister Arthritis of hand Mother Hypertension Brother Hypertension Anxiety Depression Gallbladder disease Lung disease Unknown Hypertension Denies family history of Ovarian cancer Prostate cancer Myocardial infarction Breast cancer Colorectal cancer Social History Smoking Status: Never smoker Second Hand Exposure: No (OCCASIONAL EXPOSURE); Hx Alcohol Use: No Hx Substance Use: No Preferred Language: Malawian Communication Ability: Effective Visual Impairment: No Limitations Hearing Ability: Normal Vegetable Farmer Required: No Beliefs That Will Affect Care: None marital status: Current Living Situation: Long Term and Personal Care Facility Current [facility] Situation Comment: [facility] current occupational status: retired 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 [place] Feels Safe at Home: Yes Safety Concerns: Feels Safe At This Time Childhood Exposure to Second-Hand Smoke: No Dental Care, Regularly: Yes Physical Activity Frequency: 3-4 Times per Week Seatbelt Use: always Sunscreen Use: Yes Assistive Devices: Walker Assistive Devices Comment: denture and glasses Review of Systems Review of Systems: detailed review of system was done and pertinent positive and negatives in HPI Physical Exam Constitutional: + ill appearing; no acute distress Eyes: PERRL, conjunctivae normal, anicteric sclerae ENMT: external ear and nose normal, oropharynx normal Ears: no hearing impairment Neck: trachea midline Respiratory: + respiratory distress; no cough Auscultation: + rales Cardiovascular: Rate/Rhythm: + irregularly irregular Heart Sounds: normal S1 and normal S2 Extremities: no edema Gastrointestinal (Abdomen): normal bowel sounds, soft, nontender, no hepatosplenomegaly Percussion/Palpation: abdomen nontender, no guarding and abdomen not rigid Musculoskeletal: Extremities: extremities normal to inspection Gait: normal gait Skin: no rashes, warm and dry Neurologic: moves all extremities and awake Psychiatric: A+Ox3, euthymic affect Results & Data ([facility]) Vital Signs (Past 12 Hours) Vital Signs Temp Pulse Resp BP Pulse Ox 03/05/21 07:48 36.5 C 87 20 112/55 L 91 03/05/21 02:47 36.6 C 87 20 114/63 91 03/04/21 23:33 36.2 C L 70 18 132/97 99 PG Care Time/CCT Total # of Minutes Spent Total Time Spent with Patient: Total time spent is greater than 50% in coordination of care (as documented) at patient's floor/unit and/or counseling patient: Coding Level of Care Code 09510 Initial Inpt Care Lvl 3 Diagnoses JOSHUA (acute kidney injury) N17.9 Hyperkalemia E87.5 Hyponatremia E87.1 Metabolic acidosis E87.2 Hematuria R31.9
[2021-03-05] MEDS: DEXTROSE 50% 50 ML SYRINGE IV PRN ×2 (12:17→16:30)
--- NOTE | 2021-03-05 13:13 | XRay Report ---
XR chest 1V portable CLINICAL HISTORY: CHF COMPARISON STUDY: Chest radiograph March 03, 2021. FINDINGS: There is no pneumothorax. Moderate to large left and moderate right pleural effusions persi st. There is persistent pulmonary edema. This is slightly increased. Cardiomegaly is again noted. IMPRESSION: 1. Pulmonary edema, increased since prior exam. 2. Persistent moderate to large left and moderate right pleural effusions with bibasilar opacities. ACT 112: Negative or not required by law. Electronically signed by: Jt Smith M.D. 03/05/2021 1:11 PM
--- NOTE | 2021-03-05 18:07 | Hospitalist Progress Note ---
Date of Service March 05, 2021 Assessment & Plan (1) JOSHUA (acute kidney injury): Plan: - Patient with elevated BUN and Cr of 75 and 4.35 at admission, continues to rise--now 4.96.--->5.11 this evening- will transfer to PCU as the patient could potentially decompensate quickly. - Etiology unclear - most likely multifactorial. She has had poor oral intake and decreased appetite lately. Also on Lasix/Metolazone/Losartan at home - currently being held. - Does take a newer cephalosporin agent as well for MDR Pseudomonas (Cefiderocol) - could be contributing. ? interstitial nephritis. D/c abx. Re- consult ID for further recommendations. - Arriaga catheter for accurate I/O's. - Renal US was neg for obstruction or significant abnormality. - U/a with +2 protein and +2 blood but neg for bacteria. Urine sodium 28 c/w dehydration. - IVF discontinued as the patient is volume overloaded. - Renally dose medications; avoiding nephrotoxic agents. - Hyperkalemic at 5.7 this AM. 15gm Kayexalate provided. Repeat BMP this evening with improvement in K to 5.1. - Nephrology consulted. Appreciate recommendations by Dr. Lai. - 4mg IV Bumex provided this AM---patient had output of 150ml of urine after administration - NPO after midnight in the event access is needed for dialysis. - Patient started on Prednisone 60mg daily for possible interstitial nephritis. - Checking urine eosinophils. (2) Hypoglycemia: Plan: - Patient hypoglycemic on arrival. Multifactorial to include decreased PO intake, poor renal function and sulfonylurea usage. Responsive to D50 x 1 amp. - Octreotide given in ER to counteract glipizide - continue 100mcg q 8 hours - Goal blood sugar 110 - 180 - SSI coverage if > 180 - Hold oral diabetic agents; Hgb A1C pending. (3) Hematuria: Plan: - Patient developed significant hematuria from her arriaga catheter starting this afternoon. - U/a on admission did show +2 blood. - Urology consult for further evaluation. Could be related to trauma from arriaga insertion vs. possible ? interstitial nephritis. - Repeat H/H slightly trending down at 12.8 and 38.9, but stable. Will continue to monitor. - Will continue Plavix and Eliquis; consider d/c'ing meds if H/H levels trending down. (4) Cellulitis: Plan: - Placed on IV cefiderocol by Kenna ID for MDR pseudomonas - Abx held d/t JOSHUA. Will re-consult ID. (5) CHF (congestive heart failure): Plan: - Patient appears volume overloaded today. - 4mg IV Bumex provided x 1 dose this morning. - [place] [address]. - Chest XR today showing increased pulmonary edema and persistent moderate to large left and moderate right pleural effusions with bibasilar opacities. - Monitor I/Os (6) CAD, multiple vessel: Plan: - Chronic. Stable - Continue Plavix - Continue Metoprolol (7) Venous stasis ulcer of both lower extremities without varicose veins: Plan: - Recurrent venous stasis ulcers in the setting of cellulitis and CHF. - Wound care nurse consulted. (8) Lymphedema: Plan: - Chronic - Compression contraindicated per cardiology d/t PAD (9) Chronic venous insufficiency of lower extremity: Plan: - Hx of bilateral GSV Venaseal with Dr. Torres. (10) PAD (peripheral artery disease): Plan: - Follows with Dr. Torres. No intervention planned. - Compression wraps contraindicated per Dr. Torres. (11) Hypertension: Plan: - BP holding normal to low. 112/55 this AM. - Continue Metoprolol - Holding Losartan, Lasix and Metolazone due to ARF. - Continue to monitor. (12) Hyperlipidemia: Plan: - Chronic - Hold Atorvastatin for now - does have elevation in LFTs. (13) Type II diabetes mellitus: Plan: - Has been hypoglycemic this admission. - Holding glipizide. - Continue Sandostatin. - Continue to monitor. - Hgb A1C pending. (14) Afib: Plan: - Rate controlled AF-- now tachy this evening at 114. Continue to monitor. - Continue Metoprolol - Continue Apixaban (2.5 mg BID dosing) (15) UTI (urinary tract infection): Plan: -? UTI as an outpatient - UC&S preliminarily negative. (16) Hypoalbuminemia: Plan: - Alb level 1.8 - recommend increased protein intake. (17) Elevated LFTs: Plan: - T. bili 1.4 - does appear to be chronically elevated. - AST 60; ALT is WNL. Alk Phos 199 - elevated startin 02/08. - Holding home statin. (18) DVT prophylaxis: Plan: - On Eliquis 2.5mg BID Plan: Dispo- transfer to PCU as Cr continues to rise and the patient continues to have episodes of hypoglycemia Admission and Anticipated Discharge Date Admission Date: March 03, 2021 Supervising Physician Co-Signing Physician Notes Attending Attestation - Personal bedside assessment not performed, but chart reviewed, and care plan d/w [employer]NA[employer] Lubna Carter. I agree w/ the torres components of her documentation. Very sick 80yo female with ARF/JOSHUA. Worsening overnight; Cr now >5. Blood/protein on u/a; no casts. No obstruction on renal u/s. Eosinophils 6.5%. Suspect Interstitial nephritis -- 2nd to cephalosporin for her MDR pseudomonas? Cefiderocol stopped. Prednisone 60mg daily started. Urine eosinophils sent. Appreciate nephrology consultation. Hypoglycemia - suspect this is sulfonylurea-induced in setting of ARF. Hypoglycemia could last several days. Continue octreotide. Steroids should help. If refractory -- start D10W drip. Volume overload 2nd to JOSHUA - stop basal IV fluids. Bumex 4mg IV x 1 now. Prognosis guarded. Ernesto Zaman MD Subjective Patient states she feels somewhat confused this AM. She states her blood sugar was low again this morning. She denies any pain or n/v. Review of Systems Constitutional: + fatigue and + weakness; no fever and no chills Eyes: no worsening vision Ear, Nose, Mouth, Throat: no dizziness Respiratory: no dyspnea Cardiovascular: no chest pain Gastrointestinal: no abdominal pain, no nausea and no vomiting Neurologic: + generalized weakness Psychiatric: + confusion Physical Exam Constitutional: + obese; no acute distress ENMT: Ears: no hearing impairment Neck: trachea midline, no thyromegaly Respiratory: normal respiratory effort Auscultation: lungs clear to auscultation bilaterally Cardiovascular: Rate/Rhythm: regular rate and regular rhythm Vessels: no JVD Extremities: + edema (diffuse edema ) Gastrointestinal (Abdomen): Inspection/Auscultation: normal bowel sounds Percussion/Palpation: abdomen soft; abdomen nontender Musculoskeletal: Head/Neck/Chest: normocephalic Skin: + wound (BLE wounds ) Psychiatric: Orientation: alert and oriented x 3 Lymphatic: no cervical or axillary lymphadenopathy Results & Data Results & Data ([facility]) Vital Signs (Past 12 Hours) Vital Signs Temp Pulse Pulse Resp BP Pulse Ox 03/05/21 15:41 114 H 03/05/21 11:17 36.6 C 71 18 108/71 96 03/05/21 07:48 36.5 C 87 20 112/55 L 91 PG Care Time/CCT Total # of Minutes Spent Total Time Spent with Patient: Total time spent is greater than 50% in coordination of care (as documented) at patient's floor/unit and/or counseling patient: Coding Level of Care Code 36533 Subseq Hosp Care Lvl 3 Medical Decision Making High Complexity Diagnoses JOSHUA (acute kidney injury) N17.9 Hypoglycemia E16.2 Hematuria R31.9 Cellulitis L03.119 Laterality: unspecified laterality Site of cellulitis: extremity Site of cellulitis of extremity: lower extremity CHF (congestive heart failure) I50.9 Heart failure chronicity: acute Heart failure type: unspecified CAD, multiple vessel I25.10 Venous stasis ulcer of both lower extremities without varicose veins I87.2; L97.919; L97.929 Lymphedema I89.0 Chronic venous insufficiency of lower extremity I87.2 PAD (peripheral artery disease) I73.9 Hypertension I10 Hyperlipidemia E78.5 Type II diabetes mellitus E11.9 Afib I48.91 UTI (urinary tract infection) N39.0 Hypoalbuminemia E88.09 Elevated LFTs R79.89 DVT prophylaxis Z29.9 (1) CHF (congestive heart failure) Heart failure chronicity: acute Heart failure type: unspecified Qualified Code(s): I50.9 - Heart failure, unspecified (2) Cellulitis Laterality: unspecified laterality Site of cellulitis: extremity Site of cellulitis of extremity: lower extremity Qualified Code(s): L03.119 - Cellulitis of unspecified part of limb
[2021-03-05] MEDS: predniSONE 20 MG TAB PO SCH (18:17)
[2021-03-05 18:27] LABS: BUN Creatinine Ratio 16.1 (10-20); Calcium 7.7 mg/dl (8.5-10.1); Creatinine Clr Calc Pharmacy 8.9 ml/min; Est GFR (African American) 8.6 ml/min; Est GFR (Non-African American) 7.4 ml/min; Potassium 5.1 mmol/L (3.5-5.1)
[2021-03-05] MEDS: DEXTROSE 10% 1,000 ML IV SCH (21:44)
[2021-03-06] MEDS: INSULIN ASPART 100 UNITS/ML 3 ML PEN SC SCH ×6 (00:20→20:25)
[2021-03-06] MEDS: OCTREOTIDE ACETATE 100 MCG/ML VIAL SQ SCH ×3 (04:39→21:58)
[2021-03-06 06:24] LABS: Mean Corpuscular Hgb Conc 32.9 g/dL (32-36)
[2021-03-06 06:35] LABS: Hematocrit (blood only) 43.1 % (37-47); Hemoglobin 14.2 g/dL (12.0-16.0); Mean Corpuscular Hemoglobin 29.6 pg (25-34); RDW Standard Deviation 65.3 fL (36.4-46.3); Red Blood Count 4.79 M/uL (4.2-5.4)
[2021-03-06 07:10] LABS: Platelet Count 143 K/uL (130-400)
[2021-03-06] MEDS: DEXTROSE 50% 50 ML SYRINGE IV PRN (07:41)
[2021-03-06 07:43] LABS: Estimated Average Glucose 143 mg/dl; Hemoglobin A1C 6.6 % (4.5-5.6)
[2021-03-06] MEDS: predniSONE 20 MG TAB PO SCH (07:43)
[2021-03-06] MEDS: METOPROLOL SUCC 50MG EXT REL TAB PO SCH ×2 (07:43→21:58)
[2021-03-06 07:57] LABS: Basophils # (auto) 0.01 K/uL (0-0.2); Basophils % (auto) 0.2 %; Eosinophils # (auto) 0.01 K/uL (0-0.5); Eosinophils % (auto) 0.2 %; Immature Granulocytes # (auto) 0.04 K/uL (0.00-0.02); Immature Granulocytes % (auto) 0.6 %; Lymphocytes # (auto) 0.58 K/uL (1.2-3.4); Lymphocytes % (auto) 9.1 %; Mean Platelet Volume 10.8 fL (7.4-10.4); Monocytes # (auto) 0.31 K/uL (0.11-0.59); Monocytes % (auto) 4.8 %; Neutrophils # (auto) 5.45 K/uL (1.4-6.5); Neutrophils % (auto) 85.1 %; RBC Morphology Unremarkable
[2021-03-06] MEDS: APIXABAN 2.5 MG TAB PO SCH ×2 (07:58→21:58)
[2021-03-06] MEDS: CLOPIDOGREL BISULFATE 75 MG TAB PO SCH (07:58)
[2021-03-06 09:22] LABS: BUN Creatinine Ratio 15.6 (10-20); Calcium 8.1 mg/dl (8.5-10.1); Creatinine Clr Calc Pharmacy 8.6 ml/min; Est GFR (African American) 7.9 ml/min; Est GFR (Non-African American) 6.8 ml/min; Phosphorus 8.1 mg/dl (2.5-4.9); Potassium 5.4 mmol/L (3.5-5.1)
--- NOTE | 2021-03-06 09:37 | Procedure Note ---
Procedure Note Date of Service March 06, 2021 Note Procedure date: Noted above Procedure: Temporary hemodialysis catheter Pre-procedure indication: Need for temporary hemodialysis Post-procedure Diagnosis: same as above Prior to Procedure: Informed Consent: The risks, benefits, indications, potential complications, and alternatives were explained to the patient's family and informed consent obtained. Attending Staff: Edie Mcduffie DO Resident/APC: Not applicable Skin Prep: Chlorhexidine Anesthesia: 4 mL 1% lidocaine without epinephrine The identity of the patient was confirmed and a bedside time out was performed. Description of Procedure: After sterile prep and sterile drape utilizing standard sterile technique the superficial skin of the right internal jugular area was anesthetized. The target vessel was identified and entered with an 18- gauge needle. Dark venous blood return was noted. A guidewire was inserted through the needle and into the vessel. The needle was withdrawn and a skin jackson was made. A tissue dilator was advanced via Seldinger technique and re moved. A double lumen catheter was inserted via Seldinger technique and the guidewire removed. All ports mj and flushed easily. A Biopatch was placed, and the catheter was secured via nylon suture. A sterile dressing was then applied. Complications: None Estimated blood loss: Trace Patient tolerated the procedure well. Procedure Date: Noted Above Procedure: Procedural Ultrasound Indication: Central venous access Attending: Edie Mcduffie DO Resident/Physician Hvac Technician: Not applicable Artery visualized: Yes Vein visualized: Yes Compressible Vein: Yes Vein patent: Yes Guidewire or Short Catheter seen in vein prior to dilation: Yes Line confirmed in Vein with ultrasound: Yes Lung Sliding on side of attempt (if applicable): NA If no lung sliding or not obtained has CXR been ordered: Yes Impression: Successful central venous access placement Images obtained are saved for permanent record Coding CPT Codes Tubes, Drains, and Vasc Access - Tubes, Drains, and Vasc Access: [id number] Insertion of cannula for hemodialysis ([id number]) Tubes, Drains, and Vasc Access - Tubes, Drains, and Vasc Access: [id number] Ultrasound Guidance For Vascular ([id number]) [facility] [place] Procedure Codes (Charges) Tubes, Drains, and Vasc Access Procedure 1: Tubes, Drains, and Vasc Access: [id number] Insertion of cannula for hemodialysis Procedure 2: Tubes, Drains, and Vasc Access: [id number] Ultrasound Guidance For Vascular
--- NOTE | 2021-03-06 10:35 | Nephrology Progress Note ---
Date of Service March 06, 2021 Assessment & Plan (1) JOSHUA (acute kidney injury): (2) Hyperkalemia: (3) Hyponatremia: (4) Metabolic acidosis: (5) Hematuria: Plan: 80-year-old female with stage IIIA CKD, b/l cr 1.3-1.5, admitted to the hospital with confusion hypoglycemia and JOSHUA, no postrenal obstruction. Urinalysis with proteinuria, hematuria, pyuria without bacteriuria. Recently started on a cephalosporin antibiotic a week ago and since then p.o. intake has been poor and overall has been feeling poorly. Found to have JOSHUA with creatinine up to 5, multiple electrolyte abnormality, has been oliguric for last 2 days and overall seem to be getting volume overloaded. JOSHUA could be secondary to AIN related to antibiotic started a week ago, other differentials include acute GN, post infectious versus other etiology. Renal function continues to worsen with multiple electrolyte abnormality, remained aneuric with worsening respiratory status. --Discussed in detail with patient however she was not able to give any decision, with her consent, spoke with her son over the telephone who gave consent for dialysis. Appreciate intensive care help with temporary dialysis catheter. 1st dialysis later this morning with 2 K bath, UF as tolerated. --monitor intake output --continue prednisone 60 mg p.o. daily for now --left arm nephrology precaution, dose meds for eGFR less than 10 Will follow Admission and Anticipated Discharge Date Admission Date: March 03, 2021 Subjective Brandee was awake, alert but somewhat confused and at times less responsive. She denies shortness of breath. No fever or chills. Has been anuric overnight. Renal function continues to worsen with significant electrolyte abnormality. Review of Systems Review of Systems: detailed review of system was not possible due to patient's condition. Physical Exam Constitutional: + acute distress and + ill appearing Respiratory: + respiratory distress and + labored breathing Auscultation: + diminished lung sounds and + rales Cardiovascular: RRR, no murmur, no edema Neurologic: moves all extremities, awake and + confused; no focal motor deficits Psychiatric: Orientation: alert Apperance: appeared stated age Results & Data ([facility]) Vital Signs (Past 12 Hours) Vital Signs Temp Pulse Pulse Resp BP Pulse Ox 03/06/21 08:38 36.3 C L 111 H 18 119/94 98 03/06/21 08:00 120 H 03/06/21 03:20 36.5 C 114 H 17 124/98 97 03/05/21 23:10 36.6 C 117 H 14 123/97 97 PG Care Time/CCT Total # of Minutes Spent Total Time Spent with Patient: Total time spent is greater than 50% in coordination of care (as documented) at patient's floor/unit and/or counseling patient: Coding Level of Care Code 71952 Subseq Hosp Care Lvl 3 Diagnoses JOSHUA (acute kidney injury) N17.9 Hyperkalemia E87.5 Hyponatremia E87.1 Metabolic acidosis E87.2 Hematuria R31.9
--- NOTE | 2021-03-06 10:44 | XRay Report ---
XR chest 1V portable HISTORY: Central line placement COMPARISON: Chest 03/05/2021. FINDINGS: Interval placement of a right jugular central venous catheter which terminates in the expec nicole location of the SVC. Cardiomegaly, moderate pulmonary edema, and moderate bilateral pleural effus ions have slightly progressed. No pneumothorax. Bibasilar densities are nonspecific but favor atelect asis from the pleural effusions. There are low lung volumes. IMPRESSION: 1. Right jugular central venous catheter terminates at the SVC. No pneumothorax. 2. Interval progression of the pulmonary edema and bilateral pleural effusions. ACT 112: Negative or not required by law. Electronically signed by: Bartolome Butcher M.D. 03/06/2021 10:42 AM
[2021-03-06] MEDS ORDERED: STAT IV Infusion **Titration per Protocol STA (11:36)
[2021-03-06 11:58] LABS: Hepatitis B Surface Ab Quant < 3.10 mIU/mL (>or=10mIU/mL Immune); Hepatitis B Surface Antibody Non-Immune
--- NOTE | 2021-03-06 12:06 | Hospitalist Progress Note ---
Date of Service March 06, 2021 Assessment & Plan (1) JOSHUA (acute kidney injury): Plan: WORSE. Cr on 02/26 was 1.5. Flakita to 4.3 on 03/03. Now 5.49 today. There is concern about interstitial nephritis given her rash, development of JOSHUA in setting of cefiderocol, eosinophilia on cbc, etc. Cefiderocol d/c on 03/05. Prednisone 60mg/day started 03/05. Appreciate [facility] and recs. Given uremic symptoms, voluem overload, hyperkalemia, acidosis, etc - temporary HD catheter placed this am, and pt to receive HD later this afternoon. Hopefully she will have renal recovery over time (could take weeks or more). BMP every am. (2) Acute respiratory failure with hypoxia: Plan: 2nd to pulmonary edema/volume overload in setting of #1 (and baseline cor pulmonale). O2 via NC. To start HD today. (3) Hypoglycemia: Plan: Suspect it is due to sulfonylurea retention in the setting of JOSHUA. The clearance of the sulfonylurea could take several more days. D10W drip started last pm as hypoglycemia was refractory to octreotide TID and prednisone. Increase D10W drip to 30cc/hr. If still refractory then increase D10W to D12.5W. (4) Metabolic encephalopathy: Plan: Multifactorial, but JOSHUA/uremia biggest offender. Supportive care. Avoid benzos/sedatives. (5) Hematuria: Plan: Likely arriaga trauma in the setting of eliquis & plavix use. Urology has seen, and no plans for intervention unless there are clots, etc. Cont to monitor. (6) Cellulitis: Plan: RLE. IV cefiderocol recommended by [facility] for MDR pseudomonas that grew on recent cultures. There is heavy concern that the cefiderocol may have caused the JOSHUA. This has been placed on hold. Most of what I see on exam today appears to be chronic stasis. Re-consulted ID. (7) CHF (congestive heart failure): Plan: Decompensated. Acute/chronic right-sided CHF in the setting of JOSHUA. Dialysis to start today for volume overload. (8) CAD, multiple vessel: Plan: No evidence of ACS or ischemia. Continue Plavix; Continue Metoprolol. (9) Venous stasis ulcer of both lower extremities without varicose veins: Plan: Recurrent venous stasis ulcers. Follows with [facility]. Wound care consult placed for dressings, etc. (10) Lymphedema: Plan: Chronic Compression contraindicated per cardiology 2nd PAD (11) Chronic venous insufficiency of lower extremity: Plan: history of bilateral GSV Venaseal with Dr. Tk Torres. (12) PAD (peripheral artery disease): Plan: Follows with Dr. Torres. No intervention planned. Compression wraps contraindicated per Dr. Torres. (13) Hypertension: Plan: Holding Losartan, Lasix and Metolazone due to ARF. Continue metoprolol. Controlled. (14) Hyperlipidemia: Plan: Hold Atorvastatin 2nd elevation in LFTs. (15) Type II diabetes mellitus: Plan: Holding glipizide - see above. Now with refractory hypoglycemia as above. a1c 6.6% this admission. (16) Afib: Plan: Uncontrolled despite high dose of PO metoprolol. Will employ low-dose cardizem infusion for better rate control (goal 90-100 at rest). Remains on Apixaban. (17) UTI (urinary tract infection): Plan: ruled out cx negative (18) Hypoalbuminemia: Plan: Alb level 1.8 suggestive of protein calorie malnutrition. (19) Elevated LFTs: Plan: suspect 2nd to right-sided CHF leading to hepatic congestion. (20) DVT prophylaxis: Plan: eliquis 2.5mg BID (21) Hyperkalemia: Plan: s/p multiple doses of kayexalate. refractory. to have HD today. 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 will update family today DNR/DNI Admission and Anticipated Discharge Date Admission Date: March 03, 2021 Subjective tele - a.fib, rates >100; just occasional <100 patient VERY confused during the visit could not answer the majority of my questions unable to elicit ROS or meaningful history denied any pain in any location, however right IJ HD catheter placed by Dr Mcduffie this am Review of Systems Review of Systems: Unobtainable due to cognitive status Physical Exam Physical Exam: Gen: sickly, altered, mild tachypnea noted neck: right IJ HD catheter in place mouth: MM dry heart: tachy, s1 s2, irregularly irregular, no murmur lungs: decreased BS bases, mild rales b/l, tachypnea noted abd: distended (body wall edema), BS+, NT, ND ext: edema from the feet up to the hips; pulses b/l feet 2+ skin: erythematous macularpapular rash on back, torso, etc; dressings removed from b/l shins -- there is erythema/stasis change from the mid-raya down to just above ankles b/l; on right raya there are multiple venous ulcerations covered w/ aquacel ag; on left raya there is a solitary venous ulcer w/ aquacel ag neuro: mild asterixis noted, mild myoclonic jerking noted on occasion Results & Data Results & Data ([facility]) Vital Signs (Past 12 Hours) Vital Signs Temp Pulse Pulse Resp BP Pulse Ox 03/06/21 11:44 36.4 C L 115 H 18 138/92 97 03/06/21 08:38 36.3 C L 111 H 18 119/94 98 03/06/21 08:00 120 H 03/06/21 03:20 36.5 C 114 H 17 124/98 97 Laboratory Results Laboratory Results - last 24 hr 03/05/21 03/05/21 03/05/21 05:58 11:31 12:13 WBC RBC Hgb Hct MCV MCH MCHC RDW Std Deviation RDW Coeff of Elissa Plt Count MPV Immature Gran % (Auto) Neut % (Auto) Lymph % (Auto) [place] % (Auto) Eos % (Auto) Baso % (Auto) Neut # (Auto) Lymph # (Auto) [place] # (Auto) Eos # (Auto) Baso # (Auto) Immature Gran # (Auto) RBC Morphology Sodium Potassium Chloride Carbon Dioxide Anion Gap BUN Creatinine Est Cr Clr Drug Dosing Est GFR ( Amer) Est GFR (Non-Af Amer) BUN/Creatinine Ratio Glucose POC Glucose 55 L* Estimat Average Glucose 143 Hemoglobin A1c 6.6 H Calcium Phosphorus Total Creatine Kinase 332 H Total Protein (PEP) Albumin Albumin (PEP) Jbzlw-9-Cpllhcvft Moknz-6-Elygvdmzq Uubp-1-Aycmllet Suxr-4-Xnnsgjih Gamma Globulins Monoclonal Peak 3 Ser Monoclonl Protein Ser Monoclonal Prot 2 PEP Interpretation U Random Total Protein Ur Creatinine mg/dL Protein/Creatinin Ratio Urine Albumin (%) U Msvhx-6-Zdgfeuen (%) U Fskxc-5-Xsmcsklm (%) U Beta Globulin (%) U Gamma Globulin (%) U Abnormal Prot Band 1 U Abnormal Prot Band 2 U Abnormal Prot Band 3 Urine PEP Interpret Hep Bs Antigen Hep Bs Antibody Hep Bs Antibody, Quant Hep B Core IgM Ab 03/05/21 03/05/21 03/05/21 12:32 15:35 16:26 WBC RBC Hgb Hct MCV MCH MCHC RDW Std Deviation RDW Coeff of Elissa Plt Count MPV Immature Gran % (Auto) Neut % (Auto) Lymph % (Auto) [place] % (Auto) Eos % (Auto) Baso % (Auto) Neut # (Auto) Lymph # (Auto) [place] # (Auto) Eos # (Auto) Baso # (Auto) Immature Gran # (Auto) RBC Morphology Sodium Potassium Chloride Carbon Dioxide Anion Gap BUN Creatinine Est Cr Clr Drug Dosing Est GFR ( Amer) Est GFR (Non-Af Amer) BUN/Creatinine Ratio Glucose POC Glucose 115 H 48 L* Estimat Average Glucose Hemoglobin A1c Calcium Phosphorus Total Creatine Kinase Total Protein (PEP) Albumin Albumin (PEP) Bodgd-8-Waveezyte Kuxfb-5-Nvstjjqar Fyro-0-Jwnpbrel Eafb-4-Ebgfpzwz Gamma Globulins Monoclonal Peak 3 Ser Monoclonl Protein Ser Monoclonal Prot 2 PEP Interpretation U Random Total Protein Pending Ur Creatinine mg/dL Pending Protein/Creatinin Ratio Pending Urine Albumin (%) Pending U Zhclb-7-Rioycvnk (%) Pending U Cpzmo-3-Fywbasdi (%) Pending U Beta Globulin (%) Pending U Gamma Globulin (%) Pending U Abnormal Prot Band 1 Pending U Abnormal Prot Band 2 Pending U Abnormal Prot Band 3 Pending Urine PEP Interpret Pending Hep Bs Antigen Hep Bs Antibody Hep Bs Antibody, Quant Hep B Core IgM Ab 03/05/21 03/05/21 03/05/21 16:46 17:35 20:11 WBC RBC Hgb Hct MCV MCH MCHC RDW Std Deviation RDW Coeff of Elissa Plt Count MPV Immature Gran % (Auto) Neut % (Auto) Lymph % (Auto) [place] % (Auto) Eos % (Auto) Baso % (Auto) Neut # (Auto) Lymph # (Auto) [place] # (Auto) Eos # (Auto) Baso # (Auto) Immature Gran # (Auto) RBC Morphology Sodium 133 L Potassium 5.1 Chloride 100 Carbon Dioxide 22 Anion Gap 11.0 BUN 82 H Creatinine 5.11 H* Est Cr Clr Drug Dosing 8.9 Est GFR ( Amer) 8.6 Est GFR (Non-Af Amer) 7.4 BUN/Creatinine Ratio 16.1 Glucose 87 POC Glucose 173 H 94 Estimat Average Glucose Hemoglobin A1c Calcium 7.7 L Phosphorus Total Creatine Kinase Total Protein (PEP) Albumin Albumin (PEP) Lhayc-4-Yzgwaammf Favvs-6-Nceysuifv Zspq-1-Yfuiyumx Xptt-3-Elifkxzm Gamma Globulins Monoclonal Peak 3 Ser Monoclonl Protein Ser Monoclonal Prot 2 PEP Interpretation U Random Total Protein Ur Creatinine mg/dL Protein/Creatinin Ratio Urine Albumin (%) U Syovq-3-Stsubakw (%) U Skzol-7-Hmwvisad (%) U Beta Globulin (%) U Gamma Globulin (%) U Abnormal Prot Band 1 U Abnormal Prot Band 2 U Abnormal Prot Band 3 Urine PEP Interpret Hep Bs Antigen Hep Bs Antibody Hep Bs Antibody, Quant Hep B Core IgM Ab 03/05/21 03/05/21 03/05/21 21:11 21:12 22:23 WBC RBC Hgb Hct MCV MCH MCHC RDW Std Deviation RDW Coeff of Elissa Plt Count MPV Immature Gran % (Auto) Neut % (Auto) Lymph % (Auto) [place] % (Auto) Eos % (Auto) Baso % (Auto) Neut # (Auto) Lymph # (Auto) [place] # (Auto) Eos # (Auto) Baso # (Auto) Immature Gran # (Auto) RBC Morphology Sodium Potassium Chloride Carbon Dioxide Anion Gap BUN Creatinine Est Cr Clr Drug Dosing Est GFR ( Amer) Est GFR (Non-Af Amer) BUN/Creatinine Ratio Glucose POC Glucose 66 L* 66 L* 75 Estimat Average Glucose Hemoglobin A1c Calcium Phosphorus Total Creatine Kinase Total Protein (PEP) Albumin Albumin (PEP) Gbzqq-8-Unbifsowk Xwojw-7-Jpvldtrgf Bvvm-1-Luycqxuq Ztwa-4-Ymvhhkna Gamma Globulins Monoclonal Peak 3 Ser Monoclonl Protein Ser Monoclonal Prot 2 PEP Interpretation U Random Total Protein Ur Creatinine mg/dL Protein/Creatinin Ratio Urine Albumin (%) U Hbkog-0-Flszswzl (%) U Egsct-6-Xzohvkze (%) U Beta Globulin (%) U Gamma Globulin (%) U Abnormal Prot Band 1 U Abnormal Prot Band 2 U Abnormal Prot Band 3 Urine PEP Interpret Hep Bs Antigen Hep Bs Antibody Hep Bs Antibody, Quant Hep B Core IgM Ab 03/06/21 03/06/21 03/06/21 00:15 04:31 06:14 WBC 6.40 RBC 4.79 Hgb 14.2 Hct 43.1 MCV 90.0 MCH 29.6 MCHC 32.9 RDW Std Deviation 65.3 H RDW Coeff of Elissa 20.0 H Plt Count 143 MPV 10.8 H Immature Gran % (Auto) 0.6 Neut % (Auto) 85.1 Lymph % (Auto) 9.1 [place] % (Auto) 4.8 Eos % (Auto) 0.2 Baso % (Auto) 0.2 Neut # (Auto) 5.45 Lymph # (Auto) 0.58 L [place] # (Auto) 0.31 Eos # (Auto) 0.01 Baso # (Auto) 0.01 Immature Gran # (Auto) 0.04 H RBC Morphology Unremarkable Sodium Potassium Chloride Carbon Dioxide Anion Gap BUN Creatinine Est Cr Clr Drug Dosing Est GFR ( Amer) Est GFR (Non-Af Amer) BUN/Creatinine Ratio Glucose POC Glucose 80 72 Estimat Average Glucose Hemoglobin A1c Calcium Phosphorus Total Creatine Kinase Total Protein (PEP) Albumin Albumin (PEP) Qlola-0-Dwgkrujjs Gileb-4-Gjozvqruj Ihzt-7-Hzduruzt Szzu-9-Qzdjwivq Gamma Globulins Monoclonal Peak 3 Ser Monoclonl Protein Ser Monoclonal Prot 2 PEP Interpretation U Random Total Protein Ur Creatinine mg/dL Protein/Creatinin Ratio Urine Albumin (%) U Mstdg-0-Sgghvvus (%) U Utfbt-2-Xuibnbfc (%) U Beta Globulin (%) U Gamma Globulin (%) U Abnormal Prot Band 1 U Abnormal Prot Band 2 U Abnormal Prot Band 3 Urine PEP Interpret Hep Bs Antigen Hep Bs Antibody Hep Bs Antibody, Quant Hep B Core IgM Ab 03/06/21 03/06/21 03/06/21 06:14 06:14 07:25 WBC RBC Hgb Hct MCV MCH MCHC RDW Std Deviation RDW Coeff of Elissa Plt Count MPV Immature Gran % (Auto) Neut % (Auto) Lymph % (Auto) [place] % (Auto) Eos % (Auto) Baso % (Auto) Neut # (Auto) Lymph # (Auto) [place] # (Auto) Eos # (Auto) Baso # (Auto) Immature Gran # (Auto) RBC Morphology Sodium Cancelled Potassium Cancelled Chloride Cancelled Carbon Dioxide Cancelled Anion Gap Cancelled BUN Cancelled Creatinine Cancelled Est Cr Clr Drug Dosing Cancelled Est GFR ( Amer) Cancelled Est GFR (Non-Af Amer) Cancelled BUN/Creatinine Ratio Cancelled Glucose Cancelled POC Glucose 65 L* Estimat Average Glucose Hemoglobin A1c Calcium Cancelled Phosphorus Cancelled Total Creatine Kinase Total Protein (PEP) Cancelled Albumin Cancelled Albumin (PEP) Cancelled Ncfcg-0-Hemdfrydz Cancelled Mbsoy-5-Vdgduvgbt Cancelled Cqhj-1-Bgwwsrap Cancelled Gnmj-3-Rfusfrzo Cancelled Gamma Globulins Cancelled Monoclonal Peak 3 Cancelled Ser Monoclonl Protein Cancelled Ser Monoclonal Prot 2 Cancelled PEP Interpretation Cancelled U Random Total Protein Ur Creatinine mg/dL Protein/Creatinin Ratio Urine Albumin (%) U Lzpex-2-Qovwdadu (%) U Lglhi-6-Yllwvfmj (%) U Beta Globulin (%) U Gamma Globulin (%) U Abnormal Prot Band 1 U Abnormal Prot Band 2 U Abnormal Prot Band 3 Urine PEP Interpret Hep Bs Antigen Hep Bs Antibody Hep Bs Antibody, Quant Hep B Core IgM Ab 03/06/21 03/06/21 03/06/21 07:26 07:59 08:40 WBC RBC Hgb Hct MCV MCH MCHC RDW Std Deviation RDW Coeff of Elissa Plt Count MPV Immature Gran % (Auto) Neut % (Auto) Lymph % (Auto) [place] % (Auto) Eos % (Auto) Baso % (Auto) Neut # (Auto) Lymph # (Auto) [place] # (Auto) Eos # (Auto) Baso # (Auto) Immature Gran # (Auto) RBC Morphology Sodium 131 L Potassium 5.4 H Chloride 99 Carbon Dioxide 19 L Anion Gap 13.0 H BUN 86 H Creatinine 5.49 H* D Est Cr Clr Drug Dosing 8.6 Est GFR ( Amer) 7.9 Est GFR (Non-Af Amer) 6.8 BUN/Creatinine Ratio 15.6 Glucose 93 POC Glucose 67 L* 96 Estimat Average Glucose Hemoglobin A1c Calcium 8.1 L Phosphorus 8.1 H Total Creatine Kinase Total Protein (PEP) Albumin 2.0 L Albumin (PEP) Pqkgm-3-Whcahodqf Ljjid-0-Fxokybxnj Inbq-8-Hxiqgwxi Oxlh-9-Egzmnjge Gamma Globulins Monoclonal Peak 3 Ser Monoclonl Protein Ser Monoclonal Prot 2 PEP Interpretation U Random Total Protein Ur Creatinine mg/dL Protein/Creatinin Ratio Urine Albumin (%) U Zrffk-4-Ryqcdgmf (%) U Txpuf-7-Iayigsri (%) U Beta Globulin (%) U Gamma Globulin (%) U Abnormal Prot Band 1 U Abnormal Prot Band 2 U Abnormal Prot Band 3 Urine PEP Interpret Hep Bs Antigen Hep Bs Antibody Hep Bs Antibody, Quant Hep B Core IgM Ab 03/06/21 03/06/21 03/06/21 11:11 11:11 11:11 WBC RBC Hgb Hct MCV MCH MCHC RDW Std Deviation RDW Coeff of Elissa Plt Count MPV Immature Gran % (Auto) Neut % (Auto) Lymph % (Auto) [place] % (Auto) Eos % (Auto) Baso % (Auto) Neut # (Auto) Lymph # (Auto) [place] # (Auto) Eos # (Auto) Baso # (Auto) Immature Gran # (Auto) RBC Morphology Sodium Potassium Chloride Carbon Dioxide Anion Gap BUN Creatinine Est Cr Clr Drug Dosing Est GFR ( Amer) Est GFR (Non-Af Amer) BUN/Creatinine Ratio Glucose POC Glucose Estimat Average Glucose Hemoglobin A1c Calcium Phosphorus Total Creatine Kinase Total Protein (PEP) Pending Albumin Albumin (PEP) Pending Jqrhr-9-Hrxqbqeep Pending Ynlws-3-Nrultfole Pending Ipgv-4-Xtrxpanh Pending Stcx-4-Zopepexu Pending Gamma Globulins Pending Monoclonal Peak 3 Pending Ser Monoclonl Protein Pending Ser Monoclonal Prot 2 Pending PEP Interpretation Pending U Random Total Protein Ur Creatinine mg/dL Protein/Creatinin Ratio Urine Albumin (%) U Awree-4-Xygyxchh (%) U Cxvpp-4-Edakhdcw (%) U Beta Globulin (%) U Gamma Globulin (%) U Abnormal Prot Band 1 U Abnormal Prot Band 2 U Abnormal Prot Band 3 Urine PEP Interpret Hep Bs Antigen Pending Hep Bs Antibody Non-Immune Hep Bs Antibody, Quant < 3.10 L Hep B Core IgM Ab Pending 03/06/21 11:41 WBC RBC Hgb Hct MCV MCH MCHC RDW Std Deviation RDW Coeff of Elissa Plt Count MPV Immature Gran % (Auto) Neut % (Auto) Lymph % (Auto) [place] % (Auto) Eos % (Auto) Baso % (Auto) Neut # (Auto) Lymph # (Auto) [place] # (Auto) Eos # (Auto) Baso # (Auto) Immature Gran # (Auto) RBC Morphology Sodium Potassium Chloride Carbon Dioxide Anion Gap BUN Creatinine Est Cr Clr Drug Dosing Est GFR ( Amer) Est GFR (Non-Af Amer) BUN/Creatinine Ratio Glucose POC Glucose 88 Estimat Average Glucose Hemoglobin A1c Calcium Phosphorus Total Creatine Kinase Total Protein (PEP) Albumin Albumin (PEP) Vrdkv-2-Kkawojzwa Jmocv-4-Zmgdpgeos Ybnu-7-Qoqevsie Xjvr-8-Jueyeahd Gamma Globulins Monoclonal Peak 3 Ser Monoclonl Protein Ser Monoclonal Prot 2 PEP Interpretation U Random Total Protein Ur Creatinine mg/dL Protein/Creatinin Ratio Urine Albumin (%) U Famsh-3-Jynozhgq (%) U Aihhi-9-Ehauzjyl (%) U Beta Globulin (%) U Gamma Globulin (%) U Abnormal Prot Band 1 U Abnormal Prot Band 2 U Abnormal Prot Band 3 Urine PEP Interpret Hep Bs Antigen Hep Bs Antibody Hep Bs Antibody, Quant Hep B Core IgM Ab Diagnostic Findings Chest X-Ray 03/05/21 09:37 XR chest 1V portable CLINICAL HISTORY: CHF COMPARISON STUDY: Chest radiograph March 03, 2021. FINDINGS: There is no pneumothorax. Moderate to large left and moderate right pleural effusions persist. There is persistent pulmonary edema. This is slightly increased. Cardiomegaly is again noted. IMPRESSION: 1. Pulmonary edema, increased since prior exam. 2. Persistent moderate to large left and moderate right pleural effusions with bibasilar opacities. ACT 112: Negative or not required by law. Electronically signed by: Jt Smith M.D. 03/05/2021 1:11 PM Chest X-Ray 03/06/21 10:09 XR chest 1V portable HISTORY: Central line placement COMPARISON: Chest 03/05/2021. FINDINGS: Interval placement of a right jugular central venous catheter which terminates in the expected location of the SVC. Cardiomegaly, moderate pulmonary edema, and moderate bilateral pleural effusions have slightly progressed. No pneumothorax. Bibasilar densities are nonspecific but favor atelectasis from the pleural effusions. There are low lung volumes. IMPRESSION: 1. Right jugular central venous catheter terminates at the SVC. No pneumothorax. 2. Interval progression of the pulmonary edema and bilateral pleural effusions. ACT 112: Negative or not required by law. Electronically signed by: Bartolome Butcher M.D. 03/06/2021 10:42 AM PG Care Time/CCT Total # of Minutes Spent Total Time Spent with Patient: Total time spent is greater than 50% in coordination of care (as documented) at patient's floor/unit and/or counseling patient: Coding Level of Care Code 60623 Subseq Hosp Care Lvl 3 Diagnoses JOSHUA (acute kidney injury) N17.9 Hypoglycemia E16.2 Hematuria R31.9 Cellulitis L03.119 Laterality: unspecified laterality Site of cellulitis: extremity Site of cellulitis of extremity: lower extremity CHF (congestive heart failure) I50.813 Heart failure chronicity: acute on chronic Heart failure type: right-sided CAD, multiple vessel I25.10 Venous stasis ulcer of both lower extremities without varicose veins I87.2; L97.919; L97.929 Lymphedema I89.0 Chronic venous insufficiency of lower extremity I87.2 PAD (peripheral artery disease) I73.9 Hypertension I10 Hyperlipidemia E78.5 Type II diabetes mellitus E11.9 Afib I48.91 UTI (urinary tract infection) N39.0 Hypoalbuminemia E88.09 Elevated LFTs R79.89 DVT prophylaxis Z29.9 Acute respiratory failure with hypoxia J96.01 Metabolic encephalopathy G93.41 Hyperkalemia E87.5 (1) Cellulitis Laterality: unspecified laterality Site of cellulitis: extremity Site of cellulitis of extremity: lower extremity Qualified Code(s): L03.119 - Cellulitis of unspecified part of limb (2) CHF (congestive heart failure) Heart failure chronicity: acute on chronic Heart failure type: right-sided Qualified Code(s): I50.813 - Acute on chronic right heart failure
[2021-03-06 12:08] LABS: Hepatitis B Surf Ag Rflx Conf Neg (Neg)
[2021-03-06] MEDS: dilTIAZem HCL 125 MG in DEXTROSE 5% 100 ML IV SCH (12:10)
[2021-03-06 22:41] LABS: Hematocrit (blood only) 38.2 % (37-47); Hemoglobin 12.9 g/dL (12.0-16.0); Immature Granulocytes # (auto) 0.03 K/uL (0.00-0.02); Immature Granulocytes % (auto) 0.4 %; Lymphocytes # (auto) 0.99 K/uL (1.2-3.4); Lymphocytes % (auto) 12.1 %; Mean Corpuscular Volume 88.8 fL (80-100); Monocytes # (auto) 0.65 K/uL (0.11-0.59); Monocytes % (auto) 7.9 %; Neutrophils # (auto) 6.51 K/uL (1.4-6.5); Neutrophils % (auto) 79.6 %; Platelet Count 170 K/uL (130-400); RDW Coefficient of Variation 19.9 % (11.5-14.5); RDW Standard Deviation 64.3 fL (36.4-46.3); White Blood Count 8.18 K/uL (4.8-10.8)
[2021-03-06 22:43] LABS: Mean Corpuscular Hgb Conc 33.8 g/dL (32-36)
[2021-03-06 23:01] LABS: Albumin Level 1.9 gm/dl (3.4-5.0); BUN Creatinine Ratio 13.7 (10-20); Calcium 8.2 mg/dl (8.5-10.1); Creatinine Clr Calc Pharmacy 10.6 ml/min; Est GFR (African American) 10.2 ml/min; Est GFR (Non-African American) 8.8 ml/min; Potassium 4.3 mmol/L (3.5-5.1)
[2021-03-06 23:06] LABS: Albumin Globulin Ratio 0.3 (0.9-2); Bilirubin,Total 1.5 mg/dl (0.2-1); Globulin 5.8 gm/dl (2.5-4.0); Total Protein 7.7 gm/dl (6.4-8.2)
[2021-03-07] MEDS: INSULIN ASPART 100 UNITS/ML 3 ML PEN SC SCH ×6 (00:54→20:26)
[2021-03-07] MEDS: OCTREOTIDE ACETATE 100 MCG/ML VIAL SQ SCH ×3 (05:00→20:52)
[2021-03-07 06:51] LABS: Eosinophils # (auto) 0.01 K/uL (0-0.5); Eosinophils % (auto) 0.1 %; Hematocrit (blood only) 40.5 % (37-47); Hemoglobin 13.7 g/dL (12.0-16.0); Immature Granulocytes # (auto) 0.04 K/uL (0.00-0.02); Immature Granulocytes % (auto) 0.4 %; Lymphocytes # (auto) 1.02 K/uL (1.2-3.4); Lymphocytes % (auto) 10.8 %; Mean Corpuscular Hemoglobin 29.8 pg (25-34); Mean Corpuscular Hgb Conc 33.8 g/dL (32-36); Mean Corpuscular Volume 88.2 fL (80-100); Mean Platelet Volume 10.2 fL (7.4-10.4); Monocytes # (auto) 1.19 K/uL (0.11-0.59); Monocytes % (auto) 12.6 %; Neutrophils # (auto) 7.18 K/uL (1.4-6.5); Neutrophils % (auto) 76.1 %; Platelet Count 171 K/uL (130-400); RDW Coefficient of Variation 19.7 % (11.5-14.5); RDW Standard Deviation 62.8 fL (36.4-46.3); Red Blood Count 4.59 M/uL (4.2-5.4); White Blood Count 9.44 K/uL (4.8-10.8)
[2021-03-07 07:57] LABS: Albumin Level 1.9 gm/dl (3.4-5.0); BUN Creatinine Ratio 13.4 (10-20); Calcium 8.2 mg/dl (8.5-10.1); Creatinine Clr Calc Pharmacy 10.1 ml/min; Est GFR (Non-African American) 8.6 ml/min; Potassium 4.7 mmol/L (3.5-5.1)
[2021-03-07] MEDS: DEXTROSE 10% 1,000 ML IV SCH (08:36)
[2021-03-07] MEDS: predniSONE 20 MG TAB PO SCH ×2 (08:37→08:45)
[2021-03-07] MEDS: APIXABAN 2.5 MG TAB PO SCH ×3 (08:37→21:08)
[2021-03-07] MEDS: CLOPIDOGREL BISULFATE 75 MG TAB PO SCH ×2 (08:38→08:45)
[2021-03-07] MEDS: METOPROLOL SUCC 50MG EXT REL TAB PO SCH ×2 (08:45→21:09)
[2021-03-07] MEDS: dilTIAZem HCL 125 MG in DEXTROSE 5% 100 ML IV SCH (09:49)
--- NOTE | 2021-03-07 09:57 | Nephrology Progress Note ---
Date of Service March 07, 2021 Assessment & Plan (1) JOSHUA (acute kidney injury): (2) Hyperkalemia: (3) Hyponatremia: (4) Metabolic acidosis: (5) Hematuria: Plan: 80-year-old female with stage IIIA CKD, b/l cr 1.3-1.5, admitted to the hospital with confusion hypoglycemia and JOSHUA, no postrenal obstruction. Urinalysis with proteinuria, hematuria, pyuria without bacteriuria. Recently started on a cephalosporin antibiotic a week ago and since then p.o. intake has been poor and overall has been feeling poorly. Found to have JOSHUA with creatinine up to 5, multiple electrolyte abnormality, anuria and volume overload. JOSHUA could be secondary to AIN related to antibiotic started a week ago, other differentials include acute GN, post infectious versus other etiology. Had 1st dialysis on 03/06/2021 with right IJ temporary dialysis catheter. Remained anuric with no sign of renal recovery yet. serology still pending except any which came back positive. --dialysis for 4 hours today, 2 L UF --monitor intake output --continue prednisone 60 mg p.o. daily for now, if no improvement , will DC in next few days. --left arm nephrology precaution, dose meds for eGFR less than 10 Will follow Admission and Anticipated Discharge Date Admission Date: March 03, 2021 Francisco Irvin was seen during dialysis treatment this morning. She mostly kept her eyes closed, awake but did not talk much or respond to questions. Tolerating dialysis, blood pressure remained elevated. Remained anuric with no sign of recovery of kidney function. Review of Systems Review of Systems: detailed review was not possible due to patient's condition. Physical Exam Constitutional: + ill appearing and + lethargic; no acute distress Respiratory: no respiratory distress Auscultation: + diminished lung sounds Cardiovascular: RRR, no murmur, no edema Neurologic: awake and + confused; no focal motor deficits Psychiatric: Orientation: alert Apperance: appeared stated age Results & Data ([facility]) Vital Signs (Past 12 Hours) Vital Signs Temp Pulse Pulse Pulse Resp BP BP 03/07/21 09:40 94 H 168/101 H 03/07/21 09:20 99 H 172/100 H 03/07/21 08:59 86 150/100 H 03/07/21 08:53 36.5 C 86 03/07/21 07:41 36.5 C 97 H 18 133/95 03/07/21 04:17 36.5 C 101 H 18 145/97 H 03/06/21 23:31 36.0 C L 03/06/21 23:23 87 18 123/77 Pulse Ox 03/07/21 09:40 03/07/21 09:20 03/07/21 08:59 03/07/21 08:53 03/07/21 07:41 98 03/07/21 04:17 100 03/06/21 23:31 03/06/21 23:23 100 PG Care Time/CCT Total # of Minutes Spent Total Time Spent with Patient: Total time spent is greater than 50% in coordination of care (as documented) at patient's floor/unit and/or counseling patient: Coding Level of Care Code 34097 Subseq Hosp Care Lvl 3 Diagnoses JOSHUA (acute kidney injury) N17.9 Hyperkalemia E87.5 Hyponatremia E87.1 Metabolic acidosis E87.2 Hematuria R31.9
--- NOTE | 2021-03-07 14:03 | Hospitalist Progress Note ---
Date of Service March 07, 2021 Assessment & Plan (1) JOSHUA (acute kidney injury): Plan: Presented with acute kidney injury Cr on 02/26 was 1.5. Flakita to 4.3 on 03/03. Then up to 5.49 on 03/06 There is concern about interstitial nephritis given her rash, development of JOSHUA in setting of cefiderocol, eosinophilia on cbc, etc. Cefiderocol d/c on 03/05. Prednisone 60mg/day started 03/05, however not taking p.o. due to encephalopathy- start IV Solu-Medrol 60 mg IV every 12 hours. [place] [facility] [place] [facility] [place] and recs. Given uremic symptoms, volume overload, hyperkalemia, hyponatremia, acidosis, oliguria, etc - temporary HD catheter placed and was started on hemodialysis on 03/06 Hopefully she will have renal recovery over time (could take weeks or more). BMP every am. Autoimmune studies and SPEP pending (2) Metabolic encephalopathy: Plan: Multifactorial, but JOSHUA/uremia biggest offender. Could also be from high-dose steroids. No longer hypoglycemic on D10W drip Afebrile without leukocytosis-legs appear similar to previous and no worsening of cellulitis or infection Continues to be quite encephalopathic on 03/07. No focal neurologic deficits on examination CT head negative except for meningioma which was seen on previous MRI on 02/15/2021 Supportive care. Avoid benzos/sedatives. -Continue with hemodialysis -Advance diet to renal diet as tolerated -Hold p.o. meds and change to IV as she is refusing medications and not eating -I do not think that she needs an MRI of the brain as I do not believe this is from stroke and more from uremia and encephalopathy (3) Acute respiratory failure with hypoxia: Plan: 2nd to pulmonary edema/volume overload in setting of #1 (and baseline cor pulmonale). O2 via NC and wean off as able to Continue with dialysis to take fluid off (4) Hypoglycemia: Plan: Suspect it is due to sulfonylurea retention in the setting of JOSHUA. The clearance of the sulfonylurea could take several more days. D10W drip started initially as hypoglycemia was refractory to octreotide TID and prednisone. Continue D10W drip to 30cc/hr. Will discontinue octreotide at this time -Advance diet (5) Hematuria: Plan: Likely arriaga trauma in the setting of eliquis & plavix use. Now resolved Urology has seen, and no plans for intervention unless there are clots, etc. Cont to monitor. (6) Cellulitis: Plan: RLE. IV cefiderocol recommended by [facility] for MDR pseudomonas that grew on recent cultures. There is heavy concern that the cefiderocol may have caused the JOSHUA. This has been placed on hold. Most of what I see on exam today appears to be chronic stasis. Re-consulted ID. Awaiting opinion (7) CHF (congestive heart failure): Plan: Decompensated. Acute/chronic right-sided CHF in the setting of JOSHUA. Dialysis continues for volume overload. Holding home diuretics (8) CAD, multiple vessel: Plan: No evidence of ACS or ischemia. History of mid LAD PCI in 1999, and stent to proximal LAD, mid LAD, mid circumflex, and distal RCA in 2019 Continue Plavix if can take p.o.; refusing metoprolol-changed IV Lopressor scheduled (9) Venous stasis ulcer of both lower extremities without varicose veins: Plan: Recurrent venous stasis ulcers. Follows with [facility]. Wound care consult placed for dressings, etc. (10) Lymphedema: Plan: Chronic Compression contraindicated per cardiology 2nd PAD (11) Chronic venous insufficiency of lower extremity: Plan: history of bilateral GSV Venaseal with Dr. Tk Torres. (12) PAD (peripheral artery disease): Plan: Follows with Dr. Torres. No intervention planned. Compression wraps contraindicated per Dr. Torres. (13) Hypertension: Plan: Holding Losartan, Lasix and Metolazone due to ARF. Refusing p.o. meds due to encephalopathy Start Lopressor 5 mg IV every 6 hours scheduled (14) Hyperlipidemia: Plan: Hold Atorvastatin 2nd elevation in LFTs. (15) Type II diabetes mellitus: Plan: Holding glipizide - see above. Now with refractory hypoglycemia as above. a1c 6.6% this admission. Continue Accu-Cheks (16) Afib: Plan: Rates have been in the 100s and she is not on a diltiazem drip at this time Refusing p.o. metoprolol Start Lopressor 5 mg IV every 6 hours scheduled Apixaban as ordered, however she is refusing it-hold apixaban and start heparin drip (17) UTI (urinary tract infection): Plan: ruled out cx negative (18) Hypoalbuminemia: Plan: Alb level 1.8 suggestive of protein calorie malnutrition. (19) Elevated LFTs: Plan: suspect 2nd to right-sided CHF leading to hepatic congestion. Fairly stable from previous (20) Hyperkalemia: Plan: s/p multiple doses of kayexalate. refractory. Now improving after starting dialysis Follow BMP Continue dialysis (21) Brain lesion: Plan: Meningioma noted on CT head similar to previous MRI 3 weeks ago (22) DVT prophylaxis: Plan: Hold Eliquis as is refusing p.o. meds and start heparin drip Disposition-continued stay on PCU Prognosis very guarded Plan: appreciate nephrology and sweat band sewer support DNR/DNI Admission and Anticipated Discharge Date Admission Date: March 03, 2021 Subjective Pt was noted to have worsening confusion overnight by nursing. I was notified by RN that sh ehad a possible right facial droop after return from HD today. I cam eot see her and did not note a facial droop but she could not answer my questions appropriately. SHe repeated the word "no" and become tearful. When I did give her reassurance, she then smiled and shook her head up and down. She did answer "yes" to knowing where she was, but then could not tell me where she was. Review of notes shows she has become more encephalopathic over the last 2-3 days at least. She refused her medications last night and this AM. Glucose checked and was 80, HR 100s and BP 150s systolic at time of my assessment. Review of Systems Review of Systems: Unobtainable due to cognitive status Physical Exam Constitutional: WD/WN, vitals as above + ill appearing Eyes: PERRL, conjunctivae normal, anicteric sclerae ENMT: external ear and nose normal, oropharynx normal Neck: trachea midline, no thyromegaly + abnormal visual inspection (Dialysis catheter in the right IJ in place) Respiratory: normal respiratory effort Auscultation: + diminished lung sounds (At the bases); no wheezes Cardiovascular: Rate/Rhythm: + tachycardic and + irregularly irregular Heart Sounds: no murmur Extremities: + edema (2-3+ pitting edema with chronic venous stasis bilateral legs) Chest (Breasts): Chest: normal inspection of chest Gastrointestinal (Abdomen): normal bowel sounds, soft, nontender, no hepatosplenomegaly Musculoskeletal: Extremities: no cyanosis and no clubbing Skin: no rashes, warm and dry + lesion (Multiple venous ulcers on legs bilaterally) Neurologic: PERRL, EOMI, accommodation nl, no face palsy, no dysarthria moves all extremities and awake; no focal motor deficits Is confused and tearful, answers yes and no questions only and repeats herself with the phrase "no" Is moving all extremities and no facial droop noted, does follow most commands Psychiatric: Orientation: alert; + not oriented x 3 Genitourinary: Arriaga catheter in place draining yellow urine Lymphatic: + lymphedema Results & Data Results & Data ([facility]) Vital Signs (Past 12 Hours) Vital Signs Temp Pulse Pulse Pulse Resp BP BP 03/07/21 13:07 36.5 C 89 154/88 H 03/07/21 13:03 84 174/84 H 03/07/21 12:40 85 151/98 H 03/07/21 12:20 89 159/101 H 03/07/21 12:00 88 166/96 H 03/07/21 11:40 95 H 153/87 H 03/07/21 11:20 95 H 149/100 H 03/07/21 11:00 101 H 163/94 H 03/07/21 10:40 94 H 144/95 H 03/07/21 10:20 75 141/99 H 03/07/21 10:00 79 152/96 H 03/07/21 09:40 94 H 168/101 H 03/07/21 09:20 99 H 172/100 H 03/07/21 08:59 86 150/100 H 03/07/21 08:53 36.5 C 86 03/07/21 08:00 83 03/07/21 07:41 36.5 C 97 H 18 133/95 03/07/21 04:17 36.5 C 101 H 18 145/97 H Pulse Ox 03/07/21 13:07 03/07/21 13:03 03/07/21 12:40 03/07/21 12:20 03/07/21 12:00 03/07/21 11:40 03/07/21 11:20 03/07/21 11:00 03/07/21 10:40 03/07/21 10:20 03/07/21 10:00 03/07/21 09:40 03/07/21 09:20 03/07/21 08:59 03/07/21 08:53 03/07/21 08:00 03/07/21 07:41 98 03/07/21 04:17 100 Laboratory Results 03/07/21 03/07/21 03/07/21 Range/Units 20:20 16:26 13:46 WBC (4.8-10.8) K/uL RBC (4.2-5.4) M/uL Hgb (12.0-16.0) g/dL Hct (37-47) % MCV (80-100) fL MCH (25-34) pg MCHC (32-36) g/dL RDW Std Deviation (36.4-46.3) fL RDW Coeff of Elissa (11.5-14.5) % Plt Count (130-400) K/uL MPV (7.4-10.4) fL Immature Gran % (Auto) % Neut % (Auto) % Lymph % (Auto) % Clark % (Auto) % Eos % (Auto) % Baso % (Auto) % Neut # (Auto) (1.4-6.5) K/uL Lymph # (Auto) (1.2-3.4) K/uL Clark # (Auto) (0.11-0.59) K/uL Eos # (Auto) (0-0.5) K/uL Baso # (Auto) (0-0.2) K/uL Immature Gran # (Auto) (0.00-0.02) K/uL Sodium (136-145) mmol/L Potassium (3.5-5.1) mmol/L Chloride (98-107) mmol/L Carbon Dioxide (21-32) mmol/L Anion Gap (3-11) BUN (7-18) mg/dl Creatinine (0.6-1.2) mg/dl Est Cr Clr Drug Dosing ml/min Est GFR ( Amer) ml/min Est GFR (Non-Af Amer) ml/min BUN/Creatinine Ratio (10-20) Glucose (70-99) mg/dl POC Glucose 98 123 H 80 (70-99) mg/dl Calcium (8.5-10.1) mg/dl Phosphorus (2.5-4.9) mg/dl Total Bilirubin (0.2-1) mg/dl AST (15-37) U/L ALT (12-78) U/L Alkaline Phosphatase (45-117) U/L Total Protein (6.4-8.2) gm/dl Albumin (3.4-5.0) gm/dl Globulin (2.5-4.0) gm/dl Albumin/Globulin Ratio (0.9-2) Hep B Core IgM Ab (NON-REACTIVE) 03/07/21 03/07/21 03/07/21 Range/Units 07:37 06:23 06:23 WBC 9.44 (4.8-10.8) K/uL RBC 4.59 (4.2-5.4) M/uL Hgb 13.7 (12.0-16.0) g/dL Hct 40.5 (37-47) % MCV 88.2 (80-100) fL MCH 29.8 (25-34) pg MCHC 33.8 (32-36) g/dL RDW Std Deviation 62.8 H (36.4-46.3) fL RDW Coeff of Elissa 19.7 H (11.5-14.5) % Plt Count 171 (130-400) K/uL MPV 10.2 (7.4-10.4) fL Immature Gran % (Auto) 0.4 % Neut % (Auto) 76.1 % Lymph % (Auto) 10.8 % Clark % (Auto) 12.6 % Eos % (Auto) 0.1 % Baso % (Auto) 0.0 % Neut # (Auto) 7.18 H (1.4-6.5) K/uL Lymph # (Auto) 1.02 L (1.2-3.4) K/uL Clark # (Auto) 1.19 H (0.11-0.59) K/uL Eos # (Auto) 0.01 (0-0.5) K/uL Baso # (Auto) 0.00 (0-0.2) K/uL Immature Gran # (Auto) 0.04 H (0.00-0.02) K/uL Sodium 131 L (136-145) mmol/L Potassium 4.7 (3.5-5.1) mmol/L Chloride 97 L (98-107) mmol/L Carbon Dioxide 21 (21-32) mmol/L Anion Gap 13.0 H (3-11) BUN 59 H (7-18) mg/dl Creatinine 4.51 H* (0.6-1.2) mg/dl Est Cr Clr Drug Dosing 10.1 ml/min Est GFR ( Amer) 10.0 ml/min Est GFR (Non-Af Amer) 8.6 ml/min BUN/Creatinine Ratio 13.4 (10-20) Glucose 92 (70-99) mg/dl POC Glucose 94 (70-99) mg/dl Calcium 8.2 L (8.5-10.1) mg/dl Phosphorus 7.0 H (2.5-4.9) mg/dl Total Bilirubin (0.2-1) mg/dl AST (15-37) U/L ALT (12-78) U/L Alkaline Phosphatase (45-117) U/L Total Protein (6.4-8.2) gm/dl Albumin 1.9 L (3.4-5.0) gm/dl Globulin (2.5-4.0) gm/dl Albumin/Globulin Ratio (0.9-2) Hep B Core IgM Ab (NON-REACTIVE) 03/07/21 03/06/21 03/06/21 Range/Units 04:09 23:40 22:19 WBC (4.8-10.8) K/uL RBC (4.2-5.4) M/uL Hgb (12.0-16.0) g/dL Hct (37-47) % MCV (80-100) fL MCH (25-34) pg MCHC (32-36) g/dL RDW Std Deviation (36.4-46.3) fL RDW Coeff of Elissa (11.5-14.5) % Plt Count (130-400) K/uL MPV (7.4-10.4) fL Immature Gran % (Auto) % Neut % (Auto) % Lymph % (Auto) % Clark % (Auto) % Eos % (Auto) % Baso % (Auto) % Neut # (Auto) (1.4-6.5) K/uL Lymph # (Auto) (1.2-3.4) K/uL Clark # (Auto) (0.11-0.59) K/uL Eos # (Auto) (0-0.5) K/uL Baso # (Auto) (0-0.2) K/uL Immature Gran # (Auto) (0.00-0.02) K/uL Sodium 132 L (136-145) mmol/L Potassium 4.3 D (3.5-5.1) mmol/L Chloride 96 L (98-107) mmol/L Carbon Dioxide 24 (21-32) mmol/L Anion Gap 12.0 H (3-11) BUN 61 H (7-18) mg/dl Creatinine 4.43 H D (0.6-1.2) mg/dl Est Cr Clr Drug Dosing 10.6 ml/min Est GFR ( Amer) 10.2 ml/min Est GFR (Non-Af Amer) 8.8 ml/min BUN/Creatinine Ratio 13.7 (10-20) Glucose 102 H (70-99) mg/dl POC Glucose 91 89 (70-99) mg/dl Calcium 8.2 L (8.5-10.1) mg/dl Phosphorus (2.5-4.9) mg/dl Total Bilirubin 1.5 H (0.2-1) mg/dl AST 55 H (15-37) U/L ALT 32 (12-78) U/L Alkaline Phosphatase 175 H (45-117) U/L Total Protein 7.7 (6.4-8.2) gm/dl Albumin 1.9 L (3.4-5.0) gm/dl Globulin 5.8 H (2.5-4.0) gm/dl Albumin/Globulin Ratio 0.3 L (0.9-2) Hep B Core IgM Ab (NON-REACTIVE) 03/06/21 Range/Units 11:11 WBC (4.8-10.8) K/uL RBC (4.2-5.4) M/uL Hgb (12.0-16.0) g/dL Hct (37-47) % MCV (80-100) fL MCH (25-34) pg MCHC (32-36) g/dL RDW Std Deviation (36.4-46.3) fL RDW Coeff of Elissa (11.5-14.5) % Plt Count (130-400) K/uL MPV (7.4-10.4) fL Immature Gran % (Auto) % Neut % (Auto) % Lymph % (Auto) % Clark % (Auto) % Eos % (Auto) % Baso % (Auto) % Neut # (Auto) (1.4-6.5) K/uL Lymph # (Auto) (1.2-3.4) K/uL Clark # (Auto) (0.11-0.59) K/uL Eos # (Auto) (0-0.5) K/uL Baso # (Auto) (0-0.2) K/uL Immature Gran # (Auto) (0.00-0.02) K/uL Sodium (136-145) mmol/L Potassium (3.5-5.1) mmol/L Chloride (98-107) mmol/L Carbon Dioxide (21-32) mmol/L Anion Gap (3-11) BUN (7-18) mg/dl Creatinine (0.6-1.2) mg/dl Est Cr Clr Drug Dosing ml/min Est GFR ( Amer) ml/min Est GFR (Non-Af Amer) ml/min BUN/Creatinine Ratio (10-20) Glucose (70-99) mg/dl POC Glucose (70-99) mg/dl Calcium (8.5-10.1) mg/dl Phosphorus (2.5-4.9) mg/dl Total Bilirubin (0.2-1) mg/dl AST (15-37) U/L ALT (12-78) U/L Alkaline Phosphatase (45-117) U/L Total Protein (6.4-8.2) gm/dl Albumin (3.4-5.0) gm/dl Globulin (2.5-4.0) gm/dl Albumin/Globulin Ratio (0.9-2) Hep B Core IgM Ab NON-REACTIVE (NON-REACTIVE) Diagnostic Findings Head CT 03/07/21 13:[address] DOSE: 537.48 mGy.cm HISTORY: expressive aphasia,r/o stroke TECHNIQUE: Multiaxial CT images of the head were performed without the use of intravenous contrast. Automated exposure control was utilized for this study. A dose lowering technique was utilized adhering to the principles of ALARA. Comparison: Head CT 02/15/2021. Findings: The paranasal sinuses and mastoid air cells are clear. The calvarium and skull base are intact. There is no hematoma, midline shift, acute infarct. White matter hypodensity is nonspecific but suggestive of microvascular ischemic change. The ventricles and sulci demonstrate mild age-related involutional changes. No change in the left frontal 2.7 x 1.0 cm extra-axial lesion. This favors a meningioma. Impression: No significant change compared to the prior study. No acute intracranial abnormality. ACT 112: Negative or not required by law. Electronically signed by: Bartolome Butcher M.D. 03/07/2021 2:54 PM PG Care Time/CCT Total # of Minutes Spent Total Time Spent with Patient: Total time spent is greater than 50% in coordination of care (as documented) at patient's floor/unit and/or counseling patient: Coding Level of Care Code 18666 Subseq Hosp Care Lvl 3 Diagnoses JOSHUA (acute kidney injury) N17.9 Acute respiratory failure with hypoxia J96.01 Hypoglycemia E16.2 Metabolic encephalopathy G93.41 Hematuria R31.9 Cellulitis L03.119 Laterality: unspecified laterality Site of cellulitis: extremity Site of cellulitis of extremity: lower extremity CHF (congestive heart failure) I50.813 Heart failure chronicity: acute on chronic Heart failure type: right-sided CAD, multiple vessel I25.10 Venous stasis ulcer of both lower extremities without varicose veins I87.2; L97.919; L97.929 Lymphedema I89.0 Chronic venous insufficiency of lower extremity I87.2 PAD (peripheral artery disease) I73.9 Hypertension I10 Hyperlipidemia E78.5 Type II diabetes mellitus E11.9 Afib I48.91 UTI (urinary tract infection) N39.0 Hypoalbuminemia E88.09 Elevated LFTs R79.89 DVT prophylaxis Z29.9 Hyperkalemia E87.5 Brain lesion G93.9 (1) CHF (congestive heart failure) Heart failure chronicity: acute on chronic Heart failure type: right-sided Qualified Code(s): I50.813 - Acute on chronic right heart failure (2) Cellulitis Laterality: unspecified laterality Site of cellulitis: extremity Site of cellulitis of extremity: lower extremity Qualified Code(s): L03.119 - Cellulitis of unspecified part of limb
--- NOTE | 2021-03-07 14:56 | CT Scan Report ---
HEAD CT NONCONTRAST CT DOSE: 537.48 mGy.cm HISTORY: expressive aphasia,r/o stroke TECHNIQUE: Multiaxial CT images of the head were performed without the use of intravenous contrast. A utomated exposure control was utilized for this study. A dose lowering technique was utilized adheri ng to the principles of ALARA. Comparison: Head CT 02/15/2021. Findings: The paranasal sinuses and mastoid air cells are clear. The calvarium and skull base are int act. There is no hematoma, midline shift, acute infarct. White matter hypodensity is nonspecific but suggestive of microvascular ischemic change. The ventricles and sulci demonstrate mild age-related in volutional changes. No change in the left frontal 2.7 x 1.0 cm extra-axial lesion. This favors a meni ngioma. Impression: No significant change compared to the prior study. No acute intracranial abnormality. ACT 112: Negative or not required by law. Electronically signed by: Bartolome Butcher M.D. 03/07/2021 2:54 PM
[2021-03-07] MEDS ORDERED: Heparin IV Adult Wt-Based Standard *NO* Bolus Protocol IV ONE (22:39)
[2021-03-07] MEDS: methylPREDNISolone 60 MG in SYRINGE 0 ML IV SCH (23:34)
[2021-03-07] MEDS: METOPROLOL TARTRATE 1 MG/ML VIAL IV SCH (23:34)
[2021-03-08] MEDS: INSULIN ASPART 100 UNITS/ML 3 ML PEN SC SCH ×6 (00:15→20:31)
[2021-03-08 00:19] LABS: INR 1.6 (0.9-1.1); Partial Thromboplastin Ratio 1.1; Partial Thromboplastin Time 29.8 Seconds (21.0-31.0); Prothrombin Time 15.7 Seconds (9.0-12.0)
[2021-03-08] MEDS: HEPARIN SODIUM/DEXTROSE 25,000 UNITS/500 ML BAG IV SCH (00:22)
[2021-03-08] MEDS: METOPROLOL TARTRATE 1 MG/ML VIAL IV SCH ×4 (06:09→20:49)
[2021-03-08 07:09] LABS: Eosinophils # (auto) 0.01 K/uL (0-0.5); Eosinophils % (auto) 0.1 %; Hematocrit (blood only) 42.7 % (37-47); Hemoglobin 14.4 g/dL (12.0-16.0); Immature Granulocytes # (auto) 0.03 K/uL (0.00-0.02); Immature Granulocytes % (auto) 0.3 %; Lymphocytes # (auto) 0.56 K/uL (1.2-3.4); Lymphocytes % (auto) 6.3 %; Mean Corpuscular Hemoglobin 30.1 pg (25-34); Mean Corpuscular Hgb Conc 33.7 g/dL (32-36); Mean Corpuscular Volume 89.3 fL (80-100); Mean Platelet Volume 10.5 fL (7.4-10.4); Monocytes % (auto) 3.4 %; Neutrophils % (auto) 89.9 %; Platelet Count 182 K/uL (130-400); RDW Standard Deviation 64.3 fL (36.4-46.3); Red Blood Count 4.78 M/uL (4.2-5.4)
[2021-03-08 07:33] LABS: Anisocytosis Present; Echinocytes 2+
[2021-03-08 07:37] LABS: Partial Thromboplastin Ratio 4.5
[2021-03-08 07:42] LABS: Partial Thromboplastin Time 119.3 Seconds (21.0-31.0)
[2021-03-08 07:59] LABS: Albumin Level 1.9 gm/dl (3.4-5.0); BUN Creatinine Ratio 11.2 (10-20); Calcium 8.1 mg/dl (8.5-10.1); Creatinine Clr Calc Pharmacy 13.7 ml/min; Est GFR (African American) 13.7 ml/min; Est GFR (Non-African American) 11.8 ml/min; Phosphorus 6.1 mg/dl (2.5-4.9); Potassium 4.2 mmol/L (3.5-5.1)
[2021-03-08] MEDS: CLOPIDOGREL BISULFATE 75 MG TAB PO SCH (09:16)
--- NOTE | 2021-03-08 10:26 | Nephrology Progress Note ---
Date of Service March 08, 2021 Assessment & Plan (1) JOSHUA (acute kidney injury): (2) Hyperkalemia: (3) Hyponatremia: (4) Metabolic acidosis: (5) Hematuria: Plan: 80-year-old female with stage IIIA CKD, b/l cr 1.3-1.5, admitted to the hospital with confusion hypoglycemia and JOSHUA, no postrenal obstruction. Urinalysis with proteinuria, hematuria, pyuria without bacteriuria. Recently started on a cephalosporin antibiotic a week ago and prior to that she received gentamicin during last hospitalization in early February. Since then p.o. intake has been poor and overall has been feeling poorly. Found to have JOSHUA with creatinine up to 5, multiple electrolyte abnormality, anuria and volume overload. JOSHUA could be secondary to AIN related to antibiotic started a week ago, other differentials include acute GN, post infectious versus other etiology. LUCÍA slightly positive, normal complement, negative ANCA. Had 1st dialysis on 03/06/2021 with right IJ temporary dialysis catheter. Remained anuric with no sign of renal recovery yet. serology still pending. h as been off of all antibiotic since she has been afebrile, no leukocytosis. --dialysis for 4 hours today, 2 L UF --monitor intake output --Hold dialysis tomorrow and monitor for renal recovery and possibly resume dialysis Saturday after morning labs. --continue prednisone 60 mg p.o. daily for now, if no improvement , will DC in next few days. --left arm nephrology precaution, dose meds for eGFR less than 10 -- discussed with her son over telephone and gave detailed update. Will follow Admission and Anticipated Discharge Date Admission Date: March 03, 2021 Francisco Irvin was seen during dialysis treatment this morning. She Was much more awake and alert today. Answering questions. Denies shortness or breath, chest pain, fever or chills. Appetite remains poor. Tolerating dialysis, blood pressure remained elevated. Remained anuric with no sign of recovery of kidney function. Review of Systems Review of Systems: detailed review of system was otherwise unremarkable. Physical Exam Constitutional: + ill appearing and + lethargic; no acute distress Respiratory: no respiratory distress Auscultation: + diminished lung sounds Cardiovascular: RRR, no murmur, no edema Neurologic: awake; no focal motor deficits Psychiatric: Orientation: alert Apperance: appeared stated age Results & Data ([facility]) Vital Signs (Past 12 Hours) Vital Signs Temp Pulse Pulse Pulse Resp BP BP 03/08/21 10:00 86 150/104 H 03/08/21 09:40 66 159/108 H 03/08/21 09:20 80 163/100 H 03/08/21 09:00 100 H 165/83 H 03/08/21 08:50 36.4 C L 80 03/08/21 07:46 36.4 C L 111 H 16 140/94 03/08/21 03:25 36.2 C L 90 16 160/116 H 03/07/21 23:34 94 H 145/105 H 03/07/21 23:22 36.0 C L 99 H 14 145/105 H Pulse Ox 03/08/21 10:00 03/08/21 09:40 03/08/21 09:20 03/08/21 09:00 03/08/21 08:50 03/08/21 07:46 96 03/08/21 03:25 96 03/07/21 23:34 03/07/21 23:22 98 PG Care Time/CCT Total # of Minutes Spent Total Time Spent with Patient: Total time spent is greater than 50% in coordination of care (as documented) at patient's floor/unit and/or counseling patient: Coding Level of Care Code 85371 Subseq Hosp Care Lvl 3 Diagnoses JOSHUA (acute kidney injury) N17.9 Hyperkalemia E87.5 Hyponatremia E87.1 Metabolic acidosis E87.2 Hematuria R31.9
[2021-03-08 10:51] LABS: Creatinine Ur 29 mg/dL (20-275); Protein, Urine Random 441 mg/dL (5-24); Ur Protein/Creat Ratio mg/g 15207 mg/g creat (21-161); Urine Abnormal Protein Band 1 DNR mg/dL (NONE DETECTED); Urine Abnormal Protein Band 2 DNR mg/dL (NONE DETECTED); Urine Abnormal Protein Band 3 DNR mg/dL (NONE DETECTED); Urine Protein/Creatinine Ratio 15.207 (0.021-0.161)
[2021-03-08 10:51] LABS: Alpha 1 Globulin 0.5 g/dL (0.2-0.3); Alpha 2 Globulin 0.7 g/dL (0.5-0.9); Beta-1-Globulin 0.4 g/dL (0.4-0.6); Beta-2-Globulin 0.6 g/dL (0.2-0.5); Gamma Globulin 2.1 g/dL (0.8-1.7); Monoclonal Protein Band 1 DNR g/dL (NONE DETECTED); Monoclonal Protein Band 2 DNR g/dL (NONE DETECTED); Monoclonal Protein Band 3 DNR g/dL (NONE DETECTED); Total Protein 7.4 g/dL (6.1-8.1)
[2021-03-08] MEDS: methylPREDNISolone 60 MG in SYRINGE 0 ML IV SCH ×2 (13:45→21:28)
[2021-03-08 18:40] LABS: Partial Thromboplastin Ratio > 5.3; Partial Thromboplastin Time > 139.0 Seconds (21.0-31.0)
[2021-03-08 21:32] LABS: Partial Thromboplastin Ratio 1.8
--- NOTE | 2021-03-08 22:27 | Hospitalist Progress Note ---
Date of Service March 08, 2021 Assessment & Plan (1) JOSHUA (acute kidney injury): Plan: Interstitial nephritis suspected -- 2nd to cefiderocol? Can't rule out autoimmune causes, multiple myeloma, etc. Cefiderocol d/c on 03/05. Steroids initiated 03/05. Continue such. Prednisone changed to IV steroids due to inconsistent taking of her PO meds. Temporary HD catheter placed - right IJ - on 03/06. First HD session 03/06. 2nd HD session 03/07. 3rd HD sessions 03/08. No HD planned for tomorrow per nephrology. Awaiting renal recovery. Awaiting autoimmune w/u, SPEP, etc. (2) Acute respiratory failure with hypoxia: Plan: 2nd to pulmonary edema/volume overload in setting of #1 (and baseline cor pulmonale). O2 via NC. Mildly improved since first HD session on Saturday. (3) Hypoglycemia: Plan: Likely 2nd to sulfonylurea retention in the setting of JOSHUA. Octreotide d/c on 03/07. Steroids for #1 will help. Wean D10W to 10cc/hr, then off as tolerated. (4) Metabolic encephalopathy: Plan: Ongoing. Multifactorial, but JOSHUA/uremia likely largest factor. Supportive care. Avoid benzos/sedatives. (5) Hematuria: Plan: Likely arriaga trauma in the setting of eliquis & plavix use. Urology has seen - no Rx needed. Eliquis on hold. Remains on plavix. (6) Cellulitis: Plan: RLE. IV cefiderocol previously employed as recommended by [facility] for MDR pseudomonas that grew on recent cultures. Concern that cefiderocol may have caused the JOSHUA. This has been discontinued. ID consulted again - observe off of antibiotics. (7) CHF (congestive heart failure): Plan: Decompensated. Acute/chronic right-sided CHF in the setting of JOSHUA. s/p HD x 3 sessions since Saturday. (8) CAD, multiple vessel: Plan: No evidence of ACS or ischemia. Continue Plavix; Continue Metoprolol. (9) Venous stasis ulcer of both lower extremities without varicose veins: Plan: Recurrent venous stasis ulcers. Follows with [facility]. Wound care consult placed for dressings, etc. (10) Lymphedema: Plan: Chronic Compression contraindicated per cardiology 2nd PAD (11) Chronic venous insufficiency of lower extremity: Plan: history of bilateral GSV Venaseal with Dr. Tk Torres. (12) PAD (peripheral artery disease): Plan: Follows with Dr. Torres. No intervention planned. Compression wraps contraindicated per Dr. Torres. (13) Hypertension: Plan: Holding Losartan, Lasix and Metolazone due to ARF. Continue metoprolol. Titrate due to refractory BPs. (14) Hyperlipidemia: Plan: Hold Atorvastatin (15) Type II diabetes mellitus: Plan: Holding glipizide - see above. (16) Afib: Plan: change metoprolol to 5mg IV q4h if not responding to this -- cardizem infusion eliquis on hold as patient has been inconsistently taking her meds here now on heparin drip (17) Hypoalbuminemia: Plan: ongoing severe anorexia (18) Elevated LFTs: Plan: suspect 2nd to right-sided CHF leading to hepatic congestion. repeat LFTs in am. (19) DVT prophylaxis: Plan: eliquis is on hold heparin drip in [place] Plan: pt's son updated by phone this evening can attempt PT/OT tomorrow Admission and Anticipated Discharge Date Admission Date: March 03, 2021 Subjective patient awake during the visit, could answer questions, but still very confused did not know she was in the hospital and could not name the year or month tele - ongoing a.fib, rates low 100s very poor appetite - little intake during the visit she was being dialyzed she kept reaching for the dialysis catheter (right IJ) Review of Systems Review of Systems: Unobtainable due to cognitive status Physical Exam Physical Exam: Gen: sickly, altered mental status, NAD neck: right IJ HD catheter in place mouth: MM still dry heart: tachy, s1 s2, irregularly irregular, no murmur lungs: decreased BS bases, mild rales b/l abd: soft, BS+, NT, ND ext: edema modestly improved from my prior exam on Saturday; pulses b/l feet 2+ skin: erythematous macularpapular rash on back, torso - improved; b/l shins -- erythema/stasis change from the mid-raya down to just above ankles Results & Data Results & Data ([facility]) Vital Signs (Past 12 Hours) Vital Signs Temp Pulse Pulse Pulse Resp BP BP 03/08/21 20:49 103 H 146/117 H 07/28/21 19:17 36.0 C L 101 H 18 146/117 H 03/08/21 17:13 112 H 145/79 H 03/08/21 15:23 36.4 C L 105 H 17 145/79 H 03/08/21 13:49 36.4 C L 80 146/89 H 03/08/21 13:41 102 H 140/94 03/08/21 13:10 101 H 171/104 H 03/08/21 12:40 76 165/95 H 03/08/21 12:20 76 163/103 H 03/08/21 12:00 100 H 116/85 03/08/21 11:40 85 102/59 L 03/08/21 11:20 80 111/82 03/08/21 11:00 94 H 145/94 H 03/08/21 10:40 93 H 162/107 H Pulse Ox 03/08/21 20:49 03/08/21 19:17 97 03/08/21 17:13 03/08/21 15:23 98 03/08/21 13:49 03/08/21 13:41 03/08/21 13:10 03/08/21 12:40 03/08/21 12:20 03/08/21 12:00 03/08/21 11:40 03/08/21 11:20 03/08/21 11:00 03/08/21 10:40 Laboratory Results Laboratory Results - last 24 hr 03/05/21 03/06/21 03/07/21 15:35 11:11 23:55 WBC RBC Hgb Hct MCV MCH MCHC RDW Std Deviation RDW Coeff of Elissa Plt Count MPV Immature Gran % (Auto) Neut % (Auto) Lymph % (Auto) Vil[place] % (Auto) Eos % (Auto) Baso % (Auto) Neut # (Auto) Lymph # (Auto) [place] # (Auto) Eos # (Auto) Baso # (Auto) Immature Gran # (Auto) Anisocytosis Echinocytes PT 15.7 H INR 1.6 H APTT 29.8 PTT Ratio 1.1 Sodium Potassium Chloride Carbon Dioxide Anion Gap BUN Creatinine Est Cr Clr Drug Dosing Est GFR ( Amer) Est GFR (Non-Af Amer) BUN/Creatinine Ratio Glucose POC Glucose Calcium Phosphorus Total Protein (PEP) 7.4 Albumin Albumin (PEP) 3.0 L Djcrh-7-Xeousvmek 0.5 H Yizvk-6-Vvozgthpq 0.7 Acaz-5-Kkprsevx 0.4 Xgkc-1-Iudurpxn 0.6 H Gamma Globulins 2.1 H Monoclonal Peak 3 DNR Ser Monoclonl Protein DNR Ser Monoclonal Prot 2 DNR PEP Interpretation SEE NOTE U Random Total Protein 441 H Ur Creatinine mg/dL 29 Protein/Creatinin Ratio 15.207 H Urine Albumin (%) 24 U Umted-7-Lrwoemdy (%) 2 U Rokhq-3-Rcgzfwyp (%) 6 U Beta Globulin (%) 43 U Gamma Globulin (%) 24 U Abnormal Prot Band 1 DNR U Abnormal Prot Band 2 DNR U Abnormal Prot Band 3 DNR Urine PEP Interpret SEE NOTE 03/08/21 03/08/21 03/08/21 00:14 04:32 06:39 WBC 8.90 RBC 4.78 Hgb 14.4 Hct 42.7 MCV 89.3 MCH 30.1 MCHC 33.7 RDW Std Deviation 64.3 H RDW Coeff of Elissa 20.0 H Plt Count 182 MPV 10.5 H Immature Gran % (Auto) 0.3 Neut % (Auto) 89.9 Lymph % (Auto) 6.3 Vilas % (Auto) 3.4 Eos % (Auto) 0.1 Baso % (Auto) 0.0 Neut # (Auto) 8.00 H Lymph # (Auto) 0.56 L [place] # (Auto) 0.30 Eos # (Auto) 0.01 Baso # (Auto) 0.00 Immature Gran # (Auto) 0.03 H Anisocytosis Present Echinocytes 2+ PT INR APTT PTT Ratio Sodium Potassium Chloride Carbon Dioxide Anion Gap BUN Creatinine Est Cr Clr Drug Dosing Est GFR ( Amer) Est GFR (Non-Af Amer) BUN/Creatinine Ratio Glucose POC Glucose 113 H 163 H Calcium Phosphorus Total Protein (PEP) Albumin Albumin (PEP) Xtydv-2-Yrefjascb Ejnmk-6-Pbxmxoype Atbm-9-Vstimryf Nyfj-0-Oswyqjse Gamma Globulins Monoclonal Peak 3 Ser Monoclonl Protein Ser Monoclonal Prot 2 PEP Interpretation U Random Total Protein Ur Creatinine mg/dL Protein/Creatinin Ratio Urine Albumin (%) U Bboxp-3-Aubszmlj (%) U Bhcyl-2-Wsdlogbw (%) U Beta Globulin (%) U Gamma Globulin (%) U Abnormal Prot Band 1 U Abnormal Prot Band 2 U Abnormal Prot Band 3 Urine PEP Interpret 03/08/21 03/08/21 03/08/21 06:39 06:39 08:11 WBC RBC Hgb Hct MCV MCH MCHC RDW Std Deviation RDW Coeff of Elissa Plt Count MPV Immature Gran % (Auto) Neut % (Auto) Lymph % (Auto) Vil[place] % (Auto) Eos % (Auto) Baso % (Auto) Neut # (Auto) Lymph # (Auto) [place] # (Auto) Eos # (Auto) Baso # (Auto) Immature Gran # (Auto) Anisocytosis Echinocytes PT INR APTT 119.3 H* PTT Ratio 4.5 Sodium 130 L Potassium 4.2 Chloride 95 L Carbon Dioxide 25 Anion Gap 10.0 BUN 39 H Creatinine 3.47 H D Est Cr Clr Drug Dosing 13.7 Est GFR ( Amer) 13.7 Est GFR (Non-Af Amer) 11.8 BUN/Creatinine Ratio 11.2 Glucose 138 H POC Glucose 137 H Calcium 8.1 L Phosphorus 6.1 H Total Protein (PEP) Albumin 1.9 L Albumin (PEP) Kxxxk-9-Gonlhxdud Pakvs-9-Kicnwiqvc Rmre-2-Iofdlgfj Vlgm-3-Fkyhjbpu Gamma Globulins Monoclonal Peak 3 Ser Monoclonl Protein Ser Monoclonal Prot 2 PEP Interpretation U Random Total Protein Ur Creatinine mg/dL Protein/Creatinin Ratio Urine Albumin (%) U Zettb-4-Dqdrmaae (%) U Ipyrn-9-Yobtgkif (%) U Beta Globulin (%) U Gamma Globulin (%) U Abnormal Prot Band 1 U Abnormal Prot Band 2 U Abnormal Prot Band 3 Urine PEP Interpret 03/08/21 03/08/21 03/08/21 12:39 14:52 16:21 WBC RBC Hgb Hct MCV MCH MCHC RDW Std Deviation RDW Coeff of Elissa Plt Count MPV Immature Gran % (Auto) Neut % (Auto) Lymph % (Auto) [place] % (Auto) Eos % (Auto) Baso % (Auto) Neut # (Auto) Lymph # (Auto) [place] # (Auto) Eos # (Auto) Baso # (Auto) Immature Gran # (Auto) Anisocytosis Echinocytes PT INR APTT Cancelled PTT Ratio Cancelled Sodium Potassium Chloride Carbon Dioxide Anion Gap BUN Creatinine Est Cr Clr Drug Dosing Est GFR ( Amer) Est GFR (Non-Af Amer) BUN/Creatinine Ratio Glucose POC Glucose 108 H 142 H Calcium Phosphorus Total Protein (PEP) Albumin Albumin (PEP) Shwsa-1-Njnauqvby Dqbnf-4-Lxlczaqud Glap-3-Qwspumzs Hkvd-8-Quecqijw Gamma Globulins Monoclonal Peak 3 Ser Monoclonl Protein Ser Monoclonal Prot 2 PEP Interpretation U Random Total Protein Ur Creatinine mg/dL Protein/Creatinin Ratio Urine Albumin (%) U Jzgyg-0-Upmiymkl (%) U Oqrte-8-Lzaqavpm (%) U Beta Globulin (%) U Gamma Globulin (%) U Abnormal Prot Band 1 U Abnormal Prot Band 2 U Abnormal Prot Band 3 Urine PEP Interpret 03/08/21 03/08/21 03/08/21 17:02 18:01 19:32 WBC RBC Hgb Hct MCV MCH MCHC RDW Std Deviation RDW Coeff of Elissa Plt Count MPV Immature Gran % (Auto) Neut % (Auto) Lymph % (Auto) [place] % (Auto) Eos % (Auto) Baso % (Auto) Neut # (Auto) Lymph # (Auto) [place] # (Auto) Eos # (Auto) Baso # (Auto) Immature Gran # (Auto) Anisocytosis Echinocytes PT INR APTT Cancelled > 139.0 H* Cancelled PTT Ratio Cancelled > 5.3 Cancelled Sodium Potassium Chloride Carbon Dioxide Anion Gap BUN Creatinine Est Cr Clr Drug Dosing Est GFR ( Amer) Est GFR (Non-Af Amer) BUN/Creatinine Ratio Glucose POC Glucose Calcium Phosphorus Total Protein (PEP) Albumin Albumin (PEP) Ospqy-6-Ircigzafc Ncmiq-0-Svlniaxci Gybt-1-Tbtryaas Nrrs-2-Veiiyulg Gamma Globulins Monoclonal Peak 3 Ser Monoclonl Protein Ser Monoclonal Prot 2 PEP Interpretation U Random Total Protein Ur Creatinine mg/dL Protein/Creatinin Ratio Urine Albumin (%) U Yzptp-0-Cmgczewf (%) U Dfdud-0-Ucpumuyo (%) U Beta Globulin (%) U Gamma Globulin (%) U Abnormal Prot Band 1 U Abnormal Prot Band 2 U Abnormal Prot Band 3 Urine PEP Interpret 03/08/21 03/08/21 20:03 20:45 WBC RBC Hgb Hct MCV MCH MCHC RDW Std Deviation RDW Coeff of Elissa Plt Count MPV Immature Gran % (Auto) Neut % (Auto) Lymph % (Auto) [place] % (Auto) Eos % (Auto) Baso % (Auto) Neut # (Auto) Lymph # (Auto) [place] # (Auto) Eos # (Auto) Baso # (Auto) Immature Gran # (Auto) Anisocytosis Echinocytes PT INR APTT 47.0 H* PTT Ratio 1.8 Sodium Potassium Chloride Carbon Dioxide Anion Gap BUN Creatinine Est Cr Clr Drug Dosing Est GFR ( Amer) Est GFR (Non-Af Amer) BUN/Creatinine Ratio Glucose POC Glucose 142 H Calcium Phosphorus Total Protein (PEP) Albumin Albumin (PEP) Pqjnl-5-Wrisxusnl Gkvci-0-Jlwjbigzi Eqli-6-Hbjvkmse Kdpj-8-Hsagltoe Gamma Globulins Monoclonal Peak 3 Ser Monoclonl Protein Ser Monoclonal Prot 2 PEP Interpretation U Random Total Protein Ur Creatinine mg/dL Protein/Creatinin Ratio Urine Albumin (%) U Qkpex-8-Qvcwgpfd (%) U Foepz-2-Snofzudb (%) U Beta Globulin (%) U Gamma Globulin (%) U Abnormal Prot Band 1 U Abnormal Prot Band 2 U Abnormal Prot Band 3 Urine PEP Interpret PG Care Time/CCT Total # of Minutes Spent Total Time Spent with Patient: Total time spent is greater than 50% in coordinat ion of care (as documented) at patient's floor/unit and/or counseling patient: Coding Level of Care Code 16497 Subseq Hosp Care Lvl 3 Diagnoses JOSHUA (acute kidney injury) N17.9 Acute respiratory failure with hypoxia J96.01 Hypoglycemia E16.2 Metabolic encephalopathy G93.41 Hematuria R31.9 Cellulitis L03.119 Laterality: unspecified laterality Site of cellulitis: extremity Site of cellulitis of extremity: lower extremity CHF (congestive heart failure) I50.813 Heart failure chronicity: acute on chronic Heart failure type: right-sided CAD, multiple vessel I25.10 Venous stasis ulcer of both lower extremities without varicose veins I87.2; L97.919; L97.929 Lymphedema I89.0 Chronic venous insufficiency of lower extremity I87.2 PAD (peripheral artery disease) I73.9 Hypertension I10 Hyperlipidemia E78.5 Type II diabetes mellitus E11.9 Afib I48.91 Hypoalbuminemia E88.09 Elevated LFTs R79.89 DVT prophylaxis Z29.9 (1) Cellulitis Laterality: unspecified laterality Site of cellulitis: extremity Site of cellulitis of extremity: lower extremity Qualified Code(s): L03.119 - Cellulitis of unspecified part of limb (2) CHF (congestive heart failure) Heart failure chronicity: acute on chronic Heart failure type: right-sided Qualified Code(s): I50.813 - Acute on chronic right heart failure
[2021-03-08] MEDS: DEXTROSE 10% 1,000 ML IV SCH (22:56)
[2021-03-09] MEDS: INSULIN ASPART 100 UNITS/ML 3 ML PEN SC SCH ×7 (00:38→23:59)
[2021-03-09] MEDS: METOPROLOL TARTRATE 1 MG/ML VIAL IV SCH ×6 (00:41→22:35)
[2021-03-09] MEDS ORDERED: LORazepam 0.5 MG/1 ML VIAL IV STA (03:41)
[2021-03-09 04:27] LABS: Partial Thromboplastin Ratio 2.3
[2021-03-09 04:29] LABS: Partial Thromboplastin Time 61.5 Seconds (21.0-31.0)
[2021-03-09 04:31] LABS: Albumin Level 1.8 gm/dl (3.4-5.0); BUN Creatinine Ratio 9.7 (10-20); Bilirubin Direct 0.9 mg/dl (0-0.2); Calcium 8.3 mg/dl (8.5-10.1); Creatinine Clr Calc Pharmacy 15.8 ml/min; Est GFR (African American) 17.2 ml/min; Est GFR (Non-African American) 14.8 ml/min; Potassium 4.4 mmol/L (3.5-5.1)
[2021-03-09 04:34] LABS: Bilirubin,Total 1.5 mg/dl (0.2-1); Phosphorus 5.6 mg/dl (2.5-4.9); Total Protein 7.2 gm/dl (6.4-8.2)
[2021-03-09] MEDS ORDERED: methylPREDNISolone 60 MG in SYRINGE 0 ML IV SCH (09:00)
[2021-03-09] MEDS: HEPARIN SODIUM/DEXTROSE 25,000 UNITS/500 ML BAG IV SCH (09:07)
[2021-03-09] MEDS: CLOPIDOGREL BISULFATE 75 MG TAB PO SCH (09:08)
--- NOTE | 2021-03-09 10:20 | Nephrology Progress Note ---
Date of Service March 09, 2021 Assessment & Plan (1) JOSHUA (acute kidney injury): (2) Hyperkalemia: (3) Hyponatremia: (4) Metabolic acidosis: (5) Hematuria: Plan: 80-year-old female with stage IIIA CKD, b/l cr 1.3-1.5, admitted to the hospital with confusion hypoglycemia and JOSHUA, no postrenal obstruction. Urinalysis with proteinuria, hematuria, pyuria without bacteriuria. Recently started on a cephalosporin antibiotic a week ago and prior to that she received gentamicin during last hospitalization in early February. Since then p.o. intake has been poor and overall has been feeling poorly. Found to have JOSHUA with creatinine up to 5, multiple electrolyte abnormality, anuria and volume overload. JOSHUA could be secondary to AIN related to antibiotic started a week ago, other differentials include acute GN, post infectious versus other etiology. LUCÍA slightly positive, normal complement, negative ANCA. Had 1st dialysis on 03/06/2021 with right IJ temporary dialysis catheter. Remained anuric with no sign of renal recovery yet. has been off of all antibi otic since she has been afebrile, no leukocytosis. Had bdmz-hf-tzip dialysis for 3 days, tolerated UF. --Bumex 4 mg IV x1 dose today --monitor intake output --monitor for renal recovery and possibly resume dialysis tomorrow after morning labs. --continue prednisone 60 mg p.o. daily for now, if no improvement , will DC in next few days. --left arm nephrology precaution, dose meds for eGFR less than 10 --discussed with her son over telephone and gave detailed update on 03/08/21. Will follow Admission and Anticipated Discharge Date Admission Date: March 03, 2021 Francisco Irvin was seen during dialysis treatment this morning. She was awake and alert but continues to have some confusion today. Denies shortness or breath, chest pain, fever or chills. Appetite remains poor. Remained anuric with no sign of recovery of kidney function. Review of Systems Review of Systems: unremarkable Physical Exam Constitutional: + ill appearing and + lethargic; no acute distress Respiratory: no respiratory distress Auscultation: + diminished lung sounds Cardiovascular: RRR, no murmur, no edema Neurologic: awake; no focal motor deficits Psychiatric: Orientation: alert Apperance: appeared stated age Results & Data ([facility]) Vital Signs (Past 12 Hours) Vital Signs Temp Pulse Pulse Resp BP BP Pulse Ox 03/09/21 09:08 92 H 131/82 03/09/21 07:42 36.5 C 93 H 17 131/82 97 03/09/21 06:08 105 H 150/92 H 03/09/21 03:15 36.5 C 103 H 18 150/92 H 97 03/09/21 00:41 102 H 131/86 03/09/21 00:00 100 H 03/08/21 23:14 36.0 C L 106 H 13 131/86 97 PG Care Time/CCT Total # of Minutes Spent Total Time Spent with Patient: Total time spent is greater than 50% in coordination of care (as documented) at patient's floor/unit and/or counseling patient: Coding Level of Care Code 18336 Subseq Hosp Care Lvl 3 Diagnoses JOSHUA (acute kidney injury) N17.9 Hyperkalemia E87.5 Hyponatremia E87.1 Metabolic acidosis E87.2 Hematuria R31.9
[2021-03-09] MEDS ORDERED: BUMETANIDE 4 MG in SYRINGE 0 ML IV ONE (10:30)
--- NOTE | 2021-03-09 13:41 | Hospitalist Progress Note ---
Date of Service March 09, 2021 Assessment & Plan (1) JOSHUA (acute kidney injury): Plan: Interstitial nephritis suspected -- 2nd to cefiderocol? Can't rule out autoimmune causes, multiple myeloma, etc. Cefiderocol d/c on 03/05. Steroids initiated 03/05. Continue such. Prednisone changed to IV steroids due to inconsistent taking of her PO meds. Temporary HD catheter placed - right IJ - on 03/06. First HD session 03/06. 2nd HD session 03/07. 3rd HD sessions 03/08. Holding on HD today, giving IV Bumex 4mg x 1 and assess UOP May need HD again tomorrow based on response to bumex If steroids not helping, may discontinue in near future as per Nephrology LUCÍA mildly positive, ANCA negative, SPEP pending Awaiting renal recovery. (2) Acute respiratory failure with hypoxia: Plan: 2nd to pulmonary edema/volume overload in setting of #1 (and baseline cor pulmonale). O2 via NC. Improving with HD (3) Metabolic encephalopathy: Plan: Ongoing. Multifactorial, but JOSHUA/uremia likely largest factor. Improving today since I last saw her but still continues. Supportive care given, reorientation Avoid benzos/sedatives. is refusing most po-continue to encourage po intake using IV meds while refusing po meds (4) Hypoglycemia: Plan: Likely 2nd to sulfonylurea retention in the setting of JOSHUA. Octreotide d/c on 03/07. Steroids for #1 will help. Now improved and weaned off D10 (5) Hematuria: Plan: Likely arriaga trauma in the setting of eliquis & plavix use. Urology has seen - no Rx needed. Now resolved Eliquis on hold and on heparin gtt. Remains on plavix. (6) Cellulitis: Plan: RLE. Seems improved IV cefiderocol previously employed as recommended by [facility] for MDR pseudomonas that grew on recent cultures. Concern that cefiderocol may have caused the JOSHUA. This has been discontinued. ID consulted again - observe off of antibiotics. (7) CHF (congestive heart failure): Plan: Decompensated. Acute/chronic right-sided CHF in the setting of JOSHUA. s/p HD x 3 sessions since Saturday. Edema improving, pulm status improved (8) CAD, multiple vessel: Plan: No evidence of ACS or ischemia. Continue Plavix; Continue Metoprolol IV. (9) Venous stasis ulcer of both lower extremities without varicose veins: Plan: Recurrent venous stasis ulcers. Follows with [facility]. Wound care consult placed for dressings, etc. (10) Lymphedema: Plan: Chronic Compression contraindicated per cardiology 2nd PAD (11) Chronic venous insufficiency of lower extremity: Plan: history of bilateral GSV Venaseal with Dr. Tk Torres. (12) PAD (peripheral artery disease): Plan: Follows with Dr. Torres. No intervention planned. Compression wraps contraindicated per Dr. Torres. (13) Hypertension: Plan: Holding Losartan, Lasix and Metolazone due to ARF. Continue metoprolol IV scheduled. Titrate due to refractory BPs. (14) Hyperlipidemia: Plan: Hold Atorvastatin (15) Type II diabetes mellitus: Plan: Holding glipizide - see above. (16) Afib: Plan: Rates still mild tachy 90-100s continue metoprolol scheduled 5mg IV q4h if not responding to this -- cardizem infusion eliquis on hold as patient has been inconsistently taking her meds here now on heparin drip (17) Hypoalbuminemia: Plan: ongoing severe anorexia (18) Elevated LFTs: Plan: suspect 2nd to right-sided CHF leading to hepatic congestion. repeat LFTs in am. holding statin (19) DVT prophylaxis: Plan: eliquis is on hold heparin drip instead Plan: Dispo-continued stay, trial of PT if will participate Admission and Anticipated Discharge Date Admission Date: March 03, 2021 Subjective Pt much improved today since I saw her 2 days ago. Mentation improved and she is able to answer some of my questions. Says she is having pain in legs. But did not sleep all night as per nursing and has been moaning out frequently today. Received Bumex today and so far only 100mL urine in Arriaga bag.She does not know where she is. She reports she did not eat but I asked her to try later and she shook her head yes Tele with Afib, rates 90s-100s Discussed her care with Nephrology Review of Systems Review of Systems: Unobtainable due to cognitive status Physical Exam Constitutional: WD/WN, vitals as above + ill appearing Eyes: + anicteric sclerae Neck: trachea midline, no thyromegaly + abnormal visual inspection (Dialysis catheter in the right IJ in place) Respiratory: normal respiratory effort Auscultation: + diminished lung sounds (At the bases); no wheezes Cardiovascular: Rate/Rhythm: regular rate and + irregularly irregular Heart Sounds: no murmur Extremities: + edema (2+ pitting edema with chronic venous stasis bilateral legs,improved) Chest (Breasts): Chest: normal inspection of chest Gastrointestinal (Abdomen): normal bowel sounds, soft, nontender, no hepatosplenomegaly Musculoskeletal: Extremities: no cyanosis and no clubbing Skin: + lesion (Multiple venous ulcers on legs bilaterally) and + erythema (mild on legs,chronic venous stasis) Neurologic: PERRL, EOMI, accommodation nl, no face palsy, no dysarthria moves all extremities and awake; no focal motor deficits Psychiatric: Orientation: alert; + not oriented x 3 Lymphatic: + lymphedema Results & Data Results & Data ([facility]) Vital Signs (Past 12 Hours) Vital Signs Temp Pulse Pulse Resp BP BP Pulse Ox 03/09/21 12:35 98 H 116/92 03/09/21 11:06 36.5 C 90 15 116/92 96 03/09/21 09:08 92 H 131/82 03/09/21 07:42 36.5 C 93 H 17 131/82 97 03/09/21 06:08 105 H 150/92 H 03/09/21 03:15 36.5 C 103 H 18 150/92 H 97 Laboratory Results 03/09/21 03/09/21 03/09/21 Range/Units 11:03 08:51 04:01 APTT PTT Ratio Sodium (136-145) mmol/L Potassium (3.5-5.1) mmol/L Chloride (98-107) mmol/L Carbon Dioxide (21-32) mmol/L Anion Gap (3-11) BUN (7-18) mg/dl Creatinine (0.6-1.2) mg/dl Est Cr Clr Drug Dosing ml/min Est GFR ( Amer) ml/min Est GFR (Non-Af Amer) ml/min BUN/Creatinine Ratio (10-20) Glucose (70-99) mg/dl POC Glucose 173 H 212 H 193 H (70-99) mg/dl Calcium (8.5-10.1) mg/dl Phosphorus (2.5-4.9) mg/dl Total Bilirubin (0.2-1) mg/dl Direct Bilirubin (0-0.2) mg/dl AST (15-37) U/L ALT (12-78) U/L Alkaline Phosphatase (45-117) U/L Total Protein (6.4-8.2) gm/dl Albumin (3.4-5.0) gm/dl 03/09/21 03/09/21 03/09/21 Range/Units 03:55 03:55 00:14 APTT 61.5 H* PTT Ratio 2.3 Sodium 130 L (136-145) mmol/L Potassium 4.4 (3.5-5.1) mmol/L Chloride 95 L (98-107) mmol/L Carbon Dioxide 26 (21-32) mmol/L Anion Gap 9.0 (3-11) BUN 28 H (7-18) mg/dl Creatinine 2.88 H D (0.6-1.2) mg/dl Est Cr Clr Drug Dosing 15.8 ml/min Est GFR ( Amer) 17.2 ml/min Est GFR (Non-Af Amer) 14.8 ml/min BUN/Creatinine Ratio 9.7 L (10-20) Glucose 223 H (70-99) mg/dl POC Glucose 189 H (70-99) mg/dl Calcium 8.3 L (8.5-10.1) mg/dl Phosphorus 5.6 H (2.5-4.9) mg/dl Total Bilirubin 1.5 H (0.2-1) mg/dl Direct Bilirubin 0.9 H (0-0.2) mg/dl AST 39 H (15-37) U/L ALT 31 (12-78) U/L Alkaline Phosphatase 163 H (45-117) U/L Total Protein 7.2 (6.4-8.2) gm/dl Albumin 1.8 L (3.4-5.0) gm/dl 03/08/21 03/08/21 03/08/21 Range/Units 20:45 20:03 19:32 APTT 47.0 H* Cancelled PTT Ratio 1.8 Cancelled Sodium (136-145) mmol/L Potassium (3.5-5.1) mmol/L Chloride (98-107) mmol/L Carbon Dioxide (21-32) mmol/L Anion Gap (3-11) BUN (7-18) mg/dl Creatinine (0.6-1.2) mg/dl Est Cr Clr Drug Dosing ml/min Est GFR ( Amer) ml/min Est GFR (Non-Af Amer) ml/min BUN/Creatinine Ratio (10-20) Glucose (70-99) mg/dl POC Glucose 142 H (70-99) mg/dl Calcium (8.5-10.1) mg/dl Phosphorus (2.5-4.9) mg/dl Total Bilirubin (0.2-1) mg/dl Direct Bilirubin (0-0.2) mg/dl AST (15-37) U/L ALT (12-78) U/L Alkaline Phosphatase (45-117) U/L Total Protein (6.4-8.2) gm/dl Albumin (3.4-5.0) gm/dl 03/08/21 03/08/21 03/08/21 Range/Units 18:01 17:02 16:21 APTT > 139.0 H* Cancelled PTT Ratio > 5.3 Cancelled Sodium (136-145) mmol/L Potassium (3.5-5.1) mmol/L Chloride (98-107) mmol/L Carbon Dioxide (21-32) mmol/L Anion Gap (3-11) BUN (7-18) mg/dl Creatinine (0.6-1.2) mg/dl Est Cr Clr Drug Dosing ml/min Est GFR ( Amer) ml/min Est GFR (Non-Af Amer) ml/min BUN/Creatinine Ratio (10-20) Glucose (70-99) mg/dl POC Glucose 142 H (70-99) mg/dl Calcium (8.5-10.1) mg/dl Phosphorus (2.5-4.9) mg/dl Total Bilirubin (0.2-1) mg/dl Direct Bilirubin (0-0.2) mg/dl AST (15-37) U/L ALT (12-78) U/L Alkaline Phosphatase (45-117) U/L Total Protein (6.4-8.2) gm/dl Albumin (3.4-5.0) gm/dl 03/08/21 Range/Units 14:52 APTT Cancelled PTT Ratio Cancelled Sodium (136-145) mmol/L Potassium (3.5-5.1) mmol/L Chloride (98-107) mmol/L Carbon Dioxide (21-32) mmol/L Anion Gap (3-11) BUN (7-18) mg/dl Creatinine (0.6-1.2) mg/dl Est Cr Clr Drug Dosing ml/min Est GFR ( Amer) ml/min Est GFR (Non-Af Amer) ml/min BUN/Creatinine Ratio (10-20) Glucose (70-99) mg/dl POC Glucose (70-99) mg/dl Calcium (8.5-10.1) mg/dl Phosphorus (2.5-4.9) mg/dl Total Bilirubin (0.2-1) mg/dl Direct Bilirubin (0-0.2) mg/dl AST (15-37) U/L ALT (12-78) U/L Alkaline Phosphatase (45-117) U/L Total Protein (6.4-8.2) gm/dl Albumin (3.4-5.0) gm/dl PG Care Time/CCT Total # of Minutes Spent Total Time Spent with Patient: Total time spent is greater than 50% in coordination of care (as documented) at patient's floor/unit and/or counseling patient: Coding Level of Care Code 01254 Subseq Hosp Care Lvl 3 Diagnoses JOSHUA (acute kidney injury) N17.9 Acute respiratory failure with hypoxia J96.01 Hypoglycemia E16.2 Metabolic encephalopathy G93.41 Hematuria R31.9 Cellulitis L03.119 Laterality: unspecified laterality Site of cellulitis: extremity Site of cellulitis of extremity: lower extremity CHF (congestive heart failure) I50.813 Heart failure chronicity: acute on chronic Heart failure type: right-sided CAD, multiple vessel I25.10 Venous stasis ulcer of both lower extremities without varicose veins I87.2; L97.919; L97.929 Lymphedema I89.0 Chronic venous insufficiency of lower extremity I87.2 PAD (peripheral artery disease) I73.9 Hypertension I10 Hyperlipidemia E78.5 Type II diabetes mellitus E11.9 Afib I48.91 Hypoalbuminemia E88.09 Elevated LFTs R79.89 DVT prophylaxis Z29.9 (1) Cellulitis Laterality: unspecified laterality Site of cellulitis: extremity Site of cellulitis of extremity: lower extremity Qualified Code(s): L03.119 - Cellulitis of unspecified part of limb (2) CHF (congestive heart failure) Heart failure chronicity: acute on chronic Heart failure type: right-sided Qualified Code(s): I50.813 - Acute on chronic right heart failure
[2021-03-09] MEDS ORDERED: ACETAMINOPHEN 1,000 MG/100 ML VIAL IV STA (13:50)
[2021-03-09] MEDS ORDERED: SODIUM CHLORIDE 0.9% 500 ML IV ONE (20:00)
[2021-03-09] MEDS ORDERED: SODIUM CHLORIDE 0.9% 250 ML IV ONE (20:00)
[2021-03-09 20:55] LABS: Albumin Level 1.4 gm/dl (3.4-5.0); BUN Creatinine Ratio 10.9 (10-20); Calcium 7.6 mg/dl (8.5-10.1); Creatinine Clr Calc Pharmacy 14.2 ml/min; Est GFR (African American) 15.1 ml/min; Magnesium 2.1 mg/dl (1.8-2.4); Potassium 4.5 mmol/L (3.5-5.1)
[2021-03-09 21:05] LABS: Albumin Globulin Ratio 0.4 (0.9-2); Bilirubin,Total 1.2 mg/dl (0.2-1); Globulin 3.8 gm/dl (2.5-4.0); Phosphorus 6.4 mg/dl (2.5-4.9); Total Protein 5.2 gm/dl (6.4-8.2)
[2021-03-09 21:22] LABS: Basophils # (auto) 0.01 K/uL (0-0.2); Basophils % (auto) 0.1 %; Echinocytes 1+; Hematocrit (blood only) 27.2 % (37-47); Immature Granulocytes # (auto) 0.07 K/uL (0.00-0.02); Immature Granulocytes % (auto) 0.5 %; Lymphocytes % (auto) 10.8 %; Mean Corpuscular Hemoglobin 29.4 pg (25-34); Mean Corpuscular Hgb Conc 33.1 g/dL (32-36); Mean Corpuscular Volume 88.9 fL (80-100); Mean Platelet Volume 11.1 fL (7.4-10.4); Monocytes # (auto) 1.28 K/uL (0.11-0.59); Monocytes % (auto) 9.2 %; Neutrophils # (auto) 11.07 K/uL (1.4-6.5); Neutrophils % (auto) 79.4 %; Platelet Count 96 K/uL (130-400); Platelet Estimate Decreased (Normal); Polychromasia 1+; RDW Coefficient of Variation 19.6 % (11.5-14.5); Red Blood Count 3.06 M/uL (4.2-5.4); White Blood Count 13.93 K/uL (4.8-10.8)
--- NOTE | 2021-03-09 21:58 | Communication Note ---
Date of Service: March 09, 2021 Called by bedside nursing for concerns of low BP in the setting of elevated heart rate and atrial fibrillation. At that time was having blood pressures in the low 60s to 80s depending on which arm was checked. At that time, stat labs were collected demonstrating an acute hemoglobin loss from 14.4 to 9.0 with also a drop in her platelets from previous check 182 to 96. At this time heparin drip drip was stopped, discussion was had with laboratory for determination if sample seems quite clotted or coagulated. Redraw of labs approximately an hour and a half later demonstrated continued drop in hemoglobin and platelets down to 8.1 and 93 respectively. At this point in time CT chest, and CT abdomen pelvis were ordered to determine potential etiologies of continued blood loss. This was done without contrast given the uncertain etiology potential blood loss and acute need for dialysis this hospital admission. Additionally phone call was made to patient's family spoke with patient's son, Brendan, obtaining consent for blood transfusions and discussions on potential care avenues in the setting of unknown acute blood loss. Following this received call from [employer] stating that the CT Abdomen Pelvis demonstrated left retroperitoneal [id number]. Returned call to patient's family discussing acute findings, after extensive discussions decision was made to pursue potential interventional radiology with preference for [facility] due to proximity to son. On discussions with [facility] transfer line, and discussions with convenience recycle center tech at [facility] additional CT abdomen pelvis with IV contrast ordered to examine for active extravasation into retroperitoneal hematoma. This was done prior to transfer in order to determine potential role of interventional radiology at [facility]. CT abdomen pelvis with contrast demonstrated 7 active extravasation sites within the hematoma. This finding was discussed with both family and the ICU provider at [facility], who accepted patient for transfer. Given patient's continued low blood pressures patient was transferred to ICU for continued management, with additional blood products ordered for transfusion and stabilization of vital signs. Patient was then transferred to [facility] via helicopter for emergent evaluation and correction of active retroperitoneal hemorrhage. Resident Activity Tracking Resident Involvement: Resident Care Provided Care Provided: Adult [facility]
[2021-03-09 22:18] LABS: Hematocrit (blood only) 24.5 % (37-47); Hemoglobin 8.1 g/dL (12.0-16.0); Mean Corpuscular Hemoglobin 29.3 pg (25-34); Mean Corpuscular Volume 88.8 fL (80-100); Nucleated RBC # (auto) 0.06 K/uL (0-0); Nucleated RBC % (auto) 0.5 %; RDW Coefficient of Variation 19.5 % (11.5-14.5); RDW Standard Deviation 62.3 fL (36.4-46.3); Red Blood Count 2.76 M/uL (4.2-5.4); White Blood Count 12.97 K/uL (4.8-10.8)
[2021-03-09] MEDS ORDERED: SODIUM CHLORIDE 0.9% 1000ML 1,000 ML IV ONE (22:18)
[2021-03-09] MEDS ORDERED: SODIUM CHLORIDE 0.9% 1000ML 750 ML IV ONE (22:21)
[2021-03-09] MEDS: ALBUMIN 25% 12.5 GM/50 ML VIAL IV SCH ×3 (22:33→23:42)
[2021-03-09 22:42] LABS: Fibrinogen 187 mg/dl (184-400); INR 1.7 (0.9-1.1); Prothrombin Time 16.3 Seconds (9.0-12.0)
[2021-03-09 22:52] LABS: Mean Corpuscular Hgb Conc 33.1 g/dL (32-36); Mean Platelet Volume 11.1 fL (7.4-10.4); Platelet Count 93 K/uL (130-400)
[2021-03-09] MEDS ORDERED: SODIUM CHLORIDE 0.9% 250 ML IV PRN (22:54)
[2021-03-09 22:55] LABS: Echinocytes 1+; Eosinophils # (auto) 0.01 K/uL (0-0.5); Eosinophils % (auto) 0.1 %; Immature Granulocytes # (auto) 0.07 K/uL (0.00-0.02); Immature Granulocytes % (auto) 0.5 %; Lymphocytes # (auto) 1.28 K/uL (1.2-3.4); Lymphocytes % (auto) 9.9 %; Monocytes # (auto) 1.03 K/uL (0.11-0.59); Monocytes % (auto) 7.9 %; Neutrophils # (auto) 10.58 K/uL (1.4-6.5); Neutrophils % (auto) 81.6 %; Polychromasia 1+
[2021-03-10] MEDS: ALBUMIN 25% 12.5 GM/50 ML VIAL IV SCH (00:02)
[2021-03-10] MEDS ORDERED: SODIUM CHLORIDE 0.9% 1000ML 1,000 ML IV ONE (00:15)
[2021-03-10] MEDS ORDERED: SODIUM CHLORIDE 0.9% 250 ML IV PRN ×3 (01:34→03:03)
[2021-03-10] MEDS: METOPROLOL TARTRATE 1 MG/ML VIAL IV SCH (02:06)
[2021-03-10] MEDS ORDERED: OPTIRAY 320 100ml IV ONE (02:16)
--- NOTE | 2021-03-10 02:23 | Critical Care Consultation ---
Date of Consultation March 10, 2021 Assessment & Plan (1) Acute hemorrhage: Reason Critically Ill: 80-year-old female transferred to the ICU following acute retroperitoneal hemorrhage with hypotension requiring multiple units of blood transfusion. Repeat CT abdomen pelvis showed active retroperitoneal bleed and plan for patient to transfer for interventional radiology. Neuro - Metabolic encephalopathylikely multifactorial with patient with acute renal failure and elevated BUN, likely delirium contributing as well -Hypoglycemia resolved -CT head 03/07 without acute intracranial abnormalities. No change in left frontal extra-axial lesion favoring meningioma. Cardiac - Hypotensionimproved with volume resuscitation following blood transfusion. No pressors at this time and currently normotensive Right heart failuremoderately dilated right ventricle with moderately reduced systolic function noted on echo -Improved following hemodialysis A. fibholding anticoagulation in the setting of acute hemorrhage -Rate currently acceptable. Continuous monitoring on telemetry -Continue MTP PADfollows with Dr. Ramsey without planned interventions Respiratory - HypoxiaCurrently maintaining oxygen saturation on nasal cannula without respiratory distress -Large left and moderate large right pleural effusions seen on CT chest causing atelectasis. Consider thoracentesis -Continuous monitoring pulse on -Strict I's and O's GI - N.p.o. RENAL/LYTES - Acute renal failuresuspected interstitial nephritis secondary to Cefidercol. Unable to rule out autoimmune causes, multiple myeloma, etc. at this time -Started on IV steroids 03/05 - patient underwent hemodialysis x3. Underwent trial of Bumex over 48 hours -Creatinine increasing on most recent BMP -Nephrology following to coordinate hemodialysis -Awaiting renal recovery - Foleystrict I's and O's -Hematuria resolved ENDO - DM type IIholding glipizide, continue sliding scale -Hypoglycemia resolved -Octreotide DC'd on 03/07 HEME - Acute hemorrhagepatient with actively bleeding retroperitoneal bleed as demonstrated on CT abdomen pelvis -Patient is received 2 units RBCs, 1 unit FFP, 1 unit cryo. 2 units RBCs additionally on hold -Patient accepted to [facility] and awaiting transfer for interventional radiology -Trend H&H, transfuse as indicated ID - Cellulitispatient previously on IV cefiderocol for MDR Pseudomonas which may have caused JOSHUA/acute renal failure -ID following, holding further antibiotics at this time -Trend fever curve LINES/IV ACCESS - Peripheral IVs DVT PROPHYLAXIS - SCDs, no anticoagulation in the setting of acute hemorrhage I have personally spent 40 minutes of critical care time in the direct management of this patient. This is a life/limb threatening event. This includes time spent evaluating patient, direct bedside care, chart review, placing order s, interpretation of diagnostic studies, discussion with consultants, patient, and family members, as well as other required patient management activities. This time is exclusive of all separately billable procedures, and teaching time and separate from and in addition to any other critical care service time. Thank you for allowing us to participate in the care of this patient. Please refer to my attending physician's documentation for any further recommendations. (2) Type II diabetes mellitus: (3) Acute respiratory failure with hypoxia: (4) Metabolic encephalopathy: (5) Metabolic acidosis: (6) Hyponatremia: (7) Hyperkalemia: (8) Hematuria: (9) Elevated LFTs: (10) DVT prophylaxis: (11) History of MDR Pseudomonas aeruginosa infection: (12) Cellulitis: (13) JOSHUA (acute kidney injury): (14) Hypoglycemia: (15) PAD (peripheral artery disease): (16) Brain lesion: (17) CHF (congestive heart failure): (18) Anemia: (19) CAD, multiple vessel: (20) Afib: (21) Retroperitoneal hemorrhage: History of Present Illness Attending Physician: Stacy Dumont MD History of Present Illness Patient is a 80-year-old female with PMH including A. fib (on apixaban), HTN, CHF, HLD, DM type II, CAD, PAD who [facility]. She was admitted from the wound clinic where she was noted to be lethargic, confused with blood sugar in the 40s. She reported decreased appetite and poor intake over the past several weeks. She is admitted to the hospital and was undergoing treatment for acute renal failure and had received hemodialysis x3 days. This evening patient became hypotensive and lab work revealed drop in hemoglobin from 14to 8. Patient was on a heparin drip which was stopped and she was taken for a stat CT abdomen pelvis which revealed 18 x 13 x 13 cm leftward retroperitoneal hematoma extending from the left upper quadrant to the upper pelvis. INR 1.7, platelets 94, fibrinogen 184. She received 2 units RBCs, 1 unit cryo, and 1 unit FFP with 2 additional units RBCs on hold. She was transferred to ICU. She had a repeat CT abdomen pelvis with IV contrast approximately 2 hours after the initial study. This image revealed multiple foci of active bleeding associated with a large hematoma of the leftward retroperitoneum. Patient will likely need interventional radiology for active retroperitoneal bleed and has been accepted to [facility]. Allergies Allergy/AdvReac Type Severity Reaction Status Date / Time pineapple Allergy Mild Unknown Verified 03/04/21 17:53 enalapril AdvReac Intermediate Cough Verified 03/03/21 22:00 Home Medications Medication Instructions Recorded Confirmed Type cyanocobalamin (vitamin B-12) 1,000 mcg SL DAILY #30 tab 02/20/19 03/03/21 History 1,000 mcg sublingual tablet ferrous sulfate 325 mg (65 mg 325 mg PO Q OTHER DAY tab 04/28/20 03/03/21 History iron) tablet glipizide 5 mg tablet, extended 5 mg PO DAILY #90 tab 10/31/20 03/03/21 Rx release 24 hr clopidogrel 75 mg tablet 75 mg PO QAM #90 tab 11/04/20 03/03/21 Rx atorvastatin 40 mg tablet 40 mg PO QPM #90 tab 12/30/20 03/03/21 Rx apixaban 2.5 mg tablet (Eliquis) 2.5 mg PO BID #180 tab 01/25/21 03/03/21 Rx losartan 25 mg tablet 25 mg PO QAM #90 tab 01/30/21 03/03/21 Rx acetaminophen 500 mg tablet 500 mg PO Q4 PRN MDD 3g 02/15/21 03/03/21 History (Tylenol Extra Strength) metoprolol succinate 100 mg 100 mg PO QAM 02/15/21 03/03/21 History tablet,extended release 24 hr (Toprol XL) metoprolol succinate 50 mg 50 mg PO HS 02/15/21 03/03/21 History tablet,extended release 24 hr furosemide 80 mg tablet 80 mg PO QAM 30 Days #30 tab 02/18/21 03/03/21 Rx cefiderocol 1 gram intravenous 1 g IV Q8H 10 Days ea 02/27/21 03/03/21 Rx solution metolazone 10 mg tablet 10 mg PO DAILY PRN 03/03/21 03/03/21 History Patient History Medical History (Updated 03/10/21 @ 03:14 by BRIANDA Chisholm) Acute kidney injury Acute respiratory distress Afib ON ELIQUIS - FOLLOWS W/ DR. RAMSEY Age related osteoporosis Aortic atherosclerosis Atrial fibrillation with rapid ventricular response Cellulitis of left lower extremity Coronary artery disease Card cath- 09/04/2019- severe multilevel coronary disease- 90 % mid LAD, 50 % Prox. LAD in stent stenosis, 70-80 % mid circumflex OM2, 90 % distal RCA Creatinine elevation Deep venous thrombosis of lower extremity (02/20/12) Diabetes mellitus, type 2 NIDDM Diabetic peripheral neuropathy History of myocardial infarction 1999 [place] (hard of hearing) Hyperkalemia Hyperlipidemia Hypertension Hyponatremia Hypoxia Metabolic acidosis Murmur Nonproliferative diabetic retinopathy Numbness Peripheral vascular disease Polymyalgia rheumatica Renal artery stenosis, [place], bilateral Rheumatoid arthritis Secondary diabetes mellitus Somnolence Traumatic wound Vitamin B12 deficiency Weight loss Surgical History History of cardiac catheterization 1999 - [facility] - 1 STENT History of colonoscopy History of heart artery stent 1 STENT History of total abdominal hysterectomy and bilateral salpingo-oophorectomy Hx of tonsillectomy S/P breast biopsy Family History Father Bone cancer Lung disease Sister Arthritis of hand Mother Hypertension Brother Hypertension Anxiety Depression Gallbladder disease Lung disease Unknown Hypertension Denies family history of Ovarian cancer Prostate cancer Myocardial infarction Breast cancer Colorectal cancer Social History Smoking Status: Never smoker Second Hand Exposure: No (OCCASIONAL EXPOSURE); Hx Alcohol Use: No Hx Substance Use: No Preferred Language: Bulgarian Communication Ability: Effective Visual Impairment: No Limitations Hearing Ability: Normal Dry Clipper Tender Required: No Beliefs That Will Affect Care: None marital status: Current Living Situation: [facility] Current Living Situation Comment: Lives at the [facility] current occupational status: retired 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 [place] Feels Safe at Home: Yes Childhood Exposure to Second-Hand Smoke: No Dental Care, Regularly: Yes Physical Activity Frequency: 3-4 Times per Week Seatbelt Use: always Sunscreen Use: Yes Assistive Devices: Oxygen - Continuous Review of Systems Review of Systems: Unobtainable due to cognitive status Physical Exam Constitutional: + altered mental status and + frail appearing; + uncooperative Eyes: PERRL, conjunctivae normal, anicteric sclerae ENMT: external ear and nose normal, oropharynx normal Neck: trachea midline, no thyromegaly Respiratory: normal respiratory effort, lungs clear to auscultation Cardiovascular: Rate/Rhythm: + tachycardic and + irregularly irregular Heart Sounds: no murmur Bilateral lower extremity edema +2, palpable pedal pulses +1 Gastrointestinal (Abdomen): normal bowel sounds, soft, nontender, no hepatosplenomegaly Neurologic: Exam limited to confusion/AMS, PERRLA, moves extremities symmetrically Psychiatric: Confused, disoriented Genitourinary: Indwelling Santana catheter Results & Data Results & Data ([facility]) Vital Signs (Past 12 Hours) Vital Signs Temp Pulse Pulse Pulse Resp BP BP 03/10/21 02:06 92/54 L 03/10/21 01:32 35.6 C L 112 H 18 92/54 L 03/10/21 01:17 35.6 C L 128 H 18 86/48 L 03/10/21 01:01 35.5 C L 117 H 16 81/54 L 03/10/21 00:49 35.5 C L 115 H 16 96/62 L 03/10/21 00:29 112/49 L 03/09/21 23:58 90/51 L 03/09/21 23:43 113 H 16 96/55 L 03/09/21 23:16 116 H 108/64 03/09/21 22:57 81/46 L 03/09/21 22:43 118 H 93/61 L 03/09/21 22:23 128 H 103/51 L 03/09/21 21:19 127 H 129/69 03/09/21 19:59 122 H 112/58 L 03/09/21 19:46 113/74 03/09/21 19:35 35.8 C L 120 H 21 62/46 L 03/09/21 19:30 87/46 L 03/09/21 17:53 113 H 108/82 03/09/21 15:42 36.4 C L 105 H 16 108/82 Pulse Ox 03/10/21 02:06 03/10/21 01:32 100 03/10/21 01:17 100 03/10/21 01:01 100 03/10/21 00:49 100 03/10/21 00:29 03/09/21 23:58 03/09/21 23:43 100 03/09/21 23:16 03/09/21 22:57 03/09/21 22:43 03/09/21 22:23 03/09/21 21:19 03/09/21 19:59 03/09/21 19:46 03/09/21 19:35 100 03/09/21 19:30 03/09/21 17:53 03/09/21 15:42 99 Coding Level of Care Code Critical Care 1st 30-74 mins Diagnoses Type II diabetes mellitus E11.9 Acute respiratory failure with hypoxia J96.01 Metabolic encephalopathy G93.41 Metabolic acidosis E87.2 Hyponatremia E87.1 Hyperkalemia E87.5 Hematuria R31.9 Elevated LFTs R79.89 DVT prophylaxis Z29.9 History of MDR Pseudomonas aeruginosa infection Z86.19 Cellulitis L03.119 Laterality: unspecified laterality Site of cellulitis: extremity Site of cellulitis of extremity: lower extremity JOSHUA (acute kidney injury) N17.9 Hypoglycemia E16.2 PAD (peripheral artery disease) I73.9 Brain lesion G93.9 CHF (congestive heart failure) I50.813 Heart failure chronicity: acute on chronic Heart failure type: right-sided Anemia D64.9 CAD, multiple vessel I25.10 Afib I48.91 Retroperitoneal hemorrhage R58 Acute hemorrhage R58 (1) Cellulitis Laterality: unspecified laterality Site of cellulitis: extremity Site of cellulitis of extremity: lower extremity Qualified Code(s): L03.119 - Cellulitis of unspecified part of limb (2) CHF (congestive heart failure) Heart failure chronicity: acute on chronic Heart failure type: right-sided Qualified Code(s): I50.813 - Acute on chronic right heart failure
--- NOTE | 2021-03-10 08:35 | CT Scan Report ---
CT chest diagnostic wo con CLINICAL HISTORY: Concern for bleed COMPARISON STUDY: February 26, 2013 CT DOSE: 2324.41 mGy.cm TECHNIQUE: CT of the thorax was performed from the thoracic inlet to the lung bases. Images are revi ewed in the axial, sagittal, and coronal planes. IV contrast was not administered for this examinatio n. A dose lowering technique was utilized adhering to the principles of ALARA. FINDINGS: Limited exam due to motion artifact and beam hardening artifact from patient's arms. There is no axillary, supra clavicle or internal mammary lymphadenopathy seen. Visualized mediastinal lymph nodes are not enlarged. Distal portion of the right jugular venous catheter is seen terminating within at the atriocaval junc tion. Thyroid: Is not well seen. Thoracic aorta: The thoracic aorta is normal in course and caliber with scattered calcifications of i ts wall. Distal thoracic aorta is tortuous.. Heart: Mild four-chamber cardiomegaly seen. Main pulmonary artery is within upper limits of normal fo r size. No definite pericardial effusion is seen. Lungs and pleural spaces: Trachea and main bronchi are patent. There is occlusion of distal peripheral bronchial structures wit hin bilateral lower lobes associated with atelectasis within bilateral lower lobes and large bilatera l pleural effusion. Evaluation of liver parenchyma is significantly limited due to motion artifact. Upper abdomen: Mild ascites. Cholelithiasis. Evaluation for cholecystitis is difficult due to diffus e mesenteric edema, lack of IV contrast and motion artifact. There is large, partially visualized lef t retroperitoneal hyperattenuating collection associated with anterior displacement of the left kidne y likely representing hematoma. Skeletal structures: Osteopenia. Multilevel degenerative changes of the spine. Compression fracture d eformity of the L1. Diffuse subcutaneous edema is seen, most prominent at the right and left chest wall. IMPRESSION: 1. Partially visualized left retroperitoneal hematoma with anterior displacement of the left kidney. These findings were better evaluated on CT of abdomen and pelvis performed at the same time. 2. Large bilateral pleural effusion associated with atelectasis at bilateral bases. Occlusion of per ipheral bronchial structures within bilateral lower lobes could also represent aspiration. Please cor relate this findings was prior history. 3. Mild four-chamber cardiomegaly. 4. Limited exam due to motion and beam hardening artifact as well as lack of IV contrast. 5. The rest of findings as above. ACT 112: Negative or not required by law. The above report was generated using voice recognition software. It may contain grammatical, syntax o r spelling errors. Electronically signed by: Yisel Valverde DO 03/10/2021 8:34 AM
--- NOTE | 2021-03-10 08:37 | CT Scan Report ---
ABDOMEN AND PELVIS CT WITH IV CONTRAST CT DOSE: 1724.82 mGy.cm HISTORY: Follow-up retroperitoneal hematoma TECHNIQUE: Multiaxial CT images of the abdomen and pelvis were performed following the use of intrave nous contrast. A dose lowering technique was utilized adhering to the principles of ALARA. COMPARISON STUDY: Abdomen and pelvis CT 03/09/2021. FINDINGS: There is no moderate superior endplate compression fracture at L1. There is a large multilo culated left retroperitoneal hematoma measuring 16 x 10 x 10 cm and appears to have slightly decrease d in size in the interval. There appears to be foci of active extravasation within the left psoas mus bao on image 60 and within the left retroperitoneal space on images 57 and 56. Multiple additional fo ci of active extravasation within the proximal left psoas muscle on images 40 and 42. This extends fr om the left upper quadrant into the pelvis. Interval improvement in the anterior displacement of the left kidney and mild mass effect along the lower pole of the left kidney. Moderate bilateral pleural effusions. Bilateral lower lobe densities are nonspecific but favor compressive atelectasis. There is diffuse anasarca. The bladder is decompressed by Santana catheter. The uterus surgically absent. Nayana lithiasis. The unenhanced liver is unremarkable. The spleen is displaced superiorly by the hematoma. The visualized adrenal glands and right kidney are unremarkable. Normal caliber abdominal aorta. This hematoma also displaces the descending colon anteriorly. No definite bowel wall thickening or obstru ction. No acute fractures within the visualized osseous structures. Old, healed right-sided rib fract ures are noted. Progressive intraperitoneal fluid most pronounced within the right lower quadrant. Th is is intermediate density may represent a combination of ascites and intraperitoneal hematoma. IMPRESSION: 1. Multiple foci of active extravasation seen within the left psoas muscle and left retroperitoneal s pace as described above consistent with active bleed. However, the large left retroperitoneal hematom a has slightly decreased in size and measures 16 x 10 x 10 cm. 2. Moderate bilateral pleural effusions with bibasilar densities suggesting compressive atelectasis. 3. Anasarca. 4. Small to moderate amount of ascites which has progressed in the interval. This is intermediate den sity could represent a combination of ascites and intraperitoneal hemorrhage. 5. Cholelithiasis. ACT 112: Negative or not required by law. Electronically signed by: Bartolome Butcher M.D. 03/10/2021 8:36 AM
--- NOTE | 2021-03-10 08:51 | CT Scan Report ---
ABDOMEN AND PELVIS CT WITHOUT CONTRAST CT DOSE: HISTORY: Left flank pain. Concern for bleed TECHNIQUE: Multiaxial CT images of the abdomen and pelvis were performed without contrast. A dose lo wering technique was utilized adhering to the principles of ALARA. COMPARISON STUDY: Abdomen and pelvis CT 02/26/2013. FINDINGS: There is no moderate superior endplate compression fracture at L1. There is a large multilo culated left retroperitoneal hematoma measuring 19 x 14 x 12 cm. This extends from the left upper gumaro drant into the pelvis. This may originate from the left psoas muscle was also demonstrates a small am ount of intramuscular hematoma. This results in anterior displacement of the left kidney and mild mas s effect along the lower pole the left kidney. Moderate bilateral pleural effusions. Bilateral lower lobe densities are nonspecific but favor compressive atelectasis. There is diffuse anasarca. The blad gaby is decompressed by Santana catheter. The uterus surgically absent. Cholelithiasis. The unenhanced l iver is unremarkable. The spleen is displaced superiorly by the hematoma. The visualized adrenal glan ds and right kidney are unremarkable. Normal caliber abdominal aorta. This hematoma also displaces th e descending colon anteriorly. No definite bowel wall thickening or obstruction. No acute fractures w ithin the visualized osseous structures. Old, healed right-sided rib fractures are noted. The blood p ool demonstrates anemia. IMPRESSION: 1. A 19 x 14 x 12 cm left retroperitoneal hematoma as described above. This results in anterior displ acement and mass effect along the left kidney. 2. Moderate bilateral pleural effusions with bibasilar densities suggesting compressive atelectasis. 3. Anasarca. 4. Anemia. 5. Cholelithiasis. ACT 112: Negative or not required by law. Electronically signed by: Bartolome Butcher M.D. 03/10/2021 8:50 AM
[2021-03-10 13:26] LABS: ANCA Screen Negative (Negative); Albumin 2.7 g/dL (3.8-4.8); Alpha 1 Globulin 0.5 g/dL (0.2-0.3); Alpha 2 Globulin 0.7 g/dL (0.5-0.9); Anti Nuclear Antibody Screen POSITIVE (NEGATIVE); Anti-Glom Basement Antibody <1.0 AI (<1.0); Anti-dsDNA Recombinant 9 IU/mL; Beta-1-Globulin 0.4 g/dL (0.4-0.6); Beta-2-Globulin 0.5 g/dL (0.2-0.5); Complement C3 93 mg/dL (83-193); Free Kappa 214.7 mg/L (3.3-19.4); Free Kappa/Lambda Ratio 0.98 (0.26-1.65); Free Lambda 219.7 mg/L (5.7-26.3); Gamma Globulin 1.9 g/dL (0.8-1.7); Monoclonal Protein Band 1 DNR g/dL (NONE DETECTED); Monoclonal Protein Band 2 DNR g/dL (NONE DETECTED); Monoclonal Protein Band 3 DNR g/dL (NONE DETECTED); Myeloperoxidase Ab <1.0 AI (<1.0); Proteinase-3 AB <1.0 AI (<1.0); Total Protein 6.7 g/dL (6.1-8.1)
[2021-03-13 07:18] LABS: ANA Pattern Nuclear, Speckled; ANA Titer 1:40 titer
--- NOTE | 2021-03-15 12:44 | Discharge Summary ---
Date of Service February Admission HPI Per Admitting Provider Brandee Alonso is a pleasant 80yo female with history of AF on Apixaban, HTN/HLP/DM/CAD presenting from the [facility] with hypoglycemia. Patient was at the wound clinic today and was noted to be lethargic, confused and clammy. A blood sugar was checked and was found to be low in the 40's. Oral glucose administration was attempted unsuccessfully and the patient was sent to the ER. Blood sugar 53 on arrival. Patient was administered 1 amp of D50 with improvement. Of note, patient reports decreased appetite and poor oral intake over the last several weeks. She was started on a new antibiotic for her LLE wounds and states that she has not had much appetite since then. She is on Glipizide outpatient. She took this in the morning and did not have lunch. She is complaining of low back pain as well as thigh pain since today as well as decreased UOP. Otherwise, patient denies complaints. She denies fever/chills/chest pain/palpitations/cough/SOB/nausea/vomiting/diarrhea or constipation. ER Course: D50 x 1 amp, Octreotide, NSS Principal Diagnosis Acute kidney injury, acute blood loss anemia, hypovolemic hemorrhagic shock, retroperitoneal hemorrhage, acute metabolic encephalopathy Discharge Data Allergies Allergy/AdvReac Type Severity Reaction Status Date / Time pineapple Allergy Mild Unknown Verified 03/04/21 17:53 enalapril AdvReac Intermediate Cough Verified 03/03/21 22:00 Consultations 03/03/21 20:42 ED Decision to Admit Stat 03/04/21 13:50 Consult Urology Routine 03/04/21 18:15 Consult Nephrology Routine 03/05/21 10:27 Consult Infectious Diseases Routine 03/06/21 09:02 Consult [employer] Draw[employer] Routine 03/10/21 03:12 Burn CD for patient Stat Ordered Studies 03/04/21 00:00 US renal/blad retro comp Routine 03/06/21 09:09 US point of care ultrasound Routine 03/07/21 13:58 CT head/brain wo con Stat 03/09/21 22:21 CT abd pelvis wo con Urgent CT chest diagnostic wo con Urgent 03/10/21 01:17 CT abd pelvis IV con only Urgent Hospital Course (1) JOSHUA (acute kidney injury): Interstitial nephritis suspected -- 2nd to cefiderocol? Can't rule out autoimmune causes, multiple myeloma, etc. Cefiderocol d/c on 03/05. Steroids initiated 03/05. Continue such. Prednisone changed to IV steroids due to inconsistent taking of her PO meds. Temporary HD catheter placed - right IJ - on 03/06. First HD session 03/06. 2nd HD session 03/07. 3rd HD sessions 03/08. Holding on HD today, giving IV Bumex 4mg x 1 and assess UOP May need HD again tomorrow based on response to bumex If steroids not helping, may discontinue in near future as per Nephrology LUCÍA mildly positive, ANCA negative, SPEP pending Awaiting renal recovery. (2) Hemorrhagic shock: on the evening of 03/09, pt had sudden hypotension with systolics in the 60s and was with worsening mentation. Found ot have acute drop in hgb to 8 from 14 the day prior. Heparin gtt was STOPPED and CT abd/pel revealed large left sided RP hemorrhage with active extravasation. SHe was transfused PRBCs, FFP, and transferred to [facility] by life flight for urgent IR intervention. Family updated by overnight MD. No vasopressors were needed (3) Acute blood loss anemia: as above (4) Retroperitoneal hemorrhage: as above (5) Acute respiratory failure with hypoxia: 2nd to pulmonary edema/volume overload in setting of #1 (and baseline cor pulmonale). O2 via NC. Improving with HD (6) Metabolic encephalopathy: Ongoing. Multifactorial, but JOSHUA/uremia likely largest factor. Improving today since I last saw her but still continues. Supportive care given, reorientation Avoid benzos/sedatives. is refusing most po-continue to encourage po intake using IV meds while refusing po meds (7) Hypoglycemia: Likely 2nd to sulfonylurea retention in the setting of JOSHUA. Octreotide d/c on 03/07. Steroids for #1 will help. Now improved and weaned off D10 (8) Hematuria: Likely arriaga trauma in the setting of eliquis & plavix use. Urology has seen - no Rx needed. Now resolved Eliquis on hold and on heparin gtt as was refusing po meds and high risk for CVA--> heparin gtt held for RP bleed spontaneously as above. Remains on plavix but also not taking (9) Cellulitis: RLE. Seems improved IV cefiderocol previously employed as recommended by Gevidyaer ID for MDR pseudomonas that grew on recent cultures. Concern that cefiderocol may have caused the JOSHUA. This has been discontinued. ID consulted again - observe off of antibiotics. (10) CHF (congestive heart failure): Decompensated. Acute/chronic right-sided CHF in the setting of JOSHUA. s/p HD x 3 sessions since Saturday. Edema improving, pulm status improved (11) CAD, multiple vessel: No evidence of ACS or ischemia. Continue Plavix if will take except should hold now in setting of RP bleed; Continue Metoprolol IV once BPs improved. (12) Venous stasis ulcer of both lower extremities without varicose veins: Recurrent venous stasis ulcers. Follows with [facility]. Wound care consult placed for dressings, etc. (13) Lymphedema: Chronic Compression contraindicated per cardiology 2nd PAD (14) Chronic venous insufficiency of lower extremity: history of bilateral GSV Venaseal with Dr. Tk Torres. (15) PAD (peripheral artery disease): Follows with Dr. Torres. No intervention planned. Compression wraps contraindicated per Dr. Torres. (16) Hypertension: Holding Losartan, Lasix and Metolazone due to ARF. Continue metoprolol IV scheduled once BPs improved. (17) Hyperlipidemia: Hold Atorvastatin (18) Type II diabetes mellitus: Holding glipizide - see above. (19) Afib: Rates still mild tachy 90-100s earlier and then iuncreased due to hypovolemia and hemorrhagic shock eliquis on hold as patient has been inconsistently taking her meds here and due to high risk for CVA,was on heparin gtt x 3 days--> but now heparin gtt stopped as above due to RP bleed (20) Hypoalbuminemia: ongoing severe anorexia (21) Elevated LFTs: suspect 2nd to right-sided CHF leading to hepatic congestion. repeat LFTs in am. holding statin (22) DVT prophylaxis: eliquis is on hold heparin drip instead Dispo-trasnfer out urgently for IR for RP bleed Prognosis quite guarded Total Time Total Time Spent Total Time Spent (In Minutes): 35 min Discharge Plan Discharge Items Patient Disposition: Transfer Acute Care Hospital Reason For Visit: JOSHUA, HYPOGLYCEMIA Discharge Diagnosis: acute retroperitoneal hemorrhage Activity: Per Instructions section Non-emergency contact: Primary Care Provider, Surgeon and Desizing Machine Operator Head End Call non-emergency contact if: you have any medication questions Follow-up/Referrals: Gilbert Posadas MD [Primary Care Provider] - Diet: Carb Consistent or DM2 Addtl Attending Provider Instructions: Transferred to [facility] for interventional radiology correction of active retroperitoneal hemorrhage. Pending Studies at Discharge: No Stand-Alone Forms: My [facility] Skilled Items Patient informed of condition?: Yes DNR: Yes Discharge Level of Care: Other Communicable Disease: No Discharge Prognosis: Deteriorating Lines: Peripheral IV, Mid-Line and US Guided Peripheral IV Urinary Catheter: Yes Medications and DC Order Prescriptions: Continued glipizide 5 mg tablet extended release 24hr 5 mg PO DAILY Qty: 90 RF: 1 clopidogrel 75 mg tablet 75 mg PO QAM Qty: 90 RF: 3 atorvastatin 40 mg tablet 40 mg PO QPM Qty: 90 RF: 3 Eliquis 2.5 mg tablet 2.5 mg PO BID Qty: 180 RF: 0 losartan 25 mg tablet 25 mg PO QAM Qty: 90 RF: 3 cyanocobalamin (vitamin B-12) 1,000 mcg tablet, sublingual 1,000 mcg SL DAILY Qty: 30 RF: 0 ferrous sulfate 325 mg (65 mg iron) tablet 325 mg PO Q OTHER DAY RF: 0 metoprolol succinate 50 mg Tablet Extended Release 24 Hr 50 mg PO HS RF: 0 metoprolol succinate [Toprol XL] 100 mg tablet extended release 24 hr 100 mg PO QAM RF: 0 acetaminophen [Tylenol Extra Strength] 500 mg Tablet 500 mg PO Q4 MDD 3g PRN (Reason: Pain, Mild) RF: 0 furosemide 80 mg Tablet 80 mg PO QAM 30 Days Qty: 30 RF: 3 metolazone 10 mg Tablet 10 mg PO DAILY PRN (Reason: if weight >180, take before lasix) RF: 0 Discharge Orders: Discharge Order (Routine); Ordered 03/10/21 Ordered By: Donald Burger/Other Patient Handouts: A1C, Hypoglycemia (Low Blood Sugar), Managing Type 2 Diabetes Admission Data Admit Date/Time: 03/03/21 21:20 Attending Provider: Stacy Dumont Admit Provider: Мария Lerma Primary Care Provider: Gilbert Posadas V. Other Providers: Мария Lerma ; Shane Lopez ; Noreen Lai ; Nestor Jenkins ; Claudia Jensen ; Dmitry Lerma I. ; [place] II ; Apurva Garza ; Jacky Pickard ; Harrison Mcduffie Other Interventions: Discharge Summary Assessment (RN) Last Done: 03/10/21 03:45 Coding Level of Care Code None Diagnoses JOSHUA (acute kidney injury) N17.9 Acute respiratory failure with hypoxia J96.01 Metabolic encephalopathy G93.41 Hypoglycemia E16.2 Hematuria R31.9 Cellulitis L03.119 Laterality: unspecified laterality Site of cellulitis: extremity Site of cellulitis of extremity: lower extremity CHF (congestive heart failure) I50.813 Heart failure chronicity: acute on chronic Heart failure type: right-sided CAD, multiple vessel I25.10 Venous stasis ulcer of both lower extremities without varicose veins I87.2; L97.919; L97.929 Lymphedema I89.0 Chronic venous insufficiency of lower extremity I87.2 PAD (peripheral artery disease) I73.9 Hypertension I10 Hyperlipidemia E78.5 Type II diabetes mellitus E11.9 Afib I48.91 Hypoalbuminemia E88.09 Elevated LFTs R79.89 DVT prophylaxis Z29.9 Retroperitoneal hemorrhage R58 Acute blood loss anemia D62 Hemorrhagic shock R57.8
== END 2021-03-10 03:55 | disposition short-term general hospital (02) | DRG 698 ==
LOC: ED 18:54 → SUATTDRO 21:20 → 2N 21:20 → 2E 03-05 20:57 → 1E 03-10 01:34